=== PATIENT | male | born 1955 | race Caucasian/White ===

== ENCOUNTER 2020-09-19 22:41 | Inpatient (IN) | payer MEDICARE, SELFPAY ==
--- NOTE | ~2020-09-19 | CT_ITS ---
EXAMINATION: CT ABDOMEN AND PELVIS WITHOUT CONTRAST CLINICAL INFORMATION: Evaluate for cirrhosis and hydronephrosis COMPARISON: None TECHNIQUE: Multidetector volumetric imaging was performed from the superior aspect of the liver through the pubic symphysis. Sagittal and coronal reformatted images were obtained on the technologist's workstation. This CT examination was performed using dose optimization techniques as appropriate, variously including the following: *Automated exposure control *Adjustment of mA and/or kV according to patient size (this includes techniques or standardized protocols for targeted exams where dose is matched to indication/reason for exam; i.e. extremities or head) *Use of iterative reconstruction technique DLP: 520 mGy-cm FINDINGS: LUNG BASES: The visualized lung bases are unremarkable. LIVER, GALLBLADDER, AND BILIARY TREE: The liver is normal in size, shape, and attenuation. No focal hepatic lesion or biliary ductal dilatation is present. The gallbladder is contracted. PANCREAS: Unremarkable. SPLEEN: Unremarkable. ADRENAL GLANDS: Unremarkable. KIDNEYS AND URETERS: There are 2 adjacent small 1 to 2 mm stones in the upper pole of the left kidney. The kidneys are otherwise unremarkable. There is no hydronephrosis. BLADDER: Unremarkable. GASTROINTESTINAL TRACT: There is mild diverticulosis of the colon. Small and large bowel is otherwise unremarkable. The appendix is normal. The stomach is normal. ABDOMINAL WALL: No significant hernia is appreciated. There is skin thickening and calcification over the buttock. LYMPH NODES: There are prominent bilateral inguinal lymph nodes. There are small pelvic retroperitoneal lymph nodes. VASCULAR: Unremarkable. PELVIC VISCERA: Prostate gland is slightly enlarged and measures 4 x 5.3 cm in AP and transverse dimension. OSSEOUS STRUCTURES: There are degenerative changes of the spine. CT/CT abdomen pelvis wo con IMPRESSION: Normal-appearing liver. Small left renal stones. No hydronephrosis. Mild diverticulosis. Slightly enlarged prostate gland. Bilateral inguinal lymphadenopathy.
[2020-09-19 23:04] VITALS: BP 83/52; PULSE 77; RESP 16; TEMP 36.5; O2SAT 98; BMI 24.3
--- NOTE | 2020-09-19 23:04 | ECG_ITS ---
Test Reason : WEAKNESS Blood Pressure : / mmHG Vent. Rate : 075 BPM Atrial Rate : 075 BPM P-R Int : 182 ms QRS Dur : 126 ms QT Int : 402 ms P-R-T Axes : 060 040 047 degrees QTc Int : 448 ms Normal sinus rhythm Right bundle branch block Abnormal ECG When compared with ECG of 16-NOV-2003 03:10, Right bundle branch block is now Present Referred By: Rina Olvera Electronically Signed By:RASHEEDA TOMLINSON MD
[2020-09-19 23:28] LABS: MANUAL DIFF FLAG NO
[2020-09-19 23:29] LABS: Basophils Absolute Auto 0.1 X10*3/uL (0.0-0.2); Eosinophils Absolute Auto 0.3 X10*3/uL (0.0-0.4); Eosinophils Percent Auto 2.8 % (0-4); Hematocrit 24.8 % (42-52); Hemoglobin 7.9 g/dl (14.0-18.0); Imm Gran Abs Auto 0.04 X10*3/uL (0.00-0.03); Imm Gran Pct Auto 0.4 % (0.0-0.4); Lymphocytes Absolute Auto 1.6 X10*3/uL (1.2-4.9); Lymphocytes Percent Auto 15.4 % (20-40); Mean Corpuscular HGB Conc 31.9 g/dl (31.0-36.0); Mean Corpuscular Hemoglobin 31.1 pg (27.0-33.0); Mean Corpuscular Volume 97.6 fL (80-98); Mean Platelet Volume 8.6 fL (9.4-12.4); Monocytes Absolute Auto 0.9 X10*3/uL (0.1-1.2); Monocytes Percent Auto 8.9 % (2-11); Neutrophils Absolute Auto 7.5 X10*3/uL (2.0-8.3); Neutrophils Percent Auto 71.5 % (45-73); Platelet Count 358 X10*3/uL (160-400); Red Blood Count 2.54 X10*6/uL (4.60-5.80); Red Cell Distribution Width 14.4 % (11.0-16.0); White Blood Count 10.5 X10*3/uL (4.8-10.8)
[2020-09-19 23:35] LABS: INTERNATIONAL NORM RATIO 1.1 (0.9-1.1); Prothrombin Time 13.5 SEC (10.8-13.0)
[2020-09-19 23:58] LABS: Troponin-I High Sensitivity 4.7 ng/L (<3.5-35.0)
[2020-09-20] VITALS (8 sets, daily range): BP systolic 110–153; BP diastolic 45–85; PULSE 72–89; RESP 15–20; TEMP 36.6–37.6; O2SAT 95–99
[2020-09-20 00:01] LABS: Ethanol 205 mg/dL
[2020-09-20 00:04] LABS: Alanine Aminotransferase 10 U/L (0-40); Albumin Level 2.7 g/dL (3.5-5.0); Alkaline Phosphatase 57 U/L (39-117); Anion Gap 13 (12-20); Aspartate Amino Transferase 10 U/L (5-37); Bilirubin Total 0.4 mg/dL (0.0-1.0); Blood Urea Nitrogen 34 mg/dL (9-16); Calcium 8.5 mg/dL (8.4-10.2); Carbon Dioxide 24 mmol/L (22-29); Chloride 101 mmol/L (96-108); Creatinine Clr Calc Pharmacy 32.8; Estimated Glomerular Filt Rate 24; Glucose Random 107 mg/dL (60-115); Potassium 4.2 mmol/L (3.3-5.1); Sodium 134 mmol/L (135-145); Total Protein 7.8 g/dL (6.5-8.0)
--- NOTE | 2020-09-20 00:04 | PC.NURSE ---
pt reports he drinks 1 pint of alcohol daily.
--- NOTE | 2020-09-20 00:06 | ED.WEAKNESS ---
HPI - Weakness General Chief complaint: Weakness Stated complaint: FALL,HYPOTENSION Time Seen by Provider: 09/19/20 23:04 Source: patient and family () Mode of arrival: EMS History of Present Illness HPI Narrative: 64-year-old male with history hidradenitis, hypertension, alcohol dependence (half to 1 L vodka/daily) who presents with 2 month history of fatigue, weakness that is currently being worked up by his primary care provider with possible referral to Neurology. Patient denies any recent changes in medications, but states that his falling episodes this evening was approximately 2 hours after he had consumed alcohol and he denies any associated visual, palpitations, shortness of breath, feelings of cold and clammy prior to his fall onto his knees. He denies any head strike or loss of consciousness but states that he took his blood pressure and noted that it was low. Related Data Allergies Allergy/AdvReac Type Severity Reaction Status Date / Time hydrochlorothiazide Allergy Unknown lip swells Verified 05/11/19 00:00 Review of Systems Review of Systems: Pertinent positives and negatives as stated in HPI 10 point review of systems is otherwise negative. PMFSH Past Medical History Source: nursing notes reviewed Medical History Hidradenitis Hidradenitis suppurativa Social History Social History Advance Directives: No Advance Directives Information Provided: No Physical Exam Vital Signs: Vital Signs: Last Vital Signs Temp 97.7 F 09/19/20 23:04 Pulse 89 09/20/20 02:48 Resp 16 09/20/20 02:48 BP 110/45 L 09/20/20 02:48 Pulse Ox 95 09/20/20 02:48 Body Mass Index 24.3 VITAL SIGNS: Reviewed. GENERAL: Well developed, well nourished, in no acute distress. HEAD: Normocephalic/atraumatic EYES: PERRLA, EOMI NOSE: Nares patent bilateral OROPHARYNX: no oral lesions noted, posterior pharynx clear, tacky mucosa NECK: Supple, no adenopathy LUNGS: Normal breath sounds. No adventitious sounds or accessory muscle use. SpO2<98> CARDIOVASCULAR: Regular rate and rhythm without noted murmurs ABDOMEN: Soft, non-tender, non-distended with bowel sounds. NEUROLOGIC: Alert and oriented x 4. Strength and sensation to light touch were grossly intact x 4, no facial asymmetry, no pronator drift, cranial nerves 2-12 are grossly intact. Course Course Course Narrative: 64-year-old male with history and clinical presentation consistent with likely vasovagal with near-syncope and thought to be multifactorial as a combination of alcohol, low volume as well as other factors not yet identified. Patient has no neurological deficits at this time leading to low clinical suspicion for intracranial pathologies. On review of all investigations there is a noted anemia/BREANA which on comparison to results from patient's portal provided by the from 08/20/2020 is new. Stool was guaiac negative, however this is not rule out a transient upper GI bleed. The anemia could be multifactorial in associated with vitamin, medication, renal function. All results were discussed with the patient and his at bedside as well as the inpatient hospitalist who is agreeable for admission. MDM - Weakness Lab Data Result diagrams: 09/19/20 23:23 09/19/20 23:23 Labs: Lab Results 09/19/20 09/19/20 09/19/20 Range/Units 23:23 23:23 23:23 WBC 10.5 (4.8-10.8) X10*3/uL RBC 2.54 L (4.60-5.80) X10*6/uL Hgb 7.9 L (14.0-18.0) g/dl Hct 24.8 L (42-52) % MCV 97.6 (80-98) fL MCH 31.1 (27.0-33.0) pg MCHC 31.9 (31.0-36.0) g/dl RDW 14.4 (11.0-16.0) % Plt Count 358 (160-400) X10*3/uL MPV 8.6 L (9.4-12.4) fL Immature Gran % (Auto) 0.4 (0.0-0.4) % Neut % (Auto) 71.5 (45-73) % Lymph % (Auto) 15.4 L (20-40) % [place] % (Auto) 8.9 (2-11) % Eos % (Auto) 2.8 (0-4) % Baso % (Auto) 1.0 (0-2) % Lymph # (Auto) 1.6 (1.2-4.9) X10*3/uL [place] # (Auto) 0.9 (0.1-1.2) X10*3/uL Eos # (Auto) 0.3 (0.0-0.4) X10*3/uL Baso # (Auto) 0.1 (0.0-0.2) X10*3/uL Abs Immat Gran (auto) 0.04 H (0.00-0.03) X10*3/uL Absolute Neuts (auto) 7.5 (2.0-8.3) X10*3/uL Absolute Nucleated RBC 0.000 (0.0-0.012) X10*3/uL Nucleated RBC % (auto) 0.0 (0.0-0.2) /100WBC PT 13.5 H (10.8-13.0) SEC INR 1.1 (0.9-1.1) Sodium 134 L (135-145) mmol/L Potassium 4.2 (3.3-5.1) mmol/L Chloride 101 (96-108) mmol/L Carbon Dioxide 24 (22-29) mmol/L Anion Gap 13 (12-20) BUN 34 H (9-16) mg/dL Creatinine 2.68 H (0.5-1.4) mg/dL Estim Creat Clear Calc 32.8 Estimated GFR 24 Random Glucose 107 (60-115) mg/dL Calcium 8.5 (8.4-10.2) mg/dL Total Bilirubin 0.4 (0.0-1.0) mg/dL AST 10 (5-37) U/L ALT 10 (0-40) U/L Alkaline Phosphatase 57 (39-117) U/L Troponin I High Sens (<3.5-35.0) ng/L Total Protein 7.8 (6.5-8.0) g/dL Albumin 2.7 L (3.5-5.0) g/dL Urine Color Urine Appearance Urine pH (5.0-8.0) Ur Specific [place] (1.005-1.025) Urine Protein (NEG-TRACE) MG/DL Urine Glucose (UA) (NEG) MG/DL Urine Ketones (NEG) MG/DL Urine Blood (NEG) Urine Nitrite (NEG) Ur Leukocyte Esterase (NEG) Stool Occult Blood (NEGATIVE) Ethyl Alcohol mg/dL 09/19/20 09/19/20 09/20/20 Range/Units 23:23 23:23 02:21 WBC (4.8-10.8) X10*3/uL RBC (4.60-5.80) X10*6/uL Hgb (14.0-18.0) g/dl Hct (42-52) % MCV (80-98) fL MCH (27.0-33.0) pg MCHC (31.0-36.0) g/dl RDW (11.0-16.0) % Plt Count (160-400) X10*3/uL MPV (9.4-12.4) fL Immature Gran % (Auto) (0.0-0.4) % Neut % (Auto) (45-73) % Lymph % (Auto) (20-40) % [place] % (Auto) (2-11) % Eos % (Auto) (0-4) % Baso % (Auto) (0-2) % Lymph # (Auto) (1.2-4.9) X10*3/uL [place] # (Auto) (0.1-1.2) X10*3/uL Eos # (Auto) (0.0-0.4) X10*3/uL Baso # (Auto) (0.0-0.2) X10*3/uL Abs Immat Gran (auto) (0.00-0.03) X10*3/uL Absolute Neuts (auto) (2.0-8.3) X10*3/uL Absolute Nucleated RBC (0.0-0.012) X10*3/uL Nucleated RBC % (auto) (0.0-0.2) /100WBC PT (10.8-13.0) SEC INR (0.9-1.1) Sodium (135-145) mmol/L Potassium (3.3-5.1) mmol/L Chloride (96-108) mmol/L Carbon Dioxide (22-29) mmol/L Anion Gap (12-20) BUN (9-16) mg/dL Creatinine (0.5-1.4) mg/dL Estim Creat Clear Calc Estimated GFR Random Glucose (60-115) mg/dL Calcium (8.4-10.2) mg/dL Total Bilirubin (0.0-1.0) mg/dL AST (5-37) U/L ALT (0-40) U/L Alkaline Phosphatase (39-117) U/L Troponin I High Sens 4.7 (<3.5-35.0) ng/L Total Protein (6.5-8.0) g/dL Albumin (3.5-5.0) g/dL Urine Color Urine Appearance Urine pH (5.0-8.0) Ur Specific [place] (1.005-1.025) Urine Protein (NEG-TRACE) MG/DL Urine Glucose (UA) (NEG) MG/DL Urine Ketones (NEG) MG/DL Urine Blood (NEG) Urine Nitrite (NEG) Ur Leukocyte Esterase (NEG) Stool Occult Blood NEGATIVE (NEGATIVE) Ethyl Alcohol 205 mg/dL 09/20/20 Range/Units 02:55 WBC (4.8-10.8) X10*3/uL RBC (4.60-5.80) X10*6/uL Hgb (14.0-18.0) g/dl Hct (42-52) % MCV (80-98) fL MCH (27.0-33.0) pg MCHC (31.0-36.0) g/dl RDW (11.0-16.0) % Plt Count (160-400) X10*3/uL MPV (9.4-12.4) fL Immature Gran % (Auto) (0.0-0.4) % Neut % (Auto) (45-73) % Lymph % (Auto) (20-40) % [place] % (Auto) (2-11) % Eos % (Auto) (0-4) % Baso % (Auto) (0-2) % Lymph # (Auto) (1.2-4.9) X10*3/uL [place] # (Auto) (0.1-1.2) X10*3/uL Eos # (Auto) (0.0-0.4) X10*3/uL Baso # (Auto) (0.0-0.2) X10*3/uL Abs Immat Gran (auto) (0.00-0.03) X10*3/uL Absolute Neuts (auto) (2.0-8.3) X10*3/uL Absolute Nucleated RBC (0.0-0.012) X10*3/uL Nucleated RBC % (auto) (0.0-0.2) /100WBC PT (10.8-13.0) SEC INR (0.9-1.1) Sodium (135-145) mmol/L Potassium (3.3-5.1) mmol/L Chloride (96-108) mmol/L Carbon Dioxide (22-29) mmol/L Anion Gap (12-20) BUN (9-16) mg/dL Creatinine (0.5-1.4) mg/dL Estim Creat Clear Calc Estimated GFR Random Glucose (60-115) mg/dL Calcium (8.4-10.2) mg/dL Total Bilirubin (0.0-1.0) mg/dL AST (5-37) U/L ALT (0-40) U/L Alkaline Phosphatase (39-117) U/L Troponin I High Sens (<3.5-35.0) ng/L Total Protein (6.5-8.0) g/dL Albumin (3.5-5.0) g/dL Urine Color YELLOW Urine Appearance CLEAR Urine pH 6.0 (5.0-8.0) Ur Specific [place] <= 1.005 (1.005-1.025) Urine Protein 1+ H (NEG-TRACE) MG/DL Urine Glucose (UA) NEG (NEG) MG/DL Urine Ketones NEG (NEG) MG/DL Urine Blood NEG (NEG) Urine Nitrite NEG (NEG) Ur Leukocyte Esterase NEG (NEG) Stool Occult Blood (NEGATIVE) Ethyl Alcohol mg/dL ECG Data Attestation: I personally reviewed and interpreted this ECG as follows: Prior ECG tracings: available for review (11/16/2003 there are noted changes however comparison ECG is from almost 20 years ago.) Interpretation: Normal sinus rhythm, heart rate-75, RBBB, no evidence of acute ischemia, MO/QTC are within normal limits. Discharge Plan Discharge Clinical Impression: Anemia, BREANA (acute kidney injury), Weakness, Alcohol dependence Patient Disposition: Admitted As Inpatient
[2020-09-20] MEDS: 0.9 % Sodium Chloride 2,000 ML 999 ML IV (00:49)
[2020-09-20] MEDS: Acetaminophen 325 MG TABLET 975 MG PO (00:49)
--- NOTE | 2020-09-20 01:43 | PC.NURSE ---
pt given urinal and urine collection kit. pt not able to void at this time.
[2020-09-20 02:27] LABS: OBS Int Ctl Valid YES; OBS1 NEGATIVE (NEGATIVE)
[2020-09-20 03:02] LABS: Glucose Urine UA NEG (NEG); Leukocyte Esterase Urine NEG (NEG); Nitrite Urine NEG (NEG); Specific Gravity - Urine <= 1.005 (1.005-1.025); Urine Blood NEG (NEG); Urine Ketones NEG (NEG); Urine Protein 1+ MG/DL (NEG-TRACE)
[2020-09-20 03:03] LABS: Appearance Urine CLEAR; Color Urine YELLOW
[2020-09-20 03:44] LABS: Amorphous Sediment Urine TRACE /LPF; Granular Casts Urine 0-2 /LPF; Hyaline Casts Urine 0-2 /LPF; Mucus Urine TRACE /LPF; RBC Urine 0 /HPF (0); Squamous Epithelial Cell Urine TRACE /LPF; WBC Urine 0-2 /HPF (0-4)
[2020-09-20 03:48] LABS: Amphetamine Screen Urine Not Detected (Not Detect); Barbiturates, Urine Not Detected (Not Detect); Benzodiazepines Screen Urine Not Detected (Not Detect); Cannabinoid Screen Urine Not Detected (Not Detect); Cocaine Screen Urine Not Detected (Not Detect); Opiate Screen Urine Not Detected (Not Detect); Phencyclidine Screen Urine Not Detected (Not Detect)
[2020-09-20 04:10] LABS: COVID-19 Test Negative (Negative); IDNOW Serial# 9DD0AD1C
[2020-09-20 04:19] LABS: Troponin-I High Sensitivity 4.5 ng/L (<3.5-35.0)
--- NOTE | 2020-09-20 05:25 | P.HPHOSP_ITS ---
History of Present Illness Date of Service: 09/20/20 Chief Complaint: Fatigue, frequent falls This is a 64-year-old male with past medical history of hypertension, hydradenitis who presents to the hospital with complaints of frequent falls, as well as fatigue and weakness for the past 1 month. Patient reports that he has been having frequent falls due to the weakness with sinus and losing consciousness, no dizziness, no headache or change in vision. Patient had a tumble today and decided to come to the hospital. He has been feeling tired and low energy. Low oral intake. No nausea or vomiting, no abdominal pain diarrhea constipation. No urinary symptoms and no lower extremity edema. He denies any melena, bright red blood per rectum, no hematemesis, or hemoptysis. Denies any numbness tingling or limb weakness On arrival to the ED patient had a temperature of 97.7?, heart rate of 77, respiratory rate of 16, blood pressure of 83/52 which improved to 100 10/45 after fluid resuscitation, satting 98% on room air Labs are significant for WBC count of 10.5, hemoglobin of 7.9, (most recent hemoglobin of 10.6 and hematocrit of 35 on August), sodium of 134, BUN of 34, creatinine of 2.6 with most recent numbers being 22 in 1.68 in August ( as seen on pt portal brought in by ) Albumin of 2.7. UA negative. UDS negative. COVID-19 negative. Past medical history as below and patient will be admitted for further evaluation Review of Systems Review of Systems: Yes all other systems are reviewed and are negative [facility] Medical History Hidradenitis Hidradenitis suppurativa Social History (Updated 09/20/20 @ 05:30 by Fei Cartagena MD) Alcohol intake: current Advance Directives: No Advance Directives Information Provided: No Meds Allergies Allergy/AdvReac Type Severity Reaction Status Date / Time hydrochlorothiazide Allergy Unknown lip swells Verified 09/20/20 03:40 Home Medications Medication Instructions Recorded Confirmed Last Taken Type atenolol 1 tab PO DAILY 09/20/20 09/20/20 Unknown History doxycycline hyclate 1 cap PO BID 09/20/20 09/20/20 Unknown History losartan 1 tab PO DAILY 09/20/20 09/20/20 Unknown History Physical Exam Vital Signs and Narrative: Vital Signs: Last Vital Signs Temp 97.7 F 09/19/20 23:04 Pulse 89 09/20/20 02:48 Resp 16 09/20/20 02:48 BP 110/45 L 09/20/20 02:48 Pulse Ox 95 09/20/20 02:48 Body Mass Index 24.3 Const: General: cooperative, no acute distress, poor hygiene and tired appearing Orientation/consciousness: patient oriented x3 Eyes: General: appearance normal, both eyes and all related structures Resp: Effort & Inspection: normal respiratory effort and able to speak in complete sentences Cardio: Rate: regular rate Rhythm: regular rhythm GI: Palpation (GI): Soft to palpation Auscultation: normal bowel sounds Skin: General skin exam: no rashes or lesions noted Neuro: General: patient oriented x3 Cognition (Neuro): normal cognition Extrem: General: Yes normal to inspection and Yes no pedal edema Results Labs CBC and Chem 7: 09/19/20 23:23 09/19/20 23:23 Labs: Laboratory Results - last 24 hr 09/19/20 09/19/20 09/19/20 23:23 23:23 23:23 MCV 97.6 MCH 31.1 MCHC 31.9 RDW 14.4 Plt Count 358 MPV 8.6 L Immature Gran % (Auto) 0.4 Neut % (Auto) 71.5 Lymph % (Auto) 15.[address] [place] % (Auto) 8.9 Eos % (Auto) 2.8 Baso % (Auto) 1.0 Lymph # (Auto) 1.6 [place] # (Auto) 0.9 Eos # (Auto) 0.3 Baso # (Auto) 0.1 Abs Immat Gran (auto) 0.04 H Absolute Neuts (auto) 7.5 Absolute Nucleated RBC 0.000 Nucleated RBC % (auto) 0.0 PT 13.5 H INR 1.1 Anion Gap 13 Estim Creat Clear Calc 32.8 Estimated GFR 24 Random Glucose 107 Calcium 8.5 Total Bilirubin 0.4 AST 10 ALT 10 Alkaline Phosphatase 57 Troponin I High Sens Total Protein 7.8 Albumin 2.7 L Urine Color Urine Appearance Urine pH Ur Specific [place] Urine Protein Urine Glucose (UA) Urine Ketones Urine Blood Urine Nitrite Ur Leukocyte Esterase Urine RBC Urine WBC Ur Squamous Epith Cells Amorphous Sediment Urine Bacteria Hyaline Casts Granular Casts Urine Mucus Stool Occult Blood Urine Opiates Screen Ur Barbiturates Screen Ur Phencyclidine Scrn Ur Amphetamines Screen U Benzodiazepines Scrn Urine Cocaine Screen U Marijuana (THC) Screen Ethyl Alcohol COVID-19 ([facility]) COVID-19 [facility] 09/19/20 09/19/20 09/20/20 23:23 23:23 02:21 MCV MCH MCHC RDW Plt Count MPV Immature Gran % (Auto) Neut % (Auto) Lymph % (Auto) [place] % (Auto) Eos % (Auto) Baso % (Auto) Lymph # (Auto) [place] # (Auto) Eos # (Auto) Baso # (Auto) Abs Immat Gran (auto) Absolute Neuts (auto) Absolute Nucleated RBC Nucleated RBC % (auto) PT INR Anion Gap Estim Creat Clear Calc Estimated GFR Random Glucose Calcium Total Bilirubin AST ALT Alkaline Phosphatase Troponin I High Sens 4.7 Total Protein Albumin Urine Color Urine Appearance Urine pH Ur Specific [place] Urine Protein Urine Glucose (UA) Urine Ketones Urine Blood Urine Nitrite Ur Leukocyte Esterase Urine RBC Urine WBC Ur Squamous Epith Cells Amorphous Sediment Urine Bacteria Hyaline Casts Granular Casts Urine Mucus Stool Occult Blood NEGATIVE Urine Opiates Screen Ur Barbiturates Screen Ur Phencyclidine Scrn Ur Amphetamines Screen U Benzodiazepines Scrn Urine Cocaine Screen U Marijuana (THC) Screen Ethyl Alcohol 205 COVID-19 ([facility]) COVID-19 [facility] 09/20/20 09/20/20 09/20/20 02:55 02:55 03:49 MCV MCH MCHC RDW Plt Count MPV Immature Gran % (Auto) Neut % (Auto) Lymph % (Auto) [place] % (Auto) Eos % (Auto) Baso % (Auto) Lymph # (Auto) [place] # (Auto) Eos # (Auto) Baso # (Auto) Abs Immat Gran (auto) Absolute Neuts (auto) Absolute Nucleated RBC Nucleated RBC % (auto) PT INR Anion Gap Estim Creat Clear Calc Estimated GFR Random Glucose Calcium Total Bilirubin AST ALT Alkaline Phosphatase Troponin I High Sens 4.5 Total Protein Albumin Urine Color YELLOW Urine Appearance CLEAR Urine pH 6.0 Ur Specific [place] <= 1.005 Urine Protein 1+ H Urine Glucose (UA) NEG Urine Ketones NEG Urine Blood NEG Urine Nitrite NEG Ur Leukocyte Esterase NEG Urine RBC 0 Urine WBC 0-2 Ur Squamous Epith Cells TRACE Amorphous Sediment TRACE Urine Bacteria NONE Hyaline Casts 0-2 Granular Casts 0-2 Urine Mucus TRACE Stool Occult Blood Urine Opiates Screen Not Detected Ur Barbiturates Screen Not Detected Ur Phencyclidine Scrn Not Detected Ur Amphetamines Screen Not Detected U Benzodiazepines Scrn Not Detected Urine Cocaine Screen Not Detected U Marijuana (THC) Screen Not Detected Ethyl Alcohol COVID-19 ([facility]) COVID-19 Clin Com 09/20/20 03:49 MCV MCH MCHC RDW Plt Count MPV Immature Gran % (Auto) Neut % (Auto) Lymph % (Auto) [place] % (Auto) Eos % (Auto) Baso % (Auto) Lymph # (Auto) [place] # (Auto) Eos # (Auto) Baso # (Auto) Abs Immat Gran (auto) Absolute Neuts (auto) Absolute Nucleated RBC Nucleated RBC % (auto) PT INR Anion Gap Estim Creat Clear Calc Estimated GFR Random Glucose Calcium Total Bilirubin AST ALT Alkaline Phosphatase Troponin I High Sens Total Protein Albumin Urine Color Urine Appearance Urine pH Ur Specific [place] Urine Protein Urine Glucose (UA) Urine Ketones Urine Blood Urine Nitrite Ur Leukocyte Esterase Urine RBC Urine WBC Ur Squamous Epith Cells Amorphous Sediment Urine Bacteria Hyaline Casts Granular Casts Urine Mucus Stool Occult Blood Urine Opiates Screen Ur Barbiturates Screen Ur Phencyclidine Scrn Ur Amphetamines Screen U Benzodiazepines Scrn Urine Cocaine Screen U Marijuana (THC) Screen Ethyl Alcohol COVID-19 ([facility]) Negative COVID-19 Clin Com See Note Assessment and Plan (1) Normocytic anemia: Status: Acute (2) BREANA (acute kidney injury): Status: Acute (3) Weakness: Status: Acute (4) Alcohol dependence: Status: Acute (5) Hypotensive episode: Status: Acute This is a 64-year-old male with past medical history of hypertension who presents to the hospital frequent falls found to have anemia and BREANA. # macrocytic anemia - possibly secondary to malnutrition versus liver disease in the setting of alcohol abuse versus GI bleed less likely - presents with a hemoglobin of 7.9 with a recent hemoglobin from August was 10.6 - stool occult blood negative - denies any melena, no hemoptysis or hematemesis Plan: - will obtain iron studies, folate and B12 levels - reticulocyte count - if all normal, consider GI evaluation with colonoscopy/endoscopy - will check TSH as well - transfusion threshold of hemoglobin less than 7 # BREANA on CKD - baseline creatinine around 1.68, presents with a creatinine of 2.68 - possibly secondary to low oral intake and dehydration - will start him on IV fluids - follow BMP # frequent falls and weakness - secondary to above - patient also alcoholic and drinks 1-2 pt of alcohol daily which is most likely contributing to his falls and weakness - PT OT # alcohol abuse - will start him on phenobarb protocol for potential withdrawal - folic acid and thiamine supplement # hypotensive - patient hypotensive on arrival - no evidence of acute infection, no leukocytosis, afebrile, UA negative therefore most likely secondary to dehydration and low oral intake - will hold antihypertensive DVT prophylaxis: SCDs
[2020-09-20 05:46] LABS: Immature Retic Fraction 10.1 % (2.3-13.4); Retic HGB Equivalent 30.5 pg (30.0-35.0); Reticulocyte Percent 2.3 % (0.5-1.8); Reticulocytes Absolute 0.058 X10*6/uL (0.026-0.095)
[2020-09-20] MEDS: PHENobarbitaL sodium 130 MG/ML VIAL 340 MG IM (06:44)
--- NOTE | 2020-09-20 07:45 | PC.NURSE ---
[place] [facility] [place] awaiting ahsan to call back
--- NOTE | 2020-09-20 08:35 | MHC.CM.PN ---
CM met with Patient at bedside and addressed IMM with him, providing him with the original and placing a copy on the chart. Patient lives in a house with his /HCP and he used no services nor DME [employer]. Patient's goal is to return home and CM has initiated and will follow for dc planning. Patient has ETOH and may benefit from a Care Team Consult. PCP is Dr. Todd Landin.
[2020-09-20] MEDS: 0.9 % Sodium Chloride 1,000 ML 100 ML IVCONT (08:44)
[2020-09-20] MEDS: Acetaminophen 325 MG TABLET 650 MG PO ×2 (08:45→16:02)
[2020-09-20] MEDS: Folic Acid 1 MG TABLET PO (08:45)
[2020-09-20] MEDS: 0.9 % Sodium Chloride Flush 3 ML SYRINGE IVFLUSH ×2 (08:45→16:07)
[2020-09-20] MEDS: Thiamine HCL 100 MG TABLET PO (08:45)
[2020-09-20 10:10] LABS: Ferritin 147 ng/mL (20-250); Thyroid Stimulating Hormone 1.08 uIU/mL (0.32-4.0)
[2020-09-20 10:20] LABS: Folate 6.7 ng/mL (> or = 4.0); Vitamin B12 368 pg/mL (200-900)
[2020-09-20] MEDS: PHENobarbitaL sodium 130 MG/ML VIAL 255 MG IM ×2 (12:51→16:22)
[2020-09-20] MEDS: atenoloL 100 MG TABLET PO (12:52)
[2020-09-20 13:05] LABS: Potassium Urine Random 22.6 mmol/L
[2020-09-20 13:10] LABS: Creatinine Urine 76.13 mg/dL
[2020-09-20] MEDS: PHENobarbitaL 30 MG TABLET 60 MG PO (20:25)
[2020-09-21] MEDS: Acetaminophen 325 MG TABLET 650 MG PO (00:47)
[2020-09-21 03:07] VITALS: BP 117/71; PULSE 78; RESP 16; TEMP 36.8; O2SAT 93
[2020-09-21] MEDS: 0.9 % Sodium Chloride 1,000 ML 100 ML IVCONT (04:59)
[2020-09-21 06:10] LABS: MANUAL DIFF FLAG NO
[2020-09-21 06:15] LABS: Basophils Absolute Auto 0.1 X10*3/uL (0.0-0.2); Basophils Percent Auto 0.8 % (0-2); Eosinophils Absolute Auto 0.5 X10*3/uL (0.0-0.4); Eosinophils Percent Auto 4.1 % (0-4); Hematocrit 24.7 % (42-52); Hemoglobin 7.9 g/dl (14.0-18.0); Imm Gran Abs Auto 0.05 X10*3/uL (0.00-0.03); Imm Gran Pct Auto 0.4 % (0.0-0.4); Lymphocytes Absolute Auto 1.1 X10*3/uL (1.2-4.9); Lymphocytes Percent Auto 9.4 % (20-40); Mean Corpuscular Hemoglobin 31.1 pg (27.0-33.0); Mean Corpuscular Volume 97.2 fL (80-98); Mean Platelet Volume 9.1 fL (9.4-12.4); Monocytes Absolute Auto 0.9 X10*3/uL (0.1-1.2); Monocytes Percent Auto 7.8 % (2-11); Neutrophils Absolute Auto 9.2 X10*3/uL (2.0-8.3); Neutrophils Percent Auto 77.5 % (45-73); Platelet Count 350 X10*3/uL (160-400); Red Blood Count 2.54 X10*6/uL (4.60-5.80); Red Cell Distribution Width 14.2 % (11.0-16.0); White Blood Count 11.9 X10*3/uL (4.8-10.8)
[2020-09-21 06:51] LABS: Anion Gap 11 (12-20); Blood Urea Nitrogen 27 mg/dL (9-16); Calcium 8.4 mg/dL (8.4-10.2); Carbon Dioxide 22 mmol/L (22-29); Chloride 110 mmol/L (96-108); Creatinine Clr Calc Pharmacy 48.9; Estimated Glomerular Filt Rate 38; Glucose Random 91 mg/dL (60-115); Potassium 4.1 mmol/L (3.3-5.1); Sodium 139 mmol/L (135-145)
[2020-09-21 07:32] VITALS: BP 137/85; PULSE 82; RESP 18; TEMP 36.2; O2SAT 97
[2020-09-21 08:44] LABS: B Type Natriuretic Peptide 943 pg/mL (<100)
[2020-09-21] MEDS: PHENobarbitaL 30 MG TABLET 60 MG PO ×2 (09:05→21:55)
[2020-09-21 09:06] VITALS: BP 137/85; PULSE 82
[2020-09-21] MEDS: Thiamine HCL 100 MG TABLET PO (09:06)
[2020-09-21] MEDS: atenoloL 100 MG TABLET PO (09:06)
[2020-09-21] MEDS: Folic Acid 1 MG TABLET PO (09:07)
[2020-09-21 11:05] VITALS: BP 123/69; PULSE 80; RESP 18; TEMP 36.5; O2SAT 96
[2020-09-21 11:35] LABS: Leukocytes Stool Qualitative FEW: < 2/OIF (NEGATIVE)
[2020-09-21 11:57] LABS: CDIFF Ag Negative (Negative); CDIFF Internal ctrl Dots and bkg OK (V); CDiff Toxin Negative (Negative)
[2020-09-21] MEDS: Loperamide HCl 2 MG CAPSULE PO (12:26)
--- NOTE | 2020-09-21 12:31 | HO.PM.IMPN ---
Subjective Subjective Date of Service: 09/21/20 Interval History: the patient was seen and evaluated this morning Laying in bed, feels disturbed and anxious with reported diarrhea multiple occasions overnight but denies abdominal pain Kidney function improving Denies any fever, chills or shortness of breath No reported other overnight events. Systemic review: No fever, chills but reports generalized weakness and increased anxiety No chest pain, palpitation No shortness of breath or coughing No abdominal pain, nausea or vomiting and having multiple episodes of diarrhea No urinary symptoms No any rash or wounds Physical Exam Vital Signs: Vital Signs: Last Vital Signs Temp 97.7 F 09/21/20 11:05 Pulse 80 09/21/20 11:05 Resp 18 09/21/20 11:05 BP 123/69 09/21/20 11:05 Pulse Ox 96 09/21/20 11:05 Body Mass Index 24.3 Const: Other: Constitutional : Alert, oriented, stressed out and seems mildly anxious Neck : Normal inspection, Supple Cardiovascular : RRR, S1 S2, trace bilateral lower extremity edema Respiratory : Good bilateral air entry, no crackles, wheezes or rhonchi Gastrointestinal: soft, lax, Normal bowel sounds, Non tender Skin : Warm/Dry, hidradenitis rash and sinuses in the armpit area with no erythema but mild drainage and tenderness Neurological : Alert & oriented x3, No focal deficit Objective Data Current Medications Generic Name Dose Route Start Last Admin Trade Name Freq PRN Reason Stop Dose Admin Acetaminophen 650 mg 09/20/20 07:59 09/21/20 00:47 Acetaminophen 325 Mg Tablet PO 650 mg Q6H PRN Administration Pain, Mild (Pain Scale 1-3) Al Hydroxide/Mg Hydroxide 30 ml 09/20/20 07:59 Magnesium Hydrox/Alum Hydrox 30 Ml Oral.Susp PO Q4H PRN Heartburn/Nausea Atenolol 100 mg 09/20/20 09:00 09/21/20 09:06 Atenolol 100 Mg Tablet PO 100 mg DAILY [facility] Administration Protocol Docusate Sodium 100 mg 09/20/20 07:59 Docusate Sodium 100 Mg Capsule PO DAILY PRN Constipation Folic Acid 1 mg 09/20/20 09:00 09/21/20 09:07 Folic Acid 1 Mg Tablet PO 1 mg DAILY [facility] Administration Sodium Chloride 1,000 mls @ 100 mls/hr 09/20/20 07:59 09/21/20 04:59 Ns IVCONT 100 mls/hr .Q10H [facility] Administration Loperamide HCl 2 mg 09/21/20 12:18 09/21/20 12:26 Loperamide Hcl 2 Mg Capsule PO 2 mg Q4H PRN Administration Diarrhea Medication 1 each 09/20/20 09:00 No Benzodiazepines MISCELLANE DAILY [facility] Non-Formulary Medication 40 mg 09/20/20 16:15 Adalimumab [Humira] SUBCUT Q7D [facility] Phenobarbital 60 mg 09/20/20 21:00 09/21/20 09:05 Phenobarbital 30 Mg Tablet PO 09/22/20 09:01 60 mg BID [facility] Administration Protocol Phenobarbital 30 mg 09/22/20 21:00 Phenobarbital 30 Mg Tablet PO 09/24/20 09:01 BID [facility] Protocol Phenobarbital 30 mg 09/25/20 09:00 Phenobarbital 30 Mg Tablet PO 09/26/20 09:01 DAILY [facility] Protocol Sodium Chloride 3 ml 09/20/20 08:00 09/21/20 09:13 0.9 % Sodium Chloride Flush 3 Ml Syringe IVFLUSH Not Given QSHIFT [facility] Thiamine HCl 100 mg 09/20/20 09:00 09/21/20 09:06 Thiamine Hcl 100 Mg Tablet PO 100 mg DAILY [facility] Administration Labs CBC & Chem 7: 09/21/20 05:56 09/21/20 05:56 Assessment and Plan (1) Normocytic anemia: Status: Acute (2) BREANA (acute kidney injury): Status: Acute (3) Weakness: Status: Acute (4) Alcohol dependence: Status: Acute (5) Hypotensive episode: Status: Acute Assessment and Plan: This is a 64-year-old male with past medical history of hypertension who presents to the hospital frequent falls found to have anemia and BREANA. Acute on chronic anemia Multifactorial malnutrition\liver disease\GI bleed\bone Brownlee disorder presents with a hemoglobin of 7.9 with a recent hemoglobin from August was 10.6 stool occult blood negative denies any melena, no hemoptysis or hematemesis iron studies, folate and B12 levels within normal Pending electrophoresis, immunofixation, kappa and lambda To get GI evaluation for possible EGD transfusion threshold of hemoglobin less than 7 Diarrhea Reported 5 episode since last night C diff negative Repeat occult blood To give Imodium as needed BREANA on CKD Improving CT scan abdomen pelvis showing no cirrhosis or obstruction Discontinue IV fluid Monitor intake and output follow BMP Elevated BNP Seems in mild fluid overload Monitor diarrhea and decided using Lasix afterward frequent falls and weakness Multifactorial, alcoholism, physical deconditioning, anemia PT OT alcohol abuse Continue phenobarb protocol for potential withdrawal folic acid and thiamine supplement Hypotensive Secondary to home medications, on hold Blood pressure much better DVT prophylaxis SCDs
[2020-09-21 13:07] LABS: Iron 13 mcg/dL (45-160); Percent Iron Saturation 7 % (15-50); Total Iron Binding Capacity 184 mcg/dL (228-428); Unsaturated Iron Binding 171 ug/dL
[2020-09-21 13:28] LABS: OBS Int Ctl Valid YES; OBS1 POSITIVE (NEGATIVE)
--- NOTE | 2020-09-21 14:09 | PM.CNNEP ---
History of Present Illness Reason for Consult Consult date: 09/21/20 Reason for consult: BREANA on CKD Chief Complaint Chief complaint: acute normocytic anemia, breana History of Present Illness Narrative: Mr. Ryan Medina is a 64-year-old male with past medical history of hypertension, hydradenitis (on humira) and undiagnosed CKD (BL CR 1.6mg/dL) who presented with fall. He was found to be hypovolemic with BREANA now improving after IVF support. He tells me he has a significant history of BPH and retention. 7 bouts of nocturia each night. He also drink 1-1.5 pints of ETOH daily. Poor appetite maybe 1 meal per day. On arrival to the ED patient had a temperature of 97.7?, heart rate of 77, respiratory rate of 16, blood pressure of 83/52 which improved to 100 10/45 after fluid resuscitation, satting 98% on room air Labs are significant for WBC count of 10.5, hemoglobin of 7.9, (most recent hemoglobin of 10.6 and hematocrit of 35 on August), sodium of 134, BUN of 34, creatinine of 2.6 UA negative. Review of Systems Review of Systems Pertinent positives and negatives as stated in HPI 10 point review of systems is otherwise negative. Yes all other systems are reviewed and are negative PMFSH Past Medical History Medical History Hidradenitis Hidradenitis suppurativa Social History Social History (Updated 09/20/20 @ 05:30 by Fei Cartagena MD) Household Members: Spouse Housing: House Do you presently have visiting nurse or other home services: No Alcohol intake: current Smoking Status: Current every day smoker Cigarettes Per Day: 20 Years Smoked: 50 Smoked in Last 30 Days: Yes Patient Interested in Nicotine Replacement: No Patient Given Instructions on How to Stop Smoking: No Use of substances other than those prescribed or required for medical reasons: No Currently Displaying Signs/Symptoms of Drug Intoxication Withdrawal: No Have you been hit, kicked, punched, or otherwise hurt by someone within the past year? If so, by whom?: No Do you feel safe in your current relationship?: Yes Is there a partner from a previous relationship who is making you feel unsafe now?: No Are you made to feel afraid or neglected: No Advance Directives: No Advance Directives Information Provided: No Do you have thoughts of harming others: None Do you have a plan to hurt others: No Plan Recently lost weight without trying: No Nutrition Risks: No Nutritional Risk service: No Current occupational status: retired Meds Allergies Allergy/AdvReac Type Severity Reaction Status Date / Time hydrochlorothiazide Allergy Unknown lip swells Verified 09/20/20 03:40 Active Medications: Current Medications Generic Name Dose Route Start Last Admin Trade Name Freq PRN Reason Stop Dose Admin Acetaminophen 650 mg 09/20/20 07:59 09/21/20 00:47 Acetaminophen 325 Mg Tablet PO 650 mg Q6H PRN Administration Pain, Mild (Pain Scale 1-3) Al Hydroxide/Mg Hydroxide 30 ml 09/20/20 07:59 Magnesium Hydrox/Alum Hydrox 30 Ml Oral.Susp PO Q4H PRN Heartburn/Nausea Atenolol 100 mg 09/20/20 09:00 09/21/20 09:06 Atenolol 100 Mg Tablet PO 100 mg DAILY [facility] Administration Protocol Docusate Sodium 100 mg 09/20/20 07:59 Docusate Sodium 100 Mg Capsule PO DAILY PRN Constipation Folic Acid 1 mg 09/20/20 09:00 09/21/20 09:07 Folic Acid 1 Mg Tablet PO 1 mg DAILY [facility] Administration Loperamide HCl 2 mg 09/21/20 12:18 09/21/20 12:26 Loperamide Hcl 2 Mg Capsule PO 2 mg Q4H PRN Administration Diarrhea Medication 1 each 09/20/20 09:00 No Benzodiazepines MISCELLANE DAILY [facility] Non-Formulary 40 mg 09/21/20 14:00 Medication ( SUBCUT Adalimumab [Humira] Q7D [facility] 40 Mg/0.4 Ml Syringe Kit) Phenobarbital 60 mg 09/20/20 21:00 09/21/20 09:05 Phenobarbital 30 Mg Tablet PO 09/22/20 09:01 60 mg BID [facility] Administration Protocol Phenobarbital 30 mg 09/22/20 21:00 Phenobarbital 30 Mg Tablet PO 09/24/20 09:01 BID [facility] Protocol Phenobarbital 30 mg 09/25/20 09:00 Phenobarbital 30 Mg Tablet PO 09/26/20 09:01 DAILY [facility] Protocol Sodium Chloride 3 ml 09/20/20 08:00 09/21/20 09:13 0.9 % Sodium Chloride Flush 3 Ml Syringe IVFLUSH Not Given QSHIFT [facility] Thiamine HCl 100 mg 09/20/20 09:00 09/21/20 09:06 Thiamine Hcl 100 Mg Tablet PO 100 mg DAILY [facility] Administration Home Medications Medication Instructions Recorded Confirmed Last Taken Type adalimumab [Humira] 40 mg SUBCUT Q7D 09/20/20 09/20/20 09/13/20 15:22 History atenolol 1 tab PO DAILY 09/20/20 09/20/20 Unknown History doxycycline hyclate 1 cap PO BID 09/20/20 09/20/20 Unknown History losartan 1 tab PO DAILY 09/20/20 09/20/20 Unknown History Physical Exam Vital Signs: Last Vital Signs Temp 97.7 F 09/21/20 11:05 Pulse 80 09/21/20 11:05 Resp 18 09/21/20 11:05 BP 123/69 09/21/20 11:05 Pulse Ox 96 09/21/20 11:05 Body Mass Index 24.3 Const General: cooperative, no acute distress, poor hygiene and tired appearing Orientation/consciousness: patient oriented x3 Eyes General: appearance normal, both eyes and all related structures Resp Effort & Inspection: normal respiratory effort and able to speak in complete sentences Cardio Rate: regular rate Rhythm: regular rhythm GI Palpation (GI): Soft to palpation Auscultation: normal bowel sounds Skin General skin exam: no rashes or lesions noted Neuro General: patient oriented x3 Cognition (Neuro): normal cognition Extrem General: Yes normal to inspection and Yes no pedal edema Results Lab Results Result Diagrams: 09/21/20 05:56 09/21/20 05:56 Lab results: Chemistry 09/19/20 09/21/20 23:23 05:56 Sodium 134 L 139 Potassium 4.2 4.1 Carbon Dioxide 24 22 BUN 34 H 27 H Creatinine 2.68 H 1.80 H Calcium 8.5 8.4 Hematology 09/19/20 09/21/20 23:23 05:56 WBC 10.5 11.9 H Hgb 7.9 L 7.9 L Plt Count 358 350 Urinalysis 09/20/20 02:55 Urine Color YELLOW Urine Appearance CLEAR Urine pH 6.0 Ur Specific [place] <= 1.005 Urine Protein 1+ H Urine Glucose (UA) NEG Urine Ketones NEG Urine Blood NEG Urine Nitrite NEG Ur Leukocyte Esterase NEG Urine RBC 0 Urine WBC 0-2 Ur Squamous Epith Cells TRACE Hyaline Casts 0-2 Urine Studies 09/20/20 12:22 Urine Creatinine 76.13 Assessment and Plan (1) Normocytic anemia: Status: Acute (2) BREANA (acute kidney injury): Status: Acute (3) Weakness: Status: Acute (4) Alcohol dependence: Status: Acute (5) Hypotensive episode: Status: Acute Mr. Ryan Medina is a 64-year-old male with past medical history of hypertension, hydradenitis (on humira) and undiagnosed CKD (BL CR 1.6mg/dL) who presented with fall. He was found to be hypovolemic with BREANA now improving after IVF support. BREANA on CKD BL Cr 1.6mg/dL U/A bland no proteinuria ?CKD 2/[address] scan abdomen pelvis without obstruction Now with BREANA in the setting of hypovolemia exacerbated Cr rise with Losartan on board. Plan: - agree with DC of IVF - enourage Nutrition - replete Mag, Phos, Kcl if needed - bladder scans q shift - hold losartan for now Procedures Date of Service Date of Service: 09/21/20
--- NOTE | 2020-09-21 14:59 | PC.NURSE ---
pt home med, Humira, was verified by the pharmacy today, approved. Med had been out of the refrigerator for 24 hours; however the nurse and outpatient pharmacy manager saw that the packaging clearly stated that the med was usuable for up to 14 days after being out of the refrigerator. pt self-administered into left thigh, witnessed by the nurse.
[2020-09-21 15:03] VITALS: BP 130/80; PULSE 90; RESP 15; TEMP 37.3; O2SAT 100
--- NOTE | 2020-09-21 15:25 | PM.GICN ---
History of Present Illness Data of Consult Service Date: 09/22/20 Requesting physician: Reinier Mckeon Primary Care Provider: Todd Landin MD HPI Reason for consult: anemia 64-year-old male with past medical history of hypertension, alcohol absue and hidradenitis (on humira) who I am seeing for assessment for anemia. He was initially admitted with fatigue and weakness for the past 1 month as well as increased falls. denies dizziness, no headache or change in vision. No nausea or vomiting, no abdominal pain diarrhea constipation but does have loose stools--c diff neg. No urinary symptoms and no lower extremity edema. He denied any melena, bright red blood per rectum, no hematemesis, or hemoptysis, hematuria or nose bleeds. He does admit he drinks excessive alcohol and has a problem with alcohol intake. He takes aspirin but no other nsaids. He said he has had a colonoscopy many years ago but it was incomplete as he was not fully sedated, results not available. work up so far revealed: Labs: WBC count of 10.5, hemoglobin of 7.9, (prior hemoglobin of 10.6), sodium of 134, BUN of 34, creatinine of 2.6 with most recent numbers being 22 in 1.68 in August--came down with fluids. iron sat 7%, ferritin 150, B12 nml, c diff neg. ethyl alcohol pos. Albumin of 2.7. UA negative. COVID-19 negative. c diff negative Imaging: CT A/P; inguinal hernia noted, Small left renal stones. No hydronephrosis. Mild diverticulosis. Slightly enlarged prostate gland Review of Systems Review of Systems: Constitutional : No Weight loss, No Fever, No Chills ENT/Mouth : No sore throat, No Rhinorrhea Eyes: No Swelling, No Redness Cardiovascular : No Chest Pain, No SOB, No Edema Respiratory : No Cough, No Sputum, No Wheezing Gastrointestinal : see HPI Genitourinary : NO Dysuria, No Urinary Frequency, No Hematuria, No Urgency Musculoskeletal : No joint pain, No Myalgias, No Joint Swelling Skin : Hidratenitis Neuro : POS Weakness, No Numbness, No Headache Psych : No Anxiety/Panic, No Depression, alcohol abuse Heme/Lymph: No Bruising, No Lymphadenopathy Endocrine : No Polyuria, No Polydipsia All other systems reviewed and are negative. [facility] Past Medical History Medical History Hidradenitis Hidradenitis suppurativa Social History Social History (Updated 09/20/20 @ 05:30 by Fei Cartagena MD) Household Members: Spouse Housing: House Do you presently have visiting nurse or other home services: No Alcohol intake: current Smoking Status: Current every day smoker Cigarettes Per Day: 20 Years Smoked: 50 Smoked in Last 30 Days: Yes Patient Interested in Nicotine Replacement: No Patient Given Instructions on How to Stop Smoking: No Use of substances other than those prescribed or required for medical reasons: No Currently Displaying Signs/Symptoms of Drug Intoxication Withdrawal: No Have you been hit, kicked, punched, or otherwise hurt by someone within the past year? If so, by whom?: No Do you feel safe in your current relationship?: Yes Is there a partner from a previous relationship who is making you feel unsafe now?: No Are you made to feel afraid or neglected: No Advance Directives: No Advance Directives Information Provided: No Do you have thoughts of harming others: None Do you have a plan to hurt others: No Plan Recently lost weight without trying: No Nutrition Risks: No Nutritional Risk service: No Current occupational status: retired Meds Allergies Allergy/AdvReac Type Severity Reaction Status Date / Time hydrochlorothiazide Allergy Unknown lip tra Verified 09/20/20 03:40 Active Medications: Current Medications Generic Name Dose Route Start Last Admin Trade Name Freq PRN Reason Stop Dose Admin Acetaminophen 650 mg 09/20/20 07:59 09/21/20 00:47 Acetaminophen 325 Mg Tablet PO 650 mg Q6H PRN Administration Pain, Mild (Pain Scale 1-3) Al Hydroxide/Mg Hydroxide 30 ml 09/20/20 07:59 Magnesium Hydrox/Alum Hydrox 30 Ml Oral.Susp PO Q4H PRN Heartburn/Nausea Atenolol 100 mg 09/20/20 09:00 09/21/20 09:06 Atenolol 100 Mg Tablet PO 100 mg DAILY LOBO Administration Protocol Docusate Sodium 100 mg 09/20/20 07:59 Docusate Sodium 100 Mg Capsule PO DAILY PRN Constipation Folic Acid 1 mg 09/20/20 09:00 09/21/20 09:07 Folic Acid 1 Mg Tablet PO 1 mg DAILY [facility]OBO Administration Loperamide HCl 2 mg 09/21/20 12:18 09/21/20 12:26 Loperamide Hcl 2 Mg Capsule PO 2 mg Q4H PRN Administration Diarrhea Medication 1 each 09/20/20 09:00 No Benzodiazepines MISCELLANE DAILY [facility] Non-Formulary 40 mg 09/21/20 14:00 09/21/20 14:55 Medication ( SUBCUT 40 mg Adalimumab [Humira] Q7D [facility] Administration 40 Mg/0.4 Ml Syringe Kit) Phenobarbital 60 mg 09/20/20 21:00 09/21/20 09:05 Phenobarbital 30 Mg Tablet PO 09/22/20 09:01 60 mg BID [facility] Administration Protocol Phenobarbital 30 mg 09/22/20 21:00 Phenobarbital 30 Mg Tablet PO 09/24/20 09:01 BID [facility] Protocol Phenobarbital 30 mg 09/25/20 09:00 Phenobarbital 30 Mg Tablet PO 09/26/20 09:01 DAILY [facility] Protocol Sodium Chloride 3 ml 09/20/20 08:00 09/21/20 09:13 0.9 % Sodium Chloride Flush 3 Ml Syringe IVFLUSH Not Given QSHIFT [facility] Tamsulosin HCl 0.4 mg 09/21/20 17:30 Tamsulosin Hcl 0.4 Mg Capsule PO DAILY@1730 [facility] Thiamine HCl 100 mg 09/20/20 09:00 09/21/20 09:06 Thiamine Hcl 100 Mg Tablet PO 100 mg DAILY [facility] Administration Home Medications Medication Instructions Recorded Confirmed Last Taken Type adalimumab [Humira] 40 mg SUBCUT Q7D 09/20/20 09/20/20 09/13/20 15:22 History atenolol 1 tab PO DAILY 09/20/20 09/20/20 Unknown History doxycycline hyclate 1 cap PO BID 09/20/20 09/20/20 Unknown History losartan 1 tab PO DAILY 09/20/20 09/20/20 Unknown History Physical Exam Vital Signs: Vital Signs: Last Vital Signs Temp 99.1 F 09/21/20 15:03 Pulse 90 09/21/20 15:03 Resp 15 09/21/20 15:03 BP 130/80 09/21/20 15:03 Pulse Ox 100 09/21/20 15:03 Body Mass Index 24.3 Const: Other: Constitutional : Alert, oriented, stressed out and seems mildly anxious Neck : Normal inspection, Supple Cardiovascular : RRR, S1 S2, trace bilateral lower extremity edema Respiratory : Good bilateral air entry, no crackles, wheezes or rhonchi Gastrointestinal: soft, lax, Normal bowel sounds, Non tender Skin : Warm/Dry, hidradenitis rash and sinuses in the armpit area with no erythema but mild drainage and tenderness Neurological : Alert & oriented x3, No focal deficit General: cooperative, no acute distress, poor hygiene and tired appearing Orientation/consciousness: patient oriented x3 Eyes: General: appearance normal, both eyes and all related structures Resp: Effort & Inspection: normal respiratory effort and able to speak in complete sentences Cardio: Rate: regular rate Rhythm: regular rhythm GI: Palpation (GI): Soft to palpation Auscultation: normal bowel sounds Skin: Other: scarring and fibrotic patches on under arms and upper arms General skin exam: crusts Neuro: General: patient oriented x3 Cognition (Neuro): normal cognition Extrem: General: Yes normal to inspection and Yes no pedal edema Psych: Appearance: grossly normal Results Labs CBC & Chem 7: 09/22/20 06:04 09/22/20 06:04 Labs: Short CBC 09/21/20 Range/Units 05:56 WBC 11.9 H (4.8-10.8) X10*3/uL Hgb 7.9 L (14.0-18.0) g/dl Hct 24.7 L (42-52) % Plt Count 350 (160-400) X10*3/uL BMP 09/21/20 05:56 Sodium 139 Potassium 4.1 Chloride 110 H Carbon Dioxide 22 BUN 27 H Creatinine 1.80 H Calcium 8.4 Assessment and Plan (1) Normocytic anemia: Status: Acute (2) BREANA (acute kidney injury): Status: Acute (3) Weakness: Status: Acute (4) Alcohol dependence: Status: Acute (5) Hypotensive episode: Status: Acute 1/ Iron def anemia, on background of alcohol abuse and chronic inflammation from severe hidratentiis suppurativa--may be multifactorial from combination of anemia of chronic disease, CKD, malnutrition, alcoholism, alcoholic gastritis ddx: AVM, PUD< neoplasia PLAN: 1/ EGD today for further assessment , will need colonoscopy as well if EGD is unrevealing--either as o/p or inpatient 2/ PPI in the interim, pantoprazole 40 mg BID 3/ alcohol withdrawal protocol, vitamins 4/ check celiac serology Procedures Date of Service Date of Service: 09/22/20
[2020-09-21] MEDS: Tamsulosin HCL 0.4 MG CAPSULE PO (18:17)
[2020-09-21] MEDS: 0.9 % Sodium Chloride Flush 3 ML SYRINGE IVFLUSH ×2 (18:17→21:56)
[2020-09-21] MEDS: Omeprazole 40 MG CAPSULE.DR PO (18:40)
[2020-09-21 19:15] VITALS: BP 134/72; PULSE 81; RESP 18; TEMP 36.8; O2SAT 98
[2020-09-22] VITALS (10 sets, daily range): BP systolic 109–144; BP diastolic 72–91; PULSE 69–88; RESP 15–22; TEMP 36.6–37.7; O2SAT 97–100
[2020-09-22] MEDS: Omeprazole 40 MG CAPSULE.DR PO ×2 (05:41→17:59)
[2020-09-22 06:51] LABS: Hematocrit 25.5 % (42-52); Mean Corpuscular HGB Conc 31.4 g/dl (31.0-36.0); Mean Corpuscular Hemoglobin 30.9 pg (27.0-33.0); Mean Corpuscular Volume 98.5 fL (80-98); Mean Platelet Volume 9.5 fL (9.4-12.4); Platelet Count 333 X10*3/uL (160-400); Red Blood Count 2.59 X10*6/uL (4.60-5.80); Red Cell Distribution Width 14.4 % (11.0-16.0); White Blood Count 12.7 X10*3/uL (4.8-10.8)
[2020-09-22 07:13] LABS: Anion Gap 10 (12-20); Blood Urea Nitrogen 22 mg/dL (9-16); Calcium 8.5 mg/dL (8.4-10.2); Carbon Dioxide 25 mmol/L (22-29); Chloride 105 mmol/L (96-108); Creatinine Clr Calc Pharmacy 50.5; Estimated Glomerular Filt Rate 40; Glucose Random 97 mg/dL (60-115); Potassium 4.4 mmol/L (3.3-5.1); Sodium 136 mmol/L (135-145)
[2020-09-22] MEDS: Thiamine HCL 100 MG TABLET PO (08:23)
[2020-09-22] MEDS: PHENobarbitaL 30 MG TABLET 60 MG PO (08:23)
[2020-09-22] MEDS: Folic Acid 1 MG TABLET PO (08:24)
[2020-09-22] MEDS: atenoloL 100 MG TABLET PO (08:24)
[2020-09-22] MEDS: 0.9 % Sodium Chloride Flush 3 ML SYRINGE IVFLUSH ×2 (08:25→18:00)
--- NOTE | 2020-09-22 09:13 | MHC.SHP ---
Pre-Procedural Eval Section A The patient is an INPATIENT: Yes The History & Physical has been completed within 30 days and I have reviewed it.: Yes Section B Chief Complaint: acute normocytic anemia, beryl Allergies: Allergies Allergy/AdvReac Type Severity Reaction Status Date / Time hydrochlorothiazide Allergy Unknown lip swells Verified 09/20/20 03:40 Plan Diagnosis/Plan: Unchanged I have reviewed the history and physical and performed a pertinent physical examination on my patient. No changes have occurred unless specified.
--- NOTE | 2020-09-22 09:51 | P.BOP_ITS ---
Brief Operative Note Date of Service: 09/22/20 Pre-op diagnosis: anemia Post-op diagnosis: same Procedure: see op note Surgeon: Chema Marcelino MD Anesthesia: MAC Was an Specifications Checker used for this Procedure?: No Estimated blood loss (mL): 0 Condition: stable Disposition: PACU
--- NOTE | 2020-09-22 09:51 | W.PM.OPN ---
Operative Note Operative Note Date of Service: 09/22/20 Narrative: Procedure Description: EGD FLEXIBLE TRANSORAL UPPER GASTROINTESTINAL ENDOSCOPY UPPER ENDOSCOPY Consent: Indications for the procedure and potential complications of bleeding, perforation, reaction to medications and missed diagnosis were discussed with the patient and informed consent was obtained. Instrument: Olympus GIF H 190 J mid size upper endoscope Monitoring: Vital signs and clinical assessment, continuous EKG monitoring, Pulse oximetry, Carbon Dioxide monitoring and blood pressure monitoring were done throughout the procedure. Procedure: The patient was placed in the left lateral decubitis position and pre-procedure medications were administered and a bite block was placed. The endoscope was inserted into the mouth and advanced under direct vision to the third part of duodenum. A careful inspection was made as the upper endoscope was withdrawn including a retroflexed examination of the proximal stomach; Findings and interventions are described below. Findings: Larynx:normal Esophagus: GE junction at 45 cm, diaphragm hiatus at 45 cm, mild esophagitis with schatzki ring. Stomach: Patchy gastric erythema with erosions at antrum. Biopsies were obtained to r/o h pylori. Grade 2 flap valve on retroflexed examination of the cardia. Duodenum: Small duodenal ulcer in bulb with surrounding edema and inflammation, no active bleeding, also erosion noted. bx taken from second part to r/o celiac sprue Intervention: Biopsies as noted above Impression/Findings: duodenal ulcer dudoenal erosion erosive gastritis esophagitis PLAN: Pantoprazole 40 mg OD avoid alcohol and NSAIDS o/p colonoscopy to r/o any lower GI concomitant lesions, otherwise in patient colonoscopy if any overt bleeding or worsening anemia if h pylori pos then treat multivitamin and iron supplements
--- NOTE | 2020-09-22 10:35 | P.CONAN_ITS ---
[facility] Active Problems Active Problems: All Active Problems (Updated 09/20/20 @ 05:38 by Fei Cartagena MD) Hypotensive episode (Acute) Normocytic anemia (Acute) Anemia (Acute) BREANA (acute kidney injury) (Acute) Weakness (Acute) Alcohol dependence (Acute) Past Medical History Medical History Hidradenitis Hidradenitis suppurativa Social History Social History Household Members: Spouse Housing: House Do you presently have visiting nurse or other home services: No Alcohol intake: current Smoking Status: Current every day smoker Cigarettes Per Day: 20 Years Smoked: 50 Smoked in Last 30 Days: Yes Patient Interested in Nicotine Replacement: No Patient Given Instructions on How to Stop Smoking: No Use of substances other than those prescribed or required for medical reasons: No Currently Displaying Signs/Symptoms of Drug Intoxication Withdrawal: No Have you been hit, kicked, punched, or otherwise hurt by someone within the past year? If so, by whom?: No Do you feel safe in your current relationship?: Yes Is there a partner from a previous relationship who is making you feel unsafe now?: No Are you made to feel afraid or neglected: No Advance Directives: No Advance Directives Information Provided: No Do you have thoughts of harming others: None Do you have a plan to hurt others: No Plan Recently lost weight without trying: No Nutrition Risks: No Nutritional Risk service: No Current occupational status: retired Meds Allergies Allergy/AdvReac Type Severity Reaction Status Date / Time hydrochlorothiazide Allergy Unknown lip tra Verified 09/20/20 03:40 Active Medications: Current Medications Generic Name Dose Route Start Last Admin Trade Name Freq PRN Reason Stop Dose Admin Acetaminophen 650 mg 09/20/20 07:59 09/21/20 00:47 Acetaminophen 325 Mg Tablet PO 650 mg Q6H PRN Administration Pain, Mild (Pain Scale 1-3) Al Hydroxide/Mg Hydroxide 30 ml 09/20/20 07:59 Magnesium Hydrox/Alum Hydrox 30 Ml Oral.Susp PO Q4H PRN Heartburn/Nausea Atenolol 100 mg 09/20/20 09:00 09/22/20 08:24 Atenolol 100 Mg Tablet PO 100 mg DAILY LOBO Administration Protocol Docusate Sodium 100 mg 09/20/20 07:59 Docusate Sodium 100 Mg Capsule PO DAILY PRN Constipation Folic Acid 1 mg 09/20/20 09:00 09/22/20 08:24 Folic Acid 1 Mg Tablet PO 1 mg DAILY LOBO Administration Loperamide HCl 2 mg 09/21/20 12:18 09/21/20 12:26 Loperamide Hcl 2 Mg Capsule PO 2 mg Q4H PRN Administration Diarrhea Medication 1 each 09/20/20 09:00 No Benzodiazepines MISCELLANE DAILY LOBO Non-Formulary 40 mg 09/21/20 14:00 09/21/20 14:55 Medication ( SUBCUT 40 mg Adalimumab [Humira] Q7D LOBO Administration 40 Mg/0.4 Ml Syringe Kit) Omeprazole 40 mg 09/21/20 17:45 09/22/20 05:41 Omeprazole 40 Mg Capsule.Dr PO 40 mg BID@0630,1630 LOBO Administration Phenobarbital 30 mg 09/22/20 21:00 Phenobarbital 30 Mg Tablet PO 09/24/20 09:01 BID LOBO Protocol Phenobarbital 30 mg 09/25/20 09:00 Phenobarbital 30 Mg Tablet PO 09/26/20 09:01 DAILY [facility] Protocol Sodium Chloride 3 ml 09/20/20 08:00 09/22/20 08:25 0.9 % Sodium Chloride Flush 3 Ml Syringe IVFLUSH 3 ml QSHIFT LOBO Administration Tamsulosin HCl 0.4 mg 09/21/20 17:30 09/21/20 18:17 Tamsulosin Hcl 0.4 Mg Capsule PO 0.4 mg DAILY@1730 LOBO Administration Thiamine HCl 100 mg 09/20/20 09:00 09/22/20 08:23 Thiamine Hcl 100 Mg Tablet PO 100 mg DAILY LOBO Administration Home Medications Medication Instructions Recorded Confirmed Last Taken Type adalimumab [Humira] 40 mg SUBCUT Q7D 09/20/20 09/20/20 09/13/20 15:22 History atenolol 1 tab PO DAILY 09/20/20 09/20/20 Unknown History doxycycline hyclate 1 cap PO BID 09/20/20 09/20/20 Unknown History losartan 1 tab PO DAILY 09/20/20 09/20/20 Unknown History Exam Exam Date and Time: September 22, 2020 1035 Height,Weight and Vital Signs: Height 6 ft 3 in Weight 88.451 kg Last Vital Signs Temp 98.0 F 09/22/20 08:00 Pulse 79 09/22/20 08:24 Resp 20 09/22/20 08:00 BP 140/75 H 09/22/20 08:24 Pulse Ox 98 09/22/20 08:00 Pertinent Lab Results Pertinent Lab Results: Laboratory Tests 09/19/20 09/19/20 09/19/20 23:23 23:23 23:23 WBC 10.5 RBC 2.54 L Hgb 7.9 L Hct 24.8 L MCV 97.6 MCH 31.1 MCHC 31.9 RDW 14.4 Plt Count 358 MPV 8.6 L Immature Gran % (Auto) 0.4 Neut % (Auto) 71.5 Lymph % (Auto) 15.4 L [place] % (Auto) 8.9 Eos % (Auto) 2.8 Baso % (Auto) 1.0 Lymph # (Auto) 1.6 [place] # (Auto) 0.9 Eos # (Auto) 0.3 Baso # (Auto) 0.1 Abs Immat Gran (auto) 0.04 H Absolute Neuts (auto) 7.5 Absolute Nucleated RBC 0.000 Nucleated RBC % (auto) 0.0 Absolute Retic 0.058 Percent Retic 2.3 H Immature Retic Fraction 10.1 Retic Hgb Equivalent 30.5 PT 13.5 H INR 1.1 Sodium 134 L Potassium 4.2 Chloride 101 Carbon Dioxide 24 Anion Gap 13 BUN 34 H Creatinine 2.68 H Estim Creat Clear Calc 32.8 Estimated GFR 24 Random Glucose 107 Calcium 8.5 Iron TIBC % Saturation Unsat Iron Binding Ferritin Total Bilirubin 0.4 AST 10 ALT 10 Alkaline Phosphatase 57 Troponin I High Sens B-Natriuretic Peptide Total Protein 7.8 Albumin 2.7 L Vitamin B12 Folate TSH Urine Color Urine Appearance Urine pH Ur Specific [place] Urine Protein Urine Glucose (UA) Urine Ketones Urine Blood Urine Nitrite Ur Leukocyte Esterase Urine RBC Urine WBC Ur Squamous Epith Cells Amorphous Sediment Urine Bacteria Hyaline Casts Granular Casts Urine Mucus Ur Random Sodium Ur Random Potassium Ur Random Chloride Urine Creatinine Stool Occult Blood Stool Leukocytes, Qual Urine Opiates Screen Ur Barbiturates Screen Ur Phencyclidine Scrn Ur Amphetamines Screen U Benzodiazepines Scrn Urine Cocaine Screen U Marijuana (THC) Screen Ethyl Alcohol C. difficile Toxin A&B C. difficile Antigen C. difficile Interpret COVID-19 ([facility]) COVID-19 Clin Com 09/19/20 09/19/20 09/20/20 23:23 23:23 02:21 WBC RBC Hgb Hct MCV MCH MCHC RDW Plt Count MPV Immature Gran % (Auto) Neut % (Auto) Lymph % (Auto) [place] % (Auto) Eos % (Auto) Baso % (Auto) Lymph # (Auto) [place] # (Auto) Eos # (Auto) Baso # (Auto) Abs Immat Gran (auto) Absolute Neuts (auto) Absolute Nucleated RBC Nucleated RBC % (auto) Absolute Retic Percent Retic Immature Retic Fraction Retic Hgb Equivalent PT INR Sodium Potassium Chloride Carbon Dioxide Anion Gap BUN Creatinine Estim Creat Clear Calc Estimated GFR Random Glucose Calcium Iron TIBC % Saturation Unsat Iron Binding Ferritin Total Bilirubin AST ALT Alkaline Phosphatase Troponin I High Sens 4.7 B-Natriuretic Peptide Total Protein Albumin Vitamin B12 Folate TSH Urine Color Urine Appearance Urine pH Ur Specific [place] Urine Protein Urine Glucose (UA) Urine Ketones Urine Blood Urine Nitrite Ur Leukocyte Esterase Urine RBC Urine WBC Ur Squamous Epith Cells Amorphous Sediment Urine Bacteria Hyaline Casts Granular Casts Urine Mucus Ur Random Sodium Ur Random Potassium Ur Random Chloride Urine Creatinine Stool Occult Blood NEGATIVE Stool Leukocytes, Qual Urine Opiates Screen Ur Barbiturates Screen Ur Phencyclidine Scrn Ur Amphetamines Screen U Benzodiazepines Scrn Urine Cocaine Screen U Marijuana (THC) Screen Ethyl Alcohol 205 C. difficile Toxin A&B C. difficile Antigen C. difficile Interpret COVID-19 ([facility]) COVID-19 Clin Com 09/20/20 09/20/20 09/20/20 02:55 02:55 03:49 WBC RBC Hgb Hct MCV MCH MCHC RDW Plt Count MPV Immature Gran % (Auto) Neut % (Auto) Lymph % (Auto) [place] % (Auto) Eos % (Auto) Baso % (Auto) Lymph # (Auto) [place] # (Auto) Eos # (Auto) Baso # (Auto) Abs Immat Gran (auto) Absolute Neuts (auto) Absolute Nucleated RBC Nucleated RBC % (auto) Absolute Retic Percent Retic Immature Retic Fraction Retic Hgb Equivalent PT INR Sodium Potassium Chloride Carbon Dioxide Anion Gap BUN Creatinine Estim Creat Clear Calc Estimated GFR Random Glucose Calcium Iron TIBC % Saturation Unsat Iron Binding Ferritin Total Bilirubin AST ALT Alkaline Phosphatase Troponin I High Sens 4.5 B-Natriuretic Peptide Total Protein Albumin Vitamin B12 Folate TSH Urine Color YELLOW Urine Appearance CLEAR Urine pH 6.0 Ur Specific [place] <= 1.005 Urine Protein 1+ H Urine Glucose (UA) NEG Urine Ketones NEG Urine Blood NEG Urine Nitrite NEG Ur Leukocyte Esterase NEG Urine RBC 0 Urine WBC 0-2 Ur Squamous Epith Cells TRACE Amorphous Sediment TRACE Urine Bacteria NONE Hyaline Casts 0-2 Granular Casts 0-2 Urine Mucus TRACE Ur Random Sodium Ur Random Potassium Ur Random Chloride Urine Creatinine Stool Occult Blood Stool Leukocytes, Qual Urine Opiates Screen Not Detected Ur Barbiturates Screen Not Detected Ur Phencyclidine Scrn Not Detected Ur Amphetamines Screen Not Detected U Benzodiazepines Scrn Not Detected Urine Cocaine Screen Not Detected U Marijuana (THC) Screen Not Detected Ethyl Alcohol C. difficile Toxin A&B C. difficile Antigen C. difficile Interpret COVID-19 ([facility]) COVID-19 [facility] 09/20/20 09/20/20 09/20/20 03:49 08:35 08:35 WBC RBC Hgb Hct MCV MCH MCHC RDW Plt Count MPV Immature Gran % (Auto) Neut % (Auto) Lymph % (Auto) [place] % (Auto) Eos % (Auto) Baso % (Auto) Lymph # (Auto) [place] # (Auto) Eos # (Auto) Baso # (Auto) Abs Immat Gran (auto) Absolute Neuts (auto) Absolute Nucleated RBC Nucleated RBC % (auto) Absolute Retic Percent Retic Immature Retic Fraction Retic Hgb Equivalent PT INR Sodium Potassium Chloride Carbon Dioxide Anion Gap BUN Creatinine Estim Creat Clear Calc Estimated GFR Random Glucose Calcium Iron TIBC % Saturation Unsat Iron Binding Ferritin 147 Total Bilirubin AST ALT Alkaline Phosphatase Troponin I High Sens B-Natriuretic Peptide Total Protein Albumin Vitamin B12 368 Folate 6.7 TSH 1.08 Urine Color Urine Appearance Urine pH Ur Specific [place] Urine Protein Urine Glucose (UA) Urine Ketones Urine Blood Urine Nitrite Ur Leukocyte Esterase Urine RBC Urine WBC Ur Squamous Epith Cells Amorphous Sediment Urine Bacteria Hyaline Casts Granular Casts Urine Mucus Ur Random Sodium Ur Random Potassium Ur Random Chloride Urine Creatinine Stool Occult Blood Stool Leukocytes, Qual Urine Opiates Screen Ur Barbiturates Screen Ur Phencyclidine Scrn Ur Amphetamines Screen U Benzodiazepines Scrn Urine Cocaine Screen U Marijuana (THC) Screen Ethyl Alcohol C. difficile Toxin A&B C. difficile Antigen C. difficile Interpret COVID-19 ([facility]) Negative COVID-19 [employer] Com See Note 09/20/20 09/20/20 09/21/20 12:22 12:22 05:56 WBC 11.9 H RBC 2.54 L Hgb 7.9 L Hct 24.7 L MCV 97.2 MCH 31.1 MCHC 32.0 RDW 14.2 Plt Count 350 MPV 9.1 L Immature Gran % (Auto) 0.4 Neut % (Auto) 77.5 H Lymph % (Auto) 9.4 L [place] % (Auto) 7.8 Eos % (Auto) 4.1 H Baso % (Auto) 0.8 Lymph # (Auto) 1.1 L [place] # (Auto) 0.9 Eos # (Auto) 0.5 H Baso # (Auto) 0.1 Abs Immat Gran (auto) 0.05 H Absolute Neuts (auto) 9.2 H Absolute Nucleated RBC 0.000 Nucleated RBC % (auto) 0.0 Absolute Retic Percent Retic Immature Retic Fraction Retic Hgb Equivalent PT INR Sodium Potassium Chloride Carbon Dioxide Anion Gap BUN Creatinine Estim Creat Clear Calc Estimated GFR Random Glucose Calcium Iron TIBC % Saturation Unsat Iron Binding Ferritin Total Bilirubin AST ALT Alkaline Phosphatase Troponin I High Sens B-Natriuretic Peptide Total Protein Albumin Vitamin B12 Folate TSH Urine Color Urine Appearance Urine pH Ur Specific [place] Urine Protein Urine Glucose (UA) Urine Ketones Urine Blood Urine Nitrite Ur Leukocyte Esterase Urine RBC Urine WBC Ur Squamous Epith Cells Amorphous Sediment Urine Bacteria Hyaline Casts Granular Casts Urine Mucus Ur Random Sodium 71.0 Ur Random Potassium 22.6 Ur Random Chloride 86.0 Urine Creatinine 76.13 Stool Occult Blood Stool Leukocytes, Qual Urine Opiates Screen Ur Barbiturates Screen Ur Phencyclidine Scrn Ur Amphetamines Screen U Benzodiazepines Scrn Urine Cocaine Screen U Marijuana (THC) Screen Ethyl Alcohol C. difficile Toxin A&B C. difficile Antigen C. difficile Interpret COVID-19 ([facility]) COVID-19 Clin Com 09/21/20 09/21/20 09/21/20 05:56 05:56 10:30 WBC RBC Hgb Hct MCV MCH MCHC RDW Plt Count MPV Immature Gran % (Auto) Neut % (Auto) Lymph % (Auto) [place] % (Auto) Eos % (Auto) Baso % (Auto) Lymph # (Auto) [place] # (Auto) Eos # (Auto) Baso # (Auto) Abs Immat Gran (auto) Absolute Neuts (auto) Absolute Nucleated RBC Nucleated RBC % (auto) Absolute Retic Percent Retic Immature Retic Fraction Retic Hgb Equivalent PT INR Sodium 139 Potassium 4.1 Chloride 110 H Carbon Dioxide 22 Anion Gap 11 L BUN 27 H Creatinine 1.80 H Estim Creat Clear Calc 48.9 Estimated GFR 38 Random Glucose 91 Calcium 8.4 Iron 13 L TIBC 184 L % Saturation 7 L Unsat Iron Binding 171 Ferritin Total Bilirubin AST ALT Alkaline Phosphatase Troponin I High Sens B-Natriuretic Peptide 943 H Total Protein Albumin Vitamin B12 Folate TSH Urine Color Urine Appearance Urine pH Ur Specific [place] Urine Protein Urine Glucose (UA) Urine Ketones Urine Blood Urine Nitrite Ur Leukocyte Esterase Urine RBC Urine WBC Ur Squamous Epith Cells Amorphous Sediment Urine Bacteria Hyaline Casts Granular Casts Urine Mucus Ur Random Sodium Ur Random Potassium Ur Random Chloride Urine Creatinine Stool Occult Blood Stool Leukocytes, Qual Urine Opiates Screen Ur Barbiturates Screen Ur Phencyclidine Scrn Ur Amphetamines Screen U Benzodiazepines Scrn Urine Cocaine Screen U Marijuana (THC) Screen Ethyl Alcohol C. difficile Toxin A&B Negative C. difficile Antigen Negative C. difficile Interpret SEE NOTE COVID-19 ([facility]) COVID-19 Clin [facility] 09/21/20 09/21/20 09/22/20 10:30 10:30 06:04 WBC 12.7 H RBC 2.59 L Hgb 8.0 L Hct 25.5 L MCV 98.5 H MCH 30.9 MCHC 31.4 RDW 14.4 Plt Count 333 MPV 9.5 Immature Gran % (Auto) Neut % (Auto) Lymph % (Auto) [place] % (Auto) Eos % (Auto) Baso % (Auto) Lymph # (Auto) [place] # (Auto) Eos # (Auto) Baso # (Auto) Abs Immat Gran (auto) Absolute Neuts (auto) Absolute Nucleated RBC 0.000 Nucleated RBC % (auto) 0.0 Absolute Retic Percent Retic Immature Retic Fraction Retic Hgb Equivalent PT INR Sodium Potassium Chloride Carbon Dioxide Anion Gap BUN Creatinine Estim Creat Clear Calc Estimated GFR Random Glucose Calcium Iron TIBC % Saturation Unsat Iron Binding Ferritin Total Bilirubin AST ALT Alkaline Phosphatase Troponin I High Sens B-Natriuretic Peptide Total Protein Albumin Vitamin B12 Folate TSH Urine Color Urine Appearance Urine pH Ur Specific [place] Urine Protein Urine Glucose (UA) Urine Ketones Urine Blood Urine Nitrite Ur Leukocyte Esterase Urine RBC Urine WBC Ur Squamous Epith Cells Amorphous Sediment Urine Bacteria Hyaline Casts Granular Casts Urine Mucus Ur Random Sodium Ur Random Potassium Ur Random Chloride Urine Creatinine Stool Occult Blood POSITIVE Stool Leukocytes, Qual FEW: < 2/OIF Urine Opiates Screen Ur Barbiturates Screen Ur Phencyclidine Scrn Ur Amphetamines Screen U Benzodiazepines Scrn Urine Cocaine Screen U Marijuana (THC) Screen Ethyl Alcohol C. difficile Toxin A&B C. difficile Antigen C. difficile Interpret COVID-19 ([facility]) COVID-19 Clin Com 09/22/20 06:04 WBC RBC Hgb Hct MCV MCH MCHC RDW Plt Count MPV Immature Gran % (Auto) Neut % (Auto) Lymph % (Auto) [place] % (Auto) Eos % (Auto) Baso % (Auto) Lymph # (Auto) [place] # (Auto) Eos # (Auto) Baso # (Auto) Abs Immat Gran (auto) Absolute Neuts (auto) Absolute Nucleated RBC Nucleated RBC % (auto) Absolute Retic Percent Retic Immature Retic Fraction Retic Hgb Equivalent PT INR Sodium 136 Potassium 4.4 Chloride 105 Carbon Dioxide 25 Anion Gap 10 L BUN 22 H Creatinine 1.74 H Estim Creat Clear Calc 50.5 Estimated GFR 40 Random Glucose 97 Calcium 8.5 Iron TIBC % Saturation Unsat Iron Binding Ferritin Total Bilirubin AST ALT Alkaline Phosphatase Troponin I High Sens B-Natriuretic Peptide Total Protein Albumin Vitamin B12 Folate TSH Urine Color Urine Appearance Urine pH Ur Specific [place] Urine Protein Urine Glucose (UA) Urine Ketones Urine Blood Urine Nitrite Ur Leukocyte Esterase Urine RBC Urine WBC Ur Squamous Epith Cells Amorphous Sediment Urine Bacteria Hyaline Casts Granular Casts Urine Mucus Ur Random Sodium Ur Random Potassium Ur Random Chloride Urine Creatinine Stool Occult Blood Stool Leukocytes, Qual Urine Opiates Screen Ur Barbiturates Screen Ur Phencyclidine Scrn Ur Amphetamines Screen U Benzodiazepines Scrn Urine Cocaine Screen U Marijuana (THC) Screen Ethyl Alcohol C. difficile Toxin A&B C. difficile Antigen C. difficile Interpret COVID-19 ([facility]) COVID-19 Clin Com Airway Mallampati Class: II TM Dist: >3cm Neck ROM: Full
[2020-09-22] MEDS: Lactated Ringers 1,000 ML 100 ML IVCONT (12:55)
--- NOTE | 2020-09-22 14:10 | P.PNNP_ITS ---
Subjective Subjective Date of Service: 09/22/20 Interval history: Cr better EGD planned tolerating IVF BPs better Physical Exam Vital Signs: Vital Signs: Last Vital Signs Temp 98.4 F 09/22/20 12:25 Pulse 69 09/22/20 12:25 Resp 18 09/22/20 12:25 BP 139/91 H 09/22/20 12:25 Pulse Ox 100 09/22/20 12:25 Body Mass Index 24.3 Const: General: cooperative, no acute distress, poor hygiene and tired appearing Orientation/consciousness: patient oriented x3 Eyes: General: appearance normal, both eyes and all related structures Resp: Effort & Inspection: normal respiratory effort and able to speak in complete sentences Cardio: Rate: regular rate Rhythm: regular rhythm GI: Palpation (GI): Soft to palpation Auscultation: normal bowel sounds Skin: General skin exam: no rashes or lesions noted Neuro: General: patient oriented x3 Cognition (Neuro): normal cognition Extrem: General: Yes normal to inspection and Yes no pedal edema Objective Data Labs CBC & Chem 7: 09/22/20 06:04 09/22/20 06:04 Labs: Laboratory Results - last 24 hr 09/22/20 09/22/20 06:04 06:04 WBC 12.7 H RBC 2.59 L Hgb 8.0 L Hct 25.5 L MCV 98.5 H MCH 30.9 MCHC 31.4 RDW 14.4 Plt Count 333 MPV 9.5 Absolute Nucleated RBC 0.000 Nucleated RBC % (auto) 0.0 Sodium 136 Potassium 4.4 Chloride 105 Carbon Dioxide 25 Anion Gap 10 L BUN 22 H Creatinine 1.74 H Estim Creat Clear Calc 50.5 Estimated GFR 40 Random Glucose 97 Calcium 8.5 Assessment & Plan Assessment and plan (1) Normocytic anemia: Status: Acute (2) BREANA (acute kidney injury): Status: Acute (3) Weakness: Status: Acute (4) Alcohol dependence: Status: Acute (5) Hypotensive episode: Status: Acute Assessment and Plan: Mr. Ryan Medina is a 64-year-old male with past medical history of hypertension, hydradenitis (on humira) and undiagnosed CKD (BL CR 1.6mg/dL) who presented with fall. He was found to be hypovolemic with BREANA now improving after IVF support. BREANA on CKD BL Cr 1.6mg/dL U/A bland no proteinuria ?CKD 2/[address] scan abdomen pelvis without obstruction Now with BREANA in the setting of hypovolemia exacerbated Cr rise with Losartan on board. Cr improving today to 1.7mg/dL near baseline. Plan: - encourage PO - monitor nutrition labs / divalents - bladder scans q shift - hold losartan for now - will need referral to a Fulfillment Specialist for CKD. We will set him up with [facility] Time Spent With Patient Time: Total time spent is greater than 50% in coordination of care (as documented) at patient's floor/unit and/or counseling patient: Procedures Date of Service Date of Service: 09/22/20
--- NOTE | 2020-09-22 14:32 | HO.PM.IMPN ---
Subjective Subjective Date of Service: 09/22/20 Interval History: the patient was seen and evaluated this morning Laying in bed, feels double today as diarrhea resolved Had endoscopy in the morning with results showing duodenal ulcer, gastritis, esophagitis Kidney function stable Denies any fever, chills or shortness of breath No reported other overnight events. Systemic review: No fever, chills but reports generalized weakness No chest pain, palpitation No shortness of breath or coughing No abdominal pain, nausea or vomiting and no more diarrhea No urinary symptoms No any rash or wounds Physical Exam Vital Signs: Vital Signs: Last Vital Signs Temp 98.4 F 09/22/20 12:25 Pulse 69 09/22/20 12:25 Resp 18 09/22/20 12:25 BP 139/91 H 09/22/20 12:25 Pulse Ox 100 09/22/20 12:25 Body Mass Index 24.3 Const: Other: Constitutional : Alert, oriented, more comfortable with less anxiety Neck : Normal inspection, Supple Cardiovascular : RRR, S1 S2, trace bilateral lower extremity edema Respiratory : Good bilateral air entry, no crackles, wheezes or rhonchi Gastrointestinal: soft, lax, Normal bowel sounds, Non tender Skin : Warm/Dry, hidradenitis rash and sinuses in the armpit area with no erythema but mild drainage and tenderness Neurological : Alert & oriented x3, No focal deficit Objective Data Current Medications Generic Name Dose Route Start Last Admin Trade Name Freq PRN Reason Stop Dose Admin Acetaminophen 650 mg 09/20/20 07:59 09/21/20 00:47 Acetaminophen 325 Mg Tablet PO 650 mg Q6H PRN Administration Pain, Mild (Pain Scale 1-3) Al Hydroxide/Mg Hydroxide 30 ml 09/20/20 07:59 Magnesium Hydrox/Alum Hydrox 30 Ml Oral.Susp PO Q4H PRN Heartburn/Nausea Atenolol 100 mg 09/20/20 09:00 09/22/20 08:24 Atenolol 100 Mg Tablet PO 100 mg DAILY LOBO Administration Protocol Docusate Sodium 100 mg 09/20/20 07:59 Docusate Sodium 100 Mg Capsule PO DAILY PRN Constipation Folic Acid 1 mg 09/20/20 09:00 09/22/20 08:24 Folic Acid 1 Mg Tablet PO 1 mg DAILY LOBO Administration Lactated Ringer's 1,000 mls @ 100 mls/hr 09/22/20 10:45 09/22/20 12:55 Lr IVCONT 100 mls/hr .Q10H LOBO Administration Loperamide HCl 2 mg 09/21/20 12:18 09/21/20 12:26 Loperamide Hcl 2 Mg Capsule PO 2 mg Q4H PRN Administration Diarrhea Medication 1 each 09/20/20 09:00 No Benzodiazepines MISCELLANE DAILY LOBO Non-Formulary 40 mg 09/21/20 14:00 09/21/20 14:55 Medication ( SUBCUT 40 mg Adalimumab [Humira] Q7D LOBO Administration 40 Mg/0.4 Ml Syringe Kit) Omeprazole 40 mg 09/21/20 17:45 09/22/20 05:41 Omeprazole 40 Mg Capsule. PO 40 mg BID@0630,1630 LOBO Administration Phenobarbital 30 mg 09/22/20 21:00 Phenobarbital 30 Mg Tablet PO 09/24/20 09:01 BID LOBO Protocol Phenobarbital 30 mg 09/25/20 09:00 Phenobarbital 30 Mg Tablet PO 09/26/20 09:01 DAILY LOBO Protocol Sodium Chloride 3 ml 09/20/20 08:00 09/22/20 08:25 0.9 % Sodium Chloride Flush 3 Ml Syringe IVFLUSH 3 ml QSHIFT LOBO Administration Tamsulosin HCl 0.4 mg 09/21/20 17:30 09/21/20 18:17 Tamsulosin Hcl 0.4 Mg Capsule PO 0.4 mg DAILY@1730 LOBO Administration Thiamine HCl 100 mg 09/20/20 09:00 09/22/20 08:23 Thiamine Hcl 100 Mg Tablet PO 100 mg DAILY LOBO Administration Labs CBC & Chem 7: 09/22/20 06:04 09/22/20 06:04 Assessment and Plan (1) Normocytic anemia: Status: Acute (2) BREANA (acute kidney injury): Status: Acute (3) Weakness: Status: Acute (4) Alcohol dependence: Status: Acute (5) Hypotensive episode: Status: Acute Assessment and Plan: This is a 64-year-old male with past medical history of hypertension who presents to the hospital frequent falls found to have anemia and BREANA. Acute on chronic anemia Multifactorial malnutrition\liver disease\GI bleed\bone Brownlee disorder presents with a hemoglobin of 8 with a recent hemoglobin from August was 10.6 stool occult blood negative iron studies, folate and B12 levels within normal Pending electrophoresis, immunofixation, kappa and lambda EGD showed esophagitis, gastritis and duodenitis with associated duodenal ulcer GI input appreciated, continue pantoprazole wait for H pylori result to treat transfusion threshold of hemoglobin less than 7 Diarrhea Resolved C diff negative Repeat occult blood To give Imodium as needed BREANA on CKD Improving CT scan abdomen pelvis showing no cirrhosis or obstruction Discontinue IV fluid Creatinine of 1.8, to follow up with Nephrology as outpatient Monitor intake and output follow BMP Elevated BNP Seems in mild fluid overload Monitor diarrhea and decided using Lasix afterward frequent falls and weakness Multifactorial, alcoholism, physical deconditioning, anemia PT OT alcohol abuse Alcohol withdrawal Continue phenobarb protocol for potential withdrawal folic acid and thiamine supplement Care team evaluation Hypotensive Secondary to home medications, on hold Blood pressure much better DVT prophylaxis SCDs
[2020-09-22] MEDS: Tamsulosin HCL 0.4 MG CAPSULE PO (17:59)
[2020-09-22] MEDS: Nicotine 14 MG PATCH.TD24 TRANSDERMA (18:29)
[2020-09-22] MEDS: PHENobarbitaL 30 MG TABLET PO (20:35)
[2020-09-23] VITALS: BP 132/84; PULSE 94; RESP 18; TEMP 37.4
[2020-09-23] MEDS: 0.9 % Sodium Chloride Flush 3 ML SYRINGE IVFLUSH ×2 (00:02→09:17)
[2020-09-23 04:00] VITALS: BP 140/92; PULSE 83; RESP 20; TEMP 37.4; O2SAT 97
[2020-09-23] MEDS: Omeprazole 40 MG CAPSULE.DR PO (06:19)
--- NOTE | 2020-09-23 07:02 | HO.POSTANES ---
Post Anesthesia Evaluation Post Anesthesia Evaluation Vital Signs: Vital Signs Temp Pulse Resp BP Pulse Ox 09/23/20 04:00 99.3 F 83 20 140/92 H 97 09/23/20 00:00 99.3 F 94 18 132/84 09/22/20 20:00 99.8 F 83 20 144/86 H 98 Anesthesia: Monitored Mental Status: Awake Pain Control: Satisfactory Nausea/Vomiting: None Hydration: Adequate Anesthesia-Related Issues: No Anes. Related Issues
[2020-09-23 07:33] LABS: Hematocrit 24.2 % (42-52); Hemoglobin 7.7 g/dl (14.0-18.0); Mean Corpuscular HGB Conc 31.8 g/dl (31.0-36.0); Mean Corpuscular Hemoglobin 30.9 pg (27.0-33.0); Mean Corpuscular Volume 97.2 fL (80-98); Mean Platelet Volume 9.8 fL (9.4-12.4); Platelet Count 334 X10*3/uL (160-400); Red Blood Count 2.49 X10*6/uL (4.60-5.80); Red Cell Distribution Width 13.9 % (11.0-16.0); White Blood Count 12.4 X10*3/uL (4.8-10.8)
[2020-09-23 07:58] VITALS: BP 132/83; PULSE 81; RESP 19; TEMP 36.4; O2SAT 98
[2020-09-23 08:15] LABS: Anion Gap 12 (12-20); Blood Urea Nitrogen 22 mg/dL (9-16); Carbon Dioxide 21 mmol/L (22-29); Chloride 103 mmol/L (96-108); Creatinine Clr Calc Pharmacy 52.3; Estimated Glomerular Filt Rate 41; Glucose Random 106 mg/dL (60-115); Potassium 3.9 mmol/L (3.3-5.1); Sodium 132 mmol/L (135-145)
--- NOTE | 2020-09-23 08:56 | P.CDIC_ITS ---
CDI Concurrent Query Service Date: 09/23/20 Documentation Clarification: Please clarify if you are treating a proba ble/suspected/likely or confirmed: Specifics: Malnutrition, mild, moderate or severe Please specify if known or other Provider Response: Mild Protein-Calorie Malnutrition PLEASE DO NOT DELETE/MODIFY EXISTING CONTENT Additional information is needed in order to code to the highest accuracy and appropriate Severity of Illness (SOI). Please clarify the information noted below in your progress notes and discharge summary. Risk Factors/Clinical Indicators/Treatments PN: Assessment/plan - Multifactorial malnutrition Albumin 2.7 L Physical deconditioning, weakness, falls, fatigue. CDS: Connie Donnelly CCS, CDIS Contact Number: [phone] Please Review the information above and exercise your independent professional judgment in responding to the query. If you concur, pleas document in the PROGRESS NOTES and DISCHARGE SUMMARY. If you do not agree with the query, please document in the query above. THIS QUERY IS PART OF THE PERMANENT MEDICAL RECORD
[2020-09-23 09:07] LABS: B Type Natriuretic Peptide 202 pg/mL (<100)
[2020-09-23 09:18] VITALS: BP 132/83; PULSE 81
[2020-09-23] MEDS: PHENobarbitaL 30 MG TABLET PO (09:18)
[2020-09-23] MEDS: Folic Acid 1 MG TABLET PO (09:18)
[2020-09-23] MEDS: Thiamine HCL 100 MG TABLET PO (09:18)
[2020-09-23] MEDS: atenoloL 100 MG TABLET PO (09:18)
[2020-09-23] MEDS: Nicotine 14 MG PATCH.TD24 TRANSDERMA (09:18)
[2020-09-23 10:37] VITALS: O2SAT 100
--- NOTE | 2020-09-23 10:37 | P.CDIC_ITS ---
CDI Concurrent Query Service Date: 09/23/20 Documentation Clarification: Please clarify if you are treating a proba ble/suspected/likely or confirmed: Specifics: BREANA on CKD Stage 1-5 Please specify if known or other Provider Response: CKD Stage 3 PLEASE DO NOT DELETE/MODIFY EXISTING CONTENT Additional information is needed in order to code to the highest accuracy and appropriate Severity of Illness (SOI). Please clarify the information noted below in your progress notes and discharge summary. Risk Factors/Clinical Indicators/Treatments BREANA on CKD baseline cr. around 1.68 now cr. 2.68 secondary to low oral intake and dehydration IV fluids CDS: Connie Donnelly CCS, CDIS Contact Number: [phone] Please Review the information above and exercise your independent professional judgment in responding to the query. If you concur, pleas document in the PROGRESS NOTES and DISCHARGE SUMMARY. If you do not agree with the query, please document in the query above. THIS QUERY IS PART OF THE PERMANENT MEDICAL RECORD
[2020-09-23 11:13] VITALS: BP 109/73; PULSE 74; RESP 20; TEMP 36.1; O2SAT 100
--- NOTE | 2020-09-23 11:23 | PM.PNNEP ---
Subjective Subjective Date of Service: 09/23/20 Interval history: Events noted. All recent data reviewed Physical Exam Vital Signs: Vital Signs: Last Vital Signs Temp 97.0 F 09/23/20 11:13 Pulse 74 09/23/20 11:13 Resp 20 09/23/20 11:13 BP 109/73 09/23/20 11:13 Pulse Ox 100 09/23/20 11:13 Body Mass Index 24.3 Const: General: no acute distress Orientation/consciousness: patient oriented x3 Eyes: EOM: EOMs intact bilaterally Neck: Neck: Yes supple Resp: Auscultation: diminished lung sounds Cardio: Jugular venous distension: no JVD GI: Palpation (GI): Soft to palpation Neuro: General: patient oriented x3 Objective Data Labs CBC & Chem 7: 09/23/20 05:51 09/23/20 05:51 Labs: Laboratory Results - last 24 hr 09/23/20 09/23/20 09/23/20 05:51 05:51 05:51 WBC 12.4 H RBC 2.49 L Hgb 7.7 L Hct 24.2 L MCV 97.2 MCH 30.9 MCHC 31.8 RDW 13.9 Plt Count 334 MPV 9.8 Absolute Nucleated RBC 0.000 Nucleated RBC % (auto) 0.0 Sodium 132 L Potassium 3.9 Chloride 103 Carbon Dioxide 21 L Anion Gap 12 BUN 22 H Creatinine 1.68 H Estim Creat Clear Calc 52.3 Estimated GFR 41 Random Glucose 106 Calcium 8.0 L B-Natriuretic Peptide 202 H Assessment & Plan Assessment and plan (1) Chronic kidney disease (CKD) stage G3a/A1, moderately decreased glomerular filtration rate (GFR) between 45-59 mL/min/1.73 square meter and albuminuria creatinine ratio less than 30 mg/g: Status: Acute Assessment and Plan: Mr. Ryan Medina is a 64-year-old male with past medical history of hypertension, hydradenitis (on humira) and undiagnosed CKD (BL CR 1.6mg/dL) who presented with fall. BREANA on CKD BL Cr 1.6mg/dL( close to baseline now) U/A bland no proteinuria ?CKD 2/[address] scan abdomen pelvis without obstruction Continue to hold losartan Concur with rest of current management Shall arrange office follow up when D/[facility] Time Spent With Patient Time: Total time spent is greater than 50% in coordination of care (as documented) at patient's floor/unit and/or counseling patient: Procedures Date of Service Date of Service: 09/23/20
--- NOTE | 2020-09-23 11:44 | MHC.CM.PN ---
Patient has been medically cleared for dc to home today, no services.Second IMM addressed with Patient and his , original given to them and a copy placed on the chart. Patient and are aware of and in agreement with the dc plan.
--- NOTE | 2020-09-23 14:33 | PM.DS ---
DS: Providers Provider Date of Service: 09/23/20 Date of admission: 09/20/20 06:23 Primary care physician: Todd Landin MD Consults: 09/20/20 10:45 Consult to Nephrology Routine Consulting Provider: Boni Chase Reason for consultation: BREANA on CKD for your kind eval; elevated P\A level. Anemia. 09/21/20 10:17 Consult to Gastroenterology Routine Consulting Provider: Chema Marcelino Reason for consultation: Acute on chronic anemia, Alcoholism DS: Diagnosis Discharge Diagnosis (1) Chronic kidney disease (CKD) stage G3a/A1, moderately decreased glomerular filtration rate (GFR) between 45-59 mL/min/1.73 square meter and albuminuria creatinine ratio less than 30 mg/g: Status: Acute (2) Hypotensive episode: Status: Acute (3) Normocytic anemia: Status: Acute (4) Anemia: Status: Acute (5) BREANA (acute kidney injury): Status: Acute (6) Duodenal ulcer: Status: Acute (7) Acute on chronic anemia: Status: Acute (8) Alcohol dependence: Status: Acute DS: Medications Discharge Medications Home Medications: Home Medications Medication Instructions Recorded Confirmed Humira 40 mg SUBCUT Q7D 09/20/20 09/20/20 atenolol 1 tab PO DAILY 09/20/20 09/20/20 Previous Rx's Medication Instructions Recorded ferrous sulfate 325 mg PO DAILY #30 tab 09/23/20 folic acid 1 mg PO DAILY #30 tab 09/23/20 nicotine 14 mg TRANSDERMAL DAILY #28 ea 09/23/20 omeprazole 40 mg PO BID@0630,1630 30 Days #60 09/23/20 cap tamsulosin 0.4 mg PO DAILY@1730 30 Days cap 09/23/20 thiamine mononitrate (vit B1) 100 mg PO DAILY #30 tab 09/23/20 DS: Summary Hospital Course Hospital Course: Admission note HPI This is a 64-year-old male with past medical history of hypertension, hydradenitis who presents to the hospital with complaints of frequent falls, as well as fatigue and weakness for the past 1 month. Patient reports that he has been having frequent falls due to the weakness with sinus and losing consciousness, no dizziness, no headache or change in vision. Patient had a tumble today and decided to come to the hospital. He has been feeling tired and low energy. Low oral intake. No nausea or vomiting, no abdominal pain diarrhea constipation. No urinary symptoms and no lower extremity edema. He denies any melena, bright red blood per rectum, no hematemesis, or hemoptysis. Denies any numbness tingling or limb weakness On arrival to the ED patient had a temperature of 97.7?, heart rate of 77, respiratory rate of 16, blood pressure of 83/52 which improved to 100 10/45 after fluid resuscitation, satting 98% on room air Labs are significant for WBC count of 10.5, hemoglobin of 7.9, (most recent hemoglobin of 10.6 and hematocrit of 35 on August), sodium of 134, BUN of 34, creatinine of 2.6 with most recent numbers being 22 in 1.68 in August ( as seen on pt portal brought in by ) Albumin of 2.7. UA negative. UDS negative. COVID-19 negative. Past medical history as below and patient will be admitted for further evaluation Hospital course Patient was admitted to the hospital for evaluation of increased lightheadedness and episodes of falling. Found to have anemia, hypotension and acute kidney injury. He was noted to have a drop in his hemoglobin of 8 at time of presentation from almost 10.5 on August. Occult blood was negative. He was evaluated by Gastroenterology who did an upper endoscopy with EGD showed esophagitis, gastritis and duodenitis with associated duodenal ulcer. Maintained hemoglobin level around 8 with no need for blood transfusion. Pending electrophoresis, immunofixation, kappa and lambda. Kidney function remains stable around 1.8. Evaluated by Nephrology team who recommended outpatient follow-up and evaluation. Evaluated by Physical therapy who recommended home therapy. Treated for alcohol abuse and withdrawal with phenobarbital protocol with addition of folic acid and thiamine. Care team evaluated the patient and he was strongly advised total abstinence from alcohol. His low blood pressure readings were likely result of medications. Losartan was discontinued and he was given atenolol during the hospital stay with blood pressure readings in acceptable range. To discontinue at time of discharge and keep the patient on atenolol with plan to monitor blood pressure and discuss results with primary care. Received a dose of Humira for history of hidradenitis. Time Spent with Patient Time attestation: Total time spent providing and/or coordinating discharge services: Discharge coordination time: Greater than 30 minutes Quality: Stroke Does the patient have a stroke diagnosis?: No Physical Exam Vital Signs: Vital Signs: Last Vital Signs Temp 97.0 F 09/23/20 11:13 Pulse 74 09/23/20 11:13 Resp 20 09/23/20 11:13 BP 109/73 09/23/20 11:13 Pulse Ox 100 09/23/20 11:13 Body Mass Index 24.3 Const: Other: Constitutional : Alert, oriented, more comfortable with less anxiety Neck : Normal inspection, Supple Cardiovascular : RRR, S1 S2, trace bilateral lower extremity edema Respiratory : Good bilateral air entry, no crackles, wheezes or rhonchi Gastrointestinal: soft, lax, Normal bowel sounds, Non tender Skin : Warm/Dry, hidradenitis rash and sinuses in the armpit area with no erythema but mild drainage and tenderness Neurological : Alert & oriented x3, No focal deficit DS: Data Data Completed and Pending Pending studies at discharge: Pending at discharge 09/22/20 10:30 Surgical [PTH] Routine Labs on day of discharge: Laboratory Results - last 24 hr 09/23/20 09/23/20 09/23/20 05:51 05:51 05:51 WBC 12.4 H RBC 2.49 L Hgb 7.7 L Hct 24.2 L MCV 97.2 MCH 30.9 MCHC 31.8 RDW 13.9 Plt Count 334 MPV 9.8 Absolute Nucleated RBC 0.000 Nucleated RBC % (auto) 0.0 Sodium 132 L Potassium 3.9 Chloride 103 Carbon Dioxide 21 L Anion Gap 12 BUN 22 H Creatinine 1.68 H Estim Creat Clear Calc 52.3 Estimated GFR 41 Random Glucose 106 Calcium 8.0 L B-Natriuretic Peptide 202 H Discharge Plan Discharge Patient Disposition: Home, Self-Care Discharge Diagnosis: Worsening anemia Acute kidney injury Gastrointestinal bleeding Referrals: Todd Landin MD [Primary Care Provider] - 1 Week Discharge Medications: New nicotine 14 mg/24 hr Patch 24 Hour 14 mg transdermal DAILY Qty: 28 RF: 2 omeprazole 40 mg Capsule,Delayed Release(Dr/Ec) 40 mg PO BID@0630,1630 30 Days Qty: 60 RF: 2 tamsulosin 0.4 mg Capsule 0.4 mg PO DAILY@1730 30 Days RF: 0 folic acid 1 mg Tablet 1 mg PO DAILY Qty: 30 RF: 2 thiamine mononitrate (vit B1) 100 mg Tablet 100 mg PO DAILY Qty: 30 RF: 2 ferrous sulfate 325 mg (65 mg iron) tablet 325 mg PO DAILY Qty: 30 RF: 0 Continued atenolol 100 mg tablet 1 tab PO DAILY RF: 0 Humira 40 mg/0.8 mL Syringe Kit 40 mg SUBCUT Q7D RF: 0 Discontinued doxycycline hyclate 100 mg capsule 1 cap PO BID RF: 0 losartan 25 mg tablet 1 tab PO DAILY RF: 0 Discharge Orders: Discharge Order (Routine); Ordered 09/23/20 Ordered By: Reinier Mckeon Diet: advance to usual diet and low salt diet Activity on Discharge: As tolerated Stand Alone Forms: Patient Portal Discharge page Other Ambulatory Orders: Basic Metabolic Panel (Routine) Timeframe: 1 Week Facility: [facility] - Location: Laboratory Ordered By: Reinier Mckeon Complete Blood Count no Diff (Routine) Timeframe: 1 Week Facility: [facility] - Location: Laboratory Ordered By: Reinier Mckeon Care Plan Goals: Read below Health Concerns: Read below Plan of Treatment: Admitted to the hospital for evaluation of frequent falls, increased anemia and worsening kidney function. Your blood level was noted to be lower than your previous baseline. Blood test were done and you were evaluated by florist supplies salesperson who did an upper endoscopy showing findings of inflammation of your esophagus, stomach and duodenum with associated duodenal ulcer. Your blood pressure was noted to be running low at time of admission. We believe it is secondary to chronic alcohol eat consumption and blood pressure medications. Will discontinue losartan and continue with atenolol only for now. Your kidney function improved back to baseline with IV fluids. You were evaluated by kidney doctor who will follow up with you as outpatient. You were treated with phenobarbital to prevent any alcohol withdrawal. We strongly advise you total abstinence from alcohol usage. Assessment: Start folic acid and thiamine as supplements Use nicotine patches with strongly advised to quit smoking Start omeprazole twice Daily to heal the duodenal ulcer Start iron pills for supplement Tamsulosin prescribed to help with urinary symptoms Monitor your blood pressure at home and report readings to PCP. Consider lowering atenolol if blood pressure continues to run low To repeat blood test next week Discharge Date/Time: 09/23/20 12:35
[2020-09-23 22:06] LABS: Kappa Light Chain, Free Serum 233.6 mg/L (3.3-19.4); Kappa/Lambda Lt Ch Free Ratio 0.71 (0.26-1.65); Lambda Light Chain, Free Serum 327.8 mg/L (5.7-26.3)
[2020-09-24 21:46] LABS: Prot Elec - Albumin 2.2 g/dL (3.8-4.8); Prot Elec - Alpha1 0.5 g/dL (0.2-0.3); Prot Elec - Beta 1 0.4 g/dL (0.4-0.6); Prot Elec - Beta 2 0.7 g/dL (0.2-0.5); Prot Elec - Gamma 2.5 g/dL (0.8-1.7); Prot Elec - Total Protein 7.3 g/dL (6.1-8.1)
== END 2020-09-23 12:35 | disposition home or self-care (01) | DRG 315 ==
LOC: HO.ED 09-20 06:23 → HO.EDOVER 09-20 06:31 → HO.IMC 09-20 07:22
PROVIDERS: Internal Medicine Gastroenterology; Admitting Provider Internal Medicine; Emergency Provider Student in an Organized Health Care Education/Training Program; PCP Family Medicine; Visit Provider Student in an Organized Health Care Education/Training Program
PROC: 0DJ08ZZ Inspection of Upper Intestinal Tract, Via Natural or Artificial Opening Endoscopic (ICD-10-PCS; CPT 43235; principal; 2020-09-22 10:00)
DX: I95.9 Hypotension, unspecified (principal); N17.9 Acute kidney failure, unspecified; E44.1 Mild protein-calorie malnutrition; F17.210 Nicotine dependence, cigarettes, uncomplicated; Z71.6 Tobacco abuse counseling; F10.20 Alcohol dependence, uncomplicated; L73.2 Hidradenitis suppurativa; E86.0 Dehydration; R29.6 Repeated falls; D63.1 Anemia in chronic kidney disease; Z91.81 History of falling; K44.9 Diaphragmatic hernia without obstruction or gangrene; K26.9 Duodenal ulcer, unspecified as acute or chronic, without hemorrhage or perforation; N18.31 Chronic kidney disease, stage 3a; Z68.24 Body mass index [BMI] 24.0-24.9, adult; K25.9 Gastric ulcer, unspecified as acute or chronic, without hemorrhage or perforation; K20.90 Esophagitis, unspecified without bleeding; K22.2 Esophageal obstruction; Z20.822 Contact with and (suspected) exposure to COVID-19; Z79.899 Other long term (current) drug therapy
CPT/HCPCS: 36415; 74176; 80048; 80053; 80307; 80320; 81001; 81003; 82272; 82436; 82607; 82728; 82746; 83520; 83540; 83880; 84133; 84155; 84165; 84300; 84443; 84484; 85025; 85027; 85045; 85610; 86335; 87324; 87449; 87635; 88305; 88342; 89055; 93005; 96372; 99285; J2560

== ENCOUNTER 2020-10-02 11:45 | Inpatient (IN) | payer MEDICARE, SELFPAY ==
[2020-10-02] VITALS (8 sets, daily range): BP systolic 77–148; BP diastolic 52–80; PULSE 70–88; RESP 16–20; TEMP 36.6–37.2; O2SAT 97–100; BMI 24.3
--- NOTE | ~2020-10-02 | XR_ITS ---
EXAMINATION: XR CHEST CLINICAL INFORMATION: Weakness COMPARISON: None TECHNIQUE: AP portable view of the chest was obtained. FINDINGS: There is some scarring at the left lung base. No acute parenchymal disease, pneumothorax, or pleural effusion identified. Heart normal size. No evidence of pulmonary edema. XR/XR chest 1V IMPRESSION: No acute parenchymal disease.
--- NOTE | 2020-10-02 12:09 | ECG_ITS ---
Test Reason : WEAKNESS Blood Pressure : / mmHG Vent. Rate : 075 BPM Atrial Rate : 075 BPM P-R Int : 178 ms QRS Dur : 140 ms QT Int : 406 ms P-R-T Axes : 072 048 023 degrees QTc Int : 453 ms Normal sinus rhythm Right bundle branch block Abnormal ECG When compared with ECG of 19-SEP-2020 23:48, No significant change was found Referred By: Deya Hardin Electronically Signed By:Feliz Cunha
--- NOTE | 2020-10-02 12:24 | ED_ITS ---
HPI - Recheck/Abnormal Lab/Rx General Chief Complaint: Recheck/Abnormal Lab/Rx Stated Complaint: abnormal lab, dizziness Time Seen by Provider: 10/02/20 12:09 Source: patient Mode of arrival: wheelchair Limitations: no limitations History of Present Illness HPI narrative: 64 y/o male with history of CKD III, anemia, HTN, hidrandenitis suppuritiva (dx age 12), active smoker, alcohol abuse (last drink 2 weeks ago), frequent falls who presents to the ED with generalized weakness, lightheadedness and worsening renal function on lab work. He was recently admitted here 09/20- 09/23 for BREANA on CKD, acute blood loss anemia 2/2 duodenal ulcer. Since discharge home he has felt very weak. He was due for routine lab work 1 week after discharge but he was too weak to go to the lab so they came to the house. His creatinine increased to 2.4 from 1.6 prior. He reports eating and drinking normally, normal UOP. No abdominal pain, N/V/D. No fevers at home. On arrival BP 77/52 with HR 71. AAO x3. complaint: abnormal lab Initial visit (ago): day(s) Initial visit for: other (weakness, falls ) Returns today for: called because of abnormal lab/test Context: called for abnormal lab result Associated symptoms: malaise Related Data Home Medications Medication Instructions Recorded Confirmed Humira 40 mg SUBCUT FR 09/20/20 10/02/20 atenolol 100 mg PO DAILY 09/20/20 10/02/20 Previous Rx's Medication Instructions Recorded ferrous sulfate 325 mg PO DAILY #30 tab 09/23/20 folic acid 1 mg PO DAILY #30 tab 09/23/20 omeprazole 40 mg PO BID@0630,1630 30 Days #60 09/23/20 cap tamsulosin 0.4 mg PO DAILY@1730 30 Days cap 09/23/20 thiamine mononitrate (vit B1) 100 mg PO DAILY #30 tab 09/23/20 Allergies Allergy/AdvReac Type Severity Reaction Status Date / Time hydrochlorothiazide Allergy Unknown lip swells Verified 10/02/20 11:59 Review of Systems Review of Systems: Constitutional: No Fever, No Chills ENT/Mouth: No sore throat, No Rhinorrhea, No Swallowing Difficulty Eyes: No Eye Pain, No Swelling, No Redness Cardiovascular: No Chest Pain, No SOB, No Orthopnea, No Edema Respiratory: No Cough, No Sputum, No Wheezing, No dyspnea Gastrointestinal: No Nausea, No Vomiting, No Diarrhea, No abdominal Pain, No Hematochezia, No Melena Genitourinary: No Dysuria, No Urinary Frequency, No Hematuria Musculoskeletal: No joint pain, No Myalgias Skin: + Skin Lesions, No rash Neuro: + Weakness, No Numbness, + Dizziness, No Headache Psych: No Anxiety/Panic, No Depression Heme/Lymph: No Bruising, No Lymphadenopathy Endocrine: No Polyuria, No Polydipsia [facility] Past Medical History Attestation statement: The following information was validated with the patient. Medical History Alcohol dependence Anemia Hidradenitis Hidradenitis suppurativa Normocytic anemia Social History Social History Household Members: Spouse Housing: House Do you presently have visiting nurse or other home services: No Alcohol intake: never Patient Tobacco Use Status: Never used Tobacco Cigarettes Per Day: 20 Years Smoked: 50 Use of substances other than those prescribed or required for medical reasons: No Advance Directives: No Advance Directives Information Provided: No service: No Current occupational status: retired Physical Exam Vital Signs: Vital Signs: Last Vital Signs Temp 97.8 F 10/02/20 11:50 Pulse 70 10/02/20 13:32 Resp 18 10/02/20 13:32 BP 114/69 10/02/20 13:32 Pulse Ox 100 10/02/20 13:32 Body Mass Index 24.3 Appearance: Alert. Oriented X3. No acute distress. Eyes: Pupils equal, round and reactive to light. ENT: Pharynx normal. Neck: Normal inspection. Neck supple. CVS: Normal heart rate and rhythm. Pulses normal. Respiratory: No respiratory distress. Breath sounds normal. Abdomen: Soft and nontender. +BS x4 Skin: Skin warm and dry. Normal skin color. Normal skin turgor. Right anterior chest wall with chronic skin changes consistent with known hidrandenitis, above areola tender area with crusted dry skin, mild surrounding erythema, gr een/yellow foul smelling pus was able to be expressed Extremities: No lower extremity edema. Neuro: Oriented X 3. No motor deficit. No sensory deficit. Unable to assess gait due to hypotension Course Course Course Narrative: 64 y/o male with history of alcohol abuse, CKD, chronic anemia, GI bleed 2/2 PUD on recent admission presenting with ongoing generalized weakness and worsening renal function on outpatient labs. Scr 2.4 from a baseline of 1.6. He is hypotensive on arrival, AAOx3 and afebrile. He is on atenolol which is renally cleared, could be active metabolites causing hypotension. Pus draining from right chest wall abscess with mild surrounding erythema, possible source of infection although it appears chronic. Will get cultures, labs, orthostatic VS and monitor closely. Repeat BP 85/54. 2 PIV placed and IV fluids are infusing. Reevaluation(s) Reevaluation #1: 12:53 - lab workup returning with WBC 16.9 and stable anemia, H/H 7.7/24.1. Platelets 714K. ?dehydration. Concern for possible sepsis at this time, will broadly cover with IV vanco and cefepime and 30cc/kg sepsis IVF bolus ordered. Source possible skin infection. Need UA but no urinary symptoms or abdominal pain, N/V. BP improved to 101 systolic. lactic acid 2.1. Reevaluation #2: 2:15 - CXR clear. COVID negative. UA still pending. BP significantly improved with IVF, stable 110/60's. Planning for admission. Reevaluation #3: 2:32 - TT Dr. Lua for admission. Will admit. Patient and updated on plan of care and all questions were answered. MDM - Recheck/Abnormal Lab/Rx Lab Data Result diagrams: 10/02/20 12:28 10/02/20 12:28 Labs: Lab Results 10/02/20 10/02/20 10/02/20 Range/Units 12:28 12:28 12:28 WBC 16.9 H (4.8-10.8) X10*3/uL RBC 2.55 L (4.60-5.80) X10*6/uL Hgb 7.7 L (14.0-18.0) g/dl Hct 24.1 L (42-52) % MCV 94.5 (80-98) fL MCH 30.2 (27.0-33.0) pg MCHC 32.0 (31.0-36.0) g/dl RDW 13.6 (11.0-16.0) % Plt Count 714 H D (160-400) X10*3/uL MPV 8.9 L (9.4-12.4) fL Immature Gran % (Auto) 0.5 H (0.0-0.4) % Neut % (Auto) 85.1 H (45-73) % Lymph % (Auto) 6.1 L (20-40) % [place] % (Auto) 7.2 (2-11) % Eos % (Auto) 0.3 (0-4) % Baso % (Auto) 0.8 (0-2) % Lymph # (Auto) 1.0 L (1.2-4.9) X10*3/uL [place] # (Auto) 1.2 (0.1-1.2) X10*3/uL Eos # (Auto) 0.1 (0.0-0.4) X10*3/uL Baso # (Auto) 0.1 (0.0-0.2) X10*3/uL Abs Immat Gran (auto) 0.09 H (0.00-0.03) X10*3/uL Absolute Neuts (auto) 14.4 H (2.0-8.3) X10*3/uL Absolute Nucleated RBC 0.000 (0.0-0.012) X10*3/uL Nucleated RBC % (auto) 0.0 (0.0-0.2) /100WBC Sodium 132 L (135-145) mmol/L Potassium 4.4 (3.3-5.1) mmol/L Chloride 98 (96-108) mmol/L Carbon Dioxide 23 (22-29) mmol/L Anion Gap 15 (12-20) BUN 29 H (9-16) mg/dL Creatinine 2.33 H (0.5-1.4) mg/dL Estim Creat Clear Calc 37.7 Estimated GFR 28 Random Glucose 114 (60-115) mg/dL Lactic Acid (0.5-2.0) mmol/L Calcium 9.0 D (8.4-10.2) mg/dL Magnesium 1.7 (1.6-2.6) mg/dL Total Bilirubin 0.3 (0.0-1.0) mg/dL Direct Bilirubin 0.2 (0.0-0.5) mg/dL AST 7 (5-37) U/L ALT 7 (0-40) U/L Alkaline Phosphatase 62 (39-117) U/L Troponin I High Sens 5.3 (<3.5-35.0) ng/L Total Protein 8.0 (6.5-8.0) g/dL Albumin 2.8 L (3.5-5.0) g/dL Lipase (8-78) U/L Stool Occult Blood (NEGATIVE) COVID-19 ([facility]UAN JOSE) (Negative) COVID-19 Clin Com 10/02/20 10/02/20 10/02/20 Range/Units 12:28 12:28 13:38 WBC (4.8-10.8) X10*3/uL RBC (4.60-5.80) X10*6/uL Hgb (14.0-18.0) g/dl Hct (42-52) % MCV (80-98) fL MCH (27.0-33.0) pg MCHC (31.0-36.0) g/dl RDW (11.0-16.0) % Plt Count (160-400) X10*3/uL MPV (9.4-12.4) fL Immature Gran % (Auto) (0.0-0.4) % Neut % (Auto) (45-73) % Lymph % (Auto) (20-40) % [place] % (Auto) (2-11) % Eos % (Auto) (0-4) % Baso % (Auto) (0-2) % Lymph # (Auto) (1.2-4.9) X10*3/uL [place] # (Auto) (0.1-1.2) X10*3/uL Eos # (Auto) (0.0-0.4) X10*3/uL Baso # (Auto) (0.0-0.2) X10*3/uL Abs Immat Gran (auto) (0.00-0.03) X10*3/uL Absolute Neuts (auto) (2.0-8.3) X10*3/uL Absolute Nucleated RBC (0.0-0.012) X10*3/uL Nucleated RBC % (auto) (0.0-0.2) /100WBC Sodium (135-145) mmol/L Potassium (3.3-5.1) mmol/L Chloride (96-108) mmol/L Carbon Dioxide (22-29) mmol/L Anion Gap (12-20) BUN (9-16) mg/dL Creatinine (0.5-1.4) mg/dL Estim Creat Clear Calc Estimated GFR Random Glucose (60-115) mg/dL Lactic Acid 2.1 H* (0.5-2.0) mmol/L Calcium (8.4-10.2) mg/dL Magnesium (1.6-2.6) mg/dL Total Bilirubin (0.0-1.0) mg/dL Direct Bilirubin (0.0-0.5) mg/dL AST (5-37) U/L ALT (0-40) U/L Alkaline Phosphatase (39-117) U/L Troponin I High Sens (<3.5-35.0) ng/L Total Protein (6.5-8.0) g/dL Albumin (3.5-5.0) g/dL Lipase 20 (8-78) U/L Stool Occult Blood (NEGATIVE) COVID-19 (JUAN JOSE) Negative (Negative) COVID-19 Clin Com See Note 10/02/20 Range/Units 13:58 WBC (4.8-10.8) X10*3/uL RBC (4.60-5.80) X10*6/uL Hgb (14.0-18.0) g/dl Hct (42-52) % MCV (80-98) fL MCH (27.0-33.0) pg MCHC (31.0-36.0) g/dl RDW (11.0-16.0) % Plt Count (160-400) X10*3/uL MPV (9.4-12.4) fL Immature Gran % (Auto) (0.0-0.4) % Neut % (Auto) (45-73) % Lymph % (Auto) (20-40) % [place] % (Auto) (2-11) % Eos % (Auto) (0-4) % Baso % (Auto) (0-2) % Lymph # (Auto) (1.2-4.9) X10*3/uL [place] # (Auto) (0.1-1.2) X10*3/uL Eos # (Auto) (0.0-0.4) X10*3/uL Baso # (Auto) (0.0-0.2) X10*3/uL Abs Immat Gran (auto) (0.00-0.03) X10*3/uL Absolute Neuts (auto) (2.0-8.3) X10*3/uL Absolute Nucleated RBC (0.0-0.012) X10*3/uL Nucleated RBC % (auto) (0.0-0.2) /100WBC Sodium (135-145) mmol/L Potassium (3.3-5.1) mmol/L Chloride (96-108) mmol/L Carbon Dioxide (22-29) mmol/L Anion Gap (12-20) BUN (9-16) mg/dL Creatinine (0.5-1.4) mg/dL Estim Creat Clear Calc Estimated GFR Random Glucose (60-115) mg/dL Lactic Acid (0.5-2.0) mmol/L Calcium (8.4-10.2) mg/dL Magnesium (1.6-2.6) mg/dL Total Bilirubin (0.0-1.0) mg/dL Direct Bilirubin (0.0-0.5) mg/dL AST (5-37) U/L ALT (0-40) U/L Alkaline Phosphatase (39-117) U/L Troponin I High Sens (<3.5-35.0) ng/L Total Protein (6.5-8.0) g/dL Albumin (3.5-5.0) g/dL Lipase (8-78) U/L Stool Occult Blood NEGATIVE (NEGATIVE) COVID-19 ([facility] JOSE) (Negative) COVID-19 Clin Com Critical Care Time Critical Care Time Critical Care Time: Yes Total Critical Care Time: 55 Attestation: I attest to critical care time spent caring for this critically ill patient with hypotension requiring aggressive resuscitation to prevent further decompensation. time spent at the bedside re-evaluation cardiopulmonary status, reviewing records, labs and imaging. Discharge Plan Discharge Clinical Impression: Acute hypotension, Acute kidney injury superimposed on chronic kidney disease, Weakness Patient Disposition: Admitted As Inpatient
[2020-10-02 12:35] LABS: MANUAL DIFF FLAG NO
[2020-10-02] MEDS: 0.9 % Sodium Chloride 1,000 ML 999 ML IVCONT (12:35)
[2020-10-02 12:39] LABS: Basophils Absolute Auto 0.1 X10*3/uL (0.0-0.2); Basophils Percent Auto 0.8 % (0-2); Eosinophils Absolute Auto 0.1 X10*3/uL (0.0-0.4); Eosinophils Percent Auto 0.3 % (0-4); Hematocrit 24.1 % (42-52); Hemoglobin 7.7 g/dl (14.0-18.0); Imm Gran Abs Auto 0.09 X10*3/uL (0.00-0.03); Imm Gran Pct Auto 0.5 % (0.0-0.4); Lymphocytes Percent Auto 6.1 % (20-40); Mean Corpuscular Hemoglobin 30.2 pg (27.0-33.0); Mean Corpuscular Volume 94.5 fL (80-98); Mean Platelet Volume 8.9 fL (9.4-12.4); Monocytes Absolute Auto 1.2 X10*3/uL (0.1-1.2); Monocytes Percent Auto 7.2 % (2-11); Neutrophils Absolute Auto 14.4 X10*3/uL (2.0-8.3); Neutrophils Percent Auto 85.1 % (45-73); Platelet Count 714 X10*3/uL (160-400); Red Blood Count 2.55 X10*6/uL (4.60-5.80); Red Cell Distribution Width 13.6 % (11.0-16.0); White Blood Count 16.9 X10*3/uL (4.8-10.8)
[2020-10-02 13:11] LABS: Alanine Aminotransferase 7 U/L (0-40); Albumin Level 2.8 g/dL (3.5-5.0); Alkaline Phosphatase 62 U/L (39-117); Anion Gap 15 (12-20); Aspartate Amino Transferase 7 U/L (5-37); Bilirubin Direct 0.2 mg/dL (0.0-0.5); Bilirubin Total 0.3 mg/dL (0.0-1.0); Blood Urea Nitrogen 29 mg/dL (9-16); Carbon Dioxide 23 mmol/L (22-29); Chloride 98 mmol/L (96-108); Creatinine Clr Calc Pharmacy 37.7; Estimated Glomerular Filt Rate 28; Glucose Random 114 mg/dL (60-115); Lipase 20 U/L (8-78); Magnesium 1.7 mg/dL (1.6-2.6); Potassium 4.4 mmol/L (3.3-5.1); Sodium 132 mmol/L (135-145)
[2020-10-02 13:15] LABS: Lactic Acid 2.1 mmol/L (0.5-2.0); Troponin-I High Sensitivity 5.3 ng/L (<3.5-35.0)
[2020-10-02] MEDS: 0.9 % Sodium Chloride 2,653.53 ML 2653.53 ML IV (13:29)
[2020-10-02] MEDS: cefEPime HCl 2 GM in 0.9 % Sodium Chloride 50 ML IV (13:32)
[2020-10-02 14:02] LABS: COVID-19 Test Negative (Negative)
[2020-10-02 14:08] LABS: OBS Int Ctl Valid YES; OBS1 NEGATIVE (NEGATIVE)
[2020-10-02] MEDS: vancomycin HCL 1,000 MG in 0.9 % Sodium Chloride 250 ML 270 MG IV (14:27)
--- NOTE | 2020-10-02 14:28 | HE.PHANOTE ---
Med rec completed.
[2020-10-02 14:33] LABS: Reflex Lactate? Lactic Acid Added
[2020-10-02 15:21] LABS: Glucose Urine UA NEG (NEG); Leukocyte Esterase Urine 2+ (NEG); Nitrite Urine NEG (NEG); PH 5.5 (5.0-8.0); UACC Culture Trigger YES; Urine Blood TRACE (NEG); Urine Ketones NEG (NEG); Urine Protein TRACE MG/DL (NEG-TRACE)
[2020-10-02 15:22] LABS: Appearance Urine CLEAR; Color Urine YELLOW
[2020-10-02 15:31] LABS: Bacteria Urine 1+ /LPF; RBC Urine 0-2 /HPF (0); Squamous Epithelial Cell Urine TRACE /LPF
[2020-10-02 15:31] LABS: ~Lactic Acid-LAB USE ONLY 1.2 mmol/L (0.5-2.0)
[2020-10-02 15:47] LABS: Creatinine Urine 47.39 mg/dL
[2020-10-02 15:49] LABS: Amphetamine Screen Urine Not Detected (Not Detect); Barbiturates, Urine POSITIVE (Not Detect); Benzodiazepines Screen Urine Not Detected (Not Detect); Cannabinoid Screen Urine Not Detected (Not Detect); Cocaine Screen Urine Not Detected (Not Detect); Opiate Screen Urine Not Detected (Not Detect); Phencyclidine Screen Urine Not Detected (Not Detect)
[2020-10-02 15:51] LABS: Osmolality Urine 158 mosm/kg (373-1093)
--- NOTE | 2020-10-02 17:09 | PC.NURSE ---
Velma, pt support person, would like to be contacted upon transfer- [phone]
--- NOTE | 2020-10-02 18:43 | PM.IMHP ---
History of Present Illness Date of Service: 10/02/20 Chief Complaint: Dizziness, weakness, increase drainage A 64 years old male with PMH of hypertension, hidradenitis, history of alcoholism, frequent old who presents to the hospital complaining of increased weakness and dizziness for the last few days. The patient was recently discharged from the hospital after an episode of peptic ulcer bleeding. He reports that since going back home he did not feel back to normal and has been feeling weaker. He has not been doing much of ambulation or workup. He reports that this morning he started feeling significantly weak and lightheadedness. He did blood work area hours this week and his nurse called him with worsening kidney function asking him to come to the hospital. He denies any bloody bowel motions or hematemesis. Denies any nausea, vomiting, fever or chills. On arrival his blood pressure was noted to be around 80/50 responded well to fluids. Admitted for further evaluation and treatment. Review of Systems Review of Systems: No fever, chills but complain generalized weakness and no energy No chest pain, palpitation No shortness of breath or coughing No abdominal pain, nausea or vomiting No urinary symptoms No any rash or wounds [facility] Medical History (Updated 10/02/20 @ 18:48 by Reinier Mckeon MD) Alcohol dependence Anemia Hidradenitis Hidradenitis suppurativa Normocytic anemia Social History Household Members: Spouse Housing: House Do you presently have visiting nurse or other home services: No Alcohol intake: never Patient Tobacco Use Status: Never used Tobacco Cigarettes Per Day: 20 Years Smoked: 50 Use of substances other than those prescribed or required for medical reasons: No Advance Directives: No Advance Directives Information Provided: No service: No Current occupational status: retired Meds Allergies Allergy/AdvReac Type Severity Reaction Status Date / Time hydrochlorothiazide Allergy Unknown brandt dutta Verified 10/02/20 11:59 Active Medications: Current Medications Generic Name Dose Route Start Last Admin Trade Name Freq PRN Reason Stop Dose Admin Pharmacy Consult 1 each 10/02/20 12:51 Consult Rx Perform Med Rec MISCELLANE ONCE PRN Consult order Home Medications Medication Instructions Recorded Confirmed Last Taken Type Humira 40 mg SUBCUT FR 09/20/20 10/02/20 09/27/20 History atenolol 100 mg PO DAILY 09/20/20 10/02/20 10/02/20 History Physical Exam Vital Signs and Narrative: Vital Signs: Last Vital Signs Temp 97.8 F 10/02/20 11:50 Pulse 88 10/02/20 16:48 Resp 18 10/02/20 16:48 BP 119/62 10/02/20 16:48 Pulse Ox 97 10/02/20 16:48 Body Mass Index 24.3 Const: Other: Constitutional : Alert, oriented, Neck : Normal inspection, Supple Cardiovascular : RRR, S1 S2, trace bilateral lower extremity edema Respiratory : Good bilateral air entry, no crackles, wheezes or rhonchi Gastrointestinal: soft, lax, Normal bowel sounds, Non tender Skin : Warm/Dry, hidradenitis rash and sinuses in the armpit area with mild tenderness and increased it drainage with bad odor. Buttock area has indurated skin with no significant drainage noted Neurological : Alert & oriented x3, No focal deficit Results Labs CBC and Chem 7: 10/02/20 12:28 10/02/20 12:28 Labs: Laboratory Results - last 24 hr 10/02/20 10/02/20 10/02/20 12:28 12:28 12:28 MCV 94.5 MCH 30.2 MCHC 32.0 RDW 13.6 Plt Count 714 H D MPV 8.9 L Immature Gran % (Auto) 0.5 H Neut % (Auto) 85.1 H Lymph % (Auto) 6.1 L [place] % (Auto) 7.2 Eos % (Auto) 0.3 Baso % (Auto) 0.8 Lymph # (Auto) 1.0 L [place] # (Auto) 1.2 Eos # (Auto) 0.1 Baso # (Auto) 0.1 Abs Immat Gran (auto) 0.09 H Absolute Neuts (auto) 14.4 H Absolute Nucleated RBC 0.000 Nucleated RBC % (auto) 0.0 Anion Gap 15 Estim Creat Clear Calc 37.7 Estimated GFR 28 Random Glucose 114 Lactic Acid Lactic Acid Fup @ 2Hr Calcium 9.0 D Magnesium 1.7 Total Bilirubin 0.3 Direct Bilirubin 0.2 AST 7 ALT 7 Alkaline Phosphatase 62 Troponin I High Sens 5.3 Total Protein 8.0 Albumin 2.8 L Lipase Urine Color Urine Appearance Urine pH Ur Specific [place] Urine Protein Urine Glucose (UA) Urine Ketones Urine Blood Urine Nitrite Ur Leukocyte Esterase Urine RBC Urine WBC Ur Squamous Epith Cells Urine Bacteria Urine Osmolality Ur Random Sodium Urine Creatinine Stool Occult Blood Urine Opiates Screen Ur Barbiturates Screen Ur Phencyclidine Scrn Ur Amphetamines Screen U Benzodiazepines Scrn Urine Cocaine Screen U Marijuana (THC) Screen COVID-19 ([facility]) COVID-19 Clin Com 10/02/20 10/02/20 10/02/20 12:28 12:28 13:38 MCV MCH MCHC RDW Plt Count MPV Immature Gran % (Auto) Neut % (Auto) Lymph % (Auto) [place] % (Auto) Eos % (Auto) Baso % (Auto) Lymph # (Auto) [place] # (Auto) Eos # (Auto) Baso # (Auto) Abs Immat Gran (auto) Absolute Neuts (auto) Absolute Nucleated RBC Nucleated RBC % (auto) Anion Gap Estim Creat Clear Calc Estimated GFR Random Glucose Lactic Acid 2.1 H* Lactic Acid Fup @ 2Hr Calcium Magnesium Total Bilirubin Direct Bilirubin AST ALT Alkaline Phosphatase Troponin I High Sens Total Protein Albumin Lipase 20 Urine Color Urine Appearance Urine pH Ur Specific [place] Urine Protein Urine Glucose (UA) Urine Ketones Urine Blood Urine Nitrite Ur Leukocyte Esterase Urine RBC Urine WBC Ur Squamous Epith Cells Urine Bacteria Urine Osmolality Ur Random Sodium Urine Creatinine Stool Occult Blood Urine Opiates Screen Ur Barbiturates Screen Ur Phencyclidine Scrn Ur Amphetamines Screen U Benzodiazepines Scrn Urine Cocaine Screen U Marijuana (THC) Screen COVID-19 ([facility]UAN JOSE) Negative COVID-19 Clin Com See Note 10/02/20 10/02/20 10/02/20 13:58 15:00 15:11 MCV MCH MCHC RDW Plt Count MPV Immature Gran % (Auto) Neut % (Auto) Lymph % (Auto) [place] % (Auto) Eos % (Auto) Baso % (Auto) Lymph # (Auto) [place] # (Auto) Eos # (Auto) Baso # (Auto) Abs Immat Gran (auto) Absolute Neuts (auto) Absolute Nucleated RBC Nucleated RBC % (auto) Anion Gap Estim Creat Clear Calc Estimated GFR Random Glucose Lactic Acid Lactic Acid Fup @ 2Hr 1.2 Calcium Magnesium Total Bilirubin Direct Bilirubin AST ALT Alkaline Phosphatase Troponin I High Sens Total Protein Albumin Lipase Urine Color Urine Appearance Urine pH Ur Specific [place] Urine Protein Urine Glucose (UA) Urine Ketones Urine Blood Urine Nitrite Ur Leukocyte Esterase Urine RBC Urine WBC Ur Squamous Epith Cells Urine Bacteria Urine Osmolality Ur Random Sodium Urine Creatinine Stool Occult Blood NEGATIVE Urine Opiates Screen Not Detected Ur Barbiturates Screen POSITIVE H Ur Phencyclidine Scrn Not Detected Ur Amphetamines Screen Not Detected U Benzodiazepines Scrn Not Detected Urine Cocaine Screen Not Detected U Marijuana (THC) Screen Not Detected COVID-19 ([facility] JOSE) COVID-19 Clin Com 10/02/20 10/02/20 10/02/20 15:12 15:12 15:12 MCV MCH MCHC RDW Plt Count MPV Immature Gran % (Auto) Neut % (Auto) Lymph % (Auto) [place] % (Auto) Eos % (Auto) Baso % (Auto) Lymph # (Auto) [place] # (Auto) Eos # (Auto) Baso # (Auto) Abs Immat Gran (auto) Absolute Neuts (auto) Absolute Nucleated RBC Nucleated RBC % (auto) Anion Gap Estim Creat Clear Calc Estimated GFR Random Glucose Lactic Acid Lactic Acid Fup @ 2Hr Calcium Magnesium Total Bilirubin Direct Bilirubin AST ALT Alkaline Phosphatase Troponin I High Sens Total Protein Albumin Lipase Urine Color YELLOW Urine Appearance CLEAR Urine pH 5.5 Ur Specific [place] 1.010 Urine Protein TRACE Urine Glucose (UA) NEG Urine Ketones NEG Urine Blood TRACE Urine Nitrite NEG Ur Leukocyte Esterase 2+ H Urine RBC 0-2 Urine WBC 1-4 Ur Squamous Epith Cells TRACE Urine Bacteria 1+ Urine Osmolality 158 L Ur Random Sodium 32.0 Urine Creatinine 47.39 Stool Occult Blood Urine Opiates Screen Ur Barbiturates Screen Ur Phencyclidine Scrn Ur Amphetamines Screen U Benzodiazepines Scrn Urine Cocaine Screen U Marijuana (THC) Screen COVID-19 ([facility]SE) COVID-19 Clin Com Imaging Radiologist's Impressions: Impressions Chest X-Ray 10/02/20 12:18 IMPRESSION: No acute parenchymal disease. Assessment and Plan (1) Acute hypotension: Status: Acute (2) Acute kidney injury superimposed on chronic kidney disease: Status: Acute (3) Lactic acidosis: Status: Acute (4) Hidradenitis suppurativa: Status: Acute A 64 years old male with PMH of hypertension, hidradenitis, history of alcoholism, frequent old who presents to the hospital complaining of increased weakness and dizziness for the last few days. Hidradenitis suppurativa Suspected secondary infection Start doxycycline and ceftriaxone Pending cultures To get wound care evaluation Hypotension Not due to sepsis Likely from home blood pressure medications and decreased oral intake Responded well to hydration Lactic acidosis Secondary to hypoperfusion from hypotension not due to sepsis Resolved with IV fluid BREANA on CKD Creatinine worsened from 1.7-2.3 Hold nephrotoxic medications Gentle hydration in ED Monitor intake and output follow BMP Consider nephrology evaluation Hyponatremia Sodium of 132 Stable frequent falls and weakness Multifactorial, alcoholism, physical deconditioning, anemia PT OT DVT prophylaxis SCDs
--- NOTE | 2020-10-02 20:42 | PC.NURSE ---
Patient difficult stick, labs attempted to be drawn by multiple staff members and only was able to obtain blood cultures. Delay in labs due to phlebotomy having to come to the bedside to obtain them.
--- NOTE | 2020-10-02 21:30 | PC.NURSE ---
Nurse to nurse report called. Tech at bedside doing belongings list and patient transported via stretcher to the floor.
--- NOTE | 2020-10-02 22:06 | MHC.CM.PN ---
CM met with patient. Pt being admitted. IMM reviewed and signed per protocol 10/02/20@6. HCP reviewed, completed and signed per protocol. HCP/ Anum Reddy ([phone]). Pt lives with , is independent, has no DME and has no services at home. D/C plan is home without services. Family to provide transportation home. CM to follow for d/c needs.
[2020-10-02] MEDS: Doxycycline Hyclate 100 MG in 0.9 % Sodium Chloride 250 ML 166.67 MG IV (22:18)
[2020-10-02] MEDS: Omeprazole 40 MG CAPSULE.DR PO (22:18)
[2020-10-02] MEDS: Tamsulosin HCL 0.4 MG CAPSULE PO (22:18)
[2020-10-03] VITALS (16 sets, daily range): BP systolic 80–133; BP diastolic 50–74; PULSE 69–90; RESP 16–20; TEMP 37–37.3; O2SAT 94–99
[2020-10-03] MEDS: Omeprazole 40 MG CAPSULE.DR PO ×2 (06:09→17:03)
[2020-10-03] MEDS: Thiamine HCL 100 MG TABLET PO (08:02)
[2020-10-03] MEDS: atenoloL 50 MG TABLET PO (08:02)
[2020-10-03] MEDS: Folic Acid 1 MG TABLET PO (08:02)
[2020-10-03 08:17] LABS: MRSA Nasal PCR NEGATIVE (Negative); SA Nasal PCR POSITIVE (Negative)
[2020-10-03 08:37] LABS: MANUAL DIFF FLAG NO
[2020-10-03 08:41] LABS: Basophils Absolute Auto 0.1 X10*3/uL (0.0-0.2); Basophils Percent Auto 0.9 % (0-2); Eosinophils Absolute Auto 0.2 X10*3/uL (0.0-0.4); Eosinophils Percent Auto 1.6 % (0-4); Hematocrit 24.3 % (42-52); Hemoglobin 7.6 g/dl (14.0-18.0); Imm Gran Abs Auto 0.07 X10*3/uL (0.00-0.03); Imm Gran Pct Auto 0.5 % (0.0-0.4); Lymphocytes Absolute Auto 1.1 X10*3/uL (1.2-4.9); Lymphocytes Percent Auto 8.3 % (20-40); Mean Corpuscular HGB Conc 31.3 g/dl (31.0-36.0); Mean Corpuscular Hemoglobin 29.9 pg (27.0-33.0); Mean Corpuscular Volume 95.7 fL (80-98); Mean Platelet Volume 8.9 fL (9.4-12.4); Monocytes Absolute Auto 1.3 X10*3/uL (0.1-1.2); Monocytes Percent Auto 9.3 % (2-11); Neutrophils Absolute Auto 10.6 X10*3/uL (2.0-8.3); Neutrophils Percent Auto 79.4 % (45-73); Platelet Count 678 X10*3/uL (160-400); Red Blood Count 2.54 X10*6/uL (4.60-5.80); Red Cell Distribution Width 13.8 % (11.0-16.0); White Blood Count 13.4 X10*3/uL (4.8-10.8)
[2020-10-03 09:01] LABS: Anion Gap 11 (12-20); Blood Urea Nitrogen 22 mg/dL (9-16); Calcium 8.6 mg/dL (8.4-10.2); Carbon Dioxide 21 mmol/L (22-29); Chloride 107 mmol/L (96-108); Creatinine Clr Calc Pharmacy 41.7; Estimated Glomerular Filt Rate 32; Glucose Random 143 mg/dL (60-115); Potassium 3.9 mmol/L (3.3-5.1); Sodium 135 mmol/L (135-145)
[2020-10-03] MEDS: Doxycycline Hyclate 100 MG in 0.9 % Sodium Chloride 250 ML 166.67 MG IV ×2 (09:57→21:06)
[2020-10-03] MEDS: cefTRIAXone sodium 1 GM in 0.9 % Sodium Chloride 50 ML IV (11:44)
--- NOTE | 2020-10-03 13:28 | HO.PM.IMPN ---
Subjective Subjective Date of Service: 10/03/20 Interval History: the patient was seen and evaluated this morning Laying in bed, feels tired overall with aching from multiple areas of inflamed hydradenitis Reports feeling out of energy with hemoglobin level of 7.6 this morning Denies any fever, chills or shortness of breath No reported other overnight events. Review of Systems No fever, chills but complain generalized weakness and no energy No chest pain, palpitation No shortness of breath or coughing No abdominal pain, nausea or vomiting No urinary symptoms No any rash or wounds Physical Exam Vital Signs: Vital Signs: Last Vital Signs Temp 99.0 F 10/03/20 11:54 Pulse 77 10/03/20 11:54 Resp 18 10/03/20 11:54 BP 125/61 10/03/20 11:54 Pulse Ox 97 10/03/20 11:54 Body Mass Index 24.3 Const: Other: Constitutional : Alert, oriented, Neck : Normal inspection, Supple Cardiovascular : RRR, S1 S2, trace bilateral lower extremity edema Respiratory : Good bilateral air entry, no crackles, wheezes or rhonchi Gastrointestinal: soft, lax, Normal bowel sounds, Non tender Skin : Warm/Dry, hidradenitis rash and sinuses in the armpit area with mild tenderness and increased it drainage with bad odor. Buttock area has indurated skin with no significant drainage noted Neurological : Alert & oriented x3, No focal deficit Objective Data Current Medications Generic Name Dose Route Start Last Admin Trade Name Freq PRN Reason Stop Dose Admin Atenolol 50 mg 10/03/20 09:00 10/03/20 08:02 Atenolol 50 Mg Tablet PO 50 mg DAILY LOBO Administration Protocol Folic Acid 1 mg 10/03/20 09:00 10/03/20 08:02 Folic Acid 1 Mg Tablet PO 1 mg DAILY LOBO Administration Doxycycline Hyclate 100 mg/ 250 mls @ 166.67 mls/hr 10/02/20 22:00 10/03/20 11:43 Sodium Chloride IV Infused Q12H LOBO Infusion Ceftriaxone Sodium 1 gm/ 50 mls @ 100 mls/hr 10/03/20 13:00 10/03/20 12:15 Sodium Chloride IV Infused Q24H LOBO Infusion Omeprazole 40 mg 10/03/20 06:30 10/03/20 06:09 Omeprazole 40 Mg Capsule. PO 40 mg BID@4302,2140 [facility] Administration Pharmacy Consult 1 each 10/02/20 12:51 Consult Rx Perform Med Rec MISCELLANE ONCE PRN Consult order Tamsulosin HCl 0.4 mg 10/03/20 17:30 10/02/20 22:18 Tamsulosin Hcl 0.4 Mg Capsule PO 0.4 mg DAILY@1730 [facility] Administration Thiamine HCl 100 mg 10/03/20 09:00 10/03/20 08:02 Thiamine Hcl 100 Mg Tablet PO 100 mg DAILY [facility] Administration Labs CBC & Chem 7: 10/03/20 08:30 10/03/20 08:30 Microbiology Microbiology Results: Microbiology 10/02/20 15:24 Urine clean catch - Clean Catch Midstream Urine Culture - Final Assessment and Plan (1) Acute hypotension: Status: Acute (2) Acute kidney injury superimposed on chronic kidney disease: Status: Acute (3) Lactic acidosis: Status: Acute (4) Hidradenitis suppurativa: Status: Acute Assessment and Plan: A 64 years old male with PMH of hypertension, hidradenitis, history of alcoholism, frequent old who presents to the hospital complaining of increased weakness and dizziness for the last few days. Symptomatic anemia Hemoglobin of 7.6 with reported lethargy and weakness Known history of peptic ulcer disease on active treatment To transfuse a unit of blood Monitor H&H Hidradenitis suppurativa Suspected secondary infection Continue doxycycline and ceftriaxone Pending cultures To get wound care evaluation Hypotension Not due to sepsis Likely from home blood pressure medications and decreased oral intake Improved significantly Continue atenolol 50 mg only for now Lactic acidosis Secondary to hypoperfusion from hypotension not due to sepsis Resolved with IV fluid BREANA on CKD Creatinine improved to 2.1 this morning Hold nephrotoxic medications Discontinue IVF Monitor intake and output follow BMP Consider nephrology evaluation Hyponatremia Sodium of 132 Stable frequent falls and weakness Multifactorial, alcoholism, physical deconditioning, anemia PT evaluation DVT prophylaxis SCDs
[2020-10-03] MEDS: metroNIDAZOLE/NS 500 MG/100 ML PIGGYBACK 100 MG IV ×2 (15:43→22:41)
[2020-10-03] MEDS: Lidocaine HCl 1% PF/Epi 1:200,000 30 ML VIAL INFILTRATI (16:19)
--- NOTE | 2020-10-03 16:37 | P.CONGS_ITS ---
History of Present Illness Consult details Consult date: 10/03/20 Reason for consult: wound care Requesting physician: Reinier Mckeon Narrative: This is a 64-year-old gentleman who was admitted yesterday for treatment of weakness , dizziness and anemia. He was discharged recently after admission for similar complaints. At that time, he was diagnosed with a bleeding peptic ulcer. 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 He reports that the hidradenitis has been less active since starting the Humira but it has not been quiescent. Recently, he has experienced increased drainage and discomfort, particularly involving the right axilla, but also the buttocks and left axilla. He has been experiencing chills but no fevers. Treatment for the hidradenitis in the past has included occasional incision and drainage and also excision and skin grafti ng. Review of Systems Constitutional: Constitutional: Reports chills, Denies fever(s), Reports lethargy and Reports weakness ENT: Reports dizziness Musculoskeletal: Comments: Bilateral foot pain worse with walking Neurologic: Reports dizziness and Reports weakness PMFSH Past Medical History Medical History Alcohol dependence Anemia Hidradenitis Hidradenitis suppurativa Normocytic anemia Social History Social History Household Members: Spouse Housing: House Do you presently have visiting nurse or other home services: No Alcohol intake: never Patient Tobacco Use Status: Current everyday Tobacco user Tobacco use type: Cigarette Cigarette Packs Per Day: 0.5 Cigarettes Per Day: 10.0 Years Smoked: 50 Smoked in Last 30 Days: Yes Patient Interested in Nicotine Replacement: No Patient Given Instructions on How to Stop Smoking: No Second Hand Smoke Exposure: Yes Use of substances other than those prescribed or required for medical reasons: No Currently Displaying Signs/Symptoms of Drug Intoxication Withdrawal: No Have you been hit, kicked, punched, or otherwise hurt by someone within the past year? If so, by whom?: No Do you feel safe in your current relationship?: Yes Is there a partner from a previous relationship who is making you feel unsafe now?: No Are you made to feel afraid or neglected: No Advance Directives: Yes Advance Directives Information Provided: No Advance Directives on File: Yes Advance Directives Date on File: 10/03/20 Do you have thoughts of harming others: None Do you have a plan to hurt others: No Plan Recently lost weight without trying: No Nutrition Risks: No Nutritional Risk Poor oral hygiene: No service: No Current occupational status: retired Meds Allergies Allergy/AdvReac Type Severity Reaction Status Date / Time hydrochlorothiazide Allergy Unknown lip swells Verified 10/02/20 11:59 Active Medications: Current Medications Generic Name Dose Route Start Last Admin Trade Name Freq PRN Reason Stop Dose Admin Atenolol 50 mg 10/03/20 09:00 10/03/20 08:02 Atenolol 50 Mg Tablet PO 50 mg DAILY LOBO Administration Protocol Folic Acid 1 mg 10/03/20 09:00 10/03/20 08:02 Folic Acid 1 Mg Tablet PO 1 mg DAILY [facility] Administration Doxycycline Hyclate 100 mg/ 250 mls @ 166.67 mls/hr 10/02/20 22:00 10/03/20 11:43 Sodium Chloride IV Infused Q12H LOBO Infusion Metronidazole 500 mg in 100 mls @ 100 mls/hr 10/03/20 14:00 10/03/20 15:43 Flagyl IV 100 mls/hr Q8H [facility] Administration Omeprazole 40 mg 10/03/20 06:30 10/03/20 06:09 Omeprazole 40 Mg Capsule. PO 40 mg BID@0630,1630 [facility] Administration Oxycodone HCl 5 mg 10/03/20 16:35 Oxycodone Hcl Immed Release 5 Mg Tablet PO Q4H PRN Pain, Moderate (Pain Scale 4-6 Pharmacy Consult 1 each 10/02/20 12:51 Consult Rx Perform Med Rec MISCELLANE ONCE PRN Consult order Tamsulosin HCl 0.4 mg 10/03/20 17:30 10/02/20 22:18 Tamsulosin Hcl 0.4 Mg Capsule PO 0.4 mg DAILY@1730 [facility] Administration Thiamine HCl 100 mg 10/03/20 09:00 10/03/20 08:02 Thiamine Hcl 100 Mg Tablet PO 100 mg DAILY LOBO Administration Home Medications Medication Instructions Recorded Confirmed Last Taken Type Humira 40 mg SUBCUT FR 05/21/21 06/02/21 05/28/21 History atenolol 100 mg PO DAILY 09/20/20 10/02/20 10/02/20 History Physical Exam Vital Signs: Vital Signs: Last Vital Signs Temp 98.7 F 10/03/20 15:45 Pulse 80 10/03/20 15:53 Resp 18 10/03/20 15:45 BP 110/61 10/03/20 15:53 Pulse Ox 99 10/03/20 15:42 Body Mass Index 24.3 Const: General: cooperative, no acute distress and alert HENMT: Head: Yes normocephalic and Yes atraumatic Neck: Neck: Yes trachea midline and Yes supple Resp: Effort & Inspection: normal respiratory effort Auscultation: clear to auscultation bilaterally Cardio: Rate: regular rate Rhythm: regular rhythm Skin: Other: extensive scarring involving both axillary areas and the buttocks. There is a draining sinus along the inferior posterior aspect of the right axilla. The process extends across the lateral aspect of the right pectoral area to the periareolar area with scarring, contracture, and multiple puncta present. There is an area of erythema present at about 7-9 o'clock just beyond the areolar border on the right there is a similar appearance in the left axilla but the process is less extensive in does not extend across the pectoral area. There is 1 small draining sinus with moderate surrounding tenderness. Skin involvement in the bilateral buttocks appears less extensive with multiple puncta present and 2 raised erythematous areas in the upper outer aspect of the right buttock consistent with inflammatory collections/abscesses Results Labs Result diagrams: 10/03/20 08:30 10/03/20 08:30 Labs: Abnormal lab results 10/02/20 10/03/20 10/03/20 Range/Units 22:45 06:05 08:30 WBC 13.4 H (4.8-10.8) X10*3/uL RBC 2.54 L (4.60-5.80) X10*6/uL Hgb 7.6 L (14.0-18.0) g/dl Hct 24.3 L (42-52) % Plt Count 678 H (160-400) X10*3/uL MPV 8.9 L (9.4-12.4) fL Immature Gran % (Auto) 0.5 H (0.0-0.4) % Neut % (Auto) 79.4 H (45-73) % Lymph % (Auto) 8.3 L (20-40) % Lymph # (Auto) 1.1 L (1.2-4.9) X10*3/uL [place] # (Auto) 1.3 H (0.1-1.2) X10*3/uL Abs Immat Gran (auto) 0.07 H (0.00-0.03) X10*3/uL Absolute Neuts (auto) 10.6 H (2.0-8.3) X10*3/uL Carbon Dioxide (22-29) mmol/L Anion Gap (12-20) BUN (9-16) mg/dL Creatinine (0.5-1.4) mg/dL Random Glucose (60-115) mg/dL Nasal S. aureus Screen POSITIVE A (Negative) Crossmatch See Detail 10/03/20 Range/Units 08:30 WBC (4.8-10.8) X10*3/uL RBC (4.60-5.80) X10*6/uL Hgb (14.0-18.0) g/dl Hct (42-52) % Plt Count (160-400) X10*3/uL MPV (9.4-12.4) fL Immature Gran % (Auto) (0.0-0.4) % Neut % (Auto) (45-73) % Lymph % (Auto) (20-40) % Lymph # (Auto) (1.2-4.9) X10*3/uL [place] # (Auto) (0.1-1.2) X10*3/uL Abs Immat Gran (auto) (0.00-0.03) X10*3/uL Absolute Neuts (auto) (2.0-8.3) X10*3/uL Carbon Dioxide 21 L (22-29) mmol/L Anion Gap 11 L (12-20) BUN 22 H (9-16) mg/dL Creatinine 2.11 H (0.5-1.4) mg/dL Random Glucose 143 H (60-115) mg/dL Nasal S. aureus Screen (Negative) Crossmatch Short CBC 10/03/20 Range/Units 08:30 WBC 13.4 H (4.8-10.8) X10*3/uL Hgb 7.6 L (14.0-18.0) g/dl Hct 24.3 L (42-52) % Plt Count 678 H (160-400) X10*3/uL BMP 10/03/20 08:30 Sodium 135 Potassium 3.9 Chloride 107 Carbon Dioxide 21 L BUN 22 H Creatinine 2.11 H Calcium 8.6 Urine 10/02/20 Range/Units 15:12 Urine Color YELLOW Urine Appearance CLEAR Urine pH 5.5 (5.0-8.0) Ur Specific [place] 1.010 (1.005-1.025) Urine Protein TRACE (NEG-TRACE) MG/DL Urine Glucose (UA) NEG (NEG) MG/DL All other labs normal. Assessment and Plan (1) Hidradenitis suppurativa: Status: Acute severe fistulizing hidradenitis involving the right axillary and pectoral areas most extensively, but also involving the left axilla and both buttocks. We discussed options for care which include draining 1 or more of the areas with obvious collections and more extensive exploration in the operating room. Excision and grafting of the areas would be an option though grafting of the axillary areas is difficult and prone to failure. At this time, he does not wish to undertake any aggressive care. After discussion, he elected to proceed with incision and drainage of the right axillary collection only. This was done at the bedside under local anesthesia. He tolerated the procedure well. He is on antibiotics, doxycycline and cefepime. Cultures were taken. Procedures Date of Service Date of Service: 10/03/20 Abscess I/D Consent for Procedure: Elective - informed consent obtained ( Risks discussed: ongoing Infection, bleeding, nonhealing, scarring. He agreed to proceed.) Site: other ( Right axilla) Anesthetic used: lidocaine 1% ( with epinephrine 1 to [id number], 3 cc) Technique: incised with #11 blade Packing used?: plain Additional comments: he tolerated the procedure well
[2020-10-03] MEDS: Tamsulosin HCL 0.4 MG CAPSULE PO (17:03)
[2020-10-03] MEDS: oxyCODONE HCl Immed Release 5 MG TABLET PO ×2 (18:18→23:47)
--- NOTE | 2020-10-03 18:34 | P.CONWO_ITS ---
History of Present Illness Data of Consult Service Date: 10/03/20 Requesting physician: Reinier Mckeon Primary Care Provider: Todd Landin MD [facility] Reason for consult: hidradenitis wounds the patient is a 64-year-old man with chronic history of significant hidradenitis involving bilateral axillary areas groin areas buttock areas. He has been through multiple treatments involving surgery and being placed on immune of suppression medication followed by Dermatology. He has had some of the areas drained in the past but generally he just lives with chronically losing and draining wounds. He occasionally takes doxycycline for this as well. He comes in now because he was not doing well and recently been discharged after GI bleed. He is currently getting blood transfusion for low hemoglobin. His white count was elevated in these wounds are weeping purulent material. Review of Systems Review of Systems: No fever, chills but complain generalized weakness and no energy No chest pain, palpitation No shortness of breath or coughing No abdominal pain, nausea or vomiting No urinary symptoms No any rash or wounds Constitutional: Constitutional: Reports chills, Denies fever(s), Reports lethargy and Reports weakness ENT: Reports dizziness Neurologic: Reports dizziness and Reports weakness PMFSH Medical History Alcohol dependence Anemia Hidradenitis Hidradenitis suppurativa Normocytic anemia Social History Household Members: Spouse Housing: House Do you presently have visiting nurse or other home services: No Alcohol intake: never Patient Tobacco Use Status: Current everyday Tobacco user Tobacco use type: Cigarette Cigarette Packs Per Day: 0.5 Cigarettes Per Day: 10.0 Years Smoked: 50 Smoked in Last 30 Days: Yes Patient Interested in Nicotine Replacement: No Patient Given Instructions on How to Stop Smoking: No Second Hand Smoke Exposure: Yes Use of substances other than those prescribed or required for medical reasons: No Currently Displaying Signs/Symptoms of Drug Intoxication Withdrawal: No Have you been hit, kicked, punched, or otherwise hurt by someone within the past year? If so, by whom?: No Do you feel safe in your current relationship?: Yes Is there a partner from a previous relationship who is making you feel unsafe now?: No Are you made to feel afraid or neglected: No Advance Directives: Yes Advance Directives Information Provided: No Advance Directives on File: Yes Advance Directives Date on File: 10/03/20 Do you have thoughts of harming others: None Do you have a plan to hurt others: No Plan Recently lost weight without trying: No Nutrition Risks: No Nutritional Risk Poor oral hygiene: No service: No Current occupational status: retired Meds Allergies Allergy/AdvReac Type Severity Reaction Status Date / Time hydrochlorothiazide Allergy Unknown lip swells Verified 10/02/20 11:59 Active Medications: Current Medications Generic Name Dose Route Start Last Admin Trade Name Freq PRN Reason Stop Dose Admin Atenolol 50 mg 10/03/20 09:00 10/03/20 08:02 Atenolol 50 Mg Tablet PO 50 mg DAILY LOBO Administration Protocol Folic Acid 1 mg 10/03/20 09:00 10/03/20 08:02 Folic Acid 1 Mg Tablet PO 1 mg DAILY LOBO Administration Doxycycline Hyclate 100 mg/ 250 mls @ 166.67 mls/hr 10/02/20 22:00 10/03/20 1 1:43 Sodium Chloride IV Infused Q12H LOBO Infusion Metronidazole 500 mg in 100 mls @ 100 mls/hr 10/03/20 14:00 10/03/20 17:06 Flagyl IV Infused Q8H LOBO Infusion Omeprazole 40 mg 10/03/20 06:30 10/03/20 17:03 Omeprazole 40 Mg Capsule. PO 40 mg BID@0630,1630 [facility] Administration Oxycodone HCl 5 mg 10/03/20 16:35 10/03/20 18:18 Oxycodone Hcl Immed Release 5 Mg Tablet PO 5 mg Q4H PRN Administration Pain, Moderate (Pain Scale 4-6 Pharmacy Consult 1 each 10/02/20 12:51 Consult Rx Perform Med Rec MISCELLANE ONCE PRN Consult order Tamsulosin HCl 0.4 mg 10/03/20 17:30 10/03/20 17:03 Tamsulosin Hcl 0.4 Mg Capsule PO 0.4 mg DAILY@1730 [facility] Administration Thiamine HCl 100 mg 10/03/20 09:00 10/03/20 08:02 Thiamine Hcl 100 Mg Tablet PO 100 mg DAILY [facility] Administration Home Medications Medication Instructions Recorded Confirmed Last Taken Type Humira 40 mg SUBCUT FR 09/20/20 10/02/20 09/27/20 History atenolol 100 mg PO DAILY 09/20/20 10/02/20 10/02/20 History Physical Exam Vital Signs and Narrative: Vital Signs: Last Vital Signs Temp 98.7 F 10/03/20 15:45 Pulse 80 10/03/20 15:53 Resp 18 10/03/20 15:45 BP 110/61 10/03/20 15:53 Pulse Ox 99 10/03/20 15:42 Body Mass Index 24.3 Const: Other: Constitutional : Alert, oriented, Neck : Normal inspection, Supple Cardiovascular : RRR, S1 S2, trace bilateral lower extremity edema Respiratory : Good bilateral air entry, no crackles, wheezes or rhonchi Gastrointestinal: soft, lax, Normal bowel sounds, Non tender Skin : Warm/Dry, hidradenitis rash and sinuses in the armpit area With draining purulent material from the right side and draining sinus is in the timothy ateral groin so an on the right buttock area. Extensive hidradenitis lesion areas are also very tender and having strong odor General: cooperative, no acute distress and alert HENMT: Head: Yes normocephalic and Yes atraumatic Neck: Yes trachea midline and Yes supple Resp: Effort & Inspection: normal respiratory effort Auscultation: clear to auscultation bilaterally Cardio: Rate: regular rate Rhythm: regular rhythm Skin: Other: extensive scarring involving both axillary areas and the buttocks. There is a draining sinus along the inferior posterior aspect of the right axilla. The process extends across the lateral aspect of the right pectoral area to the periareolar area with scarring, contracture, and multiple puncta present. There is an area of erythema present at about 7-9 o'clock just beyond the areolar border on the right there is a similar appearance in the left axilla but the process is less extensive in does not extend across the pectoral area. There is 1 small draining sinus with moderate surrounding tenderness. Skin involvement in the bilateral buttocks appears less extensive with multiple puncta present and 2 raised erythematous areas in the upper outer aspect of the right buttock consistent with inflammatory collections/abscesses Results Labs CBC and Chem 7: 10/03/20 08:30 10/03/20 08:30 Labs: Laboratory Results - last 24 hr 10/02/20 10/03/20 10/03/20 22:45 06:05 08:30 MCV 95.7 MCH 29.9 MCHC 31.3 RDW 13.8 Plt Count 678 H MPV 8.9 L Immature Gran % (Auto) 0.5 H Neut % (Auto) 79.4 H Lymph % (Auto) 8.3 L [place] % (Auto) 9.3 Eos % (Auto) 1.6 Baso % (Auto) 0.9 Lymph # (Auto) 1.1 L [place] # (Auto) 1.3 H Eos # (Auto) 0.2 Baso # (Auto) 0.1 Abs Immat Gran (auto) 0.07 H Absolute Neuts (auto) 10.6 H Absolute Nucleated RBC 0.000 Nucleated RBC % (auto) 0.0 Anion Gap Estim Creat Clear Calc Estimated GFR Random Glucose Calcium Nasal Screen MRSA (PCR) NEGATIVE Nasal S. aureus Screen POSITIVE A Nasal MRSA/S.aureus Interp SEE NOTE Blood Type A Positive Antibody Screen NEGATIVE Crossmatch See Detail 10/03/20 08:30 MCV MCH MCHC RDW Plt Count MPV Immature Gran % (Auto) Neut % (Auto) Lymph % (Auto) [place] % (Auto) Eos % (Auto) Baso % (Auto) Lymph # (Auto) [place] # (Auto) Eos # (Auto) Baso # (Auto) Abs Immat Gran (auto) Absolute Neuts (auto) Absolute Nucleated RBC Nucleated RBC % (auto) Anion Gap 11 L Estim Creat Clear Calc 41.7 Estimated GFR 32 Random Glucose 143 H Calcium 8.6 Nasal Screen MRSA (PCR) Nasal S. aureus Screen Nasal MRSA/S.aureus Interp Blood Type Antibody Screen Crossmatch Assessment and Plan (1) Hidradenitis suppurativa: Status: Acute this unfortunately 64-year-old male has chronic tear oval hidradenitis treated by his urologic surgeon but not ever really getting a good handle on it. At this point I think cleansing with Hibiclens and surgical consult for some of the draining areas to be opened up is important. These may be contributing to his mild septic picture and elevated white blood count. He already is on an tibiotics and plan to followup with culture results. In addition treat underlying conditions. General surgery consult for possible I and D of some of these draining areas. ID consult to determine acute and chronic management and benefit or risk of using Humira. I would hold for now.
[2020-10-04 03:41] VITALS: BP 132/70; PULSE 82; RESP 16; TEMP 36.9; O2SAT 95
[2020-10-04] MEDS: Omeprazole 40 MG CAPSULE.DR PO (05:41)
[2020-10-04] MEDS: metroNIDAZOLE/NS 500 MG/100 ML PIGGYBACK 100 MG IV (05:41)
[2020-10-04 06:52] LABS: Basophils Absolute Auto 0.1 X10*3/uL (0.0-0.2); Basophils Percent Auto 0.9 % (0-2); Eosinophils Absolute Auto 0.4 X10*3/uL (0.0-0.4); Hematocrit 24.2 % (42-52); Hemoglobin 7.7 g/dl (14.0-18.0); Imm Gran Abs Auto 0.08 X10*3/uL (0.00-0.03); Imm Gran Pct Auto 0.6 % (0.0-0.4); Lymphocytes Absolute Auto 1.4 X10*3/uL (1.2-4.9); MANUAL DIFF FLAG SCAN; Mean Corpuscular HGB Conc 31.8 g/dl (31.0-36.0); Mean Corpuscular Hemoglobin 30.4 pg (27.0-33.0); Mean Corpuscular Volume 95.7 fL (80-98); Mean Platelet Volume 9.2 fL (9.4-12.4); Monocytes Absolute Auto 1.6 X10*3/uL (0.1-1.2); Monocytes Percent Auto 12.1 % (2-11); Neutrophils Absolute Auto 9.9 X10*3/uL (2.0-8.3); Neutrophils Percent Auto 73.4 % (45-73); Platelet Count 611 X10*3/uL (160-400); Red Blood Count 2.53 X10*6/uL (4.60-5.80); Red Cell Distribution Width 13.7 % (11.0-16.0); SCAN SMEAR FLAG 1; White Blood Count 13.5 X10*3/uL (4.8-10.8)
[2020-10-04 07:26] LABS: Anion Gap 11 (12-20); Blood Urea Nitrogen 21 mg/dL (9-16); Calcium 8.3 mg/dL (8.4-10.2); Carbon Dioxide 21 mmol/L (22-29); Chloride 107 mmol/L (96-108); Creatinine Clr Calc Pharmacy 46.5; Estimated Glomerular Filt Rate 36; Glucose Random 92 mg/dL (60-115); Potassium 4.1 mmol/L (3.3-5.1); Sodium 135 mmol/L (135-145)
[2020-10-04 07:49] LABS: SLIDE REVIEW VERIFIED
[2020-10-04 08:00] VITALS: BP 124/78; PULSE 76; RESP 16; TEMP 36.6; O2SAT 95
[2020-10-04 08:40] VITALS: BP 124/78; PULSE 76
[2020-10-04] MEDS: Thiamine HCL 100 MG TABLET PO (08:40)
[2020-10-04] MEDS: atenoloL 50 MG TABLET PO (08:40)
[2020-10-04] MEDS: Folic Acid 1 MG TABLET PO (08:41)
[2020-10-04] MEDS: Doxycycline Hyclate 100 MG in 0.9 % Sodium Chloride 250 ML 166.7 MG IV (08:41)
[2020-10-04 12:00] VITALS: BP 118/58; PULSE 70; RESP 19; TEMP 36.9; O2SAT 100
--- NOTE | 2020-10-04 13:51 | PC.NURSE ---
1200 dsg changed to right axilla. warm compress applied. area repacked with 1/4 packing, covered with DSD. Shannan well.
--- NOTE | 2020-10-04 14:25 | W.MHC.F2F ---
Service Date Service Date: 10/04/20 Encounter Date of encounter: 10/04/20 Reasons for Services Reason for physical therapy: home safety and mobility and therapeutic exercises Homebound: Leaving the home is medically contraindicated at this time without the asist of a device and/or another person due th the listed conditions above and below. Certification: Based on the above findings, I certify that this patient is confined to the home and needs intermittent senior care care, physical therapy and/or speech therapy, or continues to need occupational therapy. The patient is under my care, and I have initiated the establishment of the plan of care. The patient will be followed by a physician who will periodically review the plan of care.
--- NOTE | 2020-10-04 14:25 | PM.DS ---
DS: Providers Provider Date of Service: 10/04/20 Date of admission: 10/02/20 18:42 Primary care physician: Todd Landin MD Consults: 10/02/20 20:31 Consult to Wound Care Routine Consulting Provider: Sheyla Peña Reason for consultation: Hydradenitis flare up w possible cellulitis for local care and your advice 10/03/20 13:57 Consult to General Surgery Routine Consulting Provider: Anum Fitzpatrick Reason for consultation: Hidradenitis suppurativa with possible abscesses for your evaluation Consult to Infectious Diseases Routine Consulting Provider: Criss Canales Reason for consultation: Hidradenitis suppurativa with possible abscesses for your evaluation DS: Diagnosis Discharge Diagnosis (1) Hidradenitis suppurativa: Status: Acute (2) Lactic acidosis: Status: Acute (3) Acute hypotension: Status: Acute (4) Acute kidney injury superimposed on chronic kidney disease: Status: Acute (5) Weakness: Status: Acute (6) Symptomatic anemia: Status: Acute DS: Medications Discharge Medications Home Medications: Home Medications Medication Instructions Recorded Confirmed Humira 40 mg SUBCUT FR 09/20/20 10/02/20 Previous Rx's Medication Instructions Recorded ferrous sulfate 325 mg PO DAILY #30 tab 09/23/20 folic acid 1 mg PO DAILY #30 tab 09/23/20 omeprazole 40 mg PO BID@0630,1630 30 Days #60 09/23/20 cap tamsulosin 0.4 mg PO DAILY@1730 30 Days cap 09/23/20 thiamine mononitrate (vit B1) 100 mg PO DAILY #30 tab 09/23/20 atenolol 50 mg PO DAILY #0 tab 10/04/20 clindamycin HCl 300 mg PO Q8H 7 Days #21 cap 10/04/20 DS: Summary Hospital Course Hospital Course: admission note HPI A 64 years old male with PMH of hypertension, hidradenitis, history of alcoholism, frequent old who presents to the hospital complaining of increased weakness and dizziness for the last few days. The patient was recently discharged from the hospital after an episode of peptic ulcer bleeding. He reports that since going back home he did not feel back to normal and has been feeling weaker. He has not been doing much of ambulation or workup. He reports that this morning he started feeling significantly weak and lightheadedness. He did blood work area hours this week and his nurse called him with worsening kidney function asking him to come to the hospital. He denies any bloody bowel motions or hematemesis. Denies any nausea, vomiting, fever or chills. On arrival his blood pressure was noted to be around 80/50 responded well to fluids. Admitted for further evaluation and treatment. Hospital course Symptomatic anemia Hemoglobin of 7.6 with reported lethargy and weakness. His baseline is around 8. He was transfused 1 unit of blood with hemoglobin remain on 7.7. He felt much better with resolution of the weakness and he was able to ambulate freely with no reported dizziness. Hidradenitis suppurativa with secondary soft tissue infection. Treated with IV doxycycline and ceftriaxone. Blood Blood and wound culture remain negative until the time of discharge. Evaluated by the wound team, surgery who did bedside I and D as the patient refused to do under anesthesia drainage for multiple areas with suspected abscesses in his axilla and buttocks. Infectious Disease evaluated the patient and recommended to hold Humira for now as it seems it is not helping. I got in touch with his electrical and instrumentation manager who would see him as outpatient for further evaluation. To be discharged on clindamycin for 1 week duration. Presented with Hypotension which was believed not to be secondary to sepsis but to his home medications. His atenolol dose was decreased from 100 to 50 mg daily with fair response. Asked to monitor his blood pressure at home and report readings to his PCP. Mainly presented to the hospital for BREANA on CKD of 2.3 at time of admission from baseline of around 1.7. He was started on IV fluid with good response as his creatinine level improved to 1.9 at the day of discharge close to his baseline. Time Spent with Patient Time attestation: Total time spent providing and/or coordinating discharge services: Discharge coordination time: Greater than 30 minutes Quality: Stroke Does the patient have a stroke diagnosis?: No Physical Exam Vital Signs: Vital Signs: Last Vital Signs Temp 98.5 F 10/04/20 12:00 Pulse 70 10/04/20 12:00 Resp 19 10/04/20 12:00 BP 118/58 L 10/04/20 12:00 Pulse Ox 100 10/04/20 12:00 Body Mass Index 24.3 Const: Other: Constitutional : Alert, oriented, Neck : Normal inspection, Supple Cardiovascular : RRR, S1 S2, trace bilateral lower extremity edema Respiratory : Good bilateral air entry, no crackles, wheezes or rhonchi Gastrointestinal: soft, lax, Normal bowel sounds, Non tender Skin : Warm/Dry, hidradenitis rash and sinuses in the armpit area with mild tenderness and increased it drainage with bad odor. Buttock area has indurated skin with no significant drainage noted Neurological : Alert & oriented x3, No focal deficit DS: Data Data Completed and Pending Completed studies during hospitalization [Text1]: Procedures Detoxification Services for Substance Abuse Treatment (09/20/20) Excision of Duodenum, Via Natural or Artificial Opening Endoscopic, Diagnostic (09/20/20) Excision of Stomach, Pylorus, Via Natural or Artificial Opening Endoscopic, Diagnostic (09/20/20) Labs on day of discharge: Laboratory Results - last 24 hr 10/03/20 10/04/20 10/04/20 06:05 06:07 06:07 WBC 13.5 H RBC 2.53 L Hgb 7.7 L Hct 24.2 L MCV 95.7 MCH 30.4 MCHC 31.8 RDW 13.7 Plt Count 611 H MPV 9.2 L Immature Gran % (Auto) 0.6 H Neut % (Auto) 73.4 H Lymph % (Auto) 10.0 L Woodruff % (Auto) 12.1 H Eos % (Auto) 3.0 Baso % (Auto) 0.9 Lymph # (Auto) 1.4 Woodruff # (Auto) 1.6 H Eos # (Auto) 0.4 Baso # (Auto) 0.1 Abs Immat Gran (auto) 0.08 H Absolute Neuts (auto) 9.9 H Absolute Nucleated RBC 0.000 Nucleated RBC % (auto) 0.0 Smear Tech's Comments VERIFIED Sodium 135 Potassium 4.1 Chloride 107 Carbon Dioxide 21 L Anion Gap 11 L BUN 21 H Creatinine 1.89 H Estim Creat Clear Calc 46.5 Estimated GFR 36 Random Glucose 92 D Calcium 8.3 L Crossmatch See Detail Preliminary micro results at discharge 10/03/20 16:35 Routine Culture - Preliminary Axilla Right No growth to date. 10/02/20 12:28 Blood Culture - Preliminary Blood - Venous No growth after 24 hours. 10/02/20 12:28 Blood Culture - Preliminary Blood - Venous No growth after 24 hours. Discharge Plan Discharge Patient Disposition: Home, Self-Care Discharge Diagnosis: Soft tissue infection; Hydradenitis Supporativa Acute kidney injury Referrals: Todd Landin MD [Primary Care Provider] - 1 Week Discharge Medications: New clindamycin HCl 300 mg capsule 300 mg PO Q8H 7 Days Qty: 21 RF: 0 Continued Humira 40 mg/0.8 mL Syringe Kit 40 mg SUBCUT FR RF: 0 omeprazole 40 mg Capsule,Delayed Release(Dr/Ec) 40 mg PO BID@0630,1630 30 Days Qty: 60 RF: 2 tamsulosin 0.4 mg Capsule 0.4 mg PO DAILY@1730 30 Days RF: 0 folic acid 1 mg Tablet 1 mg PO DAILY Qty: 30 RF: 2 thiamine mononitrate (vit B1) 100 mg Tablet 100 mg PO DAILY Qty: 30 RF: 2 ferrous sulfate 325 mg (65 mg iron) tablet 325 mg PO DAILY Qty: 30 RF: 0 Changed atenolol 100 mg tablet 50 mg PO DAILY Qty: 0 RF: 0 Discharge Orders: Discharge Order (Routine); Ordered 10/04/20 Ordered By: Reinier Mckeon Diet: advance to usual diet and low salt diet Activity on Discharge: As tolerated Stand Alone Forms: Patient Portal Discharge page Care Plan Goals: Read below Health Concerns: Read below Plan of Treatment: You were admitted to the hospital for evaluation of worsening kidney function and generalized weakness. Your kidney function improved with IV and treatment of low blood pressure by decreasing your medication dose. You were noted to low hemoglobin level. Transfused a unit of blood with fair response. You were evaluated by surgery and infection Disease for soft tissue infection involving the hidradenitis affected areas. Treated with local drainage for the axillary sinuses and IV antibiotics. Assessment: Decrease atenolol to 50 mg daily Start clindamycin for 7 days Monitor your blood pressure at home and report 1 week readings to PCP To follow-up with your electrical and instrumentation manager as outpatient
--- NOTE | 2020-10-04 14:53 | MHC.CM.PN ---
NURSE ARTILLERY OFFICER NOTE ELECTRONIC MEDICAL RECORD REVIEWED ALONGH WITH CASE DISCUSSED WITH HOSPITLIST HOSPITALIST WROTE FACE TO FACE FOR VNA , BUT DID NOT WRITE DISPOSITION HOME WITH VNA , MET WITH PATIENT AND REPORTED THAT THE DOCTOR HAD CHANGED HIS MIND AND WAS NO LONGER GOING TO ORDER IT , PATIENT ALSO REPORTED THAT HE DID NOT FEEL HE NEEDED OIT NOR WANTED VNA . DHISCHARGE HOME NO SERVICES LIVES WITH HIS TRANSPORTATION FAMILY
--- NOTE | 2020-10-04 16:01 | P.CNID_ITS ---
History of Present Illness Data of Consult Service Date: 10/04/20 Requesting physician: Reinier Mckeon Primary Care Provider: Todd Landin MD [facility] Reason for consult: hidradenitis suppurativa with infection He presents with dizziness for last few days He also has skin lesions groin and axilla. The skin lesions are more red and swollen and emit sweat-like odor He says that skin lesions alone would not have brought him to hospital Review of Systems Review of Systems: Yes all other systems are reviewed and are negative [facility] Past Medical History Medical History Alcohol dependence Anemia Hidradenitis Hidradenitis suppurativa Normocytic anemia Family History Family history: reviewed and not pertinent Social History Social History Household Members: Spouse Housing: House Do you presently have visiting nurse or other home services: No Alcohol intake: never Patient Tobacco Use Status: Current everyday Tobacco user Tobacco use type: Cigarette Cigarette Packs Per Day: 0.5 Cigarettes Per Day: 10.0 Years Smoked: 50 Second Hand Smoke Exposure: Yes Advance Directives Date on File: 10/03/20 service: No Current occupational status: retired Meds Allergies Allergy/AdvReac Type Severity Reaction Status Date / Time hydrochlorothiazide Allergy Unknown lip swells Verified 10/02/20 11:59 Home Medications Medication Instructions Recorded Confirmed Last Taken Type Humira 40 mg SUBCUT FR 09/20/20 10/02/20 09/27/20 History Physical Exam Vital Signs: Vital Signs: Last Vital Signs Temp 98.5 F 10/04/20 12:00 Pulse 70 10/04/20 12:00 Resp 19 10/04/20 12:00 BP 118/58 L 10/04/20 12:00 Pulse Ox 100 10/04/20 12:00 Body Mass Index 24.3 Const: General: cooperative HENMT: Head: Yes normal to inspection Mouth: Normal oral and palatal mucosa present Resp: Effort & Inspection: normal respiratory effort Cardio: Rate: regular rate Rhythm: regular rhythm GI: Palpation (GI): Soft to palpation and nontender : General: Yes no CVA tenderness Back/Spine/Pelvis: Back: no CVA tenderness Skin: Full body images: 1. chen den skin lesions hidradenitis 2. chen den skin lesions hidradenitis 3. chen den skin lesions hidradenitis 4. chen den skin lesions hidradenitis Results Labs CBC & Chem 7: 10/04/20 06:07 10/04/20 06:07 Labs: Short CBC 10/04/20 Range/Units 06:07 WBC 13.5 H (4.8-10.8) X10*3/uL Hgb 7.7 L (14.0-18.0) g/dl Hct 24.2 L (42-52) % Plt Count 611 H (160-400) X10*3/uL BMP 10/04/20 06:07 Sodium 135 Potassium 4.1 Chloride 107 Carbon Dioxide 21 L BUN 21 H Creatinine 1.89 H Calcium 8.3 L Microbiology Microbiology Results: Microbiology 10/02/20 12:28 Blood - Venous Blood Culture - Preliminary No growth after 48 hours. 10/02/20 12:28 Blood - Venous Blood Culture - Preliminary No growth after 48 hours. 10/03/20 16:35 Axilla Right Gram Stain - Final 10/03/20 16:35 Axilla Right Routine Culture - Preliminary No growth to date. 10/02/20 15:24 Urine clean catch - Clean Catch Midstream Urine Culture - Final Assessment and Plan (1) Hidradenitis suppurativa: Status: Acute There are areas of infection which produce purulence and was drained right axilla He sees [facility] Dr Betancourt and has been on Humira for two years and reports about 20%improvement on it He has been on Doxycycline extensively as well I dont believe hypotension due to sepsis,not febrile or bacteremic Would hold Humira since patient over 65 ,has immunosuppression likely due to a lcohol use as well He also has infected areas especially right axilla and shouldnt take Humira with active infection Humira has had mild benefit here Humira is TNF skylar risk factor for hepatosplenic T cell lymphoma as well and shouldnt be used during active infection so would send patient on Clindamycin 300 mg tid po since possible resistance to Doxycycline and has been on it extensively See [facility] outpatient ?when and if to restart Humira. (2) Acute hypotension: Status: Acute
== END 2020-10-04 14:47 | disposition home or self-care (01) | DRG 607 ==
LOC: HO.ED 13:40 → HO.EDOVER 18:48 → HO.S3 21:18
PROVIDERS: Physician Assistant; Admitting Provider Student in an Organized Health Care Education/Training Program; Emergency Provider Emergency Medicine; PCP Family Medicine; Visit Provider Student in an Organized Health Care Education/Training Program
DX: L73.2 Hidradenitis suppurativa (principal); N17.9 Acute kidney failure, unspecified; E87.2 Acidosis; E87.1 Hypo-osmolality and hyponatremia; D63.1 Anemia in chronic kidney disease; I12.9 Hypertensive chronic kidney disease with stage 1 through stage 4 chronic kidney disease, or unspecified chronic kidney disease; I95.9 Hypotension, unspecified; F17.210 Nicotine dependence, cigarettes, uncomplicated; Z71.6 Tobacco abuse counseling; N18.30 Chronic kidney disease, stage 3 unspecified; Z20.822 Contact with and (suspected) exposure to COVID-19; Z79.899 Other long term (current) drug therapy
CPT/HCPCS: 36415; 71045; 80048; 80076; 80307; 81001; 81003; 82272; 83605; 83690; 83735; 83935; 84300; 84484; 85025; 86850; 86900; 86901; 86923; 87040; 87071; 87086; 87205; 87635; 87640; 87641; 93005; 96365; 96368; 97162; 99285; 99291; J0692; J0696; J3370; P9016

== ENCOUNTER 2023-07-20 13:46 | Inpatient (IN) | payer MEDICARE, SELFPAY ==
[2023-07-20] VITALS (7 sets, daily range): BP systolic 87–112; BP diastolic 56–72; PULSE 98–120; RESP 16–20; TEMP 36.5–37.1; O2SAT 93–98; BMI 20.7
--- NOTE | ~2023-07-20 | CT_ITS ---
EXAMINATION: CT ABDOMEN AND PELVIS WITHOUT CONTRAST CLINICAL INFORMATION: hydradenitis COMPARISON: CT abdomen pelvis 09/20/2020 TECHNIQUE: Multidetector volumetric imaging was performed from the superior aspect of the liver through the pubic symphysis. Sagittal and coronal reformatted images were obtained on the technologist's workstation. This CT examination was performed using dose optimization techniques as appropriate, variously including the following: *Automated exposure control *Adjustment of mA and/or kV according to patient size (this includes techniques or standardized protocols for targeted exams where dose is matched to indication/reason for exam; i.e. extremities or head) *Use of iterative reconstruction technique DLP: 465 mGy-cm FINDINGS: LUNG BASES: Bibasilar atelectasis and traction bronchiectasis is present, increased when compared to prior. A trace right pleural effusion is present. Visible bilateral old healed rib fractures are seen. LIVER, GALLBLADDER, AND BILIARY TREE: The liver is normal in size, shape, and attenuation. No focal hepatic lesion or biliary ductal dilatation is present. The gallbladder is unremarkable with no evidence of radiopaque gallstones, gallbladder wall thickening, or obvious pericholecystic inflammatory changes. PANCREAS: Unremarkable. SPLEEN: Unremarkable. ADRENAL GLANDS: Unremarkable. KIDNEYS AND URETERS: The kidneys are normal in size, shape, and attenuation. There is a nonobstructing 2 mm left upper pole renal calculus. No hydronephrosis, hydroureter, or additional calculi seen. A benign subcentimeter Bosniak class II cyst is noted at the upper pole the left kidney (3:23) which requires no additional imaging or follow up. No solid renal masses are seen. There is bilateral nonspecific perinephric stranding. BLADDER: Unremarkable. GASTROINTESTINAL TRACT: The small and large bowel are unremarkable. The appendix is unremarkable. ABDOMINAL WALL: There is worsening of skin thickening over the buttock with development of a significant amount of air seen predominantly in the left gluteal muscle is consistent with an abscess. A well-defined fluid collection is not seen. Air is also present in the perineum extending into the perirectal fascia. Behind the distal sacrum and coccyx, there is thickening with a fluid/air collection measuring about 4.2 x 3.7 x 9.6 cm. Marked soft tissue calcifications are present in the skin of both buttocks. No free air is seen within the peritoneal cavity. LYMPH NODES: Prominent inguinal lymph nodes are seen but there is no retroperitoneal lymphadenopathy. VASCULAR: Mild calcific atherosclerotic changes are present in the aorta and iliac vessels. There is no evidence of an abdominal aortic aneurysm. PELVIC VISCERA: There is mild BPH. Seminal vesicles appear normal. OSSEOUS STRUCTURES: Degenerative changes are present in the spine. No bony destructive lesions are seen to suggest osteomyelitis. CT/CT abdomen pelvis wo IV con IMPRESSION: 1. Worsening of skin thickening over the buttocks with development of a significant amount of air in the left gluteal muscle consistent with an ill-defined abscess. Air is also present in the perineum extending into the perirectal fascia. 2. There is a fluid/air/soft tissue collection behind the distal sacrum and coccyx consistent with an abscess or phlegmon. 3. Other incidental findings as described above. Fleischner guidelines were followed.
--- NOTE | ~2023-07-20 | XR_ITS ---
EXAMINATION: XR CHEST CLINICAL INFORMATION: Elevated white count COMPARISON: None available. TECHNIQUE: Frontal view of the chest was obtained. FINDINGS: The lungs are well-expanded without consolidation or pleural effusion. There are prominent interstitial markings throughout both lungs. The heart size and pulmonary vascularity is normal. No gross bony abnormality seen XR/XR chest 1V IMPRESSION: Prominent bilateral interstitial markings likely scarring or pneumonitis but no focal consolidation or pleural effusion.
--- NOTE | 2023-07-20 14:11 | ED_ITS ---
HPI - General Adult General Chief complaint: General Medical Stated complaint: SENT IN BY [facility] NURSE HIGH HR Time Seen by Provider: 07/20/23 14:02 Source: patient and EMS Mode of arrival: EMS Limitations: no limitations History of Present Illness HPI narrative: Patient has a history of alcoholism, renal disease chronic anemia who presents with a low blood pressure sent in by his visiting nurse. Patient also has a history of hydradenitis to buttocks and rectum. Patient had one episode of diarrhea last night states that he does not eat or drink well. He denies fever or vomiting Onset (ago): hour(s) Related Data Home Medications Medication Instructions Recorded Confirmed Probiotic 1 cap PO DAILY 07/20/23 07/20/23 fluticasone fur. 200 mcg-umeclid 1 ea inhalation DAILY 07/20/23 07/20/23 62.5 mcg-vilant 25 mcg inhalat.powder (Trelegy Ellipta) folic acid 1 mg tablet 1 mg PO BEDTIME 07/20/23 07/20/23 gabapentin 300 mg capsule 300 mg PO TID 07/20/23 07/20/23 melatonin 3 mg tablet 3 mg PO BEDTIME 07/20/23 07/20/23 omeprazole 40 mg capsule,delayed 40 mg PO DAILY@0630 07/20/23 07/20/23 release oxycodone 10 mg tablet 10 mg PO Q8H PRN moderate pain 07/20/23 07/20/23 sertraline 100 mg tablet 100 mg PO DAILY 07/20/23 07/20/23 tamsulosin 0.4 mg capsule 0.4 mg PO DAILY 07/20/23 07/20/23 tramadol 50 mg tablet 50 mg PO Q4H PRN pain 07/20/23 07/20/23 trazodone 50 mg tablet 50 mg PO BEDTIME 07/20/23 07/20/23 vitamin B complex 1 tab PO DAILY 07/20/23 07/20/23 zinc sulfate 220 mg capsule 220 mg PO BEDTIME 07/20/23 07/20/23 Previous Rx's Medication Instructions Recorded amoxicillin 500 mg-potassium 1 tab PO Q12H 14 days #28 tabs 07/24/23 clavulanate 125 mg tablet (Augmentin) doxycycline hyclate 100 mg capsule 100 mg PO BID 14 days #28 caps 07/24/23 magnesium oxide 400 mg (241.3 mg 400 mg PO TID 15 days #45 tabs 07/24/23 magnesium) tablet prednisone 5 mg tablet 5 mg PO DAILY 5 days #40 tabs 07/24/23 Allergies Allergy/AdvReac Type Severity Reaction Status Date / Time hydrochlorothiazide Allergy Unknown lip swells Verified 10/02/20 11:59 Review of Systems 2 Review of Systems: Yes all other systems are reviewed and are negative Neurologic: Denies Sensory deficit (Neuro) [facility] Past Medical History Medical History Normocytic anemia Alcohol dependence Anemia Hidradenitis suppurativa Hidradenitis Social History Social History Household Members: Spouse Housing: House Do you presently have visiting nurse or other home services: Yes ([facility]) Alcohol intake: former Comment: pt refuses alarm Patient Tobacco Use Status: Current everyday Tobacco user Tobacco use type: Cigarette Cigarette Packs Per Day: 0.5 Years Smoked: 50 Second Hand Smoke Exposure: Yes Advance Directives Date on File: 10/03/20 service: No Current occupational status: retired Physical Exam ED Vital Signs: Vital Signs - 24 hr 07/20/23 14:03 07/20/23 14:30 Temperature 97.7 F 97.9 F Pulse Rate 116 H 105 H Respiratory Rate 18 16 Blood Pressure 87/63 L 95/59 L Pulse Oximetry 98 97 Oxygen Delivery Method Room Air Room Air BMI result Body Mass Index 20.7 Const Other: chronically ill appearing, looking older than stated age, kyphotic Orientation/consciousness: oriented to person and patient oriented x3 Limitations: no limitations HENMT Head: Yes normal to inspection Ears: external ears normal General nose exam: Normal external nose present Mouth: Normal oral and palatal mucosa present and oropharynx normal Throat: Yes posterior oropharynx normal Eyes General: appearance normal, both eyes and all related structures Neck Neck: Yes normal visual inspection Chest Chest palpation & inspection: normal inspection of the chest Resp Auscultation: clear to auscultation bilaterally Cardio Jugular venous distension: no JVD Rate: regular rate Rhythm: regular rhythm Heart sounds: S1 normal heart sound present and S2 normal heart sound present GI Inspection: Yes normal to inspection Palpation (GI): Soft to palpation, nontender and No hepatosplenomegaly present Auscultation: normal bowel sounds Other: rectum with skin tags and hemorrhoids, brown stool heme negative on card Skin Other: hydraadenitis to buttocks Neuro General: oriented to person and patient oriented x3 Cranial nerves: Yes CN's II-XII intact bilaterally Motor exam (neuro): 5/5 motor strength present throughout Sensory Exam: No Sensory deficit (Neuro) Extrem Other: 3+ edema bilaterally Psych Appearance: grossly normal Course Reevaluation(s) Reevaluation #1: Patient with elevated WBC but no obvious infection. Discussed with Dr. Serra who feels that this is likely leukemia and will admit. Time: 16:19 Reevaluation #2: I spent 40 minutes of critical care, with interventions, assessments, speaking to patient, consultants, and family. Time: 16:19 Medications Administered Discontinued Medications Generic Name Dose Route Start Last Admin Trade Name Freq PRN Reason Stop Dose Admin Acetaminophen 650 mg 07/23/23 12:31 07/23/23 13:05 Acetaminophen 325 Mg Tablet PO 650 mg Q4H PRN Administration Pain, Mild (Pain Scale 1-3) Enoxaparin Sodium 30 mg 07/21/23 09:00 07/24/23 09:04 Enoxaparin Sodium 30 Mg/0.3 Ml Syringe SUBCUT Not Given Q24H LOBO Fluticasone/Umeclidinium/Vilanterol 1 puff 07/21/23 09:00 07/24/23 08:17 Fluticasone/Umeclidinium/Vilanterol 200/62.5/25 Blst.W.Dev INHALE 1 puff DAILY LOBO Administration Folic Acid 1 mg 07/20/23 21:00 07/23/23 19:34 Folic Acid 1 Mg Tablet PO 1 mg BEDTIME LOBO Administration Gabapentin 300 mg 07/20/23 21:00 07/24/23 08:55 Gabapentin 300 Mg Capsule PO 300 mg TID LOBO Administration Sodium Chloride 1,000 mls @ 500 mls/hr 07/20/23 14:15 07/20/23 19:30 Ns IVCONT 07/20/23 16:14 Infused .Q2H LOBO Infusion Albumin Human 100 mls @ 100 mls/hr 07/20/23 17:00 07/21/23 15:34 Kedbumin 25 % IV 07/20/23 18:59 Infused Q1H LOBO Infusion Sodium Chloride 100 mls @ 100 mls/hr 07/20/23 19:43 07/21/23 15:34 Ns IV 07/20/23 20:42 Infused ONCE ONE Infusion Magnesium Sulfate 2 gm in 50 mls @ 25 mls/hr 07/21/23 08:00 07/21/23 18:53 Magnesium Sulfate/H2o IV 07/21/23 17:59 Infused Q8H LOBO Infusion Sodium Chloride 100 mls @ 100 mls/hr 07/21/23 07:46 07/21/23 12:30 Ns IV 07/21/23 08:45 Infused ONCE ONE Infusion Piperacillin Sod/Tazobactam 50 mls @ 100 mls/hr 07/21/23 08:00 07/24/23 09:03 Sod 3.375 gm/ Sodium Chloride IV Not Given Q6H LOBO Albumin Human 100 mls @ 100 mls/hr 07/21/23 10:00 07/21/23 16:50 Kedbumin 25 % IV 07/21/23 11:59 Infused Q1H LOBO Infusion Vancomycin HCl 1,500 mg/ 500 mls @ 333.333 mls/hr 07/21/23 11:00 07/21/23 12:15 Sodium Chloride IV 07/21/23 12:29 Infused ONCE ONE Infusion Vancomycin HCl 1,000 mg/ 270 mls @ 270 mls/hr 07/22/23 11:00 07/22/23 12:55 Sodium Chloride IV Infused Q24H LOBO Infusion Magnesium Sulfate 2 gm in 50 mls @ 25 mls/hr 07/23/23 08:54 07/23/23 11:49 Magnesium Sulfate/H2o IV 07/23/23 10:53 Infused ONCE ONE Infusion Vancomycin HCl 750 mg/ Sodium 265 mls @ 265 mls/hr 07/23/23 11:00 07/23/23 11:58 Chloride IV Not Given Q24H LOBO Lidocaine HCl 20 ml 07/21/23 08:30 07/21/23 08:58 Lidocaine Hcl 1 % Mpf 30 Ml Vial SUBCUT 07/21/23 08:31 20 ml ONCE ONE Administration Magnesium Oxide 400 mg 07/21/23 09:00 07/24/23 08:55 Magnesium Oxide 400 Mg Tablet PO 400 mg TID LOBO Administration Melatonin 3 mg 07/20/23 21:00 07/23/23 19:33 Melatonin 3 Mg Tablet PO 3 mg BEDTIME LOBO Administration Multivitamins/Vitamin C 1 tab 07/21/23 09:00 07/24/23 08:55 Multivitamin Tablet PO 1 tab DAILY LOBO Administration Nicotine 14 mg 07/23/23 12:05 07/24/23 08:55 Nicotine 14 Mg Patch.Td24 TRANSDERMA 14 mg DAILY LOBO Administration Pt Own (Probiotic) 1 each 07/24/23 09:00 07/24/23 08:57 PO 1 each DAILY LOBO Administration Omeprazole 40 mg 07/21/23 06:30 07/24/23 05:43 Omeprazole 40 Mg Capsule. PO Not Given DAILY@0630 [facility] Oxycodone HCl 10 mg 07/20/23 17:56 07/24/23 09:32 Oxycodone Hcl Immed Release 5 Mg Tablet PO 10 mg Q8H PRN Administration moderate pain Potassium Chloride 40 meq 07/21/23 10:11 07/21/23 10:57 Potassium Chloride Er 20 Meq Tab.Er.Prt PO 07/21/23 10:12 40 meq ONCE ONE Administration Prednisone 5 mg 07/21/23 09:00 07/21/23 08:11 Prednisone 5 Mg Tablet PO 5 mg DAILY LOBO Administration Prednisone 40 mg 07/21/23 10:00 07/24/23 08:55 Prednisone 20 Mg Tablet PO 40 mg DAILY LOBO Administration Sertraline HCl 100 mg 07/21/23 09:00 07/24/23 08:55 Sertraline Hcl 100 Mg Tablet PO 100 mg DAILY LOBO Administration Sodium Chloride 3 ml 07/21/23 00:00 07/24/23 08:54 0.9 % Sodium Chloride Flush 3 Ml Syringe IVFLUSH 3 ml QSHIFT [facility] Administration Tamsulosin HCl 0.4 mg 07/21/23 09:00 07/24/23 08:55 Tamsulosin Hcl 0.4 Mg Capsule PO 0.4 mg DAILY LOBO Administration Tramadol HCl 50 mg 07/20/23 17:56 07/23/23 13:05 Tramadol Hcl 50 Mg Tablet PO 50 mg Q4H PRN Administration moderate pain Trazodone HCl 50 mg 07/20/23 21:00 07/23/23 19:33 Trazodone Hcl 50 Mg Tablet PO 50 mg BEDTIME LOBO Administration Zinc Sulfate 220 mg 07/20/23 21:00 03/22/24 19:34 Zinc Sulfate 220 Mg Capsule PO 220 mg BEDTIME LOBO Administration Medical Decision Making Differential Diagnosis Differential Diagnoses: The differential diagnosis associated with the presentation includes (infection, cdiff, dehydration, anemia, leukemia) Admission/Observation Consideration of admission/observation: Escalation of care including admission/observation considered (upon arrival patient was considered for admission) Consult Healthcare Provider Management of the patient was discussed with: Hospitalist and Forex Trader (Dr. Serra, hematology oncology) Lab Data MDM Lab Attestation statement: I reviewed the patient's lab results. 07/24/23 05:15 07/24/23 05:15 Labs: Lab Results 07/20/23 07/20/23 Range/Units 14:44 15:12 WBC 30.8 H* (4.8-10.8) X10*3/uL RBC 2.19 L (4.60-5.80) X10*6/uL Hgb 6.1 L* (14.0-18.0) g/dl Hct 19.2 L* (42.0-52.0) % MCV 87.7 (80.0-98.0) fL MCH 27.9 (27.0-33.0) pg MCHC 31.8 (31.0-36.0) g/dl RDW 15.5 (11.0-16.0) % Plt Count 559 H (160-400) X10*3/uL MPV 8.4 L (9.4-12.4) fL Immature Gran % (Auto) 1.2 H (0.0-0.4) % Neut % (Auto) 94.0 H (45-73) % Lymph % (Auto) 1.8 L (20-40) % [place] % (Auto) 2.8 (2-11) % Eos % (Auto) 0.0 (0-4) % Baso % (Auto) 0.2 (0-2) % Lymph # (Auto) 0.5 L (1.2-4.9) X10*3/uL [place] # (Auto) 0.9 (0.1-1.2) X10*3/uL Eos # (Auto) 0.0 (0.0-0.4) X10*3/uL Baso # (Auto) 0.1 (0.0-0.2) X10*3/uL Abs Immat Gran (auto) 0.37 H (0.00-0.03) X10*3/uL Absolute Neuts (auto) 29.0 H (2.0-8.3) x10*3/uL Absolute Nucleated RBC 0.000 (0.0-0.012) X10*3/uL Nucleated RBC % (auto) 0.0 (0.0-0.2) /100WBC Smear Tech's Comments VERIFIED Smear Path Review SEE NOTE Sodium 136 (135-145) mmol/L Potassium 3.8 (3.3-5.1) mmol/L Chloride 102 (96-108) mmol/L Carbon Dioxide 24 (22-29) mmol/L Anion Gap 14 (12-20) BUN 24 H (9-16) mg/dL Creatinine 1.78 H (0.5-1.4) mg/dL Estim Creat Clear Calc 41.0 Estimated GFR 38 Random Glucose 105 (60-115) mg/dL Lactic Acid 1.4 (0.5-2.0) mmol/L Calcium 8.1 L (8.4-10.2) mg/dL Total Bilirubin 0.4 (0.0-1.0) mg/dL AST 21 (5-37) U/L ALT 10 (0-40) U/L Alkaline Phosphatase 85 (39-117) U/L Total Protein 5.8 L (6.5-8.0) g/dL Albumin 2.1 L (3.5-5.0) g/dL Ethyl Alcohol < 10 mg/dL Independent Interpretation I performed an independent interpretation of an: Plain X-Ray (cxr: chronic lung changes) Independent Historian Clinical information obtained from an independent historian. History obtained from or confirmed by: Spouse External Record Review External record reviewed: Outpatient record Prescription Management I considered prescription management with: Antibiotic (no obvious source of infection so antibiotics were not given) Chronic Conditions Patient?s care impacted by: Other (alcoholism) Social Determinants Patient?s care significantly limited by Social Determinants of Health including: Alcoholism and drug addiction in family Discharge Plan Discharge Clinical Impression: Severe anemia, Leukocytosis Patient Disposition: Admitted As Inpatient Interventions: Admission Worksheet (ED) Last Done: 07/21/23 15:18 Discharge Date/Time: 07/21/23 15:00
[2023-07-20 14:54] LABS: Basophils Absolute Auto 0.1 X10*3/uL (0.0-0.2); Basophils Percent Auto 0.2 % (0-2); Imm Gran Abs Auto 0.37 X10*3/uL (0.00-0.03); Imm Gran Pct Auto 1.2 % (0.0-0.4); Lymphocytes Absolute Auto 0.5 X10*3/uL (1.2-4.9); Lymphocytes Percent Auto 1.8 % (20-40); MANUAL DIFF FLAG SCAN; Mean Corpuscular HGB Conc 31.8 g/dl (31.0-36.0); Mean Corpuscular Hemoglobin 27.9 pg (27.0-33.0); Mean Corpuscular Volume 87.7 fL (80.0-98.0); Mean Platelet Volume 8.4 fL (9.4-12.4); Monocytes Absolute Auto 0.9 X10*3/uL (0.1-1.2); Monocytes Percent Auto 2.8 % (2-11); Platelet Count 559 X10*3/uL (160-400); Red Blood Count 2.19 X10*6/uL (4.60-5.80); Red Cell Distribution Width 15.5 % (11.0-16.0); SCAN SMEAR FLAG 1
[2023-07-20 14:58] LABS: Hemoglobin 6.1 g/dl (14.0-18.0); White Blood Count 30.8 X10*3/uL (4.8-10.8)
[2023-07-20 14:59] LABS: Hematocrit 19.2 % (42.0-52.0)
[2023-07-20 15:08] LABS: Alanine Aminotransferase 10 U/L (0-40); Albumin Level 2.1 g/dL (3.5-5.0); Alkaline Phosphatase 85 U/L (39-117); Anion Gap 14 (12-20); Aspartate Amino Transferase 21 U/L (5-37); Bilirubin Total 0.4 mg/dL (0.0-1.0); Blood Urea Nitrogen 24 mg/dL (9-16); Calcium 8.1 mg/dL (8.4-10.2); Carbon Dioxide 24 mmol/L (22-29); Chloride 102 mmol/L (96-108); Estimated Glomerular Filt Rate 38; Glucose Random 105 mg/dL (60-115); Potassium 3.8 mmol/L (3.3-5.1); Sodium 136 mmol/L (135-145); Total Protein 5.8 g/dL (6.5-8.0)
[2023-07-20 15:09] LABS: Ethanol < 10 mg/dL
[2023-07-20 15:16] LABS: SLIDE REVIEW VERIFIED
[2023-07-20] MEDS: 0.9 % Sodium Chloride 1,000 ML 500 ML IVCONT (15:18)
[2023-07-20 15:28] LABS: Lactic Acid 1.4 mmol/L (0.5-2.0)
--- NOTE | 2023-07-20 16:15 | P.CNHO_ITS ---
Subjective - Subjective Chief complaint: Consult for: 1. Severe anemia. 2. Leukocytosis. Patient: new to practice Consult date: 07/20/23 Requesting Physician: Bharat Jacques. Primary Care Provider: Todd Landin MD Family Provider: Urvashi. Medical Summary: DIAGNOSIS: 1. SEVERE ANEMIA. 2. LEUKOCYTOSIS. 3. THROMBOCYTOSIS. HPI - Consult Narrative Reason for consult: Consult for: 1. Anemia. 2. Thrombocytosis. 3. Leukocytosis. Narrative: Ryan Medina is a 67 year old gentleman, referred by Dr. Jacques, on account of severe anemia. History is obtained from patient and at bedside. Apparently patient was admitted to [facility] a month and a half ago. He had initially gone to [facility] after a fall. Was noted to have some broken ribs so they transferred him to [facility] trauma center. He had a protracted hospital course of 5 weeks there. He went into DTs. Subsequently he aspirated and had to be intubated. He was then kept in ICU on IV antibiotics. He developed protracted diarrhea, most likely C diff. He was then transferred to [facility] in [place]. He returned home couple weeks ago. He feels his legs are weak. He usually walks with the help of a walker. His noted that he has been really fatigued. He slept for 12 hours all day yesterday. He had a fever of 100.6 degrees. He denies headache but has had dizziness. He has had a bit of a cough with clear sputum. Denied abdominal pain, nausea but no vomiting. He had a bout with diarrhea, with some incontinence. Denies gross blood in the stools. He has not been eating well. He lost 30 lb after he quit drinking. He has urinary frequency related to enlarged prostate. He is on tamsulosin. Here his labs revealed: CBC: WBC 70757, HGB 6.1, HCT 19.2, PLT 559. PAST MEDICAL HISTORY: 1. HIDRADENITIS SUPPURATIVA. He had surgery with skin grafting. FAMILY HISTORY: Noncontributory. 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 He is . Has 1 daughter. He still smokes a pack a day. He used to drink heavily but quit 3 months ago. Review of Systems - Constitutional Reports system reviewed and no additional complaints, except as documented, Reports fatigue, Reports lack of energy, Reports malaise, Reports poor appetite, Reports weight loss, Denies fever(s) - Eyes Reports system reviewed and no additional complaints, except as documented - ENT Reports system reviewed and no additional complaints, except as documented - Cardiovascular Reports system reviewed and no additional complaints, except as documented - Respiratory Reports no additional respiratory complaints - Gastrointestinal Reports system reviewed and no additional complaints, except as documented - Genitourinary Genitourinary: Reports no additional male genitourinary complaints - Musculoskeletal Reports system reviewed and no additional complaints, except as documented - Integumentary/Breasts Skin/Breast: Reports no additional skin complaints - Neurologic Reports system reviewed and no additional complaints, except as documented - Psychiatric Reports system reviewed and no additional complaints, except as documented - Endocrine Reports no additional endocrine complaints - Hematologic/Lymphatic Reports system reviewed and no additional complaints, except as documented - Allergic/Immunologic Reports system reviewed and no additional complaints, except as documented Oncology Screenings - ECOG Performance Status ECOG Performance Status: 1 [facility] Medical History: Medical History (Last Updated 07/21/23 @ 09:12 by Bishop Holland MD) Alcohol dependence Anemia Hidradenitis Hidradenitis suppurativa Normocytic anemia Functional capacity: uses cane/walker Patient : No Social History: Social History (Last Reviewed 07/21/23 @ 09:09 by Bishop Holland MD) Living Situation History: Household Members: Spouse Housing: House Do you presently have visiting nurse or other home services: Yes Do you presently have visiting nurse or other home services comment: [facility] Tobacco History: Patient Tobacco Use Status: Current everyday Tobacco Tobacco use type: Cigarette Cigarette Packs Per Day: 0.5 Years Smoked: 50 Second Hand Smoke Exposure: Yes Advance Directives: Advance Directives Date on File: 10/03/20 Occupation Assessmet: service: No Current occupational status: retired Home Medications and Allergies Home Medications Medication Instructions Recorded Confirmed Type Probiotic 1 cap PO DAILY 07/20/23 07/20/23 History amlodipine 5 mg tablet 5 mg PO DAILY 07/20/23 07/20/23 History fluticasone fur. 200 mcg-umeclid 1 ea inhalation DAILY 07/20/23 07/20/23 History 62.5 mcg-vilant 25 mcg inhalat.powder (Trelegy Ellipta) folic acid 1 mg tablet 1 mg PO BEDTIME 07/20/23 07/20/23 History gabapentin 300 mg capsule 300 mg PO TID 07/20/23 07/20/23 History losartan 100 mg tablet 100 mg PO DAILY 07/20/23 07/20/23 History melatonin 3 mg tablet 3 mg PO BEDTIME 07/20/23 07/20/23 History omeprazole 40 mg capsule,delayed 40 mg PO DAILY@0630 07/20/23 07/20/23 History release oxycodone 10 mg tablet 10 mg PO Q8H PRN moderate pain 07/20/23 07/20/23 History prednisone 5 mg tablet 5 mg PO DAILY 07/20/23 07/20/23 History sertraline 100 mg tablet 100 mg PO DAILY 07/20/23 07/20/23 History tamsulosin 0.4 mg capsule 0.4 mg PO DAILY 07/20/23 07/20/23 History tramadol 50 mg tablet 50 mg PO Q4H PRN pain 07/20/23 07/20/23 History trazodone 50 mg tablet 50 mg PO BEDTIME 07/20/23 07/20/23 History vitamin B complex 1 tab PO DAILY 07/20/23 07/20/23 History zinc sulfate 220 mg capsule 220 mg PO BEDTIME 07/20/23 07/20/23 History Allergies Allergy/AdvReac Type Severity Reaction Status Date / Time hydrochlorothiazide Allergy Unknown lip swells Verified 10/02/20 11:59 Physical Exam Vital signs: Vital Signs Temp 97.9 F 07/20/23 14:30 Pulse 105 H 07/20/23 14:30 Resp 16 07/20/23 14:30 BP 95/59 L 07/20/23 14:30 Pulse Ox 97 07/20/23 14:30 O2 Del Method Room Air 07/20/23 14:30 Intake & Output 07/19/23 07/20/23 07/20/23 18:59 06:59 18:59 Other: Weight 73.028 kg Weight 73.028 kg - Constitutional Present: moderate distress - Routine HEENT Exam Head: Present: normal inspection, normocephalic Eye: Present: normal appearance ENT: Present: mucous membranes moist - Routine Neck Exam Present: supple - Routine Respiratory Exam Present: CTAB - Routine Cardiovascular Exam Cardiovascular: Present: RRR, S1, S2 - Routine Extremities Exam Present: nontender - Routine Neurological Exam Present: alert, oriented X3 - Detailed Neurological Exam: Coma Scale Eye Opening: Spontaneous (4) Verbal Response: Oriented (5) Motor Response: Obeys commands (6) Alfreda Coma Scale Total: 15 Hem/Onc Consult Result - Labs CBC & Chem 7: 07/23/23 05:39 07/23/23 05:39 Labs: Short CBC 07/20/23 Range/Units 14:44 WBC 30.8 H* (4.8-10.8) X10*3/uL Hgb 6.1 L* (14.0-18.0) g/dl Hct 19.2 L* (42.0-52.0) % Plt Count 559 H (160-400) X10*3/uL BMP 07/20/23 14:44 Sodium 136 Potassium 3.8 Chloride 102 Carbon Dioxide 24 BUN 24 H Creatinine 1.78 H Calcium 8.1 L Liver Function 07/20/23 Range/Units 14:44 Total Bilirubin 0.4 (0.0-1.0) mg/dL AST 21 (5-37) U/L ALT 10 (0-40) U/L Alkaline Phosphatase 85 (39-117) U/L Albumin 2.1 L (3.5-5.0) g/dL Assessment and Plan Patient Active problem list reviewed?: Yes (1) Severe anemia Status: Acute Assessment and plan: 67-year-old gentleman presented with severe anemia, leukocytosis and thrombocytosis. Review of his previous labs from [facility]: WBC HGB HCT PLT 06/28/23: 25.1 8.5 26.6 678 01/18/23. 17.3 7.8 24 543. DIFFERENTIAL DIAGNOSIS: 1. REACTIVE/LEUKEMOID REACTION: He has had history of hidradenitis. There is concern about a pelvic abscess. 2. MYELO INFILTRATIVE DISORDER: He could have an MPN, i.e. CML would be most likely. Other possibilities include MDS versus multiple myeloma versus a peripheralizing lymphoma. 3. CHRONIC ANEMIA; that appears multifactorial. He has history of CKD. PLAN: Will initiate a workup. Check flow cytometry on peripheral blood. Check bcr/ABL gene transcript to look for CML. Proceed with anemia workup: Iron studies, ferritin, B12, folate levels, hemolytic screen. Would proceed with blood transfusion, to help improve his oxygen carrying capacity. Will proceed with a CT scan of the pelvis, for further evaluation. Request consult by Dr. Holland. Thank you for this consult I will follow along with you, CC: Urvashi. Addendum: Cat scan revealed: Worsening of skin thickening over buttocks. Abcsesses in the left gluteal muscle, perineum, and distal sacrum and coccyx. 07/22: Dr. Holland was able to drain two of the abcsesses. To continue on Iv antibiotics: Zosyn. - Time Spent With Patient Time Spent with Patient (in minutes): 30
--- NOTE | 2023-07-20 17:01 | PM.IMHP ---
History of Present Illness Date of Service: 07/20/23 Chief Complaint: hypotension 67M PMH etoh dependence - in remission 3 months, hydradenitis supperavita, CKD III, bph, copd, presented with hypotension. patient has had several episodes of low volume diarrhea over past couple days, feeling weak, low grade fever, vna found bp to be 90/40, hr 130. patient has had significant decline over past several months after prolonged hospitalization for fall, aspiration, etoh withdrawal. discharged from rehab about 2 weeks ptp, now at home, using walker to ambulate, fairly frail at new baseline. in ED found to have leukocystotis 30K mostly neutrophils, thrombocytosis, anemia. Review of Systems Review of Systems: Yes all other systems are reviewed and are negative [facility] Medical History Normocytic anemia Alcohol dependence Anemia Hidradenitis suppurativa Hidradenitis Functional capacity: uses cane/walker Social History Household Members: Spouse Housing: House Do you presently have visiting nurse or other home services: No Alcohol intake: former Comment: pt refuses alarm Patient Tobacco Use Status: Current everyday Tobacco user Tobacco use type: Cigarette Cigarette Packs Per Day: 0.5 Years Smoked: 50 Second Hand Smoke Exposure: Yes Advance Directives Date on File: 10/03/20 service: No Current occupational status: retired Meds Allergies Allergy/AdvReac Type Severity Reaction Status Date / Time hydrochlorothiazide Allergy Unknown lip swells Verified 10/02/20 11:59 Active Medications: Current Medications Enoxaparin Sodium (Enoxaparin Sodium 30 Mg/0.3 Ml Syringe) 30 mg SUBCUT Q24H [facility] Albumin Human (Kedbumin 25 %) 100 mls @ 100 mls/hr IV Q1H LOBO Stop: 07/20/23 18:59 Sodium Chloride (0.9 % Sodium Chloride Flush 3 Ml Syringe) 3 ml IVFLUSH QSHIFT [facility] Home Medications Medication Instructions Recorded Confirmed Last Taken Type adalimumab 40 mg/0.8 mL 40 mg subcut FR 09/20/20 10/02/20 09/27/20 History subcutaneous syringe kit (Humira) amlodipine 5 mg tablet 5 mg PO DAILY 07/20/23 07/20/23 Unknown History fluticasone fur. 200 mcg-umeclid 1 ea inhalation DAILY 07/20/23 07/20/23 Unknown History 62.5 mcg-vilant 25 mcg inhalat.powder (Trelegy Ellipta) gabapentin 100 mg capsule 100 mg PO TID 07/20/23 07/20/23 Unknown History gabapentin 300 mg capsule 300 mg PO TID 07/20/23 07/20/23 Unknown History losartan 100 mg tablet 100 mg PO DAILY 07/20/23 07/20/23 Unknown History oxycodone 10 mg tablet 10 mg PO Q8H PRN moderate pain 07/20/23 07/20/23 Unknown History prednisone 5 mg tablet 5 mg PO DAILY 07/20/23 07/20/23 Unknown History sertraline 100 mg tablet 100 mg PO DAILY 07/20/23 07/20/23 Unknown History tramadol 50 mg tablet 50 mg PO Q4H PRN pain 07/20/23 07/20/23 Unknown History trazodone 50 mg tablet 50 mg PO BEDTIME 07/20/23 07/20/23 Unknown History Physical Exam Vital Signs and Narrative: Vital Signs: Last Vital Signs Temp 97.9 F 07/20/23 14:30 Pulse 105 H 07/20/23 14:30 Resp 16 07/20/23 14:30 BP 95/59 L 07/20/23 14:30 Pulse Ox 97 07/20/23 14:30 O2 Del Method Room Air 07/20/23 14:30 BMI result Body Mass Index 20.7 General: AO X 3, no acute distress, frail Resp: CTA bilateral, no accessory muscles used CVS: S1,S2,RRR, 2+ bilateral lower extremity edema GI: soft, non tender, non distended Neuro: motor grossly intact, alert Psych: appropriate affect, appropriate insight finger tips cyanotic appearing chronic skin changes in sacrum with old scarring, some signs of light purulence on pad Results Labs 07/20/23 14:44 07/20/23 14:44 Labs: Laboratory Results - last 24 hr 07/20/23 07/20/23 14:44 15:12 MCV 87.7 MCH 27.9 MCHC 31.8 RDW 15.5 Plt Count 559 H MPV 8.4 L Immature Gran % (Auto) 1.2 H Neut % (Auto) 94.0 H Lymph % (Auto) 1.8 L Long % (Auto) 2.8 Eos % (Auto) 0.0 Baso % (Auto) 0.2 Lymph # (Auto) 0.5 L Long # (Auto) 0.9 Eos # (Auto) 0.0 Baso # (Auto) 0.1 Abs Immat Gran (auto) 0.37 H Absolute Neuts (auto) 29.0 H Absolute Nucleated RBC 0.000 Nucleated RBC % (auto) 0.0 Smear Tech's Comments VERIFIED Anion Gap 14 Estim Creat Clear Calc 41.0 Estimated GFR 38 Random Glucose 105 Lactic Acid 1.4 Calcium 8.1 L Total Bilirubin 0.4 AST 21 ALT 10 Alkaline Phosphatase 85 Total Protein 5.8 L Albumin 2.1 L Ethyl Alcohol < 10 Imaging Radiologist's Impressions: Impressions Chest X-Ray 07/20/23 15:36 IMPRESSION: Prominent bilateral interstitial markings likely scarring or pneumonitis but no focal consolidation or pleural effusion. Assessment and Plan (1) Severe anemia: Status: Acute Plan 67M PMH etoh dependence - in remission 3 months, hydradenitis supperavita, CKD III, bph, copd, presented with hypotension, found to have leukocytosis, anemia, thrombocytosis hypotension not due to sepsis due to hypovolemia from diarrhea, 3rd spacing, meds will give albumin leukocytosis, anemia, thrombocytosis started around jan 2023 differential includes hematological malignancy, vs chronic inflammatory state transfusing prbc, monitor hematology eval hydradenitis supperavita ct abd pelvis ckd 3 stable, monitor etoh dependence in remission copd trelegy htn now hypoetensive, hold amlodipine, losartan bph flomax dvt prophylaxis - lovenox full code patient with severe anemia, hypotension, leukocytosis, at risk for sepsis, decompensation, therefore, expected to require atleast 2 midnights inpatient Quality Stroke Does the patient have a stroke diagnosis?: No VTE Prior VTE?: No VTE Risk Level:: Medical - moderate - high VTE Device Contraindication: Treatment Not Indicated VTE Drug Contraindication: N/A - Med Ordered
--- NOTE | 2023-07-20 17:35 | PHA.MEDREC ---
Pharmacy Consult ? Medication Reconciliation Pharmacy has completed the medication reconciliation. Patient's had lsit of medications that matched claim history. Suad Shannon, DeandreD
[2023-07-20] MEDS: Albumin Human 25 % 100 ML IV ×2 (18:02→19:09)
[2023-07-20] MEDS: oxyCODONE HCl Immed Release 5 MG TABLET 10 MG PO (18:23)
[2023-07-20 18:59] LABS: Influenza A PCR NEGATIVE (Negative); Influenza B PCR NEGATIVE (Negative); Resp Syncy Virus RNA Qual PCR NEGATIVE (Negative); SARS COV2 PCR INHOUSE NEGATIVE (Negative)
[2023-07-20 19:31] LABS: Appearance Urine Cloudy; Color Urine Yellow; Glucose Urine UA Negative (Negative); Leukocyte Esterase Urine Large (3+) (Negative); Nitrite Urine Negative (Negative); PH 5.5 (5.0-9.0); Specific Gravity - Urine 1.015 (1.005-1.025); UMIC TRIGGER UA YES; Urine Blood Negative (Negative); Urine Ketones Negative (Negative); Urine Protein 30 (1+) mg/dL (Neg-Trace)
[2023-07-20 19:50] LABS: Bacteria Urine 2+ (None Seen); RBC Urine 0-2 /HPF (0-2); WBC Urine >50 /HPF (0-5)
[2023-07-20] MEDS: Folic Acid 1 MG TABLET PO (22:57)
[2023-07-20] MEDS: Gabapentin 300 MG CAPSULE PO (22:57)
[2023-07-20] MEDS: Melatonin 3 MG TABLET PO (22:57)
[2023-07-20] MEDS: traZODone HCL 50 MG TABLET PO (22:57)
[2023-07-21] VITALS (14 sets, daily range): BP systolic 87–117; BP diastolic 43–74; PULSE 85–130; RESP 13–22; TEMP 36.2–37.4; O2SAT 90–97
[2023-07-21] MEDS: 0.9 % Sodium Chloride Flush 3 ML SYRINGE IVFLUSH ×4 (00:01→20:55)
--- NOTE | 2023-07-21 02:52 | PC.NURSE ---
assumed care of pt at 2355. 2100 zinc med not administered by previous RN. t/w documented not given.
--- NOTE | 2023-07-21 06:57 | PC.NURSE ---
previous nurse did not doc vitals. this rn documented what was listed on monitor trends.
[2023-07-21 07:08] LABS: Mean Corpuscular HGB Conc 32.8 g/dl (31.0-36.0); Mean Corpuscular Hemoglobin 29.1 pg (27.0-33.0); Mean Corpuscular Volume 88.7 fL (80.0-98.0); Mean Platelet Volume 8.9 fL (9.4-12.4); Platelet Count 539 X10*3/uL (160-400); Red Cell Distribution Width 15.5 % (11.0-16.0)
[2023-07-21 07:16] LABS: INTERNATIONAL NORM RATIO 1.4 (0.9-1.1)
[2023-07-21 07:33] LABS: Alanine Aminotransferase 8 U/L (0-40); Albumin Level 2.4 g/dL (3.5-5.0); Alkaline Phosphatase 83 U/L (39-117); Anion Gap 13 (12-20); Aspartate Amino Transferase 12 U/L (5-37); Bilirubin Direct 0.3 mg/dL (0.0-0.5); Bilirubin Total 0.5 mg/dL (0.0-1.0); Blood Urea Nitrogen 20 mg/dL (9-16); C Reactive Protein 26.69 mg/dL (< or = 0.50); Calcium 7.7 mg/dL (8.4-10.2); Carbon Dioxide 23 mmol/L (22-29); Chloride 104 mmol/L (96-108); Estimated Glomerular Filt Rate 43; Glucose Fasting 93 mg/dL (60-99); Magnesium 0.8 mg/dL (1.6-2.6); Potassium 3.4 mmol/L (3.3-5.1); Sodium 137 mmol/L (135-145); Total Protein 5.5 g/dL (6.5-8.0)
[2023-07-21 07:36] LABS: White Blood Count 35.4 X10*3/uL (4.8-10.8)
[2023-07-21 07:37] LABS: Hemoglobin 6.7 g/dl (14.0-18.0)
[2023-07-21] MEDS: Magnesium Oxide 400 MG TABLET PO ×3 (08:10→20:53)
[2023-07-21] MEDS: Tamsulosin HCL 0.4 MG CAPSULE PO (08:10)
[2023-07-21] MEDS: Multivitamin TABLET 1 TAB PO (08:10)
[2023-07-21] MEDS: predniSONE 5 MG TABLET PO (08:11)
[2023-07-21] MEDS: Gabapentin 300 MG CAPSULE PO ×3 (08:11→20:52)
[2023-07-21] MEDS: Omeprazole 40 MG CAPSULE.DR PO (08:11)
[2023-07-21] MEDS: Magnesium Sulfate/H2O 2 GM/50 ML PIGGYBACK IV ×2 (08:13→16:50)
[2023-07-21] MEDS: Fluticasone/Umeclidinium/Vilanterol 200/62.5/25 BLST.W.DEV 1 PUFF INHALE (08:19)
[2023-07-21] MEDS: traMADoL HCL 50 MG TABLET PO ×2 (08:22→19:43)
[2023-07-21 08:54] LABS: Hematocrit 20.4 % (42.0-52.0)
[2023-07-21] MEDS: Enoxaparin Sodium 30 MG/0.3 ML SYRINGE SUBCUT (08:57)
[2023-07-21] MEDS: Piperacillin Sodium/Tazobactam 3.375 GM in 0.9 % Sodium Chloride 50 ML IV ×2 (08:58→14:14)
[2023-07-21] MEDS: Lidocaine HCl 1 % MPF 30 ML VIAL 20 ML SUBCUT (08:58)
--- NOTE | 2023-07-21 09:06 | P.CONGS_ITS ---
History of Present Illness Consult details Consult date: 07/21/23 Narrative: 67 year-old male with a long history of hidradenitis suppurativa, brought to the ER last night because of hypotension. 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 He also had been feeling weak the past few days. He was noted to have leukocytosis in the ER. He had active hidradenitis on the back and his CAT scan showed air in the gluteal muscle, consistent with an abscess, in the perineum in the distal sacrum and coccyx as well with the collection about 4.2 x 3.7 x 9.6 cm He does state that he has had this hidradenitis including the buttock area for many years. He has had multiple I and D's in the past he states. He says that he is being seen by a home energy consultant and gets injections because of his severe hidradenitis over the years. He otherwise looks well and is nontoxic appearing. He is alert. He says that this he does not get out of bed much although is able to ambulate with assistance or with a walker. He said he had fallen in the past and had been limited with mobility because of that. Review of Systems 2 Constitutional: Constitutional: Denies chills, Denies fever(s) and Reports weakness Cardiovascular: Cardiovascular: Denies chest pain, Denies dyspnea and Denies dyspnea on exertion Respiratory: Respiratory: Denies cough, Denies dyspnea and Denies dyspnea on exertion Gastrointestinal: Gastrointestinal: Denies hematochezia and Denies change in bowel habits Genitourinary: Genitourinary: Denies hematuria and Denies difficulty urinating Musculoskeletal: Musculoskeletal: Reports back pain, Reports myalgias and Reports limited range of motion Neurologic: Denies focal weakness, Denies convulsions and Reports weakness Psychiatric: Psychiatric: Denies depression and Denies mood swings PMFSH Past Medical History Medical History (Updated 07/21/23 @ 09:12 by Bishop Holland MD) Normocytic anemia Alcohol dependence Anemia Hidradenitis suppurativa Hidradenitis Social History Social History Household Members: Spouse Housing: House Do you presently have visiting nurse or other home services: Yes ([facility]) Alcohol intake: former Comment: pt refuses alarm Patient Tobacco Use Status: Current everyday Tobacco user Tobacco use type: Cigarette Cigarette Packs Per Day: 0.5 Years Smoked: 50 Second Hand Smoke Exposure: Yes Advance Directives Date on File: 10/03/20 service: No Current occupational status: retired Meds Allergies Allergy/AdvReac Type Severity Reaction Status Date / Time hydrochlorothiazide Allergy Unknown lip swells Verified 10/02/20 11:59 Active Medications: Current Medications Enoxaparin Sodium (Enoxaparin Sodium 30 Mg/0.3 Ml Syringe) 30 mg SUBCUT Q24H [facility] Last Admin: 07/21/23 08:57 Dose: 30 mg Fluticasone/Umeclidinium/Vilanterol (Fluticasone/Umeclidinium/Vilanterol 200/62.5/25 Blst.W.Dev) 1 puff INHALE DAILY [facility] Last Admin: 07/21/23 08:19 Dose: 1 puff Folic Acid (Folic Acid 1 Mg Tablet) 1 mg PO BEDTIME [facility] Last Admin: 07/20/23 22:57 Dose: 1 mg Gabapentin (Gabapentin 300 Mg Capsule) 300 mg PO TID [facility] Last Admin: 07/21/23 08:11 Dose: 300 mg Magnesium Sulfate (Magnesium Sulfate/H2o) 2 gm in 50 mls @ 25 mls/hr IV Q8H [facility] Stop: 07/21/23 17:59 Last Admin: 07/21/23 08:13 Dose: 25 mls/hr Vancomycin HCl 1,500 mg/ (Sodium Chloride) 500 mls @ 333.333 mls/hr IV ONCE ONE Stop: 07/21/23 10:29 Piperacillin Sod/Tazobactam (Sod 3.375 gm/ Sodium Chloride) 50 mls @ 100 mls/hr IV Q6H [facility] Last Admin: 07/21/23 08:58 Dose: 100 mls/hr Magnesium Oxide (Magnesium Oxide 400 Mg Tablet) 400 mg PO TID [facility] Last Admin: 07/21/23 08:10 Dose: 400 mg Melatonin (Melatonin 3 Mg Tablet) 3 mg PO BEDTIME [facility] Last Admin: 07/20/23 22:57 Dose: 3 mg Multivitamins/Vitamin C (Multivitamin Tablet) 1 tab PO DAILY [facility] Last Admin: 07/21/23 08:10 Dose: 1 tab Omeprazole (Omeprazole 40 Mg Capsule.Dr) 40 mg PO DAILY@0630 [facility] Last Admin: 07/21/23 08:11 Dose: 40 mg Oxycodone HCl (Oxycodone Hcl Immed Release 5 Mg Tablet) 10 mg PO Q8H PRN PRN Reason: moderate pain Last Admin: 07/20/23 18:23 Dose: 10 mg Pharmacy Consult (Consult Rx Vancomycin Dosing) 1 each MISCELLANE DAILY PRN PRN Reason: Consult order Prednisone (Prednisone 5 Mg Tablet) 5 mg PO DAILY [facility] Last Admin: 07/21/23 08:11 Dose: 5 mg Sertraline HCl (Sertraline Hcl 100 Mg Tablet) 100 mg PO DAILY [facility] Sodium Chloride (0.9 % Sodium Chloride Flush 3 Ml Syringe) 3 ml IVFLUSH QSHIFT [facility] Last Admin: 07/21/23 09:00 Dose: 3 ml Tamsulosin HCl (Tamsulosin Hcl 0.4 Mg Capsule) 0.4 mg PO DAILY [facility] Last Admin: 07/21/23 08:10 Dose: 0.4 mg Tramadol HCl (Tramadol Hcl 50 Mg Tablet) 50 mg PO Q4H PRN PRN Reason: moderate pain Last Admin: 07/21/23 08:22 Dose: 50 mg Trazodone HCl (Trazodone Hcl 50 Mg Tablet) 50 mg PO BEDTIME [facility] Last Admin: 07/20/23 22:57 Dose: 50 mg Zinc Sulfate (Zinc Sulfate 220 Mg Capsule) 220 mg PO BEDTIME [facility] Last Admin: 07/21/23 02:51 Dose: Not Given Home Medications Medication Instructions Recorded Confirmed Last Taken Type Probiotic 1 cap PO DAILY 07/20/23 07/20/23 Unknown History amlodipine 5 mg tablet 5 mg PO DAILY 07/20/23 07/20/23 Unknown History fluticasone fur. 200 mcg-umeclid 1 ea inhalation DAILY 07/20/23 07/20/23 Unknown History 62.5 mcg-vilant 25 mcg inhalat.powder (Trelegy Ellipta) folic acid 1 mg tablet 1 mg PO BEDTIME 07/20/23 07/20/23 Unknown History gabapentin 300 mg capsule 300 mg PO TID 07/20/23 07/20/23 Unknown History losartan 100 mg tablet 100 mg PO DAILY 07/20/23 07/20/23 Unknown History melatonin 3 mg tablet 3 mg PO BEDTIME 07/20/23 07/20/23 Unknown History omeprazole 40 mg capsule,delayed 40 mg PO DAILY@0630 07/20/23 07/20/23 Unknown History release oxycodone 10 mg tablet 10 mg PO Q8H PRN moderate pain 07/20/23 07/20/23 Unknown History prednisone 5 mg tablet 5 mg PO DAILY 07/20/23 07/20/23 Unknown History sertraline 100 mg tablet 100 mg PO DAILY 07/20/23 07/20/23 Unknown History tamsulosin 0.4 mg capsule 0.4 mg PO DAILY 07/20/23 07/20/23 Unknown History tramadol 50 mg tablet 50 mg PO Q4H PRN pain 07/20/23 07/20/23 Unknown History trazodone 50 mg tablet 50 mg PO BEDTIME 07/20/23 07/20/23 Unknown History vitamin B complex 1 tab PO DAILY 07/20/23 07/20/23 Unknown History zinc sulfate 220 mg capsule 220 mg PO BEDTIME 07/20/23 07/20/23 Unknown History Physical Exam 2 Vital Signs: Vital Signs: Last Vital Signs Temp 98.4 F 07/21/23 07:23 Pulse 130 H 07/21/23 08:21 Resp 16 07/21/23 08:21 BP 103/64 07/21/23 07:23 Pulse Ox 94 07/21/23 07:23 O2 Del Method Room Air 07/21/23 07:23 BMI result Body Mass Index 20.7 Const: Other: Appears comfortable General: comfortable and no acute distress Orientation/consciousness: p atient oriented x3 Back/Spine/Pelvis: Other: Wide area of thickening of the skin, with multiple sinuses, involving the lower back towards the sacrococcygeal area and both left and right buttocks all the way to perineum; there has also an area of thickening hickening, and sinuses on the right thigh towards the back; the sinuses appear to interconnect and tunnel in multiple areas; some pus is noted on some of the sinuses to the right of the perineum and on the right the buttock area Neuro: General: patient oriented x3 Results Labs 07/22/23 05:49 07/22/23 05:49 Labs: Abnormal lab results 07/20/23 07/20/23 07/20/23 Range/Units 14:44 16:53 18:15 WBC 30.8 H* (4.8-10.8) X10*3/uL RBC 2.19 L (4.60-5.80) X10*6/uL Hgb 6.1 L* (14.0-18.0) g/dl Hct 19.2 L* (42.0-52.0) % Plt Count 559 H (160-400) X10*3/uL MPV 8.4 L (9.4-12.4) fL Immature Gran % (Auto) 1.2 H (0.0-0.4) % Neut % (Auto) 94.0 H (45-73) % Lymph % (Auto) 1.8 L (20-40) % Lymph # (Auto) 0.5 L (1.2-4.9) X10*3/uL Abs Immat Gran (auto) 0.37 H (0.00-0.03) X10*3/uL Absolute Neuts (auto) 29.0 H (2.0-8.3) x10*3/uL PT (11.1-13.3) SEC INR (0.9-1.1) BUN 24 H (9-16) mg/dL Creatinine 1.78 H (0.5-1.4) mg/dL Calcium 8.1 L (8.4-10.2) mg/dL Magnesium (1.6-2.6) mg/dL C-Reactive Protein (< or = 0.50) mg/dL Total Protein 5.8 L (6.5-8.0) g/dL Albumin 2.1 L (3.5-5.0) g/dL Urine Protein 30 (1+) H (Neg-Trace) mg/dL Ur Leukocyte Esterase Large (3+) H (Negative) Urine WBC >50 H (0-5) /HPF Crossmatch See Detail 07/21/23 Range/Units 04:12 WBC 35.4 H* (4.8-10.8) X10*3/uL RBC 2.30 L (4.60-5.80) X10*6/uL Hgb 6.7 L* (14.0-18.0) g/dl Hct 20.4 L* (42.0-52.0) % Plt Count 539 H (160-400) X10*3/uL MPV 8.9 L (9.4-12.4) fL Immature Gran % (Auto) (0.0-0.4) % Neut % (Auto) (45-73) % Lymph % (Auto) (20-40) % Lymph # (Auto) (1.2-4.9) X10*3/uL Abs Immat Gran (auto) (0.00-0.03) X10*3/uL Absolute Neuts (auto) (2.0-8.3) x10*3/uL PT 17.0 H (11.1-13.3) SEC INR 1.4 H (0.9-1.1) BUN 20 H (9-16) mg/dL Creatinine 1.62 H (0.5-1.4) mg/dL Calcium 7.7 L (8.4-10.2) mg/dL Magnesium 0.8 L* (1.6-2.6) mg/dL C-Reactive Protein 26.69 H (< or = 0.50) mg/dL Total Protein 5.5 L (6.5-8.0) g/dL Albumin 2.4 L (3.5-5.0) g/dL Urine Protein (Neg-Trace) mg/dL Ur Leukocyte Esterase (Negative) Urine WBC (0-5) /HPF Crossmatch Short CBC 07/20/23 07/21/23 Range/Units 14:44 04:12 WBC 30.8 H* 35.4 H* (4.8-10.8) X10*3/uL Hgb 6.1 L* 6.7 L* (14.0-18.0) g/dl Hct 19.2 L* 20.4 L* (42.0-52.0) % Plt Count 559 H 539 H (160-400) X10*3/uL BMP 07/20/23 07/21/23 14:44 04:12 Sodium 136 137 Potassium 3.8 3.4 Chloride 102 104 Carbon Dioxide 24 23 BUN 24 H 20 H Creatinine 1.78 H 1.62 H Calcium 8.1 L 7.7 L Liver Function 07/20/23 07/21/23 Range/Units 14:44 04:12 Total Bilirubin 0.4 0.5 (0.0-1.0) mg/dL Direct Bilirubin 0.3 (0.0-0.5) mg/dL AST 21 12 (5-37) U/L ALT 10 8 (0-40) U/L Alkaline Phosphatase 85 83 (39-117) U/L Albumin 2.1 L 2.4 L (3.5-5.0) g/dL Urine 07/20/23 Range/Units 18:15 Urine Color Yellow Urine Appearance Cloudy Urine pH 5.5 (5.0-9.0) Ur Specific [place] 1.015 (1.005-1.025) Urine Protein 30 (1+) H (Neg-Trace) mg/dL Urine Glucose (UA) Negative (Negative) mg/dL All other labs normal. Assessment and Plan (1) Hidradenitis suppurativa: Status: Acute He has severe active hidradenitis there is note of air tracking in the subcutaneous area and towards the muscles seen on CT scan. This is likely because of wide open sinuses with tunneling due to his hidradenitis. I proceeded to however do an I and D on 2 areas where there is a lot of air seen on the CT scan. I prepped and draped the area in the distal her coccygeal region to the right of the midline. I made a generous cruciate incision with blade 11 after infiltration with lidocaine 1%. Pus was seen. Cultures were taken. I was able to probe this area with my finger and this seemed to track distally including the perineum. There is a lot of undermining of this skin. I also opened up the preop to the right of the gluteal region near the thigh. Again lidocaine 1% was used for local anesthesia. A blade 11 was used for generous cruciate incision. Some pus was noted and I probed the area with my fingers to make sure that there was no other undrained collection. I applied light packing to both I&D sites. However, we will follow closely. He is on IV antibiotics. He will need good wound care and hygiene. Examination of the abscess sites do not seem to suggest necrotizing process. Procedures Date of Service Date of Service: 07/22/23
--- NOTE | 2023-07-21 09:56 | HO.PM.IMPN ---
Subjective Subjective Date of Service: 07/21/23 Interval History: increased drainage from sacrum Physical Exam Vital Signs: Vital Signs: Last Vital Signs Temp 98.1 F 07/21/23 09:43 Pulse 100 07/21/23 09:43 Resp 15 07/21/23 09:43 BP 98/52 L 07/21/23 09:43 Pulse Ox 93 07/21/23 09:17 O2 Del Method Room Air 07/21/23 09:17 BMI result Body Mass Index 20.7 Const: Other: Appears comfortable General: comfortable and no acute distress Orientation/consciousness: patient oriented x3 Back/Spine/Pelvis: Other: Wide area of thickening of the skin, with multiple sinuses, involving the lower back towards the sacrococcygeal area and both left and right buttocks all the way to perineum; there has also an area of thickening hickening, and sinuses on the right thigh towards the back; the sinuses appear to interconnect and tunnel in multiple areas; some pus is noted on some of the sinuses to the right of the perineum and on the right the buttock area Neuro: General: patient oriented x3 Objective Data Active Medications Enoxaparin Sodium (Enoxaparin Sodium 30 Mg/0.3 Ml Syringe) 30 mg SUBCUT Q24H [facility] Last Admin: 07/21/23 08:57 Dose: 30 mg Documented By: LAURA Fluticasone/Umeclidinium/Vilanterol (Fluticasone/Umeclidinium/Vilanterol 200/62.5/25 Blst.W.Dev) 1 puff INHALE DAILY [facility] Last Admin: 07/21/23 08:19 Dose: 1 puff Documented By: YAEL Folic Acid (Folic Acid 1 Mg Tablet) 1 mg PO BEDTIME [facility] Last Admin: 07/20/23 22:57 Dose: 1 mg Documented By: ANTONINO Gabapentin (Gabapentin 300 Mg Capsule) 300 mg PO TID [facility] Last Admin: 07/21/23 08:11 Dose: 300 mg Documented By: LAURA Magnesium Sulfate (Magnesium Sulfate/H2o) 2 gm in 50 mls @ 25 mls/hr IV Q8H [facility] Stop: 07/21/23 17:59 Last Admin: 07/21/23 08:13 Dose: 25 mls/hr Documented By: LAURA Vancomycin HCl 1,500 mg/ (Sodium Chloride) 500 mls @ 333.333 mls/hr IV ONCE ONE Stop: 07/21/23 10:29 Piperacillin Sod/Tazobactam (Sod 3.375 gm/ Sodium Chloride) 50 mls @ 100 mls/hr IV Q6H [facility] Last Admin: 07/21/23 08:58 Dose: 100 mls/hr Documented By: LAURA Magnesium Oxide (Magnesium Oxide 400 Mg Tablet) 400 mg PO TID [facility] Last Admin: 07/21/23 08:10 Dose: 400 mg Documented By: LAURA Melatonin (Melatonin 3 Mg Tablet) 3 mg PO BEDTIME [facility] Last Admin: 07/20/23 22:57 Dose: 3 mg Documented By: ANTONINO Multivitamins/Vitamin C (Multivitamin Tablet) 1 tab PO DAILY [facility] Last Admin: 07/21/23 08:10 Dose: 1 tab Documented By: LAURA Omeprazole (Omeprazole 40 Mg Capsule.Dr) 40 mg PO DAILY@0630 [facility] Last Admin: 07/21/23 08:11 Dose: 40 mg Documented By: LAURA Oxycodone HCl (Oxycodone Hcl Immed Release 5 Mg Tablet) 10 mg PO Q8H PRN PRN Reason: moderate pain Last Admin: 07/20/23 18:23 Dose: 10 mg Documented By: ANTONINO Pharmacy Consult (Consult Rx Vancomycin Dosing) 1 each MISCELLANE DAILY PRN PRN Reason: Consult order Prednisone (Prednisone 5 Mg Tablet) 5 mg PO DAILY [facility] Last Admin: 07/21/23 08:11 Dose: 5 mg Documented By: LAURA Sertraline HCl (Sertraline Hcl 100 Mg Tablet) 100 mg PO DAILY [facility] Sodium Chloride (0.9 % Sodium Chloride Flush 3 Ml Syringe) 3 ml IVFLUSH QSHIFT [facility] Last Admin: 07/21/23 09:00 Dose: 3 ml Documented By: LAURA Tamsulosin HCl (Tamsulosin Hcl 0.4 Mg Capsule) 0.4 mg PO DAILY [facility] Last Admin: 07/21/23 08:10 Dose: 0.4 mg Documented By: LAURA Tramadol HCl (Tramadol Hcl 50 Mg Tablet) 50 mg PO Q4H PRN PRN Reason: moderate pain Last Admin: 07/21/23 08:22 Dose: 50 mg Documented By: LAURA Trazodone HCl (Trazodone Hcl 50 Mg Tablet) 50 mg PO BEDTIME [facility] Last Admin: 07/20/23 22:57 Dose: 50 mg Documented By: ANTONINO Zinc Sulfate (Zinc Sulfate 220 Mg Capsule) 220 mg PO BEDTIME [facility] Last Admin: 07/21/23 02:51 Dose: Not Given Documented By: TOM Non-Admin Reason: See Note Labs 07/21/23 04:12 07/21/23 04:12 Labs: Laboratory Results - last 24 hr 07/20/23 07/20/23 07/20/23 14:44 15:12 16:53 MCV 87.7 MCH 27.9 MCHC 31.8 RDW 15.5 Plt Count 559 H MPV 8.4 L Immature Gran % (Auto) 1.2 H Neut % (Auto) 94.0 H Lymph % (Auto) 1.8 L [place] % (Auto) 2.8 Eos % (Auto) 0.0 Baso % (Auto) 0.2 Lymph # (Auto) 0.5 L [place] # (Auto) 0.9 Eos # (Auto) 0.0 Baso # (Auto) 0.1 Abs Immat Gran (auto) 0.37 H Absolute Neuts (auto) 29.0 H Absolute Nucleated RBC 0.000 Nucleated RBC % (auto) 0.0 Smear Tech's Comments VERIFIED Smear Path Review SEE NOTE PT INR Anion Gap 14 Estim Creat Clear Calc 41.0 Estimated GFR 38 Random Glucose 105 Fasting Glucose Lactic Acid 1.4 Calcium 8.1 L Magnesium Total Bilirubin 0.4 Direct Bilirubin AST 21 ALT 10 Alkaline Phosphatase 85 C-Reactive Protein Total Protein 5.8 L Albumin 2.1 L Urine Color Urine Appearance Urine pH Ur Specific [place] Urine Protein Urine Glucose (UA) Urine Ketones Urine Blood Urine Nitrite Ur Leukocyte Esterase Urine RBC Urine WBC Ur Squamous Epith Cells Urine Bacteria Hyaline Casts Ethyl Alcohol < 10 Influenza Type A (PCR) Influenza Type B (PCR) RSV RNA Qual (PCR) SARS-CoV-2 RNA (RT-PCR) Blood Type A Positive Antibody Screen NEGATIVE Crossmatch See Detail 07/20/23 07/21/23 18:15 04:12 MCV 88.7 MCH 29.1 MCHC 32.8 RDW 15.5 Plt Count 539 H MPV 8.9 L Immature Gran % (Auto) Neut % (Auto) Lymph % (Auto) [place] % (Auto) Eos % (Auto) Baso % (Auto) Lymph # (Auto) [place] # (Auto) Eos # (Auto) Baso # (Auto) Abs Immat Gran (auto) Absolute Neuts (auto) Absolute Nucleated RBC 0.000 Nucleated RBC % (auto) 0.0 Smear Tech's Comments Smear Path Review PT 17.0 H INR 1.4 H Anion Gap 13 Estim Creat Clear Calc 45.0 Estimated GFR 43 Random Glucose Fasting Glucose 93 Lactic Acid Calcium 7.7 L Magnesium 0.8 L* Total Bilirubin 0.5 Direct Bilirubin 0.3 AST 12 ALT 8 Alkaline Phosphatase 83 C-Reactive Protein 26.69 H Total Protein 5.5 L Albumin 2.4 L Urine Color Yellow Urine Appearance Cloudy Urine pH 5.5 Ur Specific [place]une 1.015 Urine Protein 30 (1+) H Urine Glucose (UA) Negative Urine Ketones Negative Urine Blood Negative Urine Nitrite Negative Ur Leukocyte Esterase Large (3+) H Urine RBC 0-2 Urine WBC >50 H Ur Squamous Epith Cells 11-20 Urine Bacteria 2+ Hyaline Casts 3-5 Ethyl Alcohol Influenza Type A (PCR) NEGATIVE Influenza Type B (PCR) NEGATIVE RSV RNA Qual (PCR) NEGATIVE SARS-CoV-2 RNA (RT-PCR) NEGATIVE Blood Type Antibody Screen Crossmatch Assessment and Plan (1) Hidradenitis suppurativa: Status: Acute Plan 67M PMH etoh dependence - in remission 3 months, hydradenitis supperavita, CKD III, bph, copd, presented with hypotension, found to have leukocytosis, anemia, thrombocytosis hypotension not due to sepsis due to hypovolemia from diarrhea, 3rd spacing, meds continue albumin leukocytosis, anemia, thrombocytosis started around jan 2023 differential includes hematological malignancy, vs chronic inflammatory state from sacral abscess in hydradenitis supperavita transfused 1 unit prbc, will give one more unit today hematology following hydradenitis supperavita with sacral abscesses gen surgery appreviated - I and D at bedside, follow up cultures will start vanc, zosyn, ID eval wound care normally on prednisone 5mg chronically, will increase to 40mg daily for stress dosing ckd 3 stable, monitor hypokalemia replace, monitor severe hypomagnesemia replace and monitor etoh dependence in remission copd trelegy htn now hypoetensive, holding amlodipine, losartan bph flomax dvt prophylaxis - lovenox full code reason for continued hospitalization:still hypotensive, anemia needing transfusion, severe hyopmag Quality Stroke Does the patient have a stroke diagnosis?: No VTE Prior VTE?: No VTE Risk Level:: Medical - moderate - high VTE Device Contraindication: Treatment Not Indicated VTE Drug Contraindication: N/A - Med Ordered
--- NOTE | 2023-07-21 10:15 | MHC.CM.PN ---
IMM 07/21/23 signed by pt.'s , pt. was asleep. he lives with , has home care services from [facility]: nursing, PT, OT and looking into ST. He uses a walker at home, HCP confirmed: Anum Reddy, PCP confirmed: Todd Landin. CM to follow and assist with DC plan.
[2023-07-21] MEDS: vancomycin HCL 1,500 MG in 0.9 % Sodium Chloride 500 ML 333.33 MG IV (10:44)
[2023-07-21] MEDS: Potassium Chloride ER 20 MEQ TAB.ER.PRT 40 MEQ PO (10:57)
[2023-07-21] MEDS: predniSONE 20 MG TABLET 40 MG PO (10:57)
[2023-07-21] MEDS: Albumin Human 25 % 100 ML IV ×2 (10:58→14:22)
--- NOTE | 2023-07-21 11:34 | PHA.PROG ---
Admission Date/Time: July 20, 2023 16:50 Indication: skin Weight in k.028 kg Adjusted body weight in Kg: [place] body weight in Kg: Obesity Dosing Indication % IBW: Serum Creatinine - Last 168 Hours 07/20/23 07/21/23 14:44 04:12 Creatinine 1.78 H 1.62 H Estimated CrCl and GFR - Last 168 Hours 07/20/23 07/21/23 14:44 04:12 Estim Creat Clear Calc 41.0 45.0 Estimated GFR 38 43 Vancomycin Loading Dose: 1500mg x 1 Current Vancomycin Dosing Regimen: 1000mg Q24H Vancomycin Monitoring using AUC goal of 400 - 600 range with trough as surrogate marker: 477 mg/L Date and Time for next Vancomycin Level to be drawn: 07/22 @0900 Pharmacist Comments on Vancomycin Plan: Predicted trough of 14.9 mg/L; will continue to monitor renal and adjust accordingly Vancomycin dosing will take advantage of [employer] as a clinical decision support tool that uses Bayesian modeling to calculate individual patient's pharmacokinetic parameters and forecast the patient's drug concentration time course with the target goal AUC 24 range of 400 - 600 mg/L/hr.
--- NOTE | 2023-07-21 14:00 | PC.NURSE ---
PT IS A/O X 4. 02 SAT ON R/A WAS 87% PT PLACED ON 3L/M VIA N/C AT 90%. PT 02 IMPROVE WITH 02 AND TAKING BIG DEEP BREATHS. NO EDEMA NOTED. PT BUTTOCKS IS SWOLLEN. DESTINY GROIN IS RED/RAW. DR. CARMEN I/D PT BUTTOCK WHICH DRAINED MODERATE AMT SANGUINEOUS DRAINAGE. PT LAILA PROCEDURE WELL. PT C/D/D TO PT'S BUTTOCKS. BARRIER CREAM TO PT'S GROIN. PT RECEIVED 1RBC AND 2 PLASMA IV. PT HAS A TOTAL OF 3 IV'S. A #20 TO R WRIST, #22 TO R HAND AND # 20 TO L FOREARM. PT AWARE OF PLAN OF CARE. WILL CONTINUE TO MONITOR.
[2023-07-21] MEDS: oxyCODONE HCl Immed Release 5 MG TABLET 10 MG PO (14:54)
[2023-07-21] MEDS: Zinc Sulfate 220 MG CAPSULE PO (20:53)
[2023-07-21] MEDS: Melatonin 3 MG TABLET PO (20:53)
[2023-07-21] MEDS: traZODone HCL 50 MG TABLET PO (20:53)
[2023-07-21] MEDS: Folic Acid 1 MG TABLET PO (20:53)
[2023-07-22] MEDS: Piperacillin Sodium/Tazobactam 3.375 GM in 0.9 % Sodium Chloride 50 ML IV ×2 (02:59→08:57)
[2023-07-22 03:08] VITALS: BP 130/73; PULSE 75; RESP 16; TEMP 36.4; O2SAT 94
[2023-07-22 06:39] LABS: Hemoglobin 7.8 g/dl (14.0-18.0); Mean Corpuscular HGB Conc 33.9 g/dl (31.0-36.0); Mean Corpuscular Hemoglobin 29.4 pg (27.0-33.0); Mean Corpuscular Volume 86.8 fL (80.0-98.0); Mean Platelet Volume 8.7 fL (9.4-12.4); Platelet Count 525 X10*3/uL (160-400); Red Blood Count 2.65 X10*6/uL (4.60-5.80); Red Cell Distribution Width 15.4 % (11.0-16.0); White Blood Count 28.2 X10*3/uL (4.8-10.8)
[2023-07-22 06:57] LABS: Alanine Aminotransferase 7 U/L (0-40); Albumin Level 2.6 g/dL (3.5-5.0); Alkaline Phosphatase 75 U/L (39-117); Anion Gap 14 (12-20); Aspartate Amino Transferase 10 U/L (5-37); Bilirubin Direct 0.3 mg/dL (0.0-0.5); Bilirubin Total 0.4 mg/dL (0.0-1.0); Blood Urea Nitrogen 21 mg/dL (9-16); Calcium 8.3 mg/dL (8.4-10.2); Carbon Dioxide 22 mmol/L (22-29); Chloride 106 mmol/L (96-108); Creatinine Clr Calc Pharmacy 51.7; Estimated Glomerular Filt Rate 50; Glucose Fasting 129 mg/dL (60-99); Magnesium 1.5 mg/dL (1.6-2.6); Potassium 3.8 mmol/L (3.3-5.1); Sodium 138 mmol/L (135-145); Total Protein 5.6 g/dL (6.5-8.0)
[2023-07-22 07:35] VITALS: BP 121/74; PULSE 76; RESP 14; TEMP 36; O2SAT 95
--- NOTE | 2023-07-22 07:50 | HO.PM.IMPN ---
Subjective Subjective Date of Service: 07/22/23 Interval History: feeling stronger today Physical Exam Vital Signs: Vital Signs: Last Vital Signs Temp 96.8 F 07/22/23 07:35 Pulse 76 07/22/23 07:35 Resp 14 07/22/23 07:35 BP 121/74 07/22/23 07:35 Pulse Ox 95 07/22/23 07:35 O2 Del Method Room Air 07/22/23 07:35 O2 Flow Rate 2 07/21/23 15:23 BMI result Body Mass Index 20.7 Const: Other: Appears comfortable General: comfortable and no acute distress Orientation/consciousness: patient oriented x3 Back/Spine/Pelvis: Other: Wide area of thickening of the skin, with multiple sinuses, involving the lower back towards the sacrococcygeal area and both left and right buttocks all the way to perineum; there has also an area of thickening hickening, and sinuses on the right thigh towards the back; the sinuses appear to interconnect and tunnel in multiple areas; some pus is noted on some of the sinuses to the right of the perineum and on the right the buttock area Neuro: General: patient oriented x3 Objective Data Active Medications Enoxaparin Sodium (Enoxaparin Sodium 30 Mg/0.3 Ml Syringe) 30 mg SUBCUT Q24H [facility] Last Admin: 07/21/23 08:57 Dose: 30 mg Documented By: LAURA Fluticasone/Umeclidinium/Vilanterol (Fluticasone/Umeclidinium/Vilanterol 200/62.5/25 Blst.W.Dev) 1 puff INHALE DAILY [facility] Last Admin: 07/21/23 08:19 Dose: 1 puff Documented By: YAEL Folic Acid (Folic Acid 1 Mg Tablet) 1 mg PO BEDTIME [facility] Last Admin: 07/21/23 20:53 Dose: 1 mg Documented By: CURTIS Gabapentin (Gabapentin 300 Mg Capsule) 300 mg PO TID [facility] Last Admin: 07/21/23 20:52 Dose: 300 mg Documented By: CURTIS Piperacillin Sod/Tazobactam (Sod 3.375 gm/ Sodium Chloride) 50 mls @ 100 mls/hr IV Q6H [facility] Last Infusion: 07/22/23 03:38 Dose: Infused Documented By: CURTIS Vancomycin HCl 1,000 mg/ (Sodium Chloride) 270 mls @ 270 mls/hr IV Q24H [facility] Magnesium Oxide (Magnesium Oxide 400 Mg Tablet) 400 mg PO TID [facility] Last Admin: 07/21/23 20:53 Dose: 400 mg Documented By: CURTIS Melatonin (Melatonin 3 Mg Tablet) 3 mg PO BEDTIME [facility] Last Admin: 07/21/23 20:53 Dose: 3 mg Documented By: CURTIS Multivitamins/Vitamin C (Multivitamin Tablet) 1 tab PO DAILY [facility] Last Admin: 07/21/23 08:10 Dose: 1 tab Documented By: LAURA Omeprazole (Omeprazole 40 Mg Capsule.) 40 mg PO DAILY@0630 [facility] Last Admin: 07/22/23 06:01 Dose: Not Given Documented By: CURTIS Non-Admin Reason: Patient Refused Oxycodone HCl (Oxycodone Hcl Immed Release 5 Mg Tablet) 10 mg PO Q8H PRN PRN Reason: moderate pain Last Admin: 07/21/23 14:54 Dose: 10 mg Documented By: LAURA Pharmacy Consult (Consult Rx Vancomycin Dosing) 1 each MISCELLANE DAILY PRN PRN Reason: Consult order Prednisone (Prednisone 20 Mg Tablet) 40 mg PO DAILY [facility] Last Admin: 07/21/23 10:57 Dose: 40 mg Documented By: LAURA Sertraline HCl (Sertraline Hcl 100 Mg Tablet) 100 mg PO DAILY [facility] Last Admin: 07/21/23 10:58 Dose: Not Given Documented By: LAURA Non-Admin Reason: med unavailable Sodium Chloride (0.9 % Sodium Chloride Flush 3 Ml Syringe) 3 ml IVFLUSH QSHIFT [facility] Last Admin: 07/21/23 20:55 Dose: 3 ml Documented By: CURTIS Tamsulosin HCl (Tamsulosin Hcl 0.4 Mg Capsule) 0.4 mg PO DAILY [facility] Last Admin: 07/21/23 08:10 Dose: 0.4 mg Documented By: LAURA Tramadol HCl (Tramadol Hcl 50 Mg Tablet) 50 mg PO Q4H PRN PRN Reason: moderate pain Last Admin: 07/21/23 19:43 Dose: 50 mg Documented By: CURTIS Trazodone HCl (Trazodone Hcl 50 Mg Tablet) 50 mg PO BEDTIME [facility] Last Admin: 07/21/23 20:53 Dose: 50 mg Documented By: CURTIS Zinc Sulfate (Zinc Sulfate 220 Mg Capsule) 220 mg PO BEDTIME [facility] Last Admin: 07/21/23 20:53 Dose: 220 mg Documented By: CURTIS Labs 07/22/23 05:49 07/22/23 05:49 Labs: Laboratory Results - last 24 hr 07/20/23 07/22/23 16:53 05:49 MCV 86.8 MCH 29.4 MCHC 33.9 RDW 15.4 Plt Count 525 H MPV 8.7 L Absolute Nucleated RBC 0.000 Nucleated RBC % (auto) 0.0 Anion Gap 14 Estim Creat Clear Calc 51.7 Estimated GFR 50 Fasting Glucose 129 H Calcium 8.3 L D Magnesium 1.5 L Total Bilirubin 0.4 Direct Bilirubin 0.3 AST 10 ALT 7 Alkaline Phosphatase 75 Total Protein 5.6 L Albumin 2.6 L Blood Type A Positive Antibody Screen NEGATIVE Crossmatch See Detail Microbiology Microbiology Results: Microbiology 07/20/23 15:26 Blood Culture - Preliminary Blood - Venous No growth after 24 hours. 07/20/23 15:12 Blood Culture - Preliminary Blood - Venous No growth after 24 hours. Assessment and Plan (1) Hidradenitis suppurativa: Status: Acute Plan 67M PMH etoh dependence - in remission 3 months, hydradenitis supperavita, CKD III, bph, copd, presented with hypotension, found to have leukocytosis, anemia, thrombocytosis hypotension not due to sepsis due to hypovolemia from diarrhea, 3rd spacing, meds given albumin, now appears resolved leukocytosis, anemia, thrombocytosis started around jan 2023 differential includes hematological malignancy, vs chronic inflammatory state from sacral abscess in hydradenitis supperavita transfused 2 unit prbc total, hgb better today 7.8 hematology following hydradenitis supperavita with sacral abscesses gen surgery appreciated - I and D at bedside, follow up cultures started vanc, zosyn, ID eval wound care normally on prednisone 5mg chronically, increased to 40mg daily for stress dosing ckd 3 stable (better than baseline), monitor hypokalemia replaced, monitor severe hypomagnesemia replacing and monitor etoh dependence in remission copd trelegy htn was hypotensive, holding amlodipine, losartan bph flomax dvt prophylaxis - lovenox full code reason for continued hospitalization: iv abx for sacral abscess, ongoing wound care Quality Stroke Does the patient have a stroke diagnosis?: No VTE Prior VTE?: No VTE Risk Level:: Medical - moderate - high VTE Device Contraindication: Treatment Not Indicated VTE Drug Contraindication: N/A - Med Ordered
--- NOTE | 2023-07-22 08:32 | P.PNGS_ITS ---
Subjective Subjective Date of Service: 07/22/23 Interval history: Denies new complaints denies significant pain Physical Exam 2 Vital Signs: Vital Signs: Last Vital Signs Temp 96.8 F 07/22/23 07:35 Pulse 76 07/22/23 07:35 Resp 14 07/22/23 07:35 BP 121/74 07/22/23 07:35 Pulse Ox 95 07/22/23 07:35 O2 Del Method Room Air 07/22/23 07:35 O2 Flow Rate 2 07/21/23 15:23 BMI result Body Mass Index 20.7 Const: General: comfortable and no acute distress Resp: Effort & Inspection: normal respiratory effort Cardio: Rate: regular rate Back/Spine/Pelvis: Other: Dressings removed I&D sites clean No new induration No significant discharge No significant discoloration of the skin Objective Data Active Medications Enoxaparin Sodium (Enoxaparin Sodium 30 Mg/0.3 Ml Syringe) 30 mg SUBCUT Q24H [facility] Last Admin: 07/21/23 08:57 Dose: 30 mg Documented By: LAURA Fluticasone/Umeclidinium/Vilanterol (Fluticasone/Umeclidinium/Vilanterol 200/62.5/25 Blst.W.Dev) 1 puff INHALE DAILY [facility] Last Admin: 07/21/23 08:19 Dose: 1 puff Documented By: YAEL Folic Acid (Folic Acid 1 Mg Tablet) 1 mg PO BEDTIME [facility] Last Admin: 07/21/23 20:53 Dose: 1 mg Documented By: CURTIS Gabapentin (Gabapentin 300 Mg Capsule) 300 mg PO TID [facility] Last Admin: 07/21/23 20:52 Dose: 300 mg Documented By: CURTIS Piperacillin Sod/Tazobactam (Sod 3.375 gm/ Sodium Chloride) 50 mls @ 100 mls/hr IV Q6H [facility] Last Infusion: 07/22/23 03:38 Dose: Infused Documented By: CURTIS Vancomycin HCl 1,000 mg/ (Sodium Chloride) 270 mls @ 270 mls/hr IV Q24H [facility] Magnesium Oxide (Magnesium Oxide 400 Mg Tablet) 400 mg PO TID [facility] Last Admin: 07/21/23 20:53 Dose: 400 mg Documented By: CURTIS Melatonin (Melatonin 3 Mg Tablet) 3 mg PO BEDTIME [facility] Last Admin: 07/21/23 20:53 Dose: 3 mg Documented By: CURTIS Multivitamins/Vitamin C (Multivitamin Tablet) 1 tab PO DAILY [facility] Last Admin: 07/21/23 08:10 Dose: 1 tab Documented By: LAURA Omeprazole (Omeprazole 40 Mg Capsule.Dr) 40 mg PO DAILY@0630 [facility] Last Admin: 07/22/23 06:01 Dose: Not Given Documented By: CURTIS Non-Admin Reason: Patient Refused Oxycodone HCl (Oxycodone Hcl Immed Release 5 Mg Tablet) 10 mg PO Q8H PRN PRN Reason: moderate pain Last Admin: 07/21/23 14:54 Dose: 10 mg Documented By: LAURA Pharmacy Consult (Consult Rx Vancomycin Dosing) 1 each MISCELLANE DAILY PRN PRN Reason: Consult order Prednisone (Prednisone 20 Mg Tablet) 40 mg PO DAILY [facility] Last Admin: 07/21/23 10:57 Dose: 40 mg Documented By: LAURA Sertraline HCl (Sertraline Hcl 100 Mg Tablet) 100 mg PO DAILY [facility] Last Admin: 07/21/23 10:58 Dose: Not Given Documented By: LAURA Non-Admin Reason: med unavailable Sodium Chloride (0.9 % Sodium Chloride Flush 3 Ml Syringe) 3 ml IVFLUSH [facility] Last Admin: 07/21/23 20:55 Dose: 3 ml Documented By: CURTIS Tamsulosin HCl (Tamsulosin Hcl 0.4 Mg Capsule) 0.4 mg PO DAILY [facility] Last Admin: 07/21/23 08:10 Dose: 0.4 mg Documented By: LAURA Tramadol HCl (Tramadol Hcl 50 Mg Tablet) 50 mg PO Q4H PRN PRN Reason: moderate pain Last Admin: 07/21/23 19:43 Dose: 50 mg Documented By: CURTIS Trazodone HCl (Trazodone Hcl 50 Mg Tablet) 50 mg PO BEDTIME [facility] Last Admin: 07/21/23 20:53 Dose: 50 mg Documented By: CURTIS Zinc Sulfate (Zinc Sulfate 220 Mg Capsule) 220 mg PO BEDTIME [facility] Last Admin: 07/21/23 20:53 Dose: 220 mg Documented By: CURTIS Labs 07/22/23 05:49 07/22/23 05:49 Labs: Laboratory Results - last 24 hr 07/20/23 07/22/23 16:53 05:49 MCV 86.8 MCH 29.4 MCHC 33.9 RDW 15.4 Plt Count 525 H MPV 8.7 L Absolute Nucleated RBC 0.000 Nucleated RBC % (auto) 0.0 Anion Gap 14 Estim Creat Clear Calc 51.7 Estimated GFR 50 Fasting Glucose 129 H Calcium 8.3 L D Magnesium 1.5 L Total Bilirubin 0.4 Direct Bilirubin 0.3 AST 10 ALT 7 Alkaline Phosphatase 75 Total Protein 5.6 L Albumin 2.6 L Blood Type A Positive Antibody Screen NEGATIVE Crossmatch See Detail Microbiology Microbiology Results: Microbiology 07/20/23 15:26 Blood Culture - Preliminary Blood - Venous No growth after 24 hours. 07/20/23 15:12 Blood Culture - Preliminary Blood - Venous No growth after 24 hours. Procedures Date of Service Date of Service: 07/22/23 Progress Note: A&P Assessment and plan (1) Hidradenitis suppurativa: Status: Acute Assessment and Plan: Status post I&D I have changed his dressings No new induration or developing cellulitis WBC down Follow-up cultures Needs good wound care Will follow Time Spent With Patient Time: Total time managing care of this patient today ____ minutes. Quality Stroke Does the patient have a stroke diagnosis?: No VTE Prior VTE?: No VTE Risk Level:: Medical - moderate - high VTE Device Contraindication: Treatment Not Indicated VTE Drug Contraindication: N/A - Med Ordered
--- NOTE | 2023-07-22 08:33 | P.CDIM_ITS ---
PROVIDER RESPONSE TEXT: To clarify, the appropriate diagnosis supported by the clinical indicators: subcutaneous tissue and fat QUERY TEXT: PHYSICIAN'S DOCUMENTATION REQUEST Date of Query: 07/22/2023 07:44 AM EDT Patient Name: JCARLOS PA Admit Date: 07/20/2023 Dear Bishop Holland, A review of the medical record indicates additional documentation may be needed. Please review below and update the documentation accordingly. Clinical Indicators: Per General Surgery Consultation 07/21/23: I&D procedure to distal coccygeal region to the right of the midline. I made a generous cruciate inci clem with blade 11 after infiltration with lidocaine 1%. Pus was seen. Cultures were taken. I was able to this area with my fi nger and this seemed to track distally including the perineum. Based on the above, could you clarify the depth of the I&D skin subcutaneous tissue and fat muscle bone Other (explain) Clinically unable to determine (explain) Thank you, Wendy Medrano RN Use of terms such as suspected, likely, concern for, or probable (associated with a specific diagnosi s that is being evaluated, monitored, or treated as if it exists) are acceptable and can be coded in the inpatient se tting, when documented at the time of discharge. Please use your independent medical judgment in providing your response. THIS QUERY IS PART OF THE PERMANENT MEDICAL RECORD
--- NOTE | 2023-07-22 08:33 | P.CDIM_ITS ---
PROVIDER RESPONSE TEXT: To clarify, the appropriate diagnosis supported by the clinical indicators: subcutaneous tissue and fat QUERY TEXT: PHYSICIAN'S DOCUMENTATION REQUEST Date of Query: 07/22/2023 07:49 AM EDT Patient Name: JCARLOS PA Admit Date: 07/20/2023 Dear Bishop Holland, A review of the medical record indicates additional documentation may be needed. Please review below and update the documentation accordingly. Clinical Indicators: Per General Surgery Consultation 07/21/23: opened up the preop to the right of the gluteal region near the thigh. Again lidocaine 1% was used fo r local anesthesia. A blade 11 was used for generous cruciate incision. Some pus was noted and I probed the area with my fi ngers to make sure that there was no other undrained collection : Based on the above, could you clarify the depth of the I&D skin subcutaneous tissue and fat muscle bone Other (explain) Clinically unable to determine (explain) Thank you, Wendy Medrano RN Use of terms such as suspected, likely, concern for, or probable (associated with a specific diagnosi s that is being evaluated, monitored, or treated as if it exists) are acceptable and can be coded in the inpatient se tting, when documented at the time of discharge. Please use your independent medical judgment in providing your response. THIS QUERY IS PART OF THE PERMANENT MEDICAL RECORD
[2023-07-22] MEDS: Fluticasone/Umeclidinium/Vilanterol 200/62.5/25 BLST.W.DEV 1 PUFF INHALE (08:53)
[2023-07-22 08:55] VITALS: PULSE 85; RESP 18; O2SAT 95
[2023-07-22] MEDS: Sertraline HCL 100 MG TABLET PO (08:57)
[2023-07-22] MEDS: Tamsulosin HCL 0.4 MG CAPSULE PO (08:57)
[2023-07-22] MEDS: predniSONE 20 MG TABLET 40 MG PO (08:57)
[2023-07-22] MEDS: Gabapentin 300 MG CAPSULE PO ×3 (08:57→20:49)
[2023-07-22] MEDS: Magnesium Oxide 400 MG TABLET PO ×3 (08:57→20:49)
[2023-07-22] MEDS: Multivitamin TABLET 1 TAB PO (08:57)
[2023-07-22] MEDS: Enoxaparin Sodium 30 MG/0.3 ML SYRINGE SUBCUT (08:58)
[2023-07-22] MEDS: 0.9 % Sodium Chloride Flush 3 ML SYRINGE IVFLUSH ×3 (09:23→23:59)
--- NOTE | 2023-07-22 09:23 | HE.PHANOTE ---
Re: Vanco Based on current renal function, continue scheduled dose at 1000 mg q24h. Next trough 07/22 at 0900.
[2023-07-22] MEDS: vancomycin HCL 1,000 MG in 0.9 % Sodium Chloride 250 ML 270 MG IV (11:46)
[2023-07-22 15:19] VITALS: BP 124/74; PULSE 81; RESP 20; TEMP 36.6; O2SAT 96
[2023-07-22] MEDS: oxyCODONE HCl Immed Release 5 MG TABLET 10 MG PO (19:14)
[2023-07-22 19:16] VITALS: BP 129/78; PULSE 85; RESP 20; TEMP 36.6; O2SAT 94
--- NOTE | 2023-07-22 20:20 | PC.NURSE ---
pt is refusing his antibiotics saying that he knows his body and that the antibiotics give him diarrhea. was notified, Dr. Ribera stated that ID has been consulted and that they will deal with his antibiotics.
[2023-07-22] MEDS: Folic Acid 1 MG TABLET PO (20:49)
[2023-07-22] MEDS: Melatonin 3 MG TABLET PO (20:49)
[2023-07-22] MEDS: traZODone HCL 50 MG TABLET PO (20:49)
[2023-07-22] MEDS: Zinc Sulfate 220 MG CAPSULE PO (20:49)
[2023-07-23 03:10] VITALS: BP 135/86; PULSE 79; RESP 16; TEMP 36.1; O2SAT 95
[2023-07-23 06:33] LABS: Hematocrit 24.7 % (42.0-52.0); Hemoglobin 8.1 g/dl (14.0-18.0); Mean Corpuscular HGB Conc 32.8 g/dl (31.0-36.0); Mean Corpuscular Hemoglobin 28.9 pg (27.0-33.0); Mean Corpuscular Volume 88.2 fL (80.0-98.0); Mean Platelet Volume 8.9 fL (9.4-12.4); Platelet Count 584 X10*3/uL (160-400); Red Cell Distribution Width 15.8 % (11.0-16.0); White Blood Count 26.4 X10*3/uL (4.8-10.8)
[2023-07-23 06:49] LABS: Alanine Aminotransferase 15 U/L (0-40); Albumin Level 2.5 g/dL (3.5-5.0); Alkaline Phosphatase 73 U/L (39-117); Anion Gap 14 (12-20); Aspartate Amino Transferase 30 U/L (5-37); Bilirubin Direct 0.1 mg/dL (0.0-0.5); Bilirubin Total 0.3 mg/dL (0.0-1.0); Blood Urea Nitrogen 25 mg/dL (9-16); C Reactive Protein 10.56 mg/dL (< or = 0.50); Calcium 8.7 mg/dL (8.4-10.2); Carbon Dioxide 24 mmol/L (22-29); Chloride 106 mmol/L (96-108); Creatinine Clr Calc Pharmacy 48.6; Estimated Glomerular Filt Rate 47; Glucose Fasting 112 mg/dL (60-99); Magnesium 1.5 mg/dL (1.6-2.6); Potassium 3.7 mmol/L (3.3-5.1); Sodium 140 mmol/L (135-145); Total Protein 5.9 g/dL (6.5-8.0)
[2023-07-23 08:00] VITALS: BP 148/83; PULSE 62; RESP 18; TEMP 36.2; O2SAT 97
[2023-07-23] MEDS: Fluticasone/Umeclidinium/Vilanterol 200/62.5/25 BLST.W.DEV 1 PUFF INHALE (08:21)
[2023-07-23 08:23] VITALS: PULSE 64; RESP 18; O2SAT 97
--- NOTE | 2023-07-23 08:49 | P.PNIM_ITS ---
Subjective Subjective Date of Service: 07/23/23 Interval History: No acute events overnight. States didn't sleep well overnight Physical Exam 2 Vital Signs: Vital Signs: Last Vital Signs Temp 97.2 F 07/23/23 08:00 Pulse 64 07/23/23 08:23 Resp 18 07/23/23 08:23 BP 148/83 H 07/23/23 08:00 Pulse Ox 97 07/23/23 08:00 O2 Del Method Room Air 07/23/23 08:00 O2 Flow Rate 2 07/21/23 15:23 BMI result Body Mass Index 20.7 Const: Other: Appears comfortable General: comfortable and no acute distress Orientation/consciousness: p atient oriented x3 Resp: Effort & Inspection: normal respiratory effort and able to speak in complete sentences Cardio: Jugular venous distension: no JVD Heart sounds: S1 normal heart sound present and S2 normal heart sound present Back/Spine/Pelvis: Other: Dressing in place, appears clean Neuro: General: patient oriented x3 Objective Data Active Medications Enoxaparin Sodium (Enoxaparin Sodium 30 Mg/0.3 Ml Syringe) 30 mg SUBCUT Q24H [facility] Last Admin: 07/22/23 08:58 Dose: 30 mg Documented By: FLORIDALMA Fluticasone/Umeclidinium/Vilanterol (Fluticasone/Umeclidinium/Vilanterol 200/62.5/25 Blst.W.Dev) 1 puff INHALE DAILY [facility] Last Admin: 07/23/23 08:21 Dose: 1 puff Documented By: JORDYN Folic Acid (Folic Acid 1 Mg Tablet) 1 mg PO BEDTIME [facility] Last Admin: 07/22/23 20:49 Dose: 1 mg Documented By: FELTON Gabapentin (Gabapentin 300 Mg Capsule) 300 mg PO TID [facility] Last Admin: 07/22/23 20:49 Dose: 300 mg Documented By: FELTON Piperacillin Sod/Tazobactam (Sod 3.375 gm/ Sodium Chloride) 50 mls @ 100 mls/hr IV Q6H [facility] Last Admin: 07/23/23 02:01 Dose: Not Given Documented By: ADEBAYO Non-Admin Reason: pt refusing, per report aware Vancomycin HCl 1,000 mg/ (Sodium Chloride) 270 mls @ 270 mls/hr IV Q24H [facility] Last Infusion: 07/22/23 12:55 Dose: Infused Documented By: FELTON Magnesium Oxide (Magnesium Oxide 400 Mg Tablet) 400 mg PO TID [facility] Last Admin: 07/22/23 20:49 Dose: 400 mg Documented By: FELTON Melatonin (Melatonin 3 Mg Tablet) 3 mg PO BEDTIME [facility] Last Admin: 07/22/23 20:49 Dose: 3 mg Documented By: FELTON Multivitamins/Vitamin C (Multivitamin Tablet) 1 tab PO DAILY [facility] Last Admin: 07/22/23 08:57 Dose: 1 tab Documented By: FLORIDALMA Omeprazole (Omeprazole 40 Mg Capsule.Dr) 40 mg PO DAILY@0630 [facility] Last Admin: 07/23/23 06:02 Dose: Not Given Documented By: ADEBAYO Non-Admin Reason: Patient Refused Oxycodone HCl (Oxycodone Hcl Immed Release 5 Mg Tablet) 10 mg PO Q8H PRN PRN Reason: moderate pain Last Admin: 07/22/23 19:14 Dose: 10 mg Documented By: KIMBERLEE Pharmacy Consult (Consult Rx Vancomycin Dosing) 1 each MISCELLANE DAILY PRN PRN Reason: Consult order Prednisone (Prednisone 20 Mg Tablet) 40 mg PO DAILY [facility] Last Admin: 07/22/23 08:57 Dose: 40 mg Documented By: FLORIDALMA Sertraline HCl (Sertraline Hcl 100 Mg Tablet) 100 mg PO DAILY [facility] Last Admin: 07/22/23 08:57 Dose: 100 mg Documented By: FLORIDALMA Sodium Chloride (0.9 % Sodium Chloride Flush 3 Ml Syringe) 3 ml IVFLUSH QSHIFT [facility] Last Admin: 07/22/23 23:59 Dose: 3 ml Documented By: ADEBAYO Tamsulosin HCl (Tamsulosin Hcl 0.4 Mg Capsule) 0.4 mg PO DAILY [facility] Last Admin: 07/22/23 08:57 Dose: 0.4 mg Documented By: FLORIDALMA Tramadol HCl (Tramadol Hcl 50 Mg Tablet) 50 mg PO Q4H PRN PRN Reason: moderate pain Last Admin: 07/21/23 19:43 Dose: 50 mg Documented By: CURTIS Trazodone HCl (Trazodone Hcl 50 Mg Tablet) 50 mg PO BEDTIME [facility] Last Admin: 07/22/23 20:49 Dose: 50 mg Documented By: FELTON Zinc Sulfate (Zinc Sulfate 220 Mg Capsule) 220 mg PO BEDTIME [facility] Last Admin: 07/22/23 20:49 Dose: 220 mg Documented By: FELTON Labs 07/23/23 05:39 07/23/23 05:39 Labs: Laboratory Results - last 24 hr 07/23/23 05:39 MCV 88.2 MCH 28.9 MCHC 32.8 RDW 15.8 Plt Count 584 H MPV 8.9 L Absolute Nucleated RBC 0.000 Nucleated RBC % (auto) 0.0 Anion Gap 14 Estim Creat Clear Calc 48.6 Estimated GFR 47 Fasting Glucose 112 H Calcium 8.7 Magnesium 1.5 L Total Bilirubin 0.3 Direct Bilirubin 0.1 AST 30 ALT 15 Alkaline Phosphatase 73 C-Reactive Protein 10.56 H Total Protein 5.9 L Albumin 2.5 L Microbiology Microbiology Results: Microbiology 07/20/23 15:26 Blood Culture - Preliminary Blood - Venous No growth after 48 hours. 07/20/23 15:12 Blood Culture - Preliminary Blood - Venous No growth after 48 hours. Assessment and Plan (1) Hidradenitis suppurativa: Status: Acute Plan 67M PMH etoh dependence - in remission 3 months, hydradenitis supperavita, CKD III, bph, copd, presented with hypotension, found to have leukocytosis, anemia, thrombocytosis hypotension not due to sepsis due to hypovolemia from diarrhea, 3rd spacing, meds given albumin, now appears resolved leukocytosis, anemia, thrombocytosis started around jan 2023 differential includes hematological malignancy, vs chronic inflammatory state from sacral abscess in hydradenitis supperavita transfused 2 unit prbc total, hgb better today 8.1 hematology following hydradenitis supperavita with sacral abscesses gen surgery appreciated - I and D at bedside, follow up cultures started vanc, zosyn, ID eval - pt hesistant to go home on po abx wound care normally on prednisone 5mg chronically, increased to 40mg daily for stress dosing ckd 3 stable (better than baseline), monitor hypokalemia replaced, monitor severe hypomagnesemia replacing and monitor etoh dependence in remission copd trelegy htn was hypotensive, holding amlodipine, losartan bph flomax dvt prophylaxis - lovenox full code reason for continued hospitalization: iv abx for sacral abscess, ongoing wound care, awaiting id eval Quality Stroke Does the patient have a stroke diagnosis?: No VTE Prior VTE?: No VTE Risk Level:: Medical - moderate - high VTE Device Contraindication: Treatment Not Indicated VTE Drug Contraindication: N/A - Med Ordered
[2023-07-23 09:23] LABS: Vancomycin Random 17.1 mcg/mL (15-20)
[2023-07-23] MEDS: Magnesium Sulfate/H2O 2 GM/50 ML PIGGYBACK IV (09:23)
[2023-07-23] MEDS: Multivitamin TABLET 1 TAB PO (09:23)
[2023-07-23] MEDS: Gabapentin 300 MG CAPSULE PO ×3 (09:24→19:34)
[2023-07-23] MEDS: Sertraline HCL 100 MG TABLET PO (09:24)
[2023-07-23] MEDS: predniSONE 20 MG TABLET 40 MG PO (09:24)
[2023-07-23] MEDS: Tamsulosin HCL 0.4 MG CAPSULE PO (09:24)
[2023-07-23] MEDS: Magnesium Oxide 400 MG TABLET PO ×3 (09:24→19:34)
[2023-07-23] MEDS: Enoxaparin Sodium 30 MG/0.3 ML SYRINGE SUBCUT (09:24)
[2023-07-23] MEDS: 0.9 % Sodium Chloride Flush 3 ML SYRINGE IVFLUSH ×2 (09:25→19:34)
[2023-07-23] MEDS: oxyCODONE HCl Immed Release 5 MG TABLET 10 MG PO ×2 (09:34→21:21)
--- NOTE | 2023-07-23 09:35 | HE.PHANOTE ---
VANCO DOSE ADJUSTMENT BASED ON SCR AND 17.1 TROUGH DOSE CHANGED TO 750 Q 24H. NEXT LEVEL 07/23 @ 1500
--- NOTE | 2023-07-23 10:31 | PM.PNGS ---
Subjective Subjective Date of Service: 07/23/23 Interval history: No new complaints No events reported Physical Exam Vital Signs: Vital Signs: Last Vital Signs Temp 97.2 F 07/23/23 08:00 Pulse 64 07/23/23 08:23 Resp 18 07/23/23 08:23 BP 148/83 H 07/23/23 08:00 Pulse Ox 97 07/23/23 08:00 O2 Del Method Room Air 07/23/23 08:00 O2 Flow Rate 2 07/21/23 15:23 BMI result Body Mass Index 20.7 Const: General: comfortable and no acute distress Resp: Effort & Inspection: normal respiratory effort Cardio: Rate: regular rate GI: Palpation (GI): Soft to palpation, not firm and nontender Back/Spine/Pelvis: Other: Multiple sinuses on the sacrococcygeal area in right buttock; currently dry; with chronic fibrotic changes consistent with hidradenitis Objective Data Active Medications Enoxaparin Sodium (Enoxaparin Sodium 30 Mg/0.3 Ml Syringe) 30 mg SUBCUT Q24H [facility] Last Admin: 07/23/23 09:24 Dose: 30 mg Documented By: SELENA Fluticasone/Umeclidinium/Vilanterol (Fluticasone/Umeclidinium/Vilanterol 200/62.5/25 Blst.W.Dev) 1 puff INHALE DAILY [facility] Last Admin: 07/23/23 08:21 Dose: 1 puff Documented By: JORDYN Folic Acid (Folic Acid 1 Mg Tablet) 1 mg PO BEDTIME [facility] Last Admin: 07/22/23 20:49 Dose: 1 mg Documented By: FELTON Gabapentin (Gabapentin 300 Mg Capsule) 300 mg PO TID [facility] Last Admin: 07/23/23 09:24 Dose: 300 mg Documented By: SELENA Piperacillin Sod/Tazobactam (Sod 3.375 gm/ Sodium Chloride) 50 mls @ 100 mls/hr IV Q6H [facility] Last Admin: 07/23/23 09:19 Dose: Not Given Documented By: SELENA Non-Admin Reason: Patient Refused Magnesium Sulfate (Magnesium Sulfate/H2o) 2 gm in 50 mls @ 25 mls/hr IV ONCE ONE Stop: 07/23/23 10:53 Last Admin: 07/23/23 09:23 Dose: 25 mls/hr Documented By: SELENA Vancomycin HCl 750 mg/ Sodium (Chloride) 265 mls @ 265 mls/hr IV Q24H [facility] Magnesium Oxide (Magnesium Oxide 400 Mg Tablet) 400 mg PO TID [facility] Last Admin: 07/23/23 09:24 Dose: 400 mg Documented By: SELENA Melatonin (Melatonin 3 Mg Tablet) 3 mg PO BEDTIME [facility] Last Admin: 07/22/23 20:49 Dose: 3 mg Documented By: FELTON Multivitamins/Vitamin C (Multivitamin Tablet) 1 tab PO DAILY [facility] Last Admin: 07/23/23 09:23 Dose: 1 tab Documented By: SELENA Omeprazole (Omeprazole 40 Mg Capsule.Dr) 40 mg PO DAILY@0630 [facility] Last Admin: 07/23/23 06:02 Dose: Not Given Documented By: ADEBAYO Non-Admin Reason: Patient Refused Oxycodone HCl (Oxycodone Hcl Immed Release 5 Mg Tablet) 10 mg PO Q8H PRN PRN Reason: moderate pain Last Admin: 07/23/23 09:34 Dose: 10 mg Documented By: SELENA Pharmacy Consult (Consult Rx Vancomycin Dosing) 1 each MISCELLANE DAILY PRN PRN Reason: Consult order Prednisone (Prednisone 20 Mg Tablet) 40 mg PO DAILY [facility] Last Admin: 07/23/23 09:24 Dose: 40 mg Documented By: SELENA Sertraline HCl (Sertraline Hcl 100 Mg Tablet) 100 mg PO DAILY [facility] Last Admin: 07/23/23 09:24 Dose: 100 mg Documented By: SELENA Sodium Chloride (0.9 % Sodium Chloride Flush 3 Ml Syringe) 3 ml IVFLUSH QSHIFT [facility] Last Admin: 07/23/23 09:25 Dose: 3 ml Documented By: SELENA Tamsulosin HCl (Tamsulosin Hcl 0.4 Mg Capsule) 0.4 mg PO DAILY [facility] Last Admin: 07/23/23 09:24 Dose: 0.4 mg Documented By: SELENA Tramadol HCl (Tramadol Hcl 50 Mg Tablet) 50 mg PO Q4H PRN PRN Reason: moderate pain Last Admin: 07/21/23 19:43 Dose: 50 mg Documented By: CURTIS Trazodone HCl (Trazodone Hcl 50 Mg Tablet) 50 mg PO BEDTIME [facility] Last Admin: 07/22/23 20:49 Dose: 50 mg Documented By: FELTON Zinc Sulfate (Zinc Sulfate 220 Mg Capsule) 220 mg PO BEDTIME [facility] Last Admin: 07/22/23 20:49 Dose: 220 mg Documented By: FELTON Labs 07/23/23 05:39 07/23/23 05:39 Labs: Laboratory Results - last 24 hr 07/23/23 07/23/23 05:39 09:02 MCV 88.2 MCH 28.9 MCHC 32.8 RDW 15.8 Plt Count 584 H MPV 8.9 L Absolute Nucleated RBC 0.000 Nucleated RBC % (auto) 0.0 Anion Gap 14 Estim Creat Clear Calc 48.6 Estimated GFR 47 Fasting Glucose 112 H Calcium 8.7 Magnesium 1.5 L Total Bilirubin 0.3 Direct Bilirubin 0.1 AST 30 ALT 15 Alkaline Phosphatase 73 C-Reactive Protein 10.56 H Total Protein 5.9 L Albumin 2.5 L Random Vancomycin 17.1 Microbiology Microbiology Results: Microbiology 07/20/23 15:26 Blood Culture - Preliminary Blood - Venous No growth after 48 hours. 07/20/23 15:12 Blood Culture - Preliminary Blood - Venous No growth after 48 hours. Procedures Date of Service Date of Service: 07/23/23 Progress Note: A&P Assessment and plan (1) Hidradenitis suppurativa: Status: Acute Assessment and Plan: I and D done on 2 areas Continue wound care Wound hygiene No additional I and D or debridement planned at this time Time Spent With Patient Time: Total time managing care of this patient today ____ minutes. Quality Stroke Does the patient have a stroke diagnosis?: No VTE Prior VTE?: No VTE Risk Level:: Medical - moderate - high VTE Device Contraindication: Treatment Not Indicated VTE Drug Contraindication: N/A - Med Ordered
--- NOTE | 2023-07-23 11:22 | MHC.CM.PN ---
EMR REVIEWED. PER MD ROUNDS PATIENT IS NOT MEDICALLY CLEARED FOR DC, AWAITING BLOOD CX. PER RN PATIENT REFUSING ABX AT THIS TIME. CM WILL CONTINUE TO FOLLOW FOR DC NEEDS.
--- NOTE | 2023-07-23 12:02 | PC.NURSE ---
Patient refused 0800 zosyn [address] Orosco aware. Patient adamant about not taking more antibiotics.
[2023-07-23] MEDS: Acetaminophen 325 MG TABLET 650 MG PO (13:05)
[2023-07-23] MEDS: Nicotine 14 MG PATCH.TD24 TRANSDERMA (13:05)
[2023-07-23] MEDS: traMADoL HCL 50 MG TABLET PO (13:05)
--- NOTE | 2023-07-23 14:36 | HO.WOUND ---
Wound Consult: Initial 67yr old?M admitted to [facility] on 07/20/23 16:50 - See progress notes and H&P for detailed history.? Wound consult placed for Sacral area wound. Chart review reveals wound is followed by Dr. Holland who performed debridement - will defer topical care to Dr. Holland at this time. Dr. Orosco aware and will reconsult if topical recommendations are needed from inpatient wound care nurse. Wound not assessed at this time - defer to Dr. Holland for topical care orders. ?
[2023-07-23 15:54] VITALS: BP 132/78; PULSE 77; RESP 20; TEMP 36.1; O2SAT 94
--- NOTE | 2023-07-23 16:29 | P.CNID_ITS ---
History of Present Illness Data of Consult Service Date: 07/22/23 Requesting physician: Russ Ribera Primary Care Provider: Todd Landin MD HPI Reason for consult: sent in by [facility] He presents after being sent in by [facility]. He has sacral area/buttock abscesses. He was seen by Dr Holland [facility]. He has no fever or chills and was told to come in because of hypotension by VNA. He has had chronic issues with hidradenitis. Review of Systems 2 Review of Systems: Yes all other systems are reviewed and are negative PMFSH Past Medical History Medical History Normocytic anemia Alcohol dependence Anemia Hidradenitis suppurativa Hidradenitis Family History Family history: reviewed and not pertinent Social History Social History Household Members: Spouse Housing: House Do you presently have visiting nurse or other home services: Yes ([facility]) Alcohol intake: former Comment: pt refuses alarm Patient Tobacco Use Status: Current everyday Tobacco user Tobacco use type: Cigarette Cigarette Packs Per Day: 0.5 Years Smoked: 50 Second Hand Smoke Exposure: Yes Advance Directives Date on File: 10/03/20 service: No Current occupational status: retired Meds Allergies Allergy/AdvReac Type Severity Reaction Status Date / Time hydrochlorothiazide Allergy Unknown lip swells Verified 10/02/20 11:59 Active Medications: Current Medications Acetaminophen (Acetaminophen 325 Mg Tablet) 650 mg PO Q4H PRN PRN Reason: Pain, Mild (Pain Scale 1-3) Last Admin: 07/23/23 13:05 Dose: 650 mg Enoxaparin Sodium (Enoxaparin Sodium 30 Mg/0.3 Ml Syringe) 30 mg SUBCUT Q24H [facility] Last Admin: 07/23/23 09:24 Dose: 30 mg Fluticasone/Umeclidinium/Vilanterol (Fluticasone/Umeclidinium/Vilanterol 200/62.5/25 Blst.W.Dev) 1 puff INHALE DAILY [facility] Last Admin: 07/23/23 08:21 Dose: 1 puff Folic Acid (Folic Acid 1 Mg Tablet) 1 mg PO BEDTIME [facility] Last Admin: 07/22/23 20:49 Dose: 1 mg Gabapentin (Gabapentin 300 Mg Capsule) 300 mg PO TID [facility] Last Admin: 07/23/23 14:41 Dose: 300 mg Piperacillin Sod/Tazobactam (Sod 3.375 gm/ Sodium Chloride) 50 mls @ 100 mls/hr IV Q6H [facility] Last Admin: 07/23/23 13:09 Dose: Not Given Vancomycin HCl 750 mg/ Sodium (Chloride) 265 mls @ 265 mls/hr IV Q24H [facility] Last Admin: 07/23/23 11:58 Dose: Not Given Magnesium Oxide (Magnesium Oxide 400 Mg Tablet) 400 mg PO TID [facility] Last Admin: 07/23/23 14:41 Dose: 400 mg Melatonin (Melatonin 3 Mg Tablet) 3 mg PO BEDTIME [facility] Last Admin: 07/22/23 20:49 Dose: 3 mg Multivitamins/Vitamin C (Multivitamin Tablet) 1 tab PO DAILY [facility] Last Admin: 07/23/23 09:23 Dose: 1 tab Nicotine (Nicotine 14 Mg Patch.Td24) 14 mg TRANSDERMA DAILY [facility] Last Admin: 07/23/23 13:05 Dose: 14 mg Pt Own (Probiotic) 1 each PO DAILY [facility] Omeprazole (Omeprazole 40 Mg Capsule.Dr) 40 mg PO DAILY@0630 [facility] Last Admin: 07/23/23 06:02 Dose: Not Given Oxycodone HCl (Oxycodone Hcl Immed Release 5 Mg Tablet) 10 mg PO Q8H PRN PRN Reason: moderate pain Last Admin: 07/23/23 09:34 Dose: 10 mg Pharmacy Consult (Consult Rx Vancomycin Dosing) 1 each MISCELLANE DAILY PRN PRN Reason: Consult order Prednisone (Prednisone 20 Mg Tablet) 40 mg PO DAILY [facility] Last Admin: 07/23/23 09:24 Dose: 40 mg Sertraline HCl (Sertraline Hcl 100 Mg Tablet) 100 mg PO DAILY [facility] Last Admin: 07/23/23 09:24 Dose: 100 mg Sodium Chloride (0.9 % Sodium Chloride Flush 3 Ml Syringe) 3 ml IVFLUSH QSHIFT [facility] Last Admin: 07/23/23 09:25 Dose: 3 ml Tamsulosin HCl (Tamsulosin Hcl 0.4 Mg Capsule) 0.4 mg PO DAILY [facility] Last Admin: 07/23/23 09:24 Dose: 0.4 mg Tramadol HCl (Tramadol Hcl 50 Mg Tablet) 50 mg PO Q4H PRN PRN Reason: moderate pain Last Admin: 07/23/23 13:05 Dose: 50 mg Trazodone HCl (Trazodone Hcl 50 Mg Tablet) 50 mg PO BEDTIME [facility] Last Admin: 07/22/23 20:49 Dose: 50 mg Zinc Sulfate (Zinc Sulfate 220 Mg Capsule) 220 mg PO BEDTIME [facility] Last Admin: 07/22/23 20:49 Dose: 220 mg Home Medications Medication Instructions Recorded Confirmed Last Taken Type Probiotic 1 cap PO DAILY 07/20/23 07/20/23 Unknown History amlodipine 5 mg tablet 5 mg PO DAILY 07/20/23 07/20/23 Unknown History fluticasone fur. 200 mcg-umeclid 1 ea inhalation DAILY 07/20/23 07/20/23 Unknown History 62.5 mcg-vilant 25 mcg inhalat.powder (Trelegy Ellipta) folic acid 1 mg tablet 1 mg PO BEDTIME 07/20/23 07/20/23 Unknown History gabapentin 300 mg capsule 300 mg PO TID 07/20/23 07/20/23 Unknown History losartan 100 mg tablet 100 mg PO DAILY 07/20/23 07/20/23 Unknown History melatonin 3 mg tablet 3 mg PO BEDTIME 07/20/23 07/20/23 Unknown History omeprazole 40 mg capsule,delayed 40 mg PO DAILY@0630 07/20/23 07/20/23 Unknown History release oxycodone 10 mg tablet 10 mg PO Q8H PRN moderate pain 07/20/23 07/20/23 Unknown History prednisone 5 mg tablet 5 mg PO DAILY 07/20/23 07/20/23 Unknown History sertraline 100 mg tablet 100 mg PO DAILY 07/20/23 07/20/23 Unknown History tamsulosin 0.4 mg capsule 0.4 mg PO DAILY 07/20/23 07/20/23 Unknown History tramadol 50 mg tablet 50 mg PO Q4H PRN pain 07/20/23 07/20/23 Unknown History trazodone 50 mg tablet 50 mg PO BEDTIME 07/20/23 07/20/23 Unknown History vitamin B complex 1 tab PO DAILY 07/20/23 07/20/23 Unknown History zinc sulfate 220 mg capsule 220 mg PO BEDTIME 07/20/23 07/20/23 Unknown History Physical Exam 2 Vital Signs: Vital Signs: Last Vital Signs Temp 96.9 F 07/23/23 15:54 Pulse 77 07/23/23 15:54 Resp 20 07/23/23 15:54 BP 132/78 07/23/23 15:54 Pulse Ox 94 07/23/23 15:54 O2 Del Method Room Air 07/23/23 15:54 O2 Flow Rate 2 07/21/23 15:23 BMI result Body Mass Index 20.7 Const: General: cooperative HEENT: Head: Yes normal to inspection Face and sinus: Yes normal facial exam Mouth: Normal oral and palatal mucosa present Teeth and gingiva: d entition normal Eyes: General: appearance normal, both eyes and all related structures P upils: Equal, round and reactive pupils present Resp: Effort & Inspection: normal respiratory effort Cardio: Rate: regular rate Rhythm: regular rhythm GI: Palpation (GI): Soft to palpation and nontender Back/Spine/Pelvis: Other: buttock inflammation,irritation,some old healed hidradenitis Skin: General skin exam: no rashes or lesions noted Neuro: General: moves all extremities Cranial nerves: Yes Equal, round and reactive pupils present Extrem: General: Yes normal to inspection Psych: Appearance: grossly normal Results Labs 07/23/23 05:39 07/23/23 05:39 Labs: Short CBC 07/23/23 Range/Units 05:39 WBC 26.4 H (4.8-10.8) X10*3/uL Hgb 8.1 L (14.0-18.0) g/dl Hct 24.7 L (42.0-52.0) % Plt Count 584 H (160-400) X10*3/uL BMP 07/23/23 05:39 Sodium 140 Potassium 3.7 Chloride 106 Carbon Dioxide 24 BUN 25 H Creatinine 1.50 H Calcium 8.7 Liver Function 07/23/23 Range/Units 05:39 Total Bilirubin 0.3 (0.0-1.0) mg/dL Direct Bilirubin 0.1 (0.0-0.5) mg/dL AST 30 (5-37) U/L ALT 15 (0-40) U/L Alkaline Phosphatase 73 (39-117) U/L Albumin 2.5 L (3.5-5.0) g/dL Microbiology Microbiology Results: Microbiology 07/20/23 15:26 Blood - Venous Blood Culture - Preliminary No growth after 48 hours. 07/20/23 15:12 Blood - Venous Blood Culture - Preliminary No growth after 48 hours. Assessment and Plan (1) Hidradenitis suppurativa: Status: Acute (2) Leukocytosis: Status: Acute Plan He has some flare of hidradenitis. I am not sure his hypotension is related as I saw him in past when disease was relatively inactive and it had appeared. He has not had good success with Humira in past (see my note) but would defer to Dermatology. Would give 14 d po Augmentin and Doxycycline on discharge.
[2023-07-23 19:17] VITALS: BP 123/72; PULSE 63; RESP 20; TEMP 36.6; O2SAT 94
[2023-07-23] MEDS: Melatonin 3 MG TABLET PO (19:33)
[2023-07-23] MEDS: traZODone HCL 50 MG TABLET PO (19:33)
[2023-07-23] MEDS: Folic Acid 1 MG TABLET PO (19:34)
[2023-07-23] MEDS: Zinc Sulfate 220 MG CAPSULE PO (19:34)
[2023-07-24 03:29] VITALS: BP 159/80; PULSE 58; RESP 18; TEMP 36.4; O2SAT 95
[2023-07-24 06:01] LABS: Basophils Percent Auto 0.2 % (0-2); Hematocrit 25.6 % (42.0-52.0); Hemoglobin 8.3 g/dl (14.0-18.0); Imm Gran Pct Auto 0.6 % (0.0-0.4); Lymphocytes Absolute Auto 0.8 X10*3/uL (1.2-4.9); Lymphocytes Percent Auto 4.3 % (20-40); MANUAL DIFF FLAG SCAN; Mean Corpuscular HGB Conc 32.4 g/dl (31.0-36.0); Mean Corpuscular Hemoglobin 28.9 pg (27.0-33.0); Mean Corpuscular Volume 89.2 fL (80.0-98.0); Mean Platelet Volume 8.8 fL (9.4-12.4); Monocytes Absolute Auto 0.8 X10*3/uL (0.1-1.2); Monocytes Percent Auto 4.5 % (2-11); Neutrophils Percent Auto 90.4 % (45-73); Platelet Count 607 X10*3/uL (160-400); Red Blood Count 2.87 X10*6/uL (4.60-5.80); Red Cell Distribution Width 15.7 % (11.0-16.0); SCAN SMEAR FLAG 1; White Blood Count 17.7 X10*3/uL (4.8-10.8)
[2023-07-24 06:30] LABS: Anion Gap 13 (12-20); Blood Urea Nitrogen 28 mg/dL (9-16); Calcium 8.9 mg/dL (8.4-10.2); Carbon Dioxide 28 mmol/L (22-29); Chloride 103 mmol/L (96-108); Creatinine Clr Calc Pharmacy 58.8; Estimated Glomerular Filt Rate 58; Glucose Random 110 mg/dL (60-115); Magnesium 1.7 mg/dL (1.6-2.6); Potassium 3.7 mmol/L (3.3-5.1); Sodium 140 mmol/L (135-145)
[2023-07-24 06:39] LABS: SLIDE REVIEW VERIFIED
[2023-07-24 07:11] VITALS: BP 164/86; PULSE 52; RESP 16; TEMP 36.1; O2SAT 95
[2023-07-24] MEDS: Fluticasone/Umeclidinium/Vilanterol 200/62.5/25 BLST.W.DEV 1 PUFF INHALE (08:17)
[2023-07-24 08:19] VITALS: PULSE 58; RESP 16; O2SAT 95
--- NOTE | 2023-07-24 08:36 | P.DS_ITS ---
DS: Providers Provider Date of Service: 07/24/23 Date of admission: 07/20/23 16:50 Primary care physician: Todd Landin MD Consults: 07/21/23 07:25 Consult to General Surgery Routine Consulting Provider: [facility] [place] [facility]geons Reason for consultation: fluid/air/collection sacrum 07/21/23 07:27 Consult to Infectious Diseases Routine Consulting Provider: [facility] [place] Infectious Disease Reason for consultation: sacral ulcer/abscess 07/21/23 09:58 Consult to Wound Care Routine Reason for consultation: sacral abscess/wounds with hydradenitis DS: Diagnosis Discharge Diagnosis (1) Hidradenitis suppurativa: Status: Acute (2) Leukocytosis: Status: Acute DS: Summary Hospital Course Hospital Course: HPI : 67M PMH etoh dependence - in remission 3 months, hydradenitis supperavita, CKD III, bph, copd, presented with hypotension. patient has had several episodes of low volume diarrhea over past couple days, feeling weak, low grade fever, vna found bp to be 90/40, hr 130. patient has had significant decline over past several months after prolonged hospitalization for fall, aspiration, etoh withdrawal. discharged from rehab about 2 weeks ptp, now at home, using walker to ambulate, fairly frail at new baseline. in ED found to have leukocystotis 30K mostly neutrophils, thrombocytosis, anemia. Hospital course: Patient was admitted for hidradenitis suppurativa with sacral abscesses and initiated on empiric IV antibiotics. General surgery was consulted, I and D done at bedside. Patient not very compliant with IV antibiotics during hospital course and refused doses 1 day prior to discharge. He was hesitant to take p.o. antibiotics but upon extensive counseling, patient states he will try. Infectious Disease was consulted and patient will be di scharged on p.o. doxycycline and Augmentin x 14 days. He was found to have leukocytosis which improved with IV antibiotics. Also found to have anemia and thrombocytosis. Was given 2 unit PRBC throughout hospitalization and hemoglobin was stable prior to discharge. Hematology was consulted, differential includes hematologic malignancy versus chronic inflammatory state. Blood work obtained, patient to follow up with Heme-Onc as an outpatient. Also noted to have low blood pressure during hospital course which resolved with IV albumin. Magnesium was replaced for hypomagnesemia. Status at Discharge Functional status at discharge: independent ambulation Overall status at discharge: patient is back to baseline Time Attestation Total time managing care of this patient today: 35 mintues. Discharge Coordination Time (in mins): Thirty-five Quality: Safe Use of Opioids Does Pt have an Active Cancer Diagnosis on the Problem List?: No Quality: Stroke Does the patient have a stroke diagnosis?: No Physical Exam Vital Signs: Vital Signs: Last Vital Signs Temp 96.9 F 07/24/23 07:11 Pulse 58 07/24/23 08:19 Resp 16 07/24/23 08:19 BP 164/86 H 07/24/23 07:11 Pulse Ox 95 07/24/23 07:11 O2 Del Method Room Air 07/24/23 07:11 O2 Flow Rate 2 07/21/23 15:23 BMI result Body Mass Index 20.7 Middle-aged male lying in bed in no distress Neck supple, no JVD Regular rate and rhythm, S1-S2 heard Regular breath sounds bilaterally, no wheezing or crackles appreciated Abdomen soft nontender, no guarding, no rigidity Patient is awake, alert and oriented to self, place, time and person ; no focal motor deficit Psych: Normal mood Sacral dressing in place, appears clean DS: Data Data Completed and Pending Completed studies during hospitalization [Text1]: Procedures Detoxification Services for Substance Abuse Treatment (09/20/20) Drainage of Right Axilla, Open Approach (10/02/20) Excision of Duodenum, Via Natural or Artificial Opening Endoscopic, Diagnostic (09/20/20) Excision of Stomach, Pylorus, Via Natural or Artificial Opening Endoscopic, Diagnostic (09/20/20) Transfusion of Nonautologous Red Blood Cells into Peripheral Vein, Percutaneous Approach (10/02/20) Labs on day of discharge: Laboratory Results - last 24 hr 07/23/23 07/24/23 09:02 05:15 WBC 17.7 H RBC 2.87 L Hgb 8.3 L Hct 25.6 L MCV 89.2 MCH 28.9 MCHC 32.4 RDW 15.7 Plt Count 607 H MPV 8.8 L Immature Gran % (Auto) 0.6 H Neut % (Auto) 90.4 H Lymph % (Auto) 4.3 L Mcpherson % (Auto) 4.5 Eos % (Auto) 0.0 Baso % (Auto) 0.2 Lymph # (Auto) 0.8 L Mcpherson # (Auto) 0.8 Eos # (Auto) 0.0 Baso # (Auto) 0.0 Abs Immat Gran (auto) 0.10 H Absolute Neuts (auto) 16.0 H Absolute Nucleated RBC 0.000 Nucleated RBC % (auto) 0.0 Smear Tech's Comments VERIFIED Sodium 140 Potassium 3.7 Chloride 103 Carbon Dioxide 28 Anion Gap 13 BUN 28 H Creatinine 1.24 Estim Creat Clear Calc 58.8 Estimated GFR 58 Random Glucose 110 Calcium 8.9 Magnesium 1.7 Random Vancomycin 17.1 Preliminary micro results at discharge 07/20/23 15:26 Blood Culture - Preliminary Blood - Venous No growth after 48 hours. 07/20/23 15:12 Blood Culture - Preliminary Blood - Venous No growth after 48 hours. Imaging Chest x-ray: Radiologist's impression: ITS Impressions Chest X-Ray 07/20/23 15:36 IMPRESSION: Prominent bilateral interstitial markings likely scarring or pneumonitis but no focal consolidation or pleural effusion. Abdomen/Pelvis CT 07/20/23 17:18 IMPRESSION: 1. Worsening of skin thickening over the buttocks with development of a significant amount of air in the left gluteal muscle consistent with an ill-defined abscess. Air is also present in the perineum extending into the perirectal fascia. 2. There is a fluid/air/soft tissue collection behind the distal sacrum and coccyx consistent with an abscess or phlegmon. 3. Other incidental findings as described above. Fleischner guidelines were followed. Discharge Plan Discharge Anticipated Discharge Date/Time: 07/24/23 08:41 Patient Disposition: Home, Self-Care Discharge Diagnosis: Hidradenitis suppurativa with sacral abscesses Referrals: Todd Landin MD [Primary Care Provider] - 1 Week Everette Serra MD [Physician] - 2 Weeks Discharge Medications: New magnesium oxide 400 mg (241.3 mg magnesium) Tablet 400 mg PO TID 15 Days Qty: 45 0RF doxycycline hyclate 100 mg capsule 100 mg PO BID 14 Days Qty: 28 0RF amoxicillin-pot clavulanate [Augmentin] 500-125 mg tablet 1 tab PO Q12H 14 Days Qty: 28 0RF Continued trazodone 50 mg tablet 50 mg PO BEDTIME sertraline 100 mg tablet 100 mg PO DAILY tramadol 50 mg tablet 50 mg PO Q4H PRN (Reason: pain) gabapentin 300 mg capsule 300 mg PO TID oxycodone 10 mg tablet 10 mg PO Q8H PRN (Reason: moderate pain) Trelegy Ellipta 200-62.5-25 mcg blister with device 1 ea inhalation DAILY melatonin 3 mg Tablet 3 mg PO BEDTIME vitamin B complex Tablet 1 tab PO DAILY zinc sulfate 220 mg Capsule 220 mg PO BEDTIME Probiotic 1 cap PO DAILY omeprazole 40 mg capsule,delayed release(DR/EC) 40 mg PO DAILY@0630 tamsulosin 0.4 mg capsule 0.4 mg PO DAILY folic acid 1 mg tablet 1 mg PO BEDTIME prednisone 5 mg tablet 5 mg PO DAILY 5 Days Qty: 40 0RF Discontinued amlodipine 5 mg tablet 5 mg PO DAILY losartan 100 mg tablet 100 mg PO DAILY Discharge Orders: Discharge Order (Routine); Ordered 07/24/23 Ordered By: Pura Orosco Diet: Low salt diet Activity on Discharge: As tolerated Stand Alone Forms: Patient Portal Discharge page Other Ambulatory Orders: Vitamin B12 and Folate (Routine) Timeframe: 20230720 Facility: [facility] - Location: Laboratory Ordered By: Everette Serra BCR/ABL Trans Philadel,Bl (Routine) Timeframe: 20230720 Facility: [facility] - Location: Laboratory Ordered By: Everette Serra Direct Elisabeth (TANNA) (Routine) Timeframe: 20230720 Facility: [facility] - Location: Laboratory Ordered By: Everette Serra Haptoglobin (Routine) Timeframe: 20230720 Facility: [facility] - Location: Laboratory Ordered By: Everette Serra Immunofixation Pnl, Serum (Routine) Timeframe: 20230720 Facility: [facility] - Location: Laboratory Ordered By: Everette Serra IRON PROFILE (Routine) Timeframe: 20230720 Facility: [facility] - Location: Laboratory Ordered By: Everette Serra De Beque/Lambda Lt Ch,Free w rat (Routine) Timeframe: 20230720 Facility: [facility] - Location: Laboratory Ordered By: Everette Serra Lactate Dehydrogenase (Routine) Timeframe: 20230720 Facility: [facility] - Location: Laboratory Ordered By: Everette Serra Leukemia/Lymphoma Eval. Blood (Routine) Timeframe: 20230720 Facility: [facility] - Location: Laboratory Ordered By: Everette Serra Type and Screen (Routine) Timeframe: 20230720 Facility: [facility] - Location: Laboratory Ordered By: Everette Serra Care Plan Goals: Follow-up with PCP within 1 week Follow-up with Hematology/Oncology within 2 weeks Follow-up with Dermatology within 2 weeks Wound hygiene Health Concerns: Hidradenitis suppurativa Leukocytosis, anemia, thrombocytosis CKD stage 3 Tobacco use disorder Plan of Treatment: P.o. doxycycline twice daily x 14 days P.o. Augmentin twice daily x 14 days Hold antihypertensives until PCP follow-up Prednisone 20 mg daily x5 days, 10 mg daily x5 days followed by 5 mg daily Assessment: As above
[2023-07-24] MEDS: 0.9 % Sodium Chloride Flush 3 ML SYRINGE IVFLUSH (08:54)
[2023-07-24] MEDS: Nicotine 14 MG PATCH.TD24 TRANSDERMA (08:55)
[2023-07-24] MEDS: Multivitamin TABLET 1 TAB PO (08:55)
[2023-07-24] MEDS: predniSONE 20 MG TABLET 40 MG PO (08:55)
[2023-07-24] MEDS: Gabapentin 300 MG CAPSULE PO (08:55)
[2023-07-24] MEDS: Tamsulosin HCL 0.4 MG CAPSULE PO (08:55)
[2023-07-24] MEDS: Sertraline HCL 100 MG TABLET PO (08:55)
[2023-07-24] MEDS: Magnesium Oxide 400 MG TABLET PO (08:55)
[2023-07-24] MEDS: oxyCODONE HCl Immed Release 5 MG TABLET 10 MG PO (09:32)
[2023-07-24 09:38] LABS: Vancomycin Random 12.5 mcg/mL (15-20)
--- NOTE | 2023-07-24 10:26 | MHC.CM.PN ---
IMM 07/24/23 Patient is discharged to home today with resumption of [facility]. DC info has been sent to the agency. Patient has arranged for transport home from his .
== END 2023-07-24 11:08 | disposition home health service (06) | DRG 607 ==
LOC: HO.ED 16:24 → HO.EDOVER 17:10 → HO.S3 07-21 13:49
PROVIDERS: Admitting Provider Internal Medicine; Emergency Provider Emergency Medicine; PCP Family Medicine; Visit Provider Student in an Organized Health Care Education/Training Program
DX: L73.2 Hidradenitis suppurativa (principal); L02.212 Cutaneous abscess of back [any part, except buttock and flank]; I12.9 Hypertensive chronic kidney disease with stage 1 through stage 4 chronic kidney disease, or unspecified chronic kidney disease; F17.210 Nicotine dependence, cigarettes, uncomplicated; E86.1 Hypovolemia; Z71.6 Tobacco abuse counseling; E87.6 Hypokalemia; N40.0 Benign prostatic hyperplasia without lower urinary tract symptoms; F10.21 Alcohol dependence, in remission; E83.42 Hypomagnesemia; D75.839 Thrombocytosis, unspecified; I95.9 Hypotension, unspecified; D63.1 Anemia in chronic kidney disease; N18.30 Chronic kidney disease, stage 3 unspecified; Z20.822 Contact with and (suspected) exposure to COVID-19; Z79.52 Long term (current) use of systemic steroids; Z79.899 Other long term (current) drug therapy
CPT/HCPCS: 0241U; 36415; 71045; 74176; 80048; 80053; 80076; 80202; 80307; 81001; 83605; 83735; 85025; 85027; 85610; 86140; 86850; 86900; 86901; 86923; 87040; 94640; 99285; J1650; J2543; J3370; J3371; J3475; P9016; P9047

== ENCOUNTER → 2023-07-20 16:50 | Outpatient (BNV) | payer MEDICARE, SELFPAY | PROVIDERS: Admitting Provider Internal Medicine; Emergency Provider Emergency Medicine; PCP Family Medicine; Visit Provider Internal Medicine | DX: L73.2 Hidradenitis suppurativa (principal); D72.829 Elevated white blood cell count, unspecified | CPT/HCPCS: 99222 ==

== ENCOUNTER → 2023-07-20 16:50 | Outpatient (BNV) | payer MEDICARE, SELFPAY | PROVIDERS: Admitting Provider Internal Medicine; Emergency Provider Emergency Medicine; PCP Family Medicine; Visit Provider Surgery | DX: L73.2 Hidradenitis suppurativa (principal) | CPT/HCPCS: 10061; 99024; 99222 ==

== ENCOUNTER → 2023-07-20 16:50 | Outpatient (BNV) | payer MEDICARE, SELFPAY | PROVIDERS: Admitting Provider Internal Medicine; Emergency Provider Emergency Medicine; PCP Family Medicine; Visit Provider Internal Medicine Medical Oncology | DX: D64.9 Anemia, unspecified (principal); D72.829 Elevated white blood cell count, unspecified; L73.2 Hidradenitis suppurativa | CPT/HCPCS: 99222 ==

== ENCOUNTER → 2023-07-20 16:50 | Outpatient (BNV) | payer MEDICARE, SELFPAY | PROVIDERS: Admitting Provider Internal Medicine; Emergency Provider Emergency Medicine; PCP Family Medicine; Visit Provider Internal Medicine | DX: L73.2 Hidradenitis suppurativa (principal); D72.829 Elevated white blood cell count, unspecified | CPT/HCPCS: 99223; 99232; 99239 ==

== ENCOUNTER 2023-08-31 20:06 | Inpatient (IN) | payer MEDICARE, SELFPAY ==
--- NOTE | 2023-08-31 | ECG_ITS ---
Test Reason : SEPSIS Blood Pressure : / mmHG Vent. Rate : 123 BPM Atrial Rate : 123 BPM P-R Int : 142 ms QRS Dur : 128 ms QT Int : 322 ms P-R-T Axes : 042 033 007 degrees QTc Int : 460 ms Sinus tachycardia with Premature atrial complexes Right bundle branch block Abnormal ECG When compared with ECG of 02-OCT-2020 12:22, Premature atrial complexes are now Present Vent. rate has increased BY 48 BPM Referred By: Yamilet Phan Electronically Signed By:SETH YANEZ
--- NOTE | ~2023-08-31 | CT_ITS ---
EXAMINATION: CT ABDOMEN AND PELVIS WITHOUT CONTRAST CLINICAL INFORMATION: Sacral abscess follow-up. COMPARISON: CT abdomen/pelvis 07/20/2023. TECHNIQUE: Multidetector volumetric imaging was performed from the superior aspect of the liver through the pubic symphysis. Sagittal and coronal reformatted images were obtained on the technologist's workstation. This CT examination was performed using dose optimization techniques as appropriate, variously including the following: *Automated exposure control *Adjustment of mA and/or kV according to patient size (this includes techniques or standardized protocols for targeted exams where dose is matched to indication/reason for exam; i.e. extremities or head) *Use of iterative reconstruction technique DLP: 482 mGy-cm FINDINGS: The lack of intravenous contrast limits evaluation of the solid visceral organs including the liver, spleen, pancreas, and kidneys. LUNG BASES: New trace bilateral pleural effusions with mild compressive atelectasis. Partially seen mildly increased small pericardial effusion. LIVER, GALLBLADDER, AND BILIARY TREE: The liver is normal in size, shape, and attenuation. No focal hepatic lesion or biliary ductal dilatation is present. Trace layering slightly hyperdense sludge in the gallbladder. No significant pericholecystic inflammatory changes. PANCREAS: Atrophic. No significant peripancreatic inflammatory changes. SPLEEN: Unremarkable. ADRENAL GLANDS: Unremarkable. KIDNEYS AND URETERS: Redemonstration of nonobstructive renal calculus in the upper left kidney measuring 3 mm and a homogeneously hyperdense proteinaceous/hemorrhagic Bosniak 2 cyst in the medial cortex of the upper left kidney measuring 1 cm, for which no imaging follow-up is recommended. Stable symmetric moderate perinephric fat stranding. BLADDER: Unremarkable. GASTROINTESTINAL TRACT: The stomach and the small bowel are nondilated. Normal appendix. Colonic diverticulosis without significant pericolonic inflammatory changes. No evidence of bowel obstruction. ABDOMINAL WALL: Again noted quite extensive skin thickening, fat stranding and free fluid in the soft tissues of the gluteal region with increased size of several pockets of air. There is increased extension of these findings into adjacent structures including new abnormal thickening of the presacral space with irregular sclerosis of the underlying sacrum at the level of S3-S4, increased extension into the perineum, bilateral inner thighs and scrotal regions, as well as increased extension into the right levator ani which is asymmetrically thickened with a few adjacent pockets of air (3:83). There is increased perirectal stranding and free fluid Findings are highly worrisome for worsening infection with multifocal abscesses and possible sacral osteomyelitis. LYMPH NODES: No lymphadenopathy. VASCULAR: Moderate atherosclerotic disease. Normal caliber abdominal aorta. PELVIC VISCERA: As above, worsening inflammatory changes in the gluteal regions, pre-sacrum and mesorectal space. OSSEOUS STRUCTURES: As above, findings worrisome for sacral osteomyelitis. Degenerative changes of the spine. Stable multilevel compression deformities at L2, L3, L4 and L5. Chronic left-sided greater than right rib deformities. CT/CT abdomen pelvis wo IV con IMPRESSION: 1. Findings are worrisome for worsening infectious/inflammatory processes in the bilateral gluteal regions extending into the perineum, inner thighs, scrotal regions, presacral space, right levator ani and mesorectal fat with increased multifocal pockets of air suspicious for developing abscesses. There is new irregularity of the sacrum suspicious for osteomyelitis. 2. New trace bilateral pleural effusions and increased small pericardial effusion. 3. Other incidental findings as described above.
--- NOTE | ~2023-08-31 | XR_ITS ---
EXAMINATION: XR CHEST CLINICAL INFORMATION: Fever. COMPARISON: Chest radiograph dated 07/20/2023. TECHNIQUE: Frontal view of the chest was obtained. FINDINGS: The lung apices are obscured by the patient's chin. There are multifocal airspace opacities within the right middle and lower lungs as well as the left lower lung. Multifocal pneumonia is suspected. Heart size is normal. There is no large pleural effusion. No definite pneumothorax. No acute osseous abnormality. XR/XR chest 1V IMPRESSION: Multifocal airspace opacities for which multifocal pneumonia is suspected.
--- NOTE | ~2023-08-31 | XR_ITS ---
EXAMINATION: XR CHEST CLINICAL INFORMATION: Tachycardia COMPARISON: Chest x-ray August 31, 2023 TECHNIQUE: Frontal view of the chest was obtained. FINDINGS: Stable cardiac silhouette. The lungs are adequately aerated. Interval worsening in patchy bilateral airspace opacities. No gross lobar consolidation is identified. Tiny right-sided pleural effusion suspected. No pneumothorax. Old healed rib fractures. XR/XR chest 1V IMPRESSION: Interval worsening in patchy bilateral airspace disease.
[2023-08-31 20:19] VITALS: BP 89/50; BP 91/54; PULSE 125; RESP 18; TEMP 39; O2SAT 92; O2SAT 93; BMI 18.9
[2023-08-31 20:35] LABS: MANUAL DIFF FLAG NO
--- NOTE | 2023-08-31 20:37 | ED.GENADULT ---
HPI - General Adult General Chief complaint: General Medical Stated complaint: ?sepsis alert, lethargic, sores on back and butt Time Seen by Provider: 08/31/23 20:15 Source: patient and EMS Mode of arrival: EMS Limitations: no limitations History of Present Illness HPI narrative: Patient comes to the emergency room complaining fever, chills, feeling lethargic. Patient states that he has significant discharge from his buttocks area. Patient has known hidradenitis suppurativa. Patient was discharged approximately a month ago for hidradenitis suppurativa. According to EMS, the patient had a fever of 102 F. Patient was given acetaminophen by his . By time of arrival, patient had an oral temperature of 99 degrees . Related Data Home Medications ?Medication ?Instructions ?Recorded ?Confirmed Probiotic 1 cap PO DAILY 07/20/23 08/31/23 fluticasone fur. 200 mcg-umeclid 1 ea inhalation DAILY 07/20/23 08/31/23 62.5 mcg-vilant 25 mcg inhalat.powder (Trelegy Ellipta) folic acid 1 mg tablet 1 mg PO BEDTIME 07/20/23 08/31/23 gabapentin 300 mg capsule 300 mg PO TID 07/20/23 08/31/23 melatonin 3 mg tablet 3 mg PO BEDTIME 07/20/23 08/31/23 omeprazole 40 mg capsule,delayed 40 mg PO DAILY@0630 07/20/23 08/31/23 release oxycodone 10 mg tablet 10 mg PO Q8H PRN moderate pain 07/20/23 08/31/23 sertraline 100 mg tablet 100 mg PO DAILY 07/20/23 08/31/23 tamsulosin 0.4 mg capsule 0.4 mg PO DAILY 07/20/23 08/31/23 tramadol 50 mg tablet 50 mg PO Q4H PRN pain 07/20/23 08/31/23 trazodone 50 mg tablet 50 mg PO BEDTIME 07/20/23 08/31/23 vitamin B complex 1 tab PO DAILY 07/20/23 08/31/23 zinc sulfate 220 mg capsule 220 mg PO BEDTIME 07/20/23 08/31/23 anakinra 100 mg/0.67 mL 100 mg subcut DAILY 08/31/23 08/31/23 subcutaneous syringe (Kineret) prednisone 5 mg tablet 10 mg PO DAILY 08/31/23 08/31/23 secukinumab 150 mg/mL subcutaneous 300 mg subcut Q2W 08/31/23 08/31/23 syringe (Cosentyx 300 mg/2 Syringes () Allergies Allergy/AdvReac Type Severity Reaction Status Date / Time hydrochlorothiazide Allergy Unknown lip swells Verified 08/31/23 20:24 Review of Systems Review of Systems: Constitutional : No Weight loss, No Fever, No Chills, No Night Sweats, No Fatigue, No Malaise ENT/Mouth : No Hearing loss, No Ear Pain, No Nasal Congestion, No Sinus Pain, No Hoarseness, No sore throat, No Rhinorrhea, No Swallowing Difficulty Eyes: No Eye Pain, No Swelling, No Redness, No Foreign Body, No Discharge, No Vision Changes Cardiovascular : No Chest Pain, No SOB, No Dyspnea on Exertion, No Orthopnea, No Edema, No Palpitations Respiratory : No Cough, No Sputum, No Wheezing, No Smoke Exposure, No Dyspnea Gastrointestinal : No Nausea, No Vomiting, No Diarrhea, No Constipation, No abdominal Pain, No Hematochezia, No Melena Genitourinary : no irregular bleeding, No Dysuria, No Urinary Frequency, No Hematuria, No Urinary Incontinence, No Urgency, No Flank Pain, No Urinary Flow Changes, No Hesitancy Musculoskeletal : No joint pain, No Myalgias, No Joint Swelling Skin : Complaining of acute on chronic oozing of pus, this time from the lower extremities posteriorly. Neuro : No Weakness, No Numbness, No Paresthesias, No Loss of Consciousness, No Dizziness, No Headache Psych : No Anxiety/Panic, No Depression, No SI/HI/AH/VH, No Social Issues, Heme/Lymph: No Bruising, No Bleeding,No Lymphadenopathy Endocrine : No Polyuria, No Polydipsia, No Temperature Intolerance [facility] Past Medical History Medical History Normocytic anemia Alcohol dependence Anemia Hidradenitis suppurativa Hidradenitis Social History Social History Household Members: Spouse Housing: House Do you presently have visiting nurse or other home services: Yes ([facility]) Alcohol intake: former Comment: pt refuses alarm Patient Tobacco Use Status: Current everyday Tobacco user Tobacco use type: Cigarette Cigarette Packs Per Day: 0.5 Years Smoked: 50 Second Hand Smoke Exposure: Yes Advance Directives: Yes Advance Directives on File: Yes Advance Directives Date on File: 10/03/20 service: No Current occupational status: retired Physical Exam ED Vital Signs: Vital Signs - 24 hr 08/31/23 20:19 Temperature 102.2 F H Pulse Rate 125 H Respiratory Rate 18 Blood Pressure 91/54 L Pulse Oximetry 93 Oxygen Delivery Method Room Air BMI result Body Mass Index 18.9 Const Other: Appearance: Alert. Oriented X3. No acute distress. Eyes: Pupils equal, round and reactive to light. ENT: Pharynx normal. Neck: Normal inspection. Neck supple. No lymph nodes noted. No crepitus CVS: Normal heart rate and rhythm. Pulses normal. Normal S1 and S2 Respiratory: No respiratory distress. Breath sounds normal. No Wheezing. No rales Abdomen: Soft and nontender. No rigidity. No distention. Patient continent of stool Skin: Skin warm. Patient has extensive scarring from previous hidradenitis suppurativa throughout the body. However, patient is actively draining pus from the buttocks and upper legs posteriorly. Extremities: No lower extremity edema. No Lacerations. No Rash Neuro: Oriented X 3. No motor deficit. No sensory deficit. Moving all extremities. No slurred speech. CN 2 through 12 grossly intact Psych: calm, cooperative, normal affect Course Course Course Narrative: -of patient's labs and imaging pending. Medications Administered Generic Name Dose Route Start Last Admin Trade Name Freq PRN Reason Stop Dose Admin Acetaminophen 650 mg 08/31/23 22:14 09/01/23 01:46 Acetaminophen 325 Mg Tablet PO 650 mg Q6H PRN Administration Pain, Mild (Pain Scale 1-3) Enoxaparin Sodium 40 mg 08/31/23 23:00 08/31/23 23:14 Enoxaparin Sodium 40 Mg/0.4 Ml Syringe SUBCUT 40 mg Q24H LOBO Administration Sodium Chloride 3 ml 09/01/23 00:00 09/01/23 00:00 0.9 % Sodium Chloride Flush 3 Ml Syringe IVFLUSH Not Given QSHIFT LOBO Discontinued Medications Generic Name Dose Route Start Last Admin Trade Name Freq PRN Reason Stop Dose Admin Sodium Chloride 2,000 mls @ 999 mls/hr 08/31/23 20:26 09/01/23 01:47 Ns IVCONT 08/31/23 22:26 Infused .Q2H1M ONE Infusion Sodium Chloride 2,000.34 mls @ 2,000.34 mls/hr 08/31/23 20:31 09/01/23 01:47 Ns 30 ml/kg infuse over 1 hr (2000.34 ml) 08/31/23 21:30 Infused IV Infusion .Q1H STA Piperacillin Sod/Tazobactam 50 mls @ 100 mls/hr 08/31/23 20:32 08/31/23 21:20 Sod 3.375 gm/ Sodium Chloride IV 08/31/23 21:01 Infused ONCE ONE Infusion Vancomycin HCl 1,000 mg/ 535 mls @ 267.5 mls/hr 08/31/23 20:32 09/01/23 00:00 Vancomycin HCl 750 mg/ Sodium IV 08/31/23 22:31 Infused Chloride ONCE ONE Infusion Acetaminophen 1,000 mg in 100 mls @ 400 mls/hr 09/01/23 01:13 09/01/23 01:47 Ofirmev IV 09/01/23 01:27 Infused ONCE ONE Infusion Oxycodone HCl 10 mg 08/31/23 20:56 08/31/23 21:36 Oxycodone Hcl Immed Release 5 Mg Tablet PO 08/31/23 20:57 10 mg ONCE ONE Administration Medical Decision Making Medical Decision Making [facility] Narrative: -on arrival, patient's blood pressure on the soft side, 91/4, tachycardic 125 temperature 102.2 degrees. -the patient's labs pending. Patient empirically being treated with IV fluids and IV antibiotics, vancomycin and Zosyn -my interpretation of labs, white blood cell count 8.3. Chemistry within normal limits, sodium slightly low 132, no need for treatment. Lactic acid 1.1 My interpretation of chest x-ray: Right lower lobe pneumonia, per Radiology: Bilateral pneumonia -urine is still pending -patient has already been covered with antibiotics and fluids -I discussed the patient with Dr. Orosco, patient being admitted Differential Diagnosis Differential Diagnoses: The differential diagnosis associated with the presentation includes (Abscess, cellulitis, hidradenitis suppurativa, pneumonia, UTI) Admission/Observation Consideration of admission/observation: Escalation of care including admission/observation considered Consult Healthcare Provider Management of the patient was discussed with: Hospitalist Lab Data MDM Lab Attestation statement: I reviewed the patient's lab results. 08/31/23 20:29 08/31/23 20:29 Labs: Lab Results 08/31/23 08/31/23 Range/Units 20:29 21:32 WBC 8.3 (4.8-10.8) X10*3/uL RBC 2.93 L (4.60-5.80) X10*6/uL Hgb 8.0 L (14.0-18.0) g/dl Hct 25.0 L (42.0-52.0) % MCV 85.3 (80.0-98.0) fL MCH 27.3 (27.0-33.0) pg MCHC 32.0 (31.0-36.0) g/dl RDW 16.2 H (11.0-16.0) % Plt Count 418 H D (160-400) X10*3/uL MPV 8.2 L (9.4-12.4) fL Immature Gran % (Auto) 0.7 H (0.0-0.4) % Neut % (Auto) 86.5 H (45-73) % Lymph % (Auto) 7.6 L (20-40) % Rawlins % (Auto) 4.8 (2-11) % Eos % (Auto) 0.0 (0-4) % Baso % (Auto) 0.4 (0-2) % Lymph # (Auto) 0.6 L (1.2-4.9) X10*3/uL Rawlins # (Auto) 0.4 (0.1-1.2) X10*3/uL Eos # (Auto) 0.0 (0.0-0.4) X10*3/uL Baso # (Auto) 0.0 (0.0-0.2) X10*3/uL Abs Immat Gran (auto) 0.06 H (0.00-0.03) X10*3/uL Absolute Neuts (auto) 7.2 (2.0-8.3) x10*3/uL Absolute Nucleated RBC 0.000 (0.0-0.012) X10*3/uL Nucleated RBC % (auto) 0.0 (0.0-0.2) /100WBC Sodium 132 L (135-145) mmol/L Potassium 3.8 (3.3-5.1) mmol/L Chloride 95 L (96-108) mmol/L Carbon Dioxide 26 (22-29) mmol/L Anion Gap 15 (12-20) BUN 23 H (9-16) mg/dL Creatinine 1.38 (0.5-1.4) mg/dL Estim Creat Clear Calc 48.3 Estimated GFR 51 Random Glucose 109 (60-115) mg/dL Lactic Acid 1.1 (0.5-2.0) mmol/L Calcium 8.7 (8.4-10.2) mg/dL Total Bilirubin 0.4 (0.0-1.0) mg/dL AST 13 (5-37) U/L ALT 11 (0-40) U/L Alkaline Phosphatase 65 (39-117) U/L Troponin I High Sens 13.1 (<3.5-35.0) ng/L Total Protein 6.1 L (6.5-8.0) g/dL Albumin 2.4 L (3.5-5.0) g/dL Lipase 8 (8-78) U/L Influenza Type A (PCR) NEGATIVE (Negative) Influenza Type B (PCR) NEGATIVE (Negative) RSV RNA Qual (PCR) NEGATIVE (Negative) SARS-CoV-2 RNA (RT-PCR) NEGATIVE (Negative) Independent Interpretation I performed an independent interpretation of an: Plain X-Ray Radiology Impression Discussion of test interpretation with radiology: I have reviewed the radiologist's reading. Radiologist Impression: The lung apices are obscured by the patient's chin. There are multifocal airspace opacities within the right middle and lower lungs as well as the left lower lung. Multifocal pneumonia is suspected. Heart size is normal. There is no large pleural effusion. No definite pneumothorax. No acute osseous abnormality. XR/XR chest 1V IMPRESSION: Multifocal airspace opacities for which multifocal pneumonia is suspected. Critical Care Time Critical Care Time Critical Care Time: Yes Total Critical Care Time: 120 Attestation: I have personally provided critical care time. Time includes review of lab data, radiology results, discussion with consultants, and monitoring for potential decompensation. Intervention performed as documented. Discharge Plan Discharge Clinical Impression: Hidradenitis suppurativa, Pneumonia, Weakness Patient Disposition: Admitted As Inpatient
[2023-08-31 20:39] LABS: Basophils Percent Auto 0.4 % (0-2); Imm Gran Abs Auto 0.06 X10*3/uL (0.00-0.03); Imm Gran Pct Auto 0.7 % (0.0-0.4); Lymphocytes Absolute Auto 0.6 X10*3/uL (1.2-4.9); Lymphocytes Percent Auto 7.6 % (20-40); Mean Corpuscular Hemoglobin 27.3 pg (27.0-33.0); Mean Corpuscular Volume 85.3 fL (80.0-98.0); Mean Platelet Volume 8.2 fL (9.4-12.4); Monocytes Absolute Auto 0.4 X10*3/uL (0.1-1.2); Monocytes Percent Auto 4.8 % (2-11); Neutrophils Absolute Auto 7.2 x10*3/uL (2.0-8.3); Neutrophils Percent Auto 86.5 % (45-73); Platelet Count 418 X10*3/uL (160-400); Red Blood Count 2.93 X10*6/uL (4.60-5.80); Red Cell Distribution Width 16.2 % (11.0-16.0); White Blood Count 8.3 X10*3/uL (4.8-10.8)
[2023-08-31] MEDS: Piperacillin Sodium/Tazobactam 3.375 GM in 0.9 % Sodium Chloride 50 ML IV (20:46)
[2023-08-31 20:49] LABS: Lactic Acid 1.1 mmol/L (0.5-2.0)
[2023-08-31] MEDS: 0.9 % Sodium Chloride 2,000 ML 999 ML IVCONT (20:49)
[2023-08-31 20:52] LABS: Alanine Aminotransferase 11 U/L (0-40); Albumin Level 2.4 g/dL (3.5-5.0); Alkaline Phosphatase 65 U/L (39-117); Anion Gap 15 (12-20); Aspartate Amino Transferase 13 U/L (5-37); Bilirubin Total 0.4 mg/dL (0.0-1.0); Blood Urea Nitrogen 23 mg/dL (9-16); Calcium 8.7 mg/dL (8.4-10.2); Carbon Dioxide 26 mmol/L (22-29); Chloride 95 mmol/L (96-108); Creatinine Clr Calc Pharmacy 48.3; Estimated Glomerular Filt Rate 51; Glucose Random 109 mg/dL (60-115); Lipase 8 U/L (8-78); Potassium 3.8 mmol/L (3.3-5.1); Sodium 132 mmol/L (135-145); Total Protein 6.1 g/dL (6.5-8.0)
--- NOTE | 2023-08-31 20:55 | PC.NURSE ---
Pt ca&ox4, no signs of distress. Pt medicated per mar. Pts family at bedside. Pt requested and given warm blankets x2. Plan of care ongoing.
--- NOTE | 2023-08-31 20:57 | PC.NURSE ---
Dr garcia notified that pt is requesting pain meds. Plan of care ongoing.
[2023-08-31 20:59] LABS: Troponin-I High Sensitivity 13.1 ng/L (<3.5-35.0)
--- NOTE | 2023-08-31 21:27 | PC.NURSE ---
Spoke with Dustin at Pharmacy will bring this RN hussein. Plan of care ongoing.
[2023-08-31] MEDS: vancomycin HCL 1,000 MG, vancomycin HCL 750 MG in 0.9 % Sodium Chloride 500 ML 267.5 MG IV (21:30)
[2023-08-31] MEDS: oxyCODONE HCl Immed Release 5 MG TABLET 10 MG PO (21:36)
--- NOTE | 2023-08-31 22:17 | P.HPHOSP_ITS ---
History of Present Illness Date of Service: 08/31/23 Chief Complaint: Fever This is a 67-year-old male with pertinent history of hidradenitis suppurativa, CKD stage 3, BPH, COPD not on home oxygen, alcohol use disorder in remission, mood disorder, BPH, gastroesophageal reflux disease who presents to the emergency department for evaluation of fevers and chills. The stated that the patient has been drowsy all day. When she took his temperature it was 102 and she administered Tylenol. Patient has been complaining of productive cough that has been ongoing for a while. Also has significant draining from his buttock area. He was recently admitted and discharged on 07/24/23 for hidradenitis suppurativa with sacral abscesses. Patient was not compliant with IV antibiotics during hospital course. The stated that the patient did not complete his p.o. antibiotic course after discharge. Unable to obtain review of systems. In the emergency department, patient was found to be septic and initiated on empiric IV antibiotics. Imaging concerning for multifocal pneumonia Review of Systems 2 Review of Systems: Yes Unobtainable due to mental status PMFSH Medical History Normocytic anemia Alcohol dependence Anemia Hidradenitis suppurativa Hidradenitis Pertinent family history: Unable to obtain Social History Household Members: Spouse Housing: House Do you presently have visiting nurse or other home services: Yes ([facility]) Alcohol intake: former Comment: pt refuses alarm Patient Tobacco Use Status: Current everyday Tobacco user Tobacco use type: Cigarette Cigarette Packs Per Day: 0.5 Years Smoked: 50 Second Hand Smoke Exposure: Yes Advance Directives: Yes Advance Directives on File: Yes Advance Directives Date on File: 10/03/20 service: No Current occupational status: retired Meds Allergies Allergy/AdvReac Type Severity Reaction Status Date / Time hydrochlorothiazide Allergy Unknown lip swells Verified 08/31/23 20:24 Active Medications: Current Medications Acetaminophen (Acetaminophen 325 Mg Tablet) 650 mg PO Q6H PRN PRN Reason: Pain, Mild (Pain Scale 1-3) Sodium Chloride (Ns) 2,000 mls @ 999 mls/hr IVCONT .Q2H1M ONE Stop: 08/31/23 22:26 Last Admin: 08/31/23 20:49 Dose: 999 mls/hr Vancomycin HCl 1,000 mg/Vancomycin HCl 750 mg/ Sodium Chloride 535 mls @ 267.5 mls/hr IV ONCE ONE Stop: 08/31/23 22:31 Last Admin: 08/31/23 21:30 Dose: 267.5 mls/hr Melatonin (Melatonin 3 Mg Tablet) 6 mg PO BEDTIME PRN PRN Reason: Insomnia Ondansetron HCl (Ondansetron Hcl 4 Mg/2 Ml Vial) 4 mg IVPUSH Q8H PRN PRN Reason: Nausea and Vomiting Sodium Chloride (0.9 % Sodium Chloride Flush 3 Ml Syringe) 3 ml IVFLUSH [facility] Medications ?Medication ?Instructions ?Recorded ?Confirmed ?Last Taken ?Type Probiotic 1 cap PO DAILY 07/20/23 08/31/23 Unknown History fluticasone fur. 200 mcg-umeclid 1 ea inhalation DAILY 07/20/23 08/31/23 Unknown History 62.5 mcg-vilant 25 mcg inhalat.powder (Trelegy Ellipta) folic acid 1 mg tablet 1 mg PO BEDTIME 07/20/23 08/31/23 Unknown History gabapentin 300 mg capsule 300 mg PO TID 07/20/23 08/31/23 Unknown History melatonin 3 mg tablet 3 mg PO BEDTIME 07/20/23 08/31/23 Unknown History omeprazole 40 mg capsule,delayed 40 mg PO DAILY@0630 07/20/23 08/31/23 Unknown History release oxycodone 10 mg tablet 10 mg PO Q8H PRN moderate pain 07/20/23 08/31/23 Unknown History sertraline 100 mg tablet 100 mg PO DAILY 07/20/23 08/31/23 Unknown History tamsulosin 0.4 mg capsule 0.4 mg PO DAILY 07/20/23 08/31/23 Unknown History tramadol 50 mg tablet 50 mg PO Q4H PRN pain 07/20/23 08/31/23 Unknown History trazodone 50 mg tablet 50 mg PO BEDTIME 07/20/23 08/31/23 Unknown History vitamin B complex 1 tab PO DAILY 07/20/23 08/31/23 Unknown History zinc sulfate 220 mg capsule 220 mg PO BEDTIME 07/20/23 08/31/23 Unknown History anakinra 100 mg/0.67 mL 100 mg subcut DAILY 08/31/23 08/31/23 Unknown History subcutaneous syringe (Kineret) prednisone 5 mg tablet 10 mg PO DAILY 08/31/23 08/31/23 Unknown History secukinumab 150 mg/mL subcutaneous 300 mg subcut Q2W 08/31/23 08/31/23 Unknown History syringe (Cosentyx 300 mg/2 Syringes () Physical Exam 2 Vital Signs and Narrative: Vital Signs: Last Vital Signs Temp 102.2 F H 08/31/23 20:19 Pulse 125 H 08/31/23 20:19 Resp 18 08/31/23 20:19 BP 91/54 L 08/31/23 20:19 Pulse Ox 93 08/31/23 20:19 O2 Del Method Room Air 08/31/23 20:19 BMI result Body Mass Index 18.9 Middle-aged male lying in bed in no distress Neck supple, no JVD Regular rate and rhythm, S1-S2 heard Bilateral crackles present Abdomen soft nontender, no guarding, no rigidity Patient is lethargic and awakens to verbal stimulus, falls back asleep mid conversation, unable to assess orientation Skin: Buttocks with foul-smelling purulent drainage as pictured below Psych: Drowsy No pedal edema Skin: Other: Results Labs 08/31/23 20:29 08/31/23 20:29 Labs: Laboratory Results - last 24 hr 08/31/23 20:29 MCV 85.3 MCH 27.3 MCHC 32.0 RDW 16.2 H Plt Count 418 H D MPV 8.2 L Immature Gran % (Auto) 0.7 H Neut % (Auto) 86.5 H Lymph % (Auto) 7.6 L Stanton % (Auto) 4.8 Eos % (Auto) 0.0 Baso % (Auto) 0.4 Lymph # (Auto) 0.6 L Stanton # (Auto) 0.4 Eos # (Auto) 0.0 Baso # (Auto) 0.0 Abs Immat Gran (auto) 0.06 H Absolute Neuts (auto) 7.2 Absolute Nucleated RBC 0.000 Nucleated RBC % (auto) 0.0 Anion Gap 15 Estim Creat Clear Calc 48.3 Estimated GFR 51 Random Glucose 109 Lactic Acid 1.1 Calcium 8.7 Total Bilirubin 0.4 AST 13 ALT 11 Alkaline Phosphatase 65 Troponin I High Sens 13.1 Total Protein 6.1 L Albumin 2.4 L Lipase 8 Imaging Radiologist's Impressions: Impressions Chest X-Ray 08/31/23 21:10 IMPRESSION: Multifocal airspace opacities for which multifocal pneumonia is suspected. Assessment and Plan (1) Pneumonia: Status: Acute (2) Hidradenitis suppurativa: Status: Acute (3) Sepsis: Status: Acute Plan This is a 67-year-old male with pertinent history of hidradenitis suppurativa, CKD stage 3, BPH, COPD not on home oxygen, alcohol use disorder in remission, mood disorder, BPH, gastroesophageal reflux disease who presents to the emergency department for evaluation of fevers and chills. #. Sepsis due to purulent cellulitis of buttocks in a patient with hidradenitis suppurativa + multifocal pneumonia: Has a history of noncompliance with antibiotics. Resuscitated with IV crystalloids. Initiating empiric IV antibiotics. Lactic acid and blood culture obtained. Previous history of sacral abscesses. Will obtain CT scan to further delineate anatomy, may need General surgery pending CT scan results. Wound care #. Acute metabolic encephalopathy in the setting of above. NPO until mentation improves #. Chronic kidney disease stage 3: Creatinine stable #. Alcohol use disorder: In remission #. COPD: No exacerbation during admission. Continue trilogy #. BPH: On Flomax #. Gastroesophageal reflux disease: On PPI #. Chronic normocytic anemia, thrombocytosis: Outpatient follow-up and evaluation Med rec pending DVT prophylaxis: Lovenox Full code Admit as inpatient and will require two night minimum hospital stay for IV antibiotics (as above), which is not possible in a lesser acute setting. Quality Stroke Does the patient have a stroke diagnosis?: No VTE Prior VTE?: No VTE Risk Level:: Medical - moderate - high VTE Device Contraindication: Treatment Not Indicated VTE Drug Contraindication: N/A - Med Ordered
[2023-08-31 22:18] VITALS: BP 106/53; PULSE 117; RESP 18; TEMP 36.9; O2SAT 93
[2023-08-31 22:18] LABS: Influenza A PCR NEGATIVE (Negative); Influenza B PCR NEGATIVE (Negative); Resp Syncy Virus RNA Qual PCR NEGATIVE (Negative); SARS COV2 PCR INHOUSE NEGATIVE (Negative)
--- NOTE | 2023-08-31 22:28 | PHA.MEDREC ---
Pharmacy Consult ? Medication Reconciliation Pharmacy has completed the medication reconciliation. Patient's confirmed medicaitons. Suad Shannon, DeandreD
--- NOTE | 2023-08-31 22:31 | PHA.PROG ---
Admission Date/Time: August 31, 2023 22:14 Indication: Sepsis Weight in k.678 kg Adjusted body weight in K kg Caldwell body weight in K.2 kg Obesity Dosing Indication % IBW:N/A Serum Creatinine - Last 168 Hours 08/31/23 20:29 Creatinine 1.38 Estimated CrCl and GFR - Last 168 Hours 08/31/23 20:29 Estim Creat Clear Calc 48.3 Estimated GFR 51 Vancomycin Loading Dose: 1750 mg Current Vancomycin Dosing Regimen: 1250 mg Q24H Date and Time for next Vancomycin Level to be drawn: 09/01 @ 1999 Pharmacist Comments on Vancomycin Plan: patient is receiving an adequate load dose in the ER 07/30 @ 2130 maintenance dose vanocmyinc 1250 mg Q24H is scheduled to start 08/31 @ 2200. predicted AUC 562 with a trough of 17 Due to patient having sepsis, will be more aggressive. However due to patient being underweight, will get a random level prior to 3rd dose to access for safety Pharmacy will monitor renal function daily. Suad Shannon, yvonneD Vancomycin dosing will take advantage of [employer] as a clinical decision support tool that uses Bayesian modeling to calculate individual patient's pharmacokinetic parameters and forecast the patient's drug concentration time course with the target goal AUC 24 range of 400 - 600 mg/L/hr.
--- NOTE | 2023-08-31 22:35 | PC.NURSE ---
Pt 02 dropping to 86-87% on room air. Pt placed on 2L of 02 nc. Plan of care ongoing.
[2023-08-31] MEDS: Enoxaparin Sodium 40 MG/0.4 ML SYRINGE SUBCUT (23:14)
--- NOTE | 2023-08-31 23:16 | PC.NURSE ---
Pt medicated per mar. head of bed elevated, pt 02 sat dropping to 78% Pt 02 raised to 3L, 02 sat now 97%. Plan of care ongoing.
--- NOTE | 2023-08-31 23:28 | PC.NURSE ---
Pt with CT. Plan of care ongoing.
[2023-09-01] VITALS (15 sets, daily range): BP systolic 90–111; BP diastolic 55–66; PULSE 93–139; RESP 16–23; TEMP 35.8–39.6; O2SAT 87–100; BMI 18.8
--- NOTE | 2023-09-01 | ECG_ITS ---
Test Reason : SEPSIS Blood Pressure : / mmHG Vent. Rate : 144 BPM Atrial Rate : 000 BPM P-R Int : 000 ms QRS Dur : 120 ms QT Int : 298 ms P-R-T Axes : 000 -08 032 degrees QTc Int : 461 ms Artifact in tracing Sinus tachycardia Low voltage QRS Right bundle branch block Abnormal ECG When compared to the previous EKG of 01 sep 2023, No significant changes seen Referred By: Adolfo Deleon Electronically Signed By:SETH YANEZ
--- NOTE | 2023-09-01 | ECG_ITS ---
Test Reason : SEPSIS Blood Pressure : / mmHG Vent. Rate : 139 BPM Atrial Rate : 139 BPM P-R Int : 138 ms QRS Dur : 114 ms QT Int : 284 ms P-R-T Axes : 040 -13 027 degrees QTc Int : 432 ms Sinus tachycardia with Premature supraventricular complexes and with occasional Premature ventricular complexes Low voltage QRS Right bundle branch block Abnormal ECG When compared with ECG of 01-SEP-2023 00:35, No significant changes seen Referred By: Adolfo Deleon Electronically Signed By:SETH YANEZ
--- NOTE | 2023-09-01 | ECG_ITS ---
Test Reason : SEPSIS Blood Pressure : / mmHG Vent. Rate : 177 BPM Atrial Rate : 000 BPM P-R Int : 000 ms QRS Dur : 110 ms QT Int : 302 ms P-R-T Axes : 000 092 057 degrees QTc Int : 518 ms Artifact in tracing Sinus tachycardia Low voltage QRS Right bundle branch block Abnormal ECG When compared with ECG of 31-AUG-2023 20:41, increase in rate Referred By: Adolfo Deleon Electronically Signed By:SETH YANEZ
[2023-09-01] MEDS: Adenosine 6 MG/2 ML VIAL IVPUSH (00:30)
[2023-09-01] MEDS: Adenosine 6 MG/2 ML VIAL 12 MG IVPUSH (00:37)
[2023-09-01] MEDS: Metoprolol Tartrate 5 MG/5 ML VIAL IVPUSH (00:43)
[2023-09-01] MEDS: 0.9 % Sodium Chloride 1,000 ML 999 ML IV (00:50)
[2023-09-01] MEDS: LORazepam 2 MG/ML VIAL IVPUSH (00:58)
--- NOTE | 2023-09-01 01:11 | PM.EVENT ---
Event Note Date of Service: 09/01/23 Event Note: Nurse informed that patient was in tachycardia with heart rate in the 180s. Noted to be in SVT. Patient was given 6 mg adenosine followed by 12 mg adenosine without any response. Subsequently given 5 mg IV metoprolol with improvement in heart rate>>sinus tach in the 140s. Initially automated blood pressure could not be recorded. Manual blood pressure with 90/50. Resuscitated with IV crystalloids with pressure bag >>Improvement in blood pressure to 140/70. Guarded prognosis. Time Spent With Patient Time: Total time managing care of this patient today ____ minutes.
[2023-09-01] MEDS: Acetaminophen 1,000 MG/100 ML PIGGYBACK 400 MG IV (01:30)
[2023-09-01] MEDS: Acetaminophen 325 MG TABLET 650 MG PO (01:46)
--- NOTE | 2023-09-01 02:07 | PC.NURSE ---
late entry @ 1220 assistant corporate secretary notified this RN regarding pts HR of [address] at the [address] time Dr Garcia called this RN and help into pts room. This RN notified Dr. Orosco via tiger tx of pts HR. Difficult IV access, as previous line had been accidentally pulled out at some point after CT and HR of 177. Ist EKG WAS @ 0026. IV line access obtained with an 18g and per dr. garcia verbal order 6mg of adenosine given @ 0030 12mg of adenosine given @ 0037. 5mg of metoprolol gven @ 0043. Multiple attempts to obtain a manual and an auto b/p but pt shaking too much. Manual B/P checked @0054 was 90/50. 2nd IV line 20g placed @ 0050. 2nd 1L NS bolus started @ 0050 Ativan 2mg given @ 0058. PO tylenol given to pt. 0102 B/p of 145/78 @ 0106. Rectal temp of 102.5 @ 0109. A completed bed changed and veronika care done pt covered in feces. Pt changed from rm 2 to 4. Cooling blanket placed on pt and IV acetaminophen given @ 0130. Pt temp now 102.9 @0155. Ice packs placed on pt. Dr garcia and pacheco aware of pts b/p and temp Phlebotomy wth pt. Pt HR @ 0218 in the 130's, b/p @ 107/67. Plan of care ongoing.
[2023-09-01 02:43] LABS: Lactic Acid 3.2 mmol/L (0.5-2.0)
[2023-09-01] MEDS: Piperacillin Sodium/Tazobactam 4.5 GM in 0.9 % Sodium Chloride 100 ML IV ×4 (03:37→20:00)
[2023-09-01 04:26] LABS: Reflex Lactate? Lactic Acid Added
[2023-09-01] MEDS: Lactated Ringers 1,000 ML 999 ML IV (04:30)
--- NOTE | 2023-09-01 04:32 | PC.NURSE ---
Pt medicated per jul. Dr. Orosco advised of pts temp 101.1 Plan of care ongoing.
[2023-09-01 05:25] LABS: Basophils Absolute Auto 0.1 X10*3/uL (0.0-0.2); Basophils Percent Auto 0.3 % (0-2); Eosinophils Percent Auto 0.1 % (0-4); Hematocrit 26.2 % (42.0-52.0); Hemoglobin 8.2 g/dl (14.0-18.0); Imm Gran Abs Auto 0.38 X10*3/uL (0.00-0.03); Lymphocytes Absolute Auto 0.3 X10*3/uL (1.2-4.9); Lymphocytes Percent Auto 0.8 % (20-40); MANUAL DIFF FLAG SCAN; Mean Corpuscular HGB Conc 31.3 g/dl (31.0-36.0); Mean Corpuscular Hemoglobin 27.6 pg (27.0-33.0); Mean Corpuscular Volume 88.2 fL (80.0-98.0); Mean Platelet Volume 8.1 fL (9.4-12.4); Monocytes Absolute Auto 0.2 X10*3/uL (0.1-1.2); Monocytes Percent Auto 0.6 % (2-11); Neutrophils Absolute Auto 36.3 x10*3/uL (2.0-8.3); Neutrophils Percent Auto 97.2 % (45-73); Platelet Count 363 X10*3/uL (160-400); Red Blood Count 2.97 X10*6/uL (4.60-5.80); Red Cell Distribution Width 16.6 % (11.0-16.0); SCAN SMEAR FLAG 1
[2023-09-01 05:31] LABS: White Blood Count 37.4 X10*3/uL (4.8-10.8)
--- NOTE | 2023-09-01 05:32 | PC.NURSE ---
Critical rec'd from the lab WBC - 37.4 Dr. Orosco notified. Plan of care ongoing.
[2023-09-01 05:40] LABS: Anion Gap 14 (12-20); Blood Urea Nitrogen 20 mg/dL (9-16); Calcium 7.8 mg/dL (8.4-10.2); Carbon Dioxide 19 mmol/L (22-29); Chloride 105 mmol/L (96-108); Estimated Glomerular Filt Rate 56; Glucose Random 77 mg/dL (60-115); Potassium 3.3 mmol/L (3.3-5.1); Sodium 135 mmol/L (135-145)
[2023-09-01 05:46] LABS: SLIDE REVIEW VERIFIED
--- NOTE | 2023-09-01 06:01 | PC.NURSE ---
Dr. Orosco notified regarding pts HR of 131 and temp of 99.5. Per Dr. Orosco HR < 140 is ok for pt d/t sinus tach. Plan of care ongoing.
--- NOTE | 2023-09-01 06:27 | PC.NURSE ---
Pts called and spoke with this RN, update given. Plan of care ongoing.
[2023-09-01 08:47] LABS: C Reactive Protein 15.12 mg/dL (< or = 0.50)
[2023-09-01 08:50] LABS: Magnesium 0.8 mg/dL (1.6-2.6)
[2023-09-01 09:03] LABS: Procalcitonin 12.31 ng/mL
[2023-09-01] MEDS: 0.9 % Sodium Chloride 1,000 ML 500 ML IVCONT (09:19)
[2023-09-01] MEDS: Magnesium Sulfate/H2O 2 GM/50 ML PIGGYBACK IV ×2 (09:33→11:37)
--- NOTE | 2023-09-01 10:06 | P.CONGS_ITS ---
History of Present Illness Consult details Consult date: 09/01/23 <Lindsay Juan PA-C - Last Filed: 09/01/23 10:25> Narrative: 67-year-old male with pertinent history of hidradenitis suppurativa, CKD stage 3, BPH, COPD, BPH, gastroesophageal reflux disease who presented to the ED for evaluation of fevers and chills. History was obtained from the EMR and as the patient is somnolent. The stated that the patient was drowsy all day and took his temperature which was 102 and gave him Tylenol. He has a significant history of hidradenitis suppurative with recent [place] [facility] [place] for sepsis, sacral abscesses which required bedside I&D. The stated that the patient did not complete his PO antibiotic course after discharge. He has had persistent drainage of wounds since. In the ED, the patient was found to be septic and was admitted to the medical service for further treatment of multifocal pneumonia and hidradenitis suppurative with abscesses. He was started on empiric IV antibiotics. Due to his history of sacral abscess secondary to hidradenitis suppurative, CT scan abd/pelvis was obtained which showed extensive skin thickening, fat stranding and free fluid in the soft tissues of the gluteal region with increased size of several pockets of air, increased extension into the perineum, bilateral inner thighs and scrotal regions. New finding of abnormal thickening of the presacral space with irregular sclerosis of the underlying sacrum at the level of S3-S4, concerning for osteomyelitis. < INDIRA Clifton Last Filed: 09/01/23 10:25> Review of Systems 2 Review of Systems: Yes Unobtainable due to mental status <Lindsay Juan PA-C - Last Filed: 09/01/23 10:25> [facility] Past Medical History Medical History: Medical History Normocytic anemia Alcohol dependence Anemia Hidradenitis suppurativa Hidradenitis <INDIRA Clifotn Last Filed: 09/01/23 10:25> Social History Social History: Social History Household Members: Spouse Housing: House Do you presently have visiting nurse or other home services: Yes ([facility]) Alcohol intake: former Comment: pt refuses alarm Patient Tobacco Use Status: Tobacco use Unknown Tobacco use type: Cigarette Cigarette Packs Per Day: 0.5 Years Smoked: 50 Second Hand Smoke Exposure: Yes Advance Directives: Yes Advance Directives on File: Yes Advance Directives Date on File: 10/03/20 service: No Current occupational status: retired <Lindsay Juan PA-C - Last Filed: 09/01/23 10:25> Meds Allergies/Adverse reactions: Allergies Allergy/AdvReac Type Severity Reaction Status Date / Time hydrochlorothiazide Allergy Unknown lip swells Verified 08/31/23 20:24 <Lnidsay Juan PA-C - Last Filed: 09/01/23 10:25> Active Medications: Current Medications Acetaminophen (Acetaminophen 325 Mg Tablet) 650 mg PO Q6H PRN PRN Reason: Pain, Mild (Pain Scale 1-3) Last Admin: 09/01/23 01:46 Dose: 650 mg Enoxaparin Sodium (Enoxaparin Sodium 40 Mg/0.4 Ml Syringe) 40 mg SUBCUT Q24H [facility] Last Admin: 08/31/23 23:14 Dose: 40 mg Fluticasone/Umeclidinium/Vilanterol (Fluticasone/Umeclidinium/Vilanterol 200/62.5/25 Blst.W.Dev) 1 puff INHALE RDAILY [facility] Folic Acid (Folic Acid 1 Mg Tablet) 1 mg PO BEDTIME [facility] Hydrocortisone Sodium Succinate (Hydrocortisone Sod Succ/Pf 100 Mg Vial) 100 mg IVPUSH Q8H [facility] Piperacillin Sod/Tazobactam (Sod 4.5 gm/ Sodium Chloride) 100 mls @ 200 mls/hr IV Q6H [facility] Last Admin: 09/01/23 09:22 Dose: 200 mls/hr Vancomycin HCl 1,250 mg/ (Sodium Chloride) 250 mls @ 166.667 mls/hr IV Q24H [facility] Sodium Chloride (Ns) 1,000 mls @ 500 mls/hr IVCONT .Q2H [facility] Stop: 09/01/23 11:14 Last Admin: 09/01/23 09:19 Dose: 500 mls/hr Magnesium Sulfate (Magnesium Sulfate/H2o) 2 gm in 50 mls @ 25 mls/hr IV Q2H [facility] Stop: 09/01/23 13:29 Last Admin: 09/01/23 09:33 Dose: 25 mls/hr Melatonin (Melatonin 3 Mg Tablet) 6 mg PO BEDTIME PRN PRN Reason: Insomnia Multivitamins/Vitamin C (Multivitamin Tablet) 1 tab PO DAILY [facility] Omeprazole (Omeprazole 40 Mg Capsule.Dr) 40 mg PO DAILY@0630 [facility] Ondansetron HCl (Ondansetron Hcl 4 Mg/2 Ml Vial) 4 mg IVPUSH Q8H PRN PRN Reason: Nausea and Vomiting Pharmacy Consult (Consult Rx Vancomycin Dosing) 1 each MISCELLANE DAILY PRN PRN Reason: Consult order Sertraline HCl (Sertraline Hcl 100 Mg Tablet) 100 mg PO DAILY [facility] Sodium Chloride (0.9 % Sodium Chloride Flush 3 Ml Syringe) 3 ml IVFLUSH QSHIFT [facility] Last Admin: 09/01/23 09:22 Dose: Not Given Tamsulosin HCl (Tamsulosin Hcl 0.4 Mg Capsule) 0.4 mg PO DAILY [facility] <Lindsay Juan PA-C - Last Filed: 09/01/23 10:25> Home medications: Home Medications ?Medication ?Instructions ?Recorded ?Confirmed ?Last Taken ?Type Probiotic 1 cap PO DAILY 07/20/23 08/31/23 Unknown History fluticasone fur. 200 mcg-umeclid 1 ea inhalation DAILY 07/20/23 08/31/23 Unknown History 62.5 mcg-vilant 25 mcg inhalat.powder (Trelegy Ellipta) folic acid 1 mg tablet 1 mg PO BEDTIME 07/20/23 08/31/23 Unknown History gabapentin 300 mg capsule 300 mg PO TID 07/20/23 08/31/23 Unknown History melatonin 3 mg tablet 3 mg PO BEDTIME 07/20/23 08/31/23 Unknown History omeprazole 40 mg capsule,delayed 40 mg PO DAILY@0630 07/20/23 08/31/23 Unknown History release oxycodone 10 mg tablet 10 mg PO Q8H PRN moderate pain 07/20/23 08/31/23 Unknown History sertraline 100 mg tablet 100 mg PO DAILY 07/20/23 08/31/23 Unknown History tamsulosin 0.4 mg capsule 0.4 mg PO DAILY 07/20/23 08/31/23 Unknown History tramadol 50 mg tablet 50 mg PO Q4H PRN pain 07/20/23 08/31/23 Unknown History trazodone 50 mg tablet 50 mg PO BEDTIME 07/20/23 08/31/23 Unknown History vitamin B complex 1 tab PO DAILY 07/20/23 08/31/23 Unknown History zinc sulfate 220 mg capsule 220 mg PO BEDTIME 07/20/23 08/31/23 Unknown History anakinra 100 mg/0.67 mL 100 mg subcut DAILY 08/31/23 08/31/23 Unknown History subcutaneous syringe (Kineret) prednisone 5 mg tablet 10 mg PO DAILY 08/31/23 08/31/23 Unknown History secukinumab 150 mg/mL subcutaneous 300 mg subcut Q2W 08/31/23 08/31/23 Unknown History syringe (Cosentyx 300 mg/2 Syringes () <INDIRA Clifton Last Filed: 09/01/23 10:25> Physical Exam 2 Vital Signs: Vital Signs: Last Vital Signs Temp 98.1 F 09/01/23 08:34 Pulse 122 H 09/01/23 08:34 Resp 19 09/01/23 08:34 BP 94/55 L 09/01/23 08:34 Pulse Ox 95 09/01/23 08:34 O2 Del Method Nasal Cannula 09/01/23 08:34 O2 Flow Rate 2 09/01/23 08:34 BMI result Body Mass Index 18.9 <INDIRA Clifton Last Filed: 09/01/23 10:25> Const: Other: somnolent <INDIRA Clifton Last Filed: 09/01/23 10:25> Nutritional Appearance: thin <INDIRA Clifton Last Filed: 09/01/23 10:25> Resp: Effort & Inspection: normal respiratory effort and no respiratory distress <INDIRA Clifton Last Filed: 09/01/23 10:25> Skin: Other: wide, extensive region of erythema and skin thickening involving the lower back towards the sacrococcygeal area, bilateral buttocks into the perineum and scrotum; entire involved area has multiple sinuses and open areas with purulent drainage, no necrosis noted, no crepitus <Lindsay Juan PA-C - Last Filed: 09/01/23 10:25> Results Labs Result diagrams: 09/01/23 05:13 09/01/23 05:13 <Lindsay Juan PA-C - Last Filed: 09/01/23 10:25> Labs: Abnormal lab results 08/31/23 09/01/23 09/01/23 Range/Units 20:29 02:13 05:13 WBC 37.4 H* (4.8-10.8) X10*3/uL RBC 2.93 L 2.97 L (4.60-5.80) X10*6/uL Hgb 8.0 L 8.2 L (14.0-18.0) g/dl Hct 25.0 L 26.2 L (42.0-52.0) % RDW 16.2 H 16.6 H (11.0-16.0) % Plt Count 418 H D (160-400) X10*3/uL MPV 8.2 L 8.1 L (9.4-12.4) fL Immature Gran % (Auto) 0.7 H 1.0 H (0.0-0.4) % Neut % (Auto) 86.5 H 97.2 H (45-73) % Lymph % (Auto) 7.6 L 0.8 L (20-40) % [place] % (Auto) 0.6 L (2-11) % Lymph # (Auto) 0.6 L 0.3 L (1.2-4.9) X10*3/uL Abs Immat Gran (auto) 0.06 H 0.38 H (0.00-0.03) X10*3/uL Absolute Neuts (auto) 36.3 H (2.0-8.3) x10*3/uL Sodium 132 L (135-145) mmol/L Chloride 95 L (96-108) mmol/L Carbon Dioxide 19 L (22-29) mmol/L BUN 23 H 20 H (9-16) mg/dL Lactic Acid 3.2 H* (0.5-2.0) mmol/L Calcium 7.8 L D (8.4-10.2) mg/dL Magnesium 0.8 L* (1.6-2.6) mg/dL C-Reactive Protein 15.12 H (< or = 0.50) mg/dL Total Protein 6.1 L (6.5-8.0) g/dL Albumin 2.4 L (3.5-5.0) g/dL Short CBC 08/31/23 09/01/23 Range/Units 20:29 05:13 WBC 8.3 37.4 H* (4.8-10.8) X10*3/uL Hgb 8.0 L 8.2 L (14.0-18.0) g/dl Hct 25.0 L 26.2 L (42.0-52.0) % Plt Count 418 H D 363 (160-400) X10*3/uL BMP 08/31/23 09/01/23 20:29 05:13 Sodium 132 L 135 Potassium 3.8 3.3 Chloride 95 L 105 Carbon Dioxide 26 19 L BUN 23 H 20 H Creatinine 1.38 1.28 Calcium 8.7 7.8 L D Liver Function 08/31/23 Range/Units 20:29 Total Bilirubin 0.4 (0.0-1.0) mg/dL AST 13 (5-37) U/L ALT 11 (0-40) U/L Alkaline Phosphatase 65 (39-117) U/L Albumin 2.4 L (3.5-5.0) g/dL All other labs normal. <INDIRA Clifton Last Filed: 09/01/23 10:25> Imaging Abdomen CT scan report/results: report reviewed and image reviewed <INDIRA Clifton Last Filed: 09/01/23 10:25> Assessment and Plan (1) Hidradenitis suppurativa: Status: Acute <INDIRA Clifton Last Filed: 09/01/23 10:25> (2) Sepsis: Status: Acute <INDIRA Clifton Last Filed: 09/01/23 10:25> 67 year old male with multiple medical comorbidities including extensive hidradenitis suppurative brought to the ED for fever, AMS found to be septic with multifocal pneumonia and hidradenitis suppurative. 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 No current surgical intervention warranted. Recommend continuing IV abx, wound care consult and ID consult for new possible sacral osteomyelitis. <Lindsay Juan PA-C - Last Filed: 09/01/23 10:25> 67 year old male with multiple medical comorbidities including extensive hidradenitis suppurative brought to the ED for fever, AMS found to be septic with multifocal pneumonia and hidradenitis suppurative. 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 No current surgical intervention warranted. Recommend continuing IV abx, wound care consult and ID consult for new possible sacral osteomyelitis. Agree with the above assessment and plan. Patient with a long history of hidradenitis found to have extensive disease involving the entire pelvis. No skin necrosis is identified. Agree with continuing IV antibiotics and local wound care. <Jonathan Woodruff MD - Last Filed: 09/01/23 11:29> Procedures Date of Service Date of Service: 09/01/23 <Lindsay Juan PA-C - Last Filed: 09/01/23 10:25> 09/01/23 <Jonathan Woodruff MD - Last Filed: 09/01/23 11:29>
[2023-09-01] MEDS: Hydrocortisone Sod Succ/PF 100 MG VIAL IVPUSH ×2 (10:08→17:33)
--- NOTE | 2023-09-01 10:40 | PM.CNCAR ---
History of Present Illness History of Present Illness Date of Service: 09/01/23 Chief complaint: fever Narrative: This is a cardiology consultation regarding question of supraventricular tachycardia. Patient with many comorbidities and not able to give any information. Discussed with at the bedside. Patient has been brought to the ER for evaluation of fever/chills. He has also been drowsy. Temperature was about 102 degrees F. complaining of cough. Some drainage from the buttock area. He has been treated for pneumonia/sepsis. According to , heart rates have been running in the 120s even at home. When he came here, again found to be tachycardic. There are some occasions where it was much higher and there was a question of he had SVT or not. Currently, he seems to be just having sinus tachycardia and essentially nonverbal. Review of Systems Review of Systems: Unable to obtain any history because of mental status. [facility] Past Medical History Medical History Normocytic anemia Alcohol dependence Anemia Hidradenitis suppurativa Hidradenitis Family History Pertinent family history: Unable to obtain Social History Social History Household Members: Spouse Housing: House Do you presently have visiting nurse or other home services: Yes ([facility]NA) Alcohol intake: former Comment: pt refuses alarm Patient Tobacco Use Status: Tobacco use Unknown Tobacco use type: Cigarette Cigarette Packs Per Day: 0.5 Years Smoked: 50 Second Hand Smoke Exposure: Yes Advance Directives: Yes Advance Directives on File: Yes Advance Directives Date on File: 10/03/20 service: No Current occupational status: retired Meds Allergies Allergy/AdvReac Type Severity Reaction Status Date / Time hydrochlorothiazide Allergy Unknown lip swells Verified 08/31/23 20:24 Active Medications: Current Medications Acetaminophen (Acetaminophen 325 Mg Tablet) 650 mg PO Q6H PRN PRN Reason: Pain, Mild (Pain Scale 1-3) Last Admin: 09/01/23 01:46 Dose: 650 mg Enoxaparin Sodium (Enoxaparin Sodium 40 Mg/0.4 Ml Syringe) 40 mg SUBCUT Q24H [facility] Last Admin: 08/31/23 23:14 Dose: 40 mg Fluticasone/Umeclidinium/Vilanterol (Fluticasone/Umeclidinium/Vilanterol 200/62.5/25 Blst.W.Dev) 1 puff INHALE RDAILY [facility] Folic Acid (Folic Acid 1 Mg Tablet) 1 mg PO BEDTIME [facility] Hydrocortisone Sodium Succinate (Hydrocortisone Sod Succ/Pf 100 Mg Vial) 100 mg IVPUSH Q8H [facility] Last Admin: 09/01/23 10:08 Dose: 100 mg Piperacillin Sod/Tazobactam (Sod 4.5 gm/ Sodium Chloride) 100 mls @ 200 mls/hr IV Q6H [facility] Last Infusion: 09/01/23 10:08 Dose: Infused Vancomycin HCl 1,250 mg/ (Sodium Chloride) 250 mls @ 166.667 mls/hr IV Q24H [facility] Sodium Chloride (Ns) 1,000 mls @ 500 mls/hr IVCONT .Q2H [facility] Stop: 09/01/23 11:14 Last Admin: 09/01/23 09:19 Dose: 500 mls/hr Magnesium Sulfate (Magnesium Sulfate/H2o) 2 gm in 50 mls @ 25 mls/hr IV Q2H [facility] Stop: 09/01/23 13:29 Last Admin: 09/01/23 09:33 Dose: 25 mls/hr Melatonin (Melatonin 3 Mg Tablet) 6 mg PO BEDTIME PRN PRN Reason: Insomnia Multivitamins/Vitamin C (Multivitamin Tablet) 1 tab PO DAILY [facility] Omeprazole (Omeprazole 40 Mg Capsule.Dr) 40 mg PO DAILY@0630 [facility] Ondansetron HCl (Ondansetron Hcl 4 Mg/2 Ml Vial) 4 mg IVPUSH Q8H PRN PRN Reason: Nausea and Vomiting Pharmacy Consult (Consult Rx Vancomycin Dosing) 1 each MISCELLANE DAILY PRN PRN Reason: Consult order Sertraline HCl (Sertraline Hcl 100 Mg Tablet) 100 mg PO DAILY [facility] Sodium Chloride (0.9 % Sodium Chloride Flush 3 Ml Syringe) 3 ml IVFLUSH QSHIFT [facility] Last Admin: 09/01/23 09:22 Dose: Not Given Tamsulosin HCl (Tamsulosin Hcl 0.4 Mg Capsule) 0.4 mg PO DAILY [facility] Home Medications ?Medication ?Instructions ?Recorded ?Confirmed ?Last Taken ?Type Probiotic 1 cap PO DAILY 07/20/23 08/31/23 Unknown History fluticasone fur. 200 mcg-umeclid 1 ea inhalation DAILY 07/20/23 08/31/23 Unknown History 62.5 mcg-vilant 25 mcg inhalat.powder (Trelegy Ellipta) folic acid 1 mg tablet 1 mg PO BEDTIME 07/20/23 08/31/23 Unknown History gabapentin 300 mg capsule 300 mg PO TID 07/20/23 08/31/23 Unknown History melatonin 3 mg tablet 3 mg PO BEDTIME 07/20/23 08/31/23 Unknown History omeprazole 40 mg capsule,delayed 40 mg PO DAILY@0630 07/20/23 08/31/23 Unknown History release oxycodone 10 mg tablet 10 mg PO Q8H PRN moderate pain 07/20/23 08/31/23 Unknown History sertraline 100 mg tablet 100 mg PO DAILY 07/20/23 08/31/23 Unknown History tamsulosin 0.4 mg capsule 0.4 mg PO DAILY 07/20/23 08/31/23 Unknown History tramadol 50 mg tablet 50 mg PO Q4H PRN pain 07/20/23 08/31/23 Unknown History trazodone 50 mg tablet 50 mg PO BEDTIME 07/20/23 08/31/23 Unknown History vitamin B complex 1 tab PO DAILY 07/20/23 08/31/23 Unknown History zinc sulfate 220 mg capsule 220 mg PO BEDTIME 07/20/23 08/31/23 Unknown History anakinra 100 mg/0.67 mL 100 mg subcut DAILY 08/31/23 08/31/23 Unknown History subcutaneous syringe (Kineret) prednisone 5 mg tablet 10 mg PO DAILY 08/31/23 08/31/23 Unknown History secukinumab 150 mg/mL subcutaneous 300 mg subcut Q2W 08/31/23 08/31/23 Unknown History syringe (Cosentyx 300 mg/2 Syringes () Physical Exam Vital Signs: Vital Signs: Last Vital Signs Temp 98.1 F 09/01/23 08:34 Pulse 122 H 09/01/23 08:34 Resp 19 09/01/23 08:34 BP 94/55 L 09/01/23 08:34 Pulse Ox 95 09/01/23 08:34 O2 Del Method Nasal Cannula 09/01/23 08:34 O2 Flow Rate 2 09/01/23 08:34 BMI result Body Mass Index 18.9 Const: General: ill appearing, lethargic and patient obtunded Orientation/consciousness: No patient oriented x3, patient obtunded and lethargic HEENT: Other: Unremarkable Head: Yes normal to inspection Neck: Neck: Yes normal visual inspection Chest: Chest palpation & inspection: normal inspection of the chest Resp: Auscultation: rhonchi Cardio: Palpation: normal PMI Heart sounds: S1 normal heart sound present, S2 normal heart sound present, no gallops, no murmurs and no rubs GI: Palpation (GI): Soft to palpation Back/Spine/Pelvis: Other: unremarkable Skin: General skin exam: no rashes or lesions noted Neuro: General: No patient oriented x3 and patient obtunded Extrem: General: Yes normal to inspection Psych: Mental Status: mental status grossly abnormal Objective Labs and Meds 09/01/23 05:13 09/01/23 05:13 Lab results: Laboratory Results - last 24 hr 08/31/23 08/31/23 09/01/23 20:29 21:32 02:13 WBC 8.3 RBC 2.93 L Hgb 8.0 L Hct 25.0 L MCV 85.3 MCH 27.3 MCHC 32.0 RDW 16.2 H Plt Count 418 H D MPV 8.2 L Immature Gran % (Auto) 0.7 H Neut % (Auto) 86.5 H Lymph % (Auto) 7.6 L Humphre[place] % (Auto) 4.8 Eos % (Auto) 0.0 Baso % (Auto) 0.4 Lymph # (Auto) 0.6 L [place] # (Auto) 0.4 Eos # (Auto) 0.0 Baso # (Auto) 0.0 Abs Immat Gran (auto) 0.06 H Absolute Neuts (auto) 7.2 Absolute Nucleated RBC 0.000 Nucleated RBC % (auto) 0.0 Smear Tech's Comments Sodium 132 L Potassium 3.8 Chloride 95 L Carbon Dioxide 26 Anion Gap 15 BUN 23 H Creatinine 1.38 Estim Creat Clear Calc 48.3 Estimated GFR 51 Random Glucose 109 Lactic Acid 1.1 3.2 H* Lactic Acid F/U @ 2Hr Calcium 8.7 Magnesium Total Bilirubin 0.4 AST 13 ALT 11 Alkaline Phosphatase 65 Troponin I High Sens 13.1 C-Reactive Protein Total Protein 6.1 L Albumin 2.4 L Lipase 8 Procalcitonin Influenza Type A (PCR) NEGATIVE Influenza Type B (PCR) NEGATIVE RSV RNA Qual (PCR) NEGATIVE SARS-CoV-2 RNA (RT-PCR) NEGATIVE 09/01/23 05:13 WBC 37.4 H* RBC 2.97 L Hgb 8.2 L Hct 26.2 L MCV 88.2 MCH 27.6 MCHC 31.3 RDW 16.6 H Plt Count 363 MPV 8.1 L Immature Gran % (Auto) 1.0 H Neut % (Auto) 97.2 H Lymph % (Auto) 0.8 L Humphre[place] % (Auto) 0.6 L Eos % (Auto) 0.1 Baso % (Auto) 0.3 Lymph # (Auto) 0.3 L [place] # (Auto) 0.2 Eos # (Auto) 0.0 Baso # (Auto) 0.1 Abs Immat Gran (auto) 0.38 H Absolute Neuts (auto) 36.3 H Absolute Nucleated RBC 0.000 Nucleated RBC % (auto) 0.0 Smear Tech's Comments VERIFIED Sodium 135 Potassium 3.3 Chloride 105 Carbon Dioxide 19 L Anion Gap 14 BUN 20 H Creatinine 1.28 Estim Creat Clear Calc 52.0 Estimated GFR 56 Random Glucose 77 Lactic Acid Lactic Acid F/U @ 2Hr 2.0 Calcium 7.8 L D Magnesium 0.8 L* Total Bilirubin AST ALT Alkaline Phosphatase Troponin I High Sens C-Reactive Protein 15.12 H Total Protein Albumin Lipase Procalcitonin 12.31 Influenza Type A (PCR) Influenza Type B (PCR) RSV RNA Qual (PCR) SARS-CoV-2 RNA (RT-PCR) ECG Interpretation: Serial EKGs reviewed. In the initial EKG, sinus tachycardia with right bundle-branch block pattern. Some premature atrial complexes. Rate of 133/Min. Follow-up EKGs also similar. In 1 of the EKGs, rate is in the 170s and difficult to see the underlying rhythm but my suspicion is it is still underlying sinus tachycardia. There is also some artifact which makes it difficult to see the true rhythm but high likelihood this is just sinus tachycardia. Imaging Radiologist's impression: Impressions Chest X-Ray 08/31/23 21:10 IMPRESSION: Multifocal airspace opacities for which multifocal pneumonia is suspected. Abdomen/Pelvis CT 08/31/23 23:35 IMPRESSION: 1. Findings are worrisome for worsening infectious/inflammatory processes in the bilateral gluteal regions extending into the perineum, inner thighs, scrotal regions, presacral space, right levator ani and mesorectal fat with increased multifocal pockets of air suspicious for developing abscesses. There is new irregularity of the sacrum suspicious for osteomyelitis. 2. New trace bilateral pleural effusions and increased small pericardial effusion. 3. Other incidental findings as described above. Assessment and Plan (1) Sinus tachycardia: Status: Acute (2) Right bundle branch block: Status: Acute (3) Sepsis: Status: Acute Plan High sensitivity troponin within normal range. As described above, EKG/telemetry essentially shows sinus tachycardia with right bundle-branch block and I do not see any convincing evidence of supraventricular tachycardia. His lab values suggest underlying infection/sepsis. Sinus tachycardia is related to the infection. Does not need any specific management just for that. If any bacteremia, then would also need an echocardiogram to look for endocarditis. Discussed with Dr. Deleon. Procedures Date of Service Date of Service: 09/01/23
--- NOTE | 2023-09-01 11:44 | PC.NURSE ---
second bag of 2g magnesium hung per mar. pt temp slightly low 96.6, warm blankets applied
--- NOTE | 2023-09-01 11:45 | PC.NURSE ---
late entry - cooling blanket removed at 0900, when the RN assumed care of patient.
--- NOTE | 2023-09-01 13:11 | PC.NURSE ---
pt open mouth breather while sleeping. spo2 has been about 90% on 2L via NC. switched to Oxymask also at 2L for better oxygenation. Spo2 increased to 99%
--- NOTE | 2023-09-01 13:45 | MHC.CM.PN ---
IMM signed by / HCP Anum at bedside, pt. not able to sign. Pt lives with and has home care services from [facility], but he only had one more week of services, other than that, there is no other assistance in the home. For DME, he has a lift chair and walker. PCP is Dr. Landin. DC plan is uncertain at this time. CM will follow and assist with DC planning.
--- NOTE | 2023-09-01 14:01 | PC.NURSE ---
morning PO meds held - pt has been sleeping all morning and libby he is aroused he is very lethargic.
--- NOTE | 2023-09-01 14:02 | P.PNIM_ITS ---
Subjective Subjective Date of Service: 09/01/23 Interval History: Febrile to 103.2@02:37 Concern for ?SVT overnight -> got adenosine 6 mg then 12 mg then metoprolol 5 mg IV; has been in sinus tachycardia with rate in 110s-140s since. Per Cardiology not SVT. Altered, unable to obtain ROS. BP low to 78/54, given hydrocortisone Mg low at 0.8 Review of Systems Review of Systems: Yes Unobtainable due to mental status Physical Exam 2 Vital Signs: Vital Signs: Last Vital Signs Temp 96.4 F L 09/01/23 11:38 Pulse 109 H 09/01/23 11:38 Resp 20 09/01/23 11:38 BP 111/66 09/01/23 11:38 Pulse Ox 91 L 09/01/23 11:38 O2 Del Method Nasal Cannula 09/01/23 11:38 O2 Flow Rate 3 09/01/23 11:38 BMI result Body Mass Index 18.9 Gen: ill-appearing HEENT: sclera anicteric, moist mucus membranes Neck: supple Lungs: diminished Heart: regular, tachycardic, no murmurs Abd: soft, non-tender, non-distended Ext: no edema Skin: multiple purulent ulcers on gluteus Neuro: somnolent, unable to assess orientation Psych: impaired insight Objective Data Active Medications Acetaminophen (Acetaminophen 325 Mg Tablet) 650 mg PO Q6H PRN PRN Reason: Pain, Mild (Pain Scale 1-3) Last Admin: 09/01/23 01:46 Dose: 650 mg Documented By: CHIRAG Enoxaparin Sodium (Enoxaparin Sodium 40 Mg/0.4 Ml Syringe) 40 mg SUBCUT Q24H [facility] Last Admin: 08/31/23 23:14 Dose: 40 mg Documented By: CHIRAG Fluticasone/Umeclidinium/Vilanterol (Fluticasone/Umeclidinium/Vilanterol 200/62.5/25 Blst.W.Dev) 1 puff INHALE RDAILY [facility] Last Admin: 09/01/23 10:54 Dose: Not Given Documented By: JORDYN Non-Admin Reason: See Note Folic Acid (Folic Acid 1 Mg Tablet) 1 mg PO BEDTIME [facility] Hydrocortisone Sodium Succinate (Hydrocortisone Sod Succ/Pf 100 Mg Vial) 100 mg IVPUSH Q8H [facility] Last Admin: 09/01/23 10:08 Dose: 100 mg Documented By: PANFILO Piperacillin Sod/Tazobactam (Sod 4.5 gm/ Sodium Chloride) 100 mls @ 200 mls/hr IV Q6H [facility] Last Infusion: 09/01/23 10:08 Dose: Infused Documented By: PANFILO Vancomycin HCl 1,250 mg/ (Sodium Chloride) 250 mls @ 166.667 mls/hr IV Q24H [facility] Melatonin (Melatonin 3 Mg Tablet) 6 mg PO BEDTIME PRN PRN Reason: Insomnia Morphine Sulfate (Morphine Sulfate 2 Mg/Ml Cartridge) 2 mg IVPUSH Q2H PRN; Protocol PRN Reason: severe pain Multivitamins/Vitamin C (Multivitamin Tablet) 1 tab PO DAILY [facility] Last Admin: 09/01/23 14:00 Dose: Not Given Documented By: PANFILO Non-Admin Reason: See Note Omeprazole (Omeprazole 40 Mg Capsule.Dr) 40 mg PO DAILY@0630 [facility] Ondansetron HCl (Ondansetron Hcl 4 Mg/2 Ml Vial) 4 mg IVPUSH Q8H PRN PRN Reason: Nausea and Vomiting Pharmacy Consult (Consult Rx Vancomycin Dosing) 1 each MISCELLANE DAILY PRN PRN Reason: Consult order Sertraline HCl (Sertraline Hcl 100 Mg Tablet) 100 mg PO DAILY [facility] Last Admin: 09/01/23 14:00 Dose: Not Given Documented By: PANFILO Non-Admin Reason: See Note Sodium Chloride (0.9 % Sodium Chloride Flush 3 Ml Syringe) 3 ml IVFLUSH QSHIFT [facility] Last Admin: 09/01/23 09:22 Dose: Not Given Documented By: PANFILO Non-Admin Reason: IV Running Tamsulosin HCl (Tamsulosin Hcl 0.4 Mg Capsule) 0.4 mg PO DAILY [facility] Last Admin: 09/01/23 14:00 Dose: Not Given Documented By: PANFILO Non-Admin Reason: See Note Labs 09/01/23 05:13 09/01/23 05:13 Labs: Laboratory Results - last 24 hr 08/31/23 08/31/23 09/01/23 20:29 21:32 02:13 MCV 85.3 MCH 27.3 MCHC 32.0 RDW 16.2 H Plt Count 418 H D MPV 8.2 L Immature Gran % (Auto) 0.7 H Neut % (Auto) 86.5 H Lymph % (Auto) 7.6 L [place] % (Auto) 4.8 Eos % (Auto) 0.0 Baso % (Auto) 0.4 Lymph # (Auto) 0.6 L [place] # (Auto) 0.4 Eos # (Auto) 0.0 Baso # (Auto) 0.0 Abs Immat Gran (auto) 0.06 H Absolute Neuts (auto) 7.2 Absolute Nucleated RBC 0.000 Nucleated RBC % (auto) 0.0 Smear Tech's Comments Anion Gap 15 Estim Creat Clear Calc 48.3 Estimated GFR 51 Random Glucose 109 Lactic Acid 1.1 3.2 H* Lactic Acid F/U @ 2Hr Calcium 8.7 Magnesium Total Bilirubin 0.4 AST 13 ALT 11 Alkaline Phosphatase 65 Troponin I High Sens 13.1 C-Reactive Protein Total Protein 6.1 L Albumin 2.4 L Lipase 8 Procalcitonin Influenza Type A (PCR) NEGATIVE Influenza Type B (PCR) NEGATIVE RSV RNA Qual (PCR) NEGATIVE SARS-CoV-2 RNA (RT-PCR) NEGATIVE 09/01/23 05:13 MCV 88.2 MCH 27.6 MCHC 31.3 RDW 16.6 H Plt Count 363 MPV 8.1 L Immature Gran % (Auto) 1.0 H Neut % (Auto) 97.2 H Lymph % (Auto) 0.8 L [place] % (Auto) 0.6 L Eos % (Auto) 0.1 Baso % (Auto) 0.3 Lymph # (Auto) 0.3 L [place] # (Auto) 0.2 Eos # (Auto) 0.0 Baso # (Auto) 0.1 Abs Immat Gran (auto) 0.38 H Absolute Neuts (auto) 36.3 H Absolute Nucleated RBC 0.000 Nucleated RBC % (auto) 0.0 Smear Tech's Comments VERIFIED Anion Gap 14 Estim Creat Clear Calc 52.0 Estimated GFR 56 Random Glucose 77 Lactic Acid Lactic Acid F/U @ 2Hr 2.0 Calcium 7.8 L D Magnesium 0.8 L* Total Bilirubin AST ALT Alkaline Phosphatase Troponin I High Sens C-Reactive Protein 15.12 H Total Protein Albumin Lipase Procalcitonin 12.31 Influenza Type A (PCR) Influenza Type B (PCR) RSV RNA Qual (PCR) SARS-CoV-2 RNA (RT-PCR) Microbiology Microbiology Results: Microbiology 09/01/23 09:37 Gram Stain - Final Buttock Assessment and Plan (1) Sepsis: Status: Acute Plan d2 67yo M with hidradenitis suppurativa on prednisone and anakinra and secukinumab, CKD3, BPH, COPD, AUD in remission, mood disorder, BPH, GERD noncompliance with antibiotics due to side effect of diarrhea presents with progressive cough, became lethargic and developed fever found to be septic from purulent cellulitis/abscesses of buttocks with likely sacral osteomyelitis and multifocal PNA purulent cellulitis/abscesses of buttocks and sacral osteomyelitis - wound culture, vanco + pip-sina 08/30-. Surgery consult for drainage of abscesses. ID consult. AHRF due to multifocal PNA - vanco + pip-sina 08/30-. Follow BCx, trend PCT, check urine antigens for Legionella + pneumococcus secondary adrenal insufficiency - will give stress-dose hydrocortisone 100 mg q8h; wean as tolerated back to home dose of prednisone 10 mg daily hidradenitis suppurativa - continue anakinra [pt's brought in from home]; steroids as above septic encephalopathy - treat infection as above hypoMg - replete IV x 4g and then recheck sinus tachycardia - not SVT per Cardiology, treat underlying sepsis COPD - continue Trelegy, prn nebs AUD - in remission BPH - tamsulosin GERD - PPI mood disorder - sertraline VTE ppx - LMWH dispo - TBD In my clinical judgment, the patient requires continued inpatient hospitalization for the following reasons: IV ABX, specialty consultation Quality Stroke Does the patient have a stroke diagnosis?: No VTE Prior VTE?: No VTE Risk Level:: Medical - moderate - high VTE Device Contraindication: Treatment Not Indicated VTE Drug Contraindication: N/A - Med Ordered
[2023-09-01] MEDS: Morphine Sulfate 2 MG/ML CARTRIDGE IVPUSH ×3 (14:45→21:45)
[2023-09-01 16:03] LABS: Anion Gap 13 (12-20); Blood Urea Nitrogen 22 mg/dL (9-16); Calcium 7.5 mg/dL (8.4-10.2); Carbon Dioxide 22 mmol/L (22-29); Chloride 105 mmol/L (96-108); Creatinine Clr Calc Pharmacy 44.4; Estimated Glomerular Filt Rate 47; Glucose Random 81 mg/dL (60-115); Magnesium 1.7 mg/dL (1.6-2.6); Potassium 3.4 mmol/L (3.3-5.1); Sodium 137 mmol/L (135-145)
[2023-09-01] MEDS: Lactated Ringers 1,000 ML 125 ML IVCONT ×2 (16:09→19:59)
--- NOTE | 2023-09-01 16:23 | W.PM.IDCN ---
History of Present Illness Data of Consult Service Date: 09/01/23 Requesting physician: Adolfo Deleon Primary Care Provider: Todd Landin MD HPI Reason for consult: OM sacrum ,sepsis He presents with somnolence and shortness of breath. He has temperature 102 and HR 98. He has been admitted with buttock abscesses and seen Dr Holland for management/debridement. He has not taken po antibiotics by report he was discharged on. He has S3/S4 erosion reported c/w OM. Review of Systems Review of Systems: Yes all other systems are reviewed and are negative PMFSH Past Medical History Medical History Normocytic anemia Alcohol dependence Anemia Hidradenitis suppurativa Hidradenitis Family History Family history: reviewed and not pertinent Social History Social History Household Members: Spouse Housing: House Do you presently have visiting nurse or other home services: Yes ([facility]) Alcohol intake: former Comment: pt refuses alarm Patient Tobacco Use Status: Tobacco use Unknown Tobacco use type: Cigarette Cigarette Packs Per Day: 0.5 Years Smoked: 50 Second Hand Smoke Exposure: Yes Advance Directives: Yes Advance Directives on File: Yes Advance Directives Date on File: 10/03/20 service: No Current occupational status: retired Meds Allergies Allergy/AdvReac Type Severity Reaction Status Date / Time hydrochlorothiazide Allergy Unknown lip swells Verified 08/31/23 20:24 Active Medications: Current Medications Acetaminophen (Acetaminophen 325 Mg Tablet) 650 mg PO Q6H PRN PRN Reason: Pain, Mild (Pain Scale 1-3) Last Admin: 09/01/23 01:46 Dose: 650 mg Enoxaparin Sodium (Enoxaparin Sodium 40 Mg/0.4 Ml Syringe) 40 mg SUBCUT Q24H [facility] Last Admin: 08/31/23 23:14 Dose: 40 mg Fluticasone/Umeclidinium/Vilanterol (Fluticasone/Umeclidinium/Vilanterol 200/62.5/25 Blst.W.Dev) 1 puff INHALE RDAILY [facility] Last Admin: 09/01/23 10:54 Dose: Not Given Folic Acid (Folic Acid 1 Mg Tablet) 1 mg PO BEDTIME [facility] Hydrocortisone Sodium Succinate (Hydrocortisone Sod Succ/Pf 100 Mg Vial) 100 mg IVPUSH Q8H [facility] Last Admin: 09/01/23 10:08 Dose: 100 mg Piperacillin Sod/Tazobactam (Sod 4.5 gm/ Sodium Chloride) 100 mls @ 200 mls/hr IV Q6H [facility] Last Admin: 09/01/23 14:45 Dose: 200 mls/hr Vancomycin HCl 1,250 mg/ (Sodium Chloride) 250 mls @ 166.667 mls/hr IV Q24H [facility] Lactated Ringer's (Lr) 1,000 mls @ 125 mls/hr IVCONT .Q8H [facility] Last Admin: 09/01/23 16:09 Dose: 125 mls/hr Melatonin (Melatonin 3 Mg Tablet) 6 mg PO BEDTIME PRN PRN Reason: Insomnia Morphine Sulfate (Morphine Sulfate 2 Mg/Ml Cartridge) 2 mg IVPUSH Q2H PRN; Protocol PRN Reason: severe pain Last Admin: 09/01/23 14:45 Dose: 2 mg Multivitamins/Vitamin C (Multivitamin Tablet) 1 tab PO DAILY [facility] Last Admin: 09/01/23 14:00 Dose: Not Given Pt Own (Anakinra [ Kineret] 100 Mg/0.67 Ml Syringe) 100 mg SUBCUT DAILY [facility] Omeprazole (Omeprazole 40 Mg Capsule.Dr) 40 mg PO DAILY@0630 [facility] Ondansetron HCl (Ondansetron Hcl 4 Mg/2 Ml Vial) 4 mg IVPUSH Q8H PRN PRN Reason: Nausea and Vomiting Pharmacy Consult (Consult Rx Vancomycin Dosing) 1 each MISCELLANE DAILY PRN PRN Reason: Consult order Sertraline HCl (Sertraline Hcl 100 Mg Tablet) 100 mg PO DAILY [facility] Last Admin: 09/01/23 14:00 Dose: Not Given Sodium Chloride (0.9 % Sodium Chloride Flush 3 Ml Syringe) 3 ml IVFLUSH QSHIFT [facility] Last Admin: 09/01/23 09:22 Dose: Not Given Tamsulosin HCl (Tamsulosin Hcl 0.4 Mg Capsule) 0.4 mg PO DAILY [facility] Last Admin: 09/01/23 14:00 Dose: Not Given Home Medications ?Medication ?Instructions ?Recorded ?Confirmed ?Last Taken ?Type Probiotic 1 cap PO DAILY 07/20/23 08/31/23 Unknown History fluticasone fur. 200 mcg-umeclid 1 ea inhalation DAILY 07/20/23 08/31/23 Unknown History 62.5 mcg-vilant 25 mcg inhalat.powder (Trelegy Ellipta) folic acid 1 mg tablet 1 mg PO BEDTIME 07/20/23 08/31/23 Unknown History gabapentin 300 mg capsule 300 mg PO TID 07/20/23 08/31/23 Unknown History melatonin 3 mg tablet 3 mg PO BEDTIME 07/20/23 08/31/23 Unknown History omeprazole 40 mg capsule,delayed 40 mg PO DAILY@0630 07/20/23 08/31/23 Unknown History release oxycodone 10 mg tablet 10 mg PO Q8H PRN moderate pain 07/20/23 08/31/23 Unknown History sertraline 100 mg tablet 100 mg PO DAILY 07/20/23 08/31/23 Unknown History tamsulosin 0.4 mg capsule 0.4 mg PO DAILY 07/20/23 08/31/23 Unknown History tramadol 50 mg tablet 50 mg PO Q4H PRN pain 07/20/23 08/31/23 Unknown History trazodone 50 mg tablet 50 mg PO BEDTIME 07/20/23 08/31/23 Unknown History vitamin B complex 1 tab PO DAILY 07/20/23 08/31/23 Unknown History zinc sulfate 220 mg capsule 220 mg PO BEDTIME 07/20/23 08/31/23 Unknown History anakinra 100 mg/0.67 mL 100 mg subcut DAILY 08/31/23 08/31/23 Unknown History subcutaneous syringe (Kineret) prednisone 5 mg tablet 10 mg PO DAILY 08/31/23 08/31/23 Unknown History secukinumab 150 mg/mL subcutaneous 300 mg subcut Q2W 08/31/23 08/31/23 Unknown History syringe (Cosentyx 300 mg/2 Syringes () Physical Exam Vital Signs: Vital Signs: Last Vital Signs Temp 96.4 F L 09/01/23 11:38 Pulse 109 H 09/01/23 11:38 Resp 20 09/01/23 11:38 BP 111/66 09/01/23 11:38 Pulse Ox 91 L 09/01/23 11:38 O2 Del Method Nasal Cannula 09/01/23 11:38 O2 Flow Rate 3 09/01/23 11:38 BMI result Body Mass Index 18.9 Const: General: cooperative HEENT: Head: Yes normal to inspection Face and sinus: Yes normal facial exam Mouth: Normal oral and palatal mucosa present Teeth and gingiva: dentition normal Eyes: General: appearance normal, both eyes and all related structures Pupils: Equal, round and reactive pupils present Resp: Other: Carlo Wallace appearance Effort & Inspection: decreased respiratory effort Cardio: Rate: regular rate Rhythm: regular rhythm GI: Palpation (GI): Soft to palpation and nontender : General: Yes no CVA tenderness Back/Spine/Pelvis: Back: no CVA tenderness Skin: General skin exam: no rashes or lesions noted Neuro: General: moves all extremities Cranial nerves: Yes Equal, round and reactive pupils present Extrem: General: Yes normal to inspection Psych: Other: encephalopathic,not responding readily Results Labs 09/01/23 05:13 09/01/23 15:11 Labs: Short CBC 08/31/23 09/01/23 Range/Units 20:29 05:13 WBC 8.3 37.4 H* (4.8-10.8) X10*3/uL Hgb 8.0 L 8.2 L (14.0-18.0) g/dl Hct 25.0 L 26.2 L (42.0-52.0) % Plt Count 418 H D 363 (160-400) X10*3/uL BMP 08/31/23 09/01/23 09/01/23 20:29 05:13 15:11 Sodium 132 L 135 137 Potassium 3.8 3.3 3.4 Chloride 95 L 105 105 Carbon Dioxide 26 19 L 22 BUN 23 H 20 H 22 H Creatinine 1.38 1.28 1.50 H Calcium 8.7 7.8 L D 7.5 L Liver Function 08/31/23 Range/Units 20:29 Total Bilirubin 0.4 (0.0-1.0) mg/dL AST 13 (5-37) U/L ALT 11 (0-40) U/L Alkaline Phosphatase 65 (39-117) U/L Albumin 2.4 L (3.5-5.0) g/dL Microbiology Microbiology Results: Microbiology 09/01/23 09:37 Buttock Gram Stain - Final Assessment and Plan (1) Sepsis: Status: Acute (2) Hidradenitis suppurativa: Status: Acute (3) Pneumonia: Status: Acute Plan He has OM sacrum and sepsis,aspiration possibly caused by this leading to pneumonia Gram negatives and gram positives possible. Less likely atypicals Would continue Vancomycin and Zosyn cover possible sepsis with multiple organisms possible. Could consider add atypical pneumonia coverage with azithromycin if not responding. Prognosis guarded.
[2023-09-01] MEDS: ondansetron HCL 4 MG/2 ML VIAL IVPUSH (17:33)
[2023-09-01] MEDS: 0.9 % Sodium Chloride Flush 3 ML SYRINGE IVFLUSH ×2 (17:38→20:02)
--- NOTE | 2023-09-01 20:46 | HE.PHANOTE ---
DC Noticed increase of SCr to 1.5, changed dose to 1000MG Q24H, from 1250MG Q24H to be given 08/31 @2200. Trough timing remains the same 09/01 @1999.
[2023-09-01] MEDS: Enoxaparin Sodium 40 MG/0.4 ML SYRINGE SUBCUT (21:45)
[2023-09-01] MEDS: vancomycin HCL 1,000 MG in 0.9 % Sodium Chloride 250 ML 270 MG IV (21:45)
[2023-09-02] VITALS (23 sets, daily range): BP systolic 82–126; BP diastolic 48–76; PULSE 74–103; RESP 12–20; TEMP 35.9–36.7; O2SAT 92–99; BMI 18.8
[2023-09-02] MEDS: Hydrocortisone Sod Succ/PF 100 MG VIAL IVPUSH ×3 (02:32→17:07)
[2023-09-02] MEDS: Piperacillin Sodium/Tazobactam 4.5 GM in 0.9 % Sodium Chloride 100 ML IV ×4 (02:32→20:40)
[2023-09-02] MEDS: Lactated Ringers 1,000 ML 125 ML IVCONT (05:52)
[2023-09-02 08:13] LABS: Hematocrit 24.2 % (42.0-52.0); Hemoglobin 7.4 g/dl (14.0-18.0); Mean Corpuscular HGB Conc 30.6 g/dl (31.0-36.0); Mean Corpuscular Hemoglobin 27.1 pg (27.0-33.0); Mean Corpuscular Volume 88.6 fL (80.0-98.0); Mean Platelet Volume 8.3 fL (9.4-12.4); Platelet Count 356 X10*3/uL (160-400); Red Blood Count 2.73 X10*6/uL (4.60-5.80); Red Cell Distribution Width 16.6 % (11.0-16.0); White Blood Count 22.6 X10*3/uL (4.8-10.8)
[2023-09-02] MEDS: 0.9 % Sodium Chloride Flush 3 ML SYRINGE IVFLUSH ×2 (08:36→15:43)
[2023-09-02] MEDS: Albumin Human 25 % 100 ML IV ×3 (08:36→20:40)
[2023-09-02 08:43] LABS: Anion Gap 18 (12-20); Blood Urea Nitrogen 24 mg/dL (9-16); Calcium 8.4 mg/dL (8.4-10.2); Carbon Dioxide 18 mmol/L (22-29); Chloride 108 mmol/L (96-108); Creatinine Clr Calc Pharmacy 38.3; Estimated Glomerular Filt Rate 39; Glucose Random 79 mg/dL (60-115); Magnesium 1.7 mg/dL (1.6-2.6); Potassium 3.6 mmol/L (3.3-5.1); Sodium 140 mmol/L (135-145)
[2023-09-02 08:54] LABS: Iron 9 mcg/dL (45-160); Percent Iron Saturation 10 % (15-50); Total Iron Binding Capacity 90 mcg/dL (228-428); Unsaturated Iron Binding 81 ug/dL
[2023-09-02] MEDS: 0.9 % Sodium Chloride 1,000 ML 999 ML IVCONT (09:17)
[2023-09-02 09:20] LABS: Ferritin 1186 ng/mL (20-250)
[2023-09-02 09:56] LABS: Lactate Dehydrogenase 108 U/L (118-273)
--- NOTE | 2023-09-02 10:09 | P.PNCC_ITS ---
Subjective Subjective Date of Service: 09/02/23 Critical Care Time (minutes): 90 Physical Exam 2 Vital Signs: Vital Signs: Last Vital Signs Temp 96.9 F 09/02/23 07:57 Pulse 98 09/02/23 07:57 Resp 20 09/02/23 07:57 BP 82/48 L 09/02/23 09:50 Pulse Ox 99 09/02/23 07:57 O2 Del Method Oxymask 09/02/23 07:57 O2 Flow Rate 2 09/02/23 07:57 BMI result Body Mass Index 18.8 Const: Other: lethargic, responds to tactile stimulus; toxic appearing HEENT: Head: Yes normal to inspection, Yes normocephalic and Yes atraumatic Eyes: General: appearance normal, both eyes and all related structures Neck: Neck: Yes normal visual inspection, Yes full ROM and Yes supple Chest: Chest palpation & inspection: normal inspection of the chest Resp: Other: no appreciable rales, rhonchi, wheezing Cardio: Rate: regular rate Rhythm: regular rhythm GI: Inspection: No Abdominal wall edema and No distended Palpation (GI): S oft to palpation, not firm, nontender, no guarding and not rigid Skin: Other: extensive erythema, edema, purulence throughout sacrum and buttock Neuro: Other: unable to participate in neurological exam General: tone normal Extrem: General: Yes normal to inspection, Yes capillary refill normal and Yes no clubbing, cyanosis or edema Psych: Other: unable to assess Objective Data Labs 09/02/23 07:52 09/02/23 07:52 Labs: Laboratory Results - last 24 hr 09/01/23 09/02/23 09/02/23 15:11 07:52 08:35 WBC 22.6 H RBC 2.73 L Hgb 7.4 L Hct 24.2 L MCV 88.6 MCH 27.1 MCHC 30.6 L RDW 16.6 H Plt Count 356 MPV 8.3 L Absolute Nucleated RBC 0.000 Nucleated RBC % (auto) 0.0 Sodium 137 140 Potassium 3.4 3.6 Chloride 105 108 Carbon Dioxide 22 18 L Anion Gap 13 18 BUN 22 H 24 H Creatinine 1.50 H 1.73 H Estim Creat Clear Calc 44.4 38.3 Estimated GFR 47 39 Random Glucose 81 79 Calcium 7.5 L 8.4 D Magnesium 1.7 1.7 Iron 9 L TIBC 90 L % Saturation 10 L Unsat Iron Binding 81 Ferritin 1186 H Lactate Dehydrogenase 108 L Blood Type A Positive Antibody Screen NEGATIVE Crossmatch See Detail Microbiology Microbiology Results: Microbiology 09/01/23 09:37 Buttock Gram Stain - Final 09/01/23 09:37 Buttock Routine Culture - Preliminary Pseudomonas species 08/31/23 20:29 Blood - Venous Blood Culture - Preliminary No growth after 24 hours. 08/31/23 20:31 Blood - Venous Blood Culture - Preliminary No growth after 24 hours. Progress Note: A&P Assessment and plan (1) Septic shock: Status: Acute (2) Hidradenitis suppurativa: Status: Acute (3) Cellulitis and abscess of buttock: Status: Acute (4) Osteomyelitis: Status: Acute Plan Patient is a 67 Y M with chronic renal insufficiency, COPD, alcohol use, and recent sacral abscess, not compliant with antibiotics, initially presenting to emergency department on 08/30 with fevers; work-up suggestive?of worsening sacral cellulitis/abscess/possible osteomyelitis, as well as possible?multifocal?pneumonia; on 09/01, ICU consulted for persistent hypotension, c/f septic shock N: encephalopathy, likely toxic-metabolic CV: hypotension, c/f septic shock; norepinephrine gtt R: possible multifocal?pneumonia; supplemental oxygen as needed GI: no acute issues; NPO : chronic renal?insufficiency; anion-gap metabolic acidosis, likely d/t sepsis H: leukocytosis, reactive ID: c/f septic shock, likely source soft tissue/bone, as well as possible pneumonia; empiric vancomycin, zosyn E: to monitor glucose MSK: extensive sacral cellulitis/abscess/possible osteomyelitis; upon discussion w/ general surgery, additional debridement unlikely to change overall course; debridement would be most definitely extensive, and ongoing wound care would be aggressive, w/ concern that overall prognosis would remain poor P: no acute issues Quality Stroke Does the patient have a stroke diagnosis?: No VTE Prior VTE?: No VTE Risk Level:: Medical - moderate - high VTE Device Contraindication: Treatment Not Indicated VTE Drug Contraindication: N/A - Med Ordered
--- NOTE | 2023-09-02 10:15 | HO.WOUND ---
Wound Consult: Initial Attempted to see patient for sacral assessment however arrival to bedside Dr. Yao from the ICU was meeting with family and discussing escalating level of care. Will defer assessment to future time. Of note there is a pending general surgery consult for sacral area, last recent admission the sacral area was treated by general surgery post debridement.
--- NOTE | 2023-09-02 10:18 | HO.PM.IMPN ---
Subjective Subjective Date of Service: 09/02/23 Interval History: hypotension lethargic Review of Systems awake ,weak ,unable to give much info. Physical Exam Vital Signs: Vital Signs: Last Vital Signs Temp 96.9 F 09/02/23 07:57 Pulse 98 09/02/23 07:57 Resp 20 09/02/23 07:57 BP 82/48 L 09/02/23 09:50 Pulse Ox 99 09/02/23 07:57 O2 Del Method Oxymask 09/02/23 07:57 O2 Flow Rate 2 09/02/23 07:57 BMI result Body Mass Index 18.8 Appearance: awake,weak. cvs: rrr, [id number] . res: lungs dimisnshed ,respiratory efforts poor. abd: soft,nd,nt, bs present. ext pulses present , no cyanosis . neuro: awake ,limiteddue to participation. Objective Data Active Medications Acetaminophen (Acetaminophen 325 Mg Tablet) 650 mg PO Q6H PRN PRN Reason: Pain, Mild (Pain Scale 1-3) Last Admin: 09/01/23 01:46 Dose: 650 mg Documented By: CHIRAG Albuterol/Ipratropium (Albuterol/Iprat 2.5/0.5mg 3 Ml Ampul.Neb) 3 ml INHALE RQ4H WHILE AWAKE [facility] Enoxaparin Sodium (Enoxaparin Sodium 40 Mg/0.4 Ml Syringe) 40 mg SUBCUT Q24H [facility] Last Admin: 09/01/23 21:45 Dose: 40 mg Documented By: BERTO Fluticasone/Umeclidinium/Vilanterol (Fluticasone/Umeclidinium/Vilanterol 200/62.5/25 Blst.W.Dev) 1 puff INHALE RDAILY [facility] Last Admin: 09/02/23 08:35 Dose: Not Given Documented By: TIANA Non-Admin Reason: Patient Condition Contraindication Folic Acid (Folic Acid 1 Mg Tablet) 1 mg PO BEDTIME [facility] Last Admin: 09/01/23 20:27 Dose: Not Given Documented By: BERTO Non-Admin Reason: NPO Hydrocortisone Sodium Succinate (Hydrocortisone Sod Succ/Pf 100 Mg Vial) 100 mg IVPUSH Q8H [facility] Last Admin: 09/02/23 08:36 Dose: 100 mg Documented By: DAINA Piperacillin Sod/Tazobactam (Sod 4.5 gm/ Sodium Chloride) 100 mls @ 200 mls/hr IV Q6H [facility] Last Infusion: 09/02/23 09:14 Dose: Infused Documented By: DAINA Lactated Ringer's (Lr) 1,000 mls @ 125 mls/hr IVCONT .Q8H [facility] Last Admin: 09/02/23 05:52 Dose: 125 mls/hr Documented By: EMELY Vancomycin HCl 1,000 mg/ (Sodium Chloride) 270 mls @ 270 mls/hr IV Q24H [facility] Last Infusion: 09/01/23 22:50 Dose: Infused Documented By: BERTO Sodium Chloride (Ns) 1,000 mls @ 999 mls/hr IVCONT .Q1H1M [facility] Stop: 09/02/23 10:30 Last Admin: 09/02/23 09:17 Dose: 999 mls/hr Documented By: DAINA Albumin Human (Kedbumin 25 %) 100 mls @ 100 mls/hr IV Q6H [facility] Stop: 09/03/23 03:14 Last Infusion: 09/02/23 09:39 Dose: Infused Documented By: DAINA Norepinephrine Bitartrate (Levophed) 8 mg in 250 mls @ 0 mls/hr IV .Q0M [facility]; Protocol Melatonin (Melatonin 3 Mg Tablet) 6 mg PO BEDTIME PRN PRN Reason: Insomnia Multivitamins/Vitamin C (Multivitamin Tablet) 1 tab PO DAILY [facility] Last Admin: 09/02/23 08:17 Dose: Not Given Documented By: DAINA Non-Admin Reason: NPO Pt Own (Anakinra [ Kineret] 100 Mg/0.67 Ml Syringe) 100 mg SUBCUT DAILY [facility] Last Admin: 09/02/23 08:52 Dose: Not Given Documented By: DAINA Non-Naomi Reason: Med Not Available Omeprazole (Omeprazole 40 Mg Capsule.Dr) 40 mg PO DAILY@0630 [facility] Last Admin: 09/02/23 05:43 Dose: Not Given Documented By: EMELY Non-Admin Reason: NPO Ondansetron HCl (Ondansetron Hcl 4 Mg/2 Ml Vial) 4 mg IVPUSH Q8H PRN PRN Reason: Nausea and Vomiting Last Admin: 09/01/23 17:33 Dose: 4 mg Documented By: BERTO Pantoprazole Sodium (Pantoprazole Sodium 40 Mg/10 Ml Vial) 40 mg IVPUSH DAILY@0630 [facility] Pharmacy Consult (Consult Rx Vancomycin Dosing) 1 each MISCELLANE DAILY PRN PRN Reason: Consult order Sertraline HCl (Sertraline Hcl 100 Mg Tablet) 100 mg PO DAILY [facility] Last Admin: 09/02/23 08:27 Dose: Not Given Documented By: DAINA Non-Admin Reason: NPO Sodium Chloride (0.9 % Sodium Chloride Flush 3 Ml Syringe) 3 ml IVFLUSH QSHIFT [facility] Last Admin: 09/02/23 08:36 Dose: 3 ml Documented By: DAINA Tamsulosin HCl (Tamsulosin Hcl 0.4 Mg Capsule) 0.4 mg PO DAILY [facility] Last Admin: 09/02/23 08:27 Dose: Not Given Documented By: DAINA Non-Admin Reason: NPO Labs 09/02/23 07:52 09/02/23 10:38 Labs: Laboratory Results - last 24 hr 09/01/23 09/02/23 09/02/23 15:11 07:52 08:35 MCV 88.6 MCH 27.1 MCHC 30.6 L RDW 16.6 H Plt Count 356 MPV 8.3 L Absolute Nucleated RBC 0.000 Nucleated RBC % (auto) 0.0 Anion Gap 13 18 Estim Creat Clear Calc 44.4 38.3 Estimated GFR 47 39 Random Glucose 81 79 Calcium 7.5 L 8.4 D Magnesium 1.7 1.7 Iron 9 L TIBC 90 L % Saturation 10 L Unsat Iron Binding 81 Ferritin 1186 H Lactate Dehydrogenase 108 L Blood Type A Positive Antibody Screen NEGATIVE Crossmatch See Detail Microbiology Microbiology Results: Microbiology 09/01/23 09:37 Gram Stain - Final Buttock Routine Culture - Preliminary Pseudomonas species 08/31/23 20:29 Blood Culture - Preliminary Blood - Venous No growth after 24 hours. 08/31/23 20:31 Blood Culture - Preliminary Blood - Venous No growth after 24 hours. Assessment and Plan (1) Cellulitis and abscess of buttock: Status: Acute (2) Hypotension: Status: Acute Plan D3: 67yo M with hidradenitis suppurativa on prednisone and anakinra and secukinumab, CKD3, BPH, COPD, AUD in remission, mood disorder, BPH, GERD noncompliance with antibiotics due to side effect of diarrhea presents with progressive cough, became lethargic and developed fever found to be septic from purulent cellulitis/abscesses of buttocks with likely sacral osteomyelitis and multifocal PNA purulent cellulitis/abscesses of buttocks and sacral osteomyelitis - wound culture, vanco + pip-sina 08/30. id eval noted-continue vanco/zosyn Surgery followup Hypotension multifactorial ( poor oral inatke ,low albumin,anemia ,infection): added 1 liter ns bolus ,albunmin ,prbc , continue iv antibiotics. AHRF due to multifocal PNA - vanco + pip-sina 08/30-. Follow BCx, trend PCT, check urine antigens for Legionella + pneumococcus secondary adrenal insufficiency - will give stress-dose hydrocortisone 100 mg q8h; wean as tolerated back to home dose of prednisone 10 mg daily hidradenitis suppurativa - continue anakinra [pt's brought in from home]; steroids as above septic encephalopathy - treat infection as above hypoMg - repleted and resolved. sinus tachycardia - not SVT per Cardiology(09/01/23), treat underlying sepsis COPD - continue Trelegy, prn nebs AUD - in remission BPH - tamsulosin GERD - PPI mood disorder - sertraline VTE ppx consider holding LMWH due to anemia ( in ICu) dispo - TBD In my clinical judgment, the patient requires continued inpatient hospitalization for the following reasons and going to icu -due to multiple active medical issues including hypotension,sacral cellulitis ,encephalopathy ,anemia - IV ABX, prbc ,close electrolytic monitering . d/w Icu in detail. Quality Stroke Does the patient have a stroke diagnosis?: No VTE Prior VTE?: No VTE Risk Level:: Medical - moderate - high VTE Device Contraindication: Treatment Not Indicated VTE Drug Contraindication: N/A - Med Ordered
--- NOTE | 2023-09-02 10:32 | PC.NURSE ---
Addendum entered by Shirley Esquivel RN 09/02/23 19:57: MD discussed by telephone that patient did not meet sepsis criteria. Original Note: Received report from Overnight RN Radha, Vital signs 85/51 manually, Heart rate 98, and temperature rectally 96.9F. see assessment document. MD notified, placed new orders for medications and critical care consultation. patient transferred to ICU around 10:15.
[2023-09-02] MEDS: Norepinephrine Bitartrate/D5W 8 MG/250 ML PLAST..BAG 6.23 MG IV (10:39)
[2023-09-02 10:48] LABS: VBG Base Excess -6.5 mmol/L; VBG HCO3 19 mmol/L (22-26); VBG pCO2 40 mmHg; VBG pH 7.28 (7.32-7.43); VBG pO2 54 mmHg
--- NOTE | 2023-09-02 10:49 | W.MHC.ACPN ---
Advanced Care Planning Note Advanced Care Planning Note Discussed with: patient and family member(s) Time spent (in minutes): 30 Narrative: Mr. Medina is lethargic, but responsive to verbal stimulus. He is oriented to person, place, though unable to participate in more meaningful conversation. Mr. Medina's was at bedside. We discussed Mr. Bartletts critical acute illness, as well as chronic illness. We discussed that our general surgery colleagues are not hopeful that additional surgical interventions would improve Mr. Medina's overall prognosis. Mrs. Medina is in agreement with this. Mrs. Medina expressed that they have a daughter who lives in [place] and who will try to arrive to the hospital tomorrow afternoon. At the same time. Mrs. Medina expressed she hopes Mr. Medina can be comfortable. We discussed the following plan: we will continue with supportive care with vasopressors, transfusions, and basic laboratories; we will avoid further surgical intervention, intubation, and CPR; we will give Mr. Medina medications for his symptoms; tomorrow, when Mr. Bartletts daughter arrives, we will discuss if comfort-focused care would be appropriate at this time; if Mr. Medina becomes more unstable and/or appears to be in more discomfort, we will discuss if comfort-focused care would be appropriate sooner rather than later Problems Discussed (1) Septic shock: (2) Hidradenitis suppurativa: (3) Cellulitis and abscess of buttock: (4) Osteomyelitis:
[2023-09-02 10:53] LABS: Venous Blood Gas Refer to POC result
[2023-09-02 10:55] LABS: Mean Corpuscular HGB Conc 31.4 g/dl (31.0-36.0); Mean Corpuscular Hemoglobin 27.6 pg (27.0-33.0); Mean Platelet Volume 8.5 fL (9.4-12.4); Platelet Count 333 X10*3/uL (160-400); Red Cell Distribution Width 16.5 % (11.0-16.0); White Blood Count 20.5 X10*3/uL (4.8-10.8)
[2023-09-02] MEDS: Calcium Gluconate/NaCl,Iso-Osm 1 GM/50 ML PLAST..BAG IV (11:04)
[2023-09-02] MEDS: Acetaminophen 1,000 MG/100 ML PIGGYBACK 400 MG IV ×2 (11:05→17:06)
[2023-09-02 11:07] LABS: Hemoglobin 6.9 g/dl (14.0-18.0)
[2023-09-02 11:09] LABS: Alanine Aminotransferase 12 U/L (0-40); Albumin Level 2.2 g/dL (3.5-5.0); Alkaline Phosphatase 45 U/L (39-117); Anion Gap 19 (12-20); Aspartate Amino Transferase 11 U/L (5-37); Bilirubin Total 0.3 mg/dL (0.0-1.0); Blood Urea Nitrogen 25 mg/dL (9-16); Calcium 8.4 mg/dL (8.4-10.2); Carbon Dioxide 17 mmol/L (22-29); Chloride 109 mmol/L (96-108); Creatinine Clr Calc Pharmacy 36.4; Estimated Glomerular Filt Rate 37; Glucose Random 77 mg/dL (60-115); Magnesium 1.7 mg/dL (1.6-2.6); Phosphorus 5.6 mg/dL (2.7-4.5); Potassium 3.8 mmol/L (3.3-5.1); Sodium 141 mmol/L (135-145); Total Protein 5.1 g/dL (6.5-8.0)
[2023-09-02 11:32] LABS: SLIDE REVIEW MANUAL DIFF
[2023-09-02 11:35] LABS: Band Neutrophils Percent 11 % (3-5); Lymphocytes Absolute Manual 0.4 X10*3/uL (1.2-4.9); Lymphocytes Percent Manual 2 % (20-40); Neutrophils Absolute Manual 20.1 X10*3/uL (2.0-8.3); Neutrophils Percent Manual 87 % (45-73)
[2023-09-02 11:37] LABS: Acanthocytes 1+ (0-2) /OIF; Burr Cells 2+ (3-5) /OIF; Dohle Bodies PRESENT; Platelet Estimate NORMAL (NORMAL); Platelet Morphology Comment NORMAL; RBC Morphology NOTED; Schistocytes 1+ (0-2) /OIF; Spherocytes 1+ (0-2) /OIF
[2023-09-02 11:46] LABS: Folate 12.4 ng/mL (> or = 4.0); Vitamin B12 905 pg/mL (200-900)
--- NOTE | 2023-09-02 12:33 | MHC.CLN ---
RE; CONSULT PT IS MODERATELY MALNOURISHED PT WITH MILDLY DEPLETED SUBCUTANEOUS FAT AND MUSCLE MASS, BMI 18.8 WITH 9% SIGNIFICANT WT LOSS X 2 MONTHS AND CHRONIC POOR PO INTAKE PER PT'S WITH INCREASED NUTRITION NEEDS R/T ACUTE ILLNESS. PT WITH INCREASED NUTRITION RISK R/T PRESSURE INJURY PT IS CURRENTLY NPO WHEN DIET TO ADVANCE; RECOMMEND ADDING NUTRITION SUPPLEMENTS TO INCREASE KCALS AND PROMOTE WOUND HEALING PLEASE CONSULT RD IF ALTERNATIVE NUTRITION NEEDED MONITOR FOR DIET ADVANCEMENT SEE ALSO FULL CLINICAL NUTRITION ASSESSMENT
[2023-09-02] MEDS: Furosemide 20 MG/2 ML VIAL 10 MG IVPUSH (13:57)
--- NOTE | 2023-09-02 14:05 | MHC.CM.PN ---
Pt transferred from medical floor to ICU for pressor support r/t sepsis and likely OM. held lengthly discussion w/pt's spouse about goals of care. Pt's dtr will arrive at [facility] on 09/02 to assist w/decision making. CM to follow for finalization and/or changes in original d/c plan.
[2023-09-02] MEDS: HYDROmorphone HCl 0.5 MG/0.5 ML SYRINGE IV ×2 (15:42→21:09)
--- NOTE | 2023-09-02 21:03 | HE.PHANOTE ---
DC Muse trough on 09/01 @2010 = 20.0. Pt in stage 1 BREANA, pushed out dose to 09/02 1000 to give time to clear, another random level put in for 09/02 @0800 and dose changed to 750 Q24H starting at 1000, but to be adjusted based on SCr and trough from 09/02.
[2023-09-02] MEDS: Albuterol/Iprat 2.5/0.5MG 3 ML AMPUL.NEB INHALE (21:18)
[2023-09-03] VITALS (38 sets, daily range): BP systolic 96–136; BP diastolic 57–95; PULSE 56–93; RESP 11–20; TEMP 35.7–36.6; O2SAT 87–99
[2023-09-03] MEDS: HYDROmorphone HCl 0.5 MG/0.5 ML SYRINGE IV ×9 (00:25→22:54)
[2023-09-03] MEDS: Piperacillin Sodium/Tazobactam 4.5 GM in 0.9 % Sodium Chloride 100 ML IV ×4 (02:20→20:58)
[2023-09-03] MEDS: Albumin Human 25 % 100 ML IV ×4 (02:20→09:16)
[2023-09-03] MEDS: Hydrocortisone Sod Succ/PF 100 MG VIAL IVPUSH ×3 (02:20→18:35)
[2023-09-03 04:59] LABS: Basophils Percent Auto 0.1 % (0-2); Hematocrit 24.1 % (42.0-52.0); Hemoglobin 7.6 g/dl (14.0-18.0); Imm Gran Abs Auto 0.19 X10*3/uL (0.00-0.03); Imm Gran Pct Auto 1.2 % (0.0-0.4); Lymphocytes Absolute Auto 0.8 X10*3/uL (1.2-4.9); Lymphocytes Percent Auto 5.2 % (20-40); MANUAL DIFF FLAG SCAN; Mean Corpuscular HGB Conc 31.5 g/dl (31.0-36.0); Mean Corpuscular Hemoglobin 27.8 pg (27.0-33.0); Mean Corpuscular Volume 88.3 fL (80.0-98.0); Mean Platelet Volume 8.5 fL (9.4-12.4); Monocytes Absolute Auto 0.5 X10*3/uL (0.1-1.2); Monocytes Percent Auto 3.4 % (2-11); Neutrophils Absolute Auto 14.1 x10*3/uL (2.0-8.3); Neutrophils Percent Auto 90.1 % (45-73); Platelet Count 255 X10*3/uL (160-400); Red Blood Count 2.73 X10*6/uL (4.60-5.80); Red Cell Distribution Width 16.5 % (11.0-16.0); SCAN SMEAR FLAG 1; White Blood Count 15.7 X10*3/uL (4.8-10.8)
[2023-09-03 05:16] LABS: Alanine Aminotransferase 10 U/L (0-40); Albumin Level 2.9 g/dL (3.5-5.0); Alkaline Phosphatase 40 U/L (39-117); Anion Gap 18 (12-20); Aspartate Amino Transferase 8 U/L (5-37); Bilirubin Total 0.5 mg/dL (0.0-1.0); Blood Urea Nitrogen 33 mg/dL (9-16); Carbon Dioxide 19 mmol/L (22-29); Chloride 107 mmol/L (96-108); Creatinine Clr Calc Pharmacy 27.8; Estimated Glomerular Filt Rate 27; Glucose Random 146 mg/dL (60-115); Potassium 3.5 mmol/L (3.3-5.1); Sodium 140 mmol/L (135-145); Total Protein 5.6 g/dL (6.5-8.0)
[2023-09-03 05:22] LABS: SLIDE REVIEW VERIFIED
[2023-09-03] MEDS: Acetaminophen 1,000 MG/100 ML PIGGYBACK 400 MG IV (05:41)
[2023-09-03] MEDS: Pantoprazole Sodium 40 MG/10 ML VIAL IVPUSH (05:42)
--- NOTE | 2023-09-03 07:49 | P.CDIM_ITS ---
PROVIDER RESPONSE TEXT: To clarify, the appropriate diagnosis supported by the clinical indicators: Acute osteomyelitis QUERY TEXT: PHYSICIAN'S DOCUMENTATION REQUEST Date of Query: 09/02/2023 11:42 AM EDT Patient Name: JCARLOS PA Admit Date: 09/01/2023 Dear Frances Yao MD, A review of the medical record indicates additional documentation may be needed. Please review below and update the documentation accordingly. Clinical Indicators: Progress notes: Workup suggestive of worsening sacral cellulitis/abscess/possible osteomyelitis. Vancomycin, Zosyn Additional debridement unlikely ICU admit Based on the above, please clarify in the Progress Notes further specificity regarding the acuity of Osteomyelitis. Acute osteomyelitis Subacute osteomyelitis Chronic osteomyelitis Chronic multifocal osteomyelitis Other (explain) Clinically unable to determine (explain) Thank you, Connie Donnelly, CCS, CDIS Use of terms such as suspected, likely, concern for, or probable (associated with a specific diagnosi s that is being evaluated, monitored, or treated as if it exists) are acceptable and can be coded in the inpatient se tting, when documented at the time of discharge. Please use your independent medical judgment in providing your response. THIS QUERY IS PART OF THE PERMANENT MEDICAL RECORD
--- NOTE | 2023-09-03 07:50 | PM.CCPN ---
Subjective Subjective Date of Service: 09/03/23 Interval History: no significant overnight events; able to be weaned off vasopressors Critical Care Time (minutes): 60 Physical Exam Vital Signs: Vital Signs: Last Vital Signs Temp 96.3 F L 09/03/23 07:00 Pulse 64 09/03/23 07:00 Resp 15 09/03/23 07:00 BP 105/62 09/03/23 07:00 Pulse Ox 93 09/03/23 07:00 O2 Del Method Room Air 09/03/23 07:00 O2 Flow Rate 1 09/02/23 23:58 BMI result Body Mass Index 18.8 Const: Other: appears to have some discomfort related to sacral wounds; otherwise, no acute distress, fatigued, answers simple questions appropriately, though does not appear to engage in higher-level questions General: cooperative and no acute distress Orientation/consciousness: oriented to person and oriented to place HEENT: Head: Yes normal to inspection, Yes normocephalic and Yes atraumatic Eyes: General: appearance normal, both eyes and all related structures Neck: Neck: Yes normal visual inspection, Yes full ROM and Yes supple Chest: Chest palpation & inspection: normal inspection of the chest Resp: Other: appreciable rhonchi and rales; no appreciable wheezing Effort & Inspection: normal respiratory effort Cardio: Rate: regular rate Rhythm: regular rhythm GI: Inspection: Yes normal to inspection, No Abdominal wall edema and No distended Palpation (GI): Soft to palpation, not firm, nontender, no guarding and not rigid Skin: Other: deferred assessment of sacral wounds d/t discomfort; no other appreciable lesions Neuro: General: oriented to person, oriented to place, tone normal, moves all extremities and no focal motor deficits Extrem: General: Yes normal to inspection, Yes full ROM, Yes capillary refill normal and Yes no clubbing, cyanosis or edema Psych: Appearance: grossly normal Objective Data Labs 09/03/23 04:31 09/03/23 04:31 Labs: Laboratory Results - last 24 hr 09/02/23 09/02/23 09/02/23 07:52 08:35 08:38 WBC 22.6 H RBC 2.73 L Hgb 7.4 L Hct 24.2 L MCV 88.6 MCH 27.1 MCHC 30.6 L RDW 16.6 H Plt Count 356 MPV 8.3 L Immature Gran % (Auto) Neut % (Auto) Lymph % (Auto) Barber % (Auto) Eos % (Auto) Baso % (Auto) Lymph # (Auto) Barber # (Auto) Eos # (Auto) Baso # (Auto) Abs Immat Gran (auto) Absolute Neuts (auto) Absolute Nucleated RBC 0.000 Nucleated RBC % (auto) 0.0 Neutrophils % (Manual) Band Neutrophils % Lymphocytes % (Manual) Abs Neuts (Manual) Lymphocytes # (Manual) Dohle Bodies Platelet Estimate Plt Morphology Comment RBC Morphology Spherocytes [place] Cells Acanthocytes (Spur) Schistocytes Smear Tech's Comments VBG pH VBG pCO2 VBG pO2 VBG HCO3 VBG O2 Saturation VBG Base Excess Sodium 140 Potassium 3.6 Chloride 108 Carbon Dioxide 18 L Anion Gap 18 BUN 24 H Creatinine 1.73 H Estim Creat Clear Calc 38.3 Estimated GFR 39 Random Glucose 79 Calcium 8.4 D Phosphorus Magnesium 1.7 Iron 9 L TIBC 90 L % Saturation 10 L Unsat Iron Binding 81 Ferritin 1186 H Total Bilirubin AST ALT Alkaline Phosphatase Lactate Dehydrogenase 108 L Total Protein Albumin Vitamin B12 905 H Folate 12.4 Random Vancomycin Blood Type A Positive Antibody Screen NEGATIVE Crossmatch See Detail 09/02/23 09/02/23 09/02/23 10:38 10:40 20:11 WBC 20.5 H RBC 2.50 L Hgb 6.9 L* Hct 22.0 L MCV 88.0 MCH 27.6 MCHC 31.4 RDW 16.5 H Plt Count 333 MPV 8.5 L Immature Gran % (Auto) Cancelled Neut % (Auto) Cancelled Lymph % (Auto) Cancelled Barber % (Auto) Cancelled Eos % (Auto) Cancelled Baso % (Auto) Cancelled Lymph # (Auto) Cancelled Barber # (Auto) Cancelled Eos # (Auto) Cancelled Baso # (Auto) Cancelled Abs Immat Gran (auto) Cancelled Absolute Neuts (auto) Cancelled Absolute Nucleated RBC 0.000 Nucleated RBC % (auto) 0.0 Neutrophils % (Manual) 87 H Band Neutrophils % 11 H Lymphocytes % (Manual) 2 L Abs Neuts (Manual) 20.1 H Lymphocytes # (Manual) 0.4 L Dohle Bodies PRESENT Platelet Estimate NORMAL Plt Morphology Comment NORMAL RBC Morphology NOTED Spherocytes 1+ (0-2) [place] Cells 2+ (3-5) Acanthocytes (Spur) 1+ (0-2) Schistocytes 1+ (0-2) Smear Tech's Comments MANUAL DIFF VBG pH 7.28 L VBG pCO2 40 VBG pO2 54 VBG HCO3 19 L VBG O2 Saturation TNP VBG Base Excess -6.5 Sodium 141 Potassium 3.8 Chloride 109 H Carbon Dioxide 17 L Anion Gap 19 BUN 25 H Creatinine 1.82 H Estim Creat Clear Calc 36.4 Estimated GFR 37 Random Glucose 77 Calcium 8.4 Phosphorus 5.6 H Magnesium 1.7 Iron TIBC % Saturation Unsat Iron Binding Ferritin Total Bilirubin 0.3 AST 11 ALT 12 Alkaline Phosphatase 45 Lactate Dehydrogenase Total Protein 5.1 L Albumin 2.2 L Vitamin B12 Folate Random Vancomycin 20.0 Blood Type Antibody Screen Crossmatch 09/03/23 04:31 WBC 15.7 H RBC 2.73 L Hgb 7.6 L Hct 24.1 L MCV 88.3 MCH 27.8 MCHC 31.5 RDW 16.5 H Plt Count 255 MPV 8.5 L Immature Gran % (Auto) 1.2 H Neut % (Auto) 90.1 H Lymph % (Auto) 5.2 L Barber % (Auto) 3.4 Eos % (Auto) 0.0 Baso % (Auto) 0.1 Lymph # (Auto) 0.8 L Barber # (Auto) 0.5 Eos # (Auto) 0.0 Baso # (Auto) 0.0 Abs Immat Gran (auto) 0.19 H Absolute Neuts (auto) 14.1 H Absolute Nucleated RBC 0.000 Nucleated RBC % (auto) 0.0 Neutrophils % (Manual) Band Neutrophils % Lymphocytes % (Manual) Abs Neuts (Manual) Lymphocytes # (Manual) Dohle Bodies Platelet Estimate Plt Morphology Comment RBC Morphology Spherocytes [place] Cells Acanthocytes (Spur) Schistocytes Smear Tech's Comments VERIFIED VBG pH VBG pCO2 VBG pO2 VBG HCO3 VBG O2 Saturation VBG Base Excess Sodium 140 Potassium 3.5 Chloride 107 Carbon Dioxide 19 L Anion Gap 18 BUN 33 H Creatinine 2.38 H Estim Creat Clear Calc 27.8 Estimated GFR 27 Random Glucose 146 H Calcium 8.0 L Phosphorus Magnesium Iron TIBC % Saturation Unsat Iron Binding Ferritin Total Bilirubin 0.5 AST 8 ALT 10 Alkaline Phosphatase 40 Lactate Dehydrogenase Total Protein 5.6 L Albumin 2.9 L Vitamin B12 Folate Random Vancomycin Blood Type Antibody Screen Crossmatch Microbiology Microbiology Results: Microbiology 08/31/23 20:29 Blood - Venous Blood Culture - Preliminary No growth after 48 hours. 08/31/23 20:31 Blood - Venous Blood Culture - Preliminary No growth after 48 hours. 09/01/23 09:37 Buttock Gram Stain - Final 09/01/23 09:37 Buttock Routine Culture - Preliminary Pseudomonas species Progress Note: A&P Assessment and plan (1) Osteomyelitis: Status: Acute (2) Cellulitis and abscess of buttock: Status: Acute (3) Septic shock: Status: Acute (4) Hidradenitis suppurativa: Status: Acute Plan Patient is a 67 Y M with chronic renal insufficiency, COPD, alcohol use, and recent sacral abscess, not compliant with antibiotics, initially presenting to emergency department on 08/30 with fevers; work-up suggestive?of worsening sacral cellulitis/abscess/possible osteomyelitis, as well as possible?multifocal?pneumonia; on 09/01, ICU consulted for persistent hypotension, c/f septic shock N: encephalopathy, likely toxic-metabolic, improving CV: hypotension, c/f septic shock; norepinephrine gtt as needed R: possible multifocal?pneumonia; supplemental oxygen as needed GI: no acute issues; c/f aspiration in setting of encephalopathy, but decision to allow for diet as patient desires to PO : acute on chronic renal?insufficiency; anion-gap metabolic acidosis, likely d/t sepsis H: leukocytosis, reactive ID: c/f septic shock, likely source soft tissue/bone, as well as possible pneumonia; empiric vancomycin, zosyn E: to monitor glucose MSK: extensive sacral cellulitis/abscess/possible osteomyelitis; upon discussion w/ general surgery, additional debridement unlikely to change overall course; debridement would be most definitely extensive, and ongoing wound care would be aggressive, w/ concern that overall prognosis would remain poor P: no acute issues S: awaiting daughter to arrive from [facility], ongoing goals of care discussion Quality Stroke Does the patient have a stroke diagnosis?: No VTE Prior VTE?: No VTE Risk Level:: Medical - moderate - high VTE Device Contraindication: Treatment Not Indicated VTE Drug Contraindication: Treatment Not Tolerated
--- NOTE | 2023-09-03 07:52 | P.CDIM_ITS ---
PROVIDER RESPONSE TEXT: To clarify, the appropriate diagnosis supported by the clinical indicators: Malnutrition: Moderate QUERY TEXT: PHYSICIAN'S DOCUMENTATION REQUEST Date of Query: 09/03/2023 05:36 AM EDT Patient Name: JCARLOS PA Admit Date: 09/01/2023 Dear Frances Yao MD, A review of the medical record indicates additional documentation may be needed. Please review below and update the documentation accordingly. Clinical Indicators: Clinical nutrition notes patient moderately malnourished BMI 18.8 with 9% significant wt loss x 2 mon ths. Pt with increased nutrition risk R/T pressure injury, adding nutrition supplements when diet advances . If possible, please provide an associated diagnosis related to the abnormal BMI, such as: Malnutrition mild, moderate, severe Underweight Other (explain) Clinically unable to determine (explain) Thank you, Connie Donnelly, CCS, CDIS Use of terms such as suspected, likely, concern for, or probable (associated with a specific diagnosi s that is being evaluated, monitored, or treated as if it exists) are acceptable and can be coded in the inpatient se tting, when documented at the time of discharge. Please use your independent medical judgment in providing your response. THIS QUERY IS PART OF THE PERMANENT MEDICAL RECORD
--- NOTE | 2023-09-03 07:52 | P.CDIM_ITS ---
PROVIDER RESPONSE TEXT: To clarify, the appropriate diagnosis supported by the clinical indicators: Pressure Injury Stage 2 left toe QUERY TEXT: PHYSICIAN'S DOCUMENTATION REQUEST Date of Query: 09/02/2023 11:53 AM EDT Patient Name: JCARLOS PA Admit Date: 09/01/2023 Dear Frances Yao MD, A review of the medical record indicates additional documentation may be needed. Please review below and update the documentation accordingly. Clinical Indicators: Wound care assessment note dated 09/01/23 - Pressure injury left toe-2nd digit Stage 2 Beefy red slough Based on the above, could you please provide further information regarding the ulcer/wound/injury: Pressure Injury Stage 2 left toe Other Other (explain) Clinically unable to determine (explain) Thank you, Connie Donnelly, CCS, CDIS Use of terms such as suspected, likely, concern for, or probable (associated with a specific diagnosi s that is being evaluated, monitored, or treated as if it exists) are acceptable and can be coded in the inpatient se tting, when documented at the time of discharge. Please use your independent medical judgment in providing your response. THIS QUERY IS PART OF THE PERMANENT MEDICAL RECORD
[2023-09-03] MEDS: Albuterol/Iprat 2.5/0.5MG 3 ML AMPUL.NEB INHALE ×3 (08:01→20:41)
[2023-09-03] MEDS: Furosemide 20 MG/2 ML VIAL 10 MG IVPUSH (08:07)
[2023-09-03] MEDS: 0.9 % Sodium Chloride Flush 3 ML SYRINGE IVFLUSH ×3 (08:08→21:03)
[2023-09-03] MEDS: Sertraline HCL 100 MG TABLET PO (08:59)
[2023-09-03] MEDS: Tamsulosin HCL 0.4 MG CAPSULE PO (08:59)
[2023-09-03] MEDS: Calcium Gluconate/NaCl,Iso-Osm 1 GM/50 ML PLAST..BAG IV (09:17)
--- NOTE | 2023-09-03 09:32 | MHC.CLN ---
F/U PT IS MODERATELY MALNOURISHED SEE FULL CLINICAL NUTRITION ASSESSMENT DATED 09/02/23 DIET ADVANCED TO REGULAR RECOMMEND ADDING ENSURE TID TO PROMOTE WOUND HEALING SUPPLEMENTS PROVIDE 1050KCALS, 60G PROTEIN MONITOR PO INTAKE AND ENCOURAGE SUPPLEMENTS
--- NOTE | 2023-09-03 10:03 | MHC.CM.PN ---
Pt continues care in ICU: sepsis and osteomyelitis without surgical benefit. Pt's dtr to arrive this afternoon to discuss care options w/MD. Pt's spouse at bedside and requesting non invasive and more comfort focused care at this time. Pt is active with [facility] - to follow for assistance in D/C planning needs.
[2023-09-03 10:11] LABS: Vancomycin Random 19.1 mcg/mL (15-20)
--- NOTE | 2023-09-03 10:32 | HE.PHANOTE ---
RE: Carlyo Patient's renal function continues to decline. Dose reduced to 500mg Q24H with predicted AUC 520mg/L and predicted trough 18.2 mg/L. Next random trough to be drawn 09/03 @ 0900.
[2023-09-03] MEDS: vancomycin HCL 500 MG in 0.9 % Sodium Chloride 100 ML 110 MG IV (11:03)
[2023-09-03] MEDS: Magnesium Sulfate/D5W 1 GM/100 ML PIGGYBACK IV (11:03)
[2023-09-03] MEDS: Sodium Bicarbonate 8.4% 50 MEQ/50 ML VIAL IVPUSH (11:08)
--- NOTE | 2023-09-03 11:19 | PC.NURSE ---
Assumed care of patient 0700 Pt passed bedside swallow eval. When pt given meds crushed in apple sause, pt had coughing and wet voice. MD provided pt and family education at bedside regarding risks of aspiration and pneumonia. Pt has sinus bradycardia with BBB as low as HR 30. New orders for IV Calcium gluconate 1G, IV MAg 1G, Sodium Bicarb IVP. Pt temperature 96.3 F core temp. MD notified and Bare hugger applied with target temperature 98.6F / 38C
--- NOTE | 2023-09-03 13:20 | MHC.SLORD ---
Speech Language Pathology Order Status: UNDERCOLLAR BASTER spoke with Pt's at bedside. Pt was sleeping and she expressed that she did not want to wake him. She states that he has been complaining of food feeling stuck in his throat which is an indicator of esophageal dysmotility. RN also reports an aspiration event this afternoon. UNDERCOLLAR BASTER evaluation with held at this time pending further clarification re: treatment v comfort care.
--- NOTE | 2023-09-03 17:24 | W.MHC.ACPN ---
Advanced Care Planning Note Advanced Care Planning Note Discussed with: patient and family member(s) Time spent (in minutes): 30 Narrative: Mr. Medina appears more awake, alert, and answers questions appropriately. His , daughter, and [id number] were at bedside. We discussed his hospital course, and both his acute and chronic disease. He appeared to express understanding of this. We discussed next possible steps, which included medical management of his sepsis versus comfort-focused care. Mr. Medina appeared amendable to both plans, and not definitive in his answers and rationale. Given such, we discussed changing Mr. Carrington's code status back to full code, so that he and his family may think and discuss further. I iterated that since we are currently not comfort-focused care, we should maintain Mr. Medina NPO given aspiration that was witnessed earlier this morning. Problems Discussed (1) Osteomyelitis: (2) Cellulitis and abscess of buttock: (3) Septic shock: (4) Hidradenitis suppurativa:
--- NOTE | 2023-09-03 19:14 | HO.SKINPHOTO ---
Location: Sacrum Category: Stage: Unstageable
[2023-09-04] VITALS (24 sets, daily range): BP systolic 112–153; BP diastolic 76–97; PULSE 68–111; RESP 12–25; TEMP 36.5–36.9; O2SAT 77–100
--- NOTE | 2023-09-04 | ECG_ITS ---
Test Reason : sepsis Blood Pressure : / mmHG Vent. Rate : 107 BPM Atrial Rate : 107 BPM P-R Int : 152 ms QRS Dur : 144 ms QT Int : 356 ms P-R-T Axes : 065 008 012 degrees QTc Int : 475 ms Sinus tachycardia Right bundle branch block Abnormal ECG When compared to the previous EKG of sep 01 2023, rate is slower Referred By: Alexander Tapia Electronically Signed By:SETH YANEZ
--- NOTE | 2023-09-04 00:25 | W.MHC.ACPN ---
Advanced Care Planning Note Advanced Care Planning Note Discussed with: patient and family member(s) Time spent (in minutes): 30 Narrative: Mr. Medina was awake, alert, and agitated, but answering questions appropriately.? His Velma was at the bedside. They were unhappy with his NPO status. He was made a full code after a detailed conversation with Dr. Yao this morning. They asked to change his code status to comfort measures so that he could drink water. Medical management versus comfort-focused care was again discussed to include a detailed explanation of what comfort? focused care entailed. The pt stated that he still wanted treatment but he did not want CPR or intubation regardless. Both the pt and his expressed understanding and requested his code status be changed back to a DNR/DNI. The pt was provided with swabs to wet his mouth and agreed to wait for water until he could see speech therapy. Conversation was witnessed by Eugenia Colón RN. Problems Discussed (1) Osteomyelitis: (2) Cellulitis and abscess of buttock: (3) Septic shock: (4) Hidradenitis suppurativa:
[2023-09-04] MEDS: HYDROmorphone HCl 0.5 MG/0.5 ML SYRINGE IV ×6 (01:00→17:45)
[2023-09-04] MEDS: Hydrocortisone Sod Succ/PF 100 MG VIAL IVPUSH ×3 (02:39→19:09)
[2023-09-04] MEDS: Piperacillin Sodium/Tazobactam 4.5 GM in 0.9 % Sodium Chloride 100 ML IV ×3 (02:39→19:09)
[2023-09-04] MEDS: Pantoprazole Sodium 40 MG/10 ML VIAL IVPUSH (05:57)
[2023-09-04 06:12] LABS: Basophils Percent Auto 0.1 % (0-2); Hematocrit 23.7 % (42.0-52.0); Hemoglobin 7.6 g/dl (14.0-18.0); Imm Gran Abs Auto 0.26 X10*3/uL (0.00-0.03); Imm Gran Pct Auto 1.6 % (0.0-0.4); Lymphocytes Absolute Auto 0.7 X10*3/uL (1.2-4.9); Lymphocytes Percent Auto 4.1 % (20-40); MANUAL DIFF FLAG SCAN; Mean Corpuscular HGB Conc 32.1 g/dl (31.0-36.0); Mean Corpuscular Hemoglobin 27.5 pg (27.0-33.0); Mean Corpuscular Volume 85.9 fL (80.0-98.0); Mean Platelet Volume 9.5 fL (9.4-12.4); Monocytes Absolute Auto 0.4 X10*3/uL (0.1-1.2); Monocytes Percent Auto 2.7 % (2-11); Neutrophils Absolute Auto 14.9 x10*3/uL (2.0-8.3); Neutrophils Percent Auto 91.5 % (45-73); Platelet Count 192 X10*3/uL (160-400); Red Blood Count 2.76 X10*6/uL (4.60-5.80); Red Cell Distribution Width 16.8 % (11.0-16.0); SCAN SMEAR FLAG 1; White Blood Count 16.3 X10*3/uL (4.8-10.8)
[2023-09-04 06:26] LABS: Alanine Aminotransferase 10 U/L (0-40); Albumin Level 3.3 g/dL (3.5-5.0); Alkaline Phosphatase 42 U/L (39-117); Anion Gap 18 (12-20); Aspartate Amino Transferase 9 U/L (5-37); Bilirubin Total 0.4 mg/dL (0.0-1.0); Blood Urea Nitrogen 38 mg/dL (9-16); Calcium 8.7 mg/dL (8.4-10.2); Carbon Dioxide 20 mmol/L (22-29); Chloride 110 mmol/L (96-108); Creatinine Clr Calc Pharmacy 23.8; Estimated Glomerular Filt Rate 23; Glucose Random 131 mg/dL (60-115); Sodium 145 mmol/L (135-145); Total Protein 5.7 g/dL (6.5-8.0)
[2023-09-04 06:31] LABS: SLIDE REVIEW VERIFIED
[2023-09-04 06:49] LABS: Magnesium 1.8 mg/dL (1.6-2.6); Phosphorus 4.2 mg/dL (2.7-4.5)
[2023-09-04] MEDS: 0.9 % Sodium Chloride Flush 3 ML SYRINGE IVFLUSH ×2 (08:00→15:44)
[2023-09-04] MEDS: Potassium Chloride/H20 10 MEQ/100 ML PIGGYBACK 100 MEQ IV ×4 (08:00→11:36)
[2023-09-04] MEDS: Albuterol/Iprat 2.5/0.5MG 3 ML AMPUL.NEB INHALE ×4 (08:06→19:17)
[2023-09-04] MEDS: Fluticasone/Umeclidinium/Vilanterol 200/62.5/25 BLST.W.DEV 1 PUFF INHALE (08:07)
--- NOTE | 2023-09-04 08:35 | PM.CCPN ---
Subjective Subjective Date of Service: 09/04/23 Interval History: no significant overnight events; of note, patient and patient's engaged in another goals of care discussion, after which patient changed code status back to DNR/DNI Critical Care Time (minutes): 60 Physical Exam Vital Signs: Vital Signs: Last Vital Signs Temp 98.1 F 09/04/23 07:59 Pulse 83 09/04/23 08:07 Resp 14 09/04/23 08:07 BP 125/93 H 09/04/23 07:59 Pulse Ox 94 09/04/23 07:59 O2 Del Method Room Air 09/04/23 07:59 O2 Flow Rate 1 09/02/23 23:58 BMI result Body Mass Index 18.8 Const: General: cooperative, healthy appearing, comfortable, no acute distress, well developed, alert, awake and Physically active Orientation/consciousness: patient oriented x3 HEENT: Head: Yes normal to inspection, Yes normocephalic and Yes atraumatic Eyes: General: appearance normal, both eyes and all related structures Neck: Neck: Yes normal visual inspection, Yes full ROM, Yes no meningeal signs, Yes trachea midline and Yes supple Chest: Chest palpation & inspection: normal inspection of the chest Resp: Other: no appreciable rales, rhonchi, wheezing Cardio: Rate: regular rate Rhythm: regular rhythm GI: Inspection: Yes normal to inspection, No Abdominal wall edema and No distended Palpation (GI): Soft to palpation, not firm, nontender, no guarding and not rigid Skin: Other: appreciable ecchymoses bilateral upper extremities Neuro: General: patient oriented x3, tone normal, moves all extremities, no meningeal signs and no focal motor deficits Extrem: General: Yes normal to inspection, Yes full ROM, Yes capillary refill normal and Yes no clubbing, cyanosis or edema Psych: Appearance: grossly normal Objective Data Labs 09/04/23 05:34 09/04/23 05:34 Labs: Laboratory Results - last 24 hr 09/03/23 09/04/23 09:18 05:34 WBC 16.3 H RBC 2.76 L Hgb 7.6 L Hct 23.7 L MCV 85.9 MCH 27.5 MCHC 32.1 RDW 16.8 H Plt Count 192 MPV 9.5 Immature Gran % (Auto) 1.6 H Neut % (Auto) 91.5 H Lymph % (Auto) 4.1 L [place] % (Auto) 2.7 Eos % (Auto) 0.0 Baso % (Auto) 0.1 Lymph # (Auto) 0.7 L [place] # (Auto) 0.4 Eos # (Auto) 0.0 Baso # (Auto) 0.0 Abs Immat Gran (auto) 0.26 H Absolute Neuts (auto) 14.9 H Absolute Nucleated RBC 0.000 Nucleated RBC % (auto) 0.0 Smear Tech's Comments VERIFIED Sodium 145 Potassium 3.0 L Chloride 110 H Carbon Dioxide 20 L Anion Gap 18 BUN 38 H Creatinine 2.78 H Estim Creat Clear Calc 23.8 Estimated GFR 23 Random Glucose 131 H Calcium 8.7 D Phosphorus 4.2 Magnesium 1.8 Total Bilirubin 0.4 AST 9 ALT 10 Alkaline Phosphatase 42 Total Protein 5.7 L Albumin 3.3 L Random Vancomycin 19.1 Microbiology Microbiology Results: Microbiology 09/01/23 09:37 Buttock Gram Stain - Final 09/01/23 09:37 Buttock Routine Culture - Final Pseudomonas aeruginosa 08/31/23 20:29 Blood - Venous Blood Culture - Preliminary No growth after 48 hours. 08/31/23 20:31 Blood - Venous Blood Culture - Preliminary No growth after 48 hours. Progress Note: A&P Assessment and plan (1) Sepsis: Status: Acute (2) Cellulitis and abscess of buttock: Status: Acute (3) Osteomyelitis: Status: Acute (4) Hidradenitis suppurativa: Status: Acute Plan Patient is a 67 Y M with chronic renal insufficiency, COPD, alcohol use, and recent sacral abscess, not compliant with antibiotics, initially presenting to emergency department on 08/30 with fevers; work-up suggestive?of worsening sacral cellulitis/abscess/possible osteomyelitis, as well as possible?multifocal?pneumonia; on 09/01, ICU consulted for persistent hypotension, c/f septic shock, resolved N: encephalopathy, likely toxic-metabolic, resolved CV: hypotension, c/f septic shock, resolved R: possible multifocal?pneumonia; supplemental oxygen as needed GI: no acute issues; c/f aspiration in setting of encephalopathy; formal speech/swallow : acute on chronic renal?insufficiency; anion-gap metabolic acidosis, likely d/t sepsis; to continue to monitor electrolytes, renal indices H: leukocytosis, reactive; anemia, likely d/t frequent phlebotomy, s/p transfusions 09/01; to continue to hold chemical DVT prophylaxis ID: c/f septic shock, likely source soft tissue/bone, as well as possible pneumonia; empiric vancomycin, zosyn E: to monitor glucose MSK: extensive sacral cellulitis/abscess/possible osteomyelitis; upon discussion w/ general surgery on 09/01, additional debridement unlikely to change overall course; debridement would be most definitely extensive, and ongoing wound care would be aggressive, w/ concern that overall prognosis would remain poor P: no acute issues S: ongoing goals of care discussion Quality Stroke Does the patient have a stroke diagnosis?: No VTE Prior VTE?: No VTE Risk Level:: Medical - moderate - high VTE Device Contraindication: N/A - Device Ordered VTE Drug Contraindication: Treatment Not Tolerated
[2023-09-04 09:47] LABS: Vancomycin Random 23.3 mcg/mL (15-20)
--- NOTE | 2023-09-04 09:56 | HE.PHANOTE ---
RE: hussein Patient's trough on 09/03 came back at 23.3 mg/L, creatinine worsening. Held dose and pended another one for tomorrow @1100. Next level to be drawn 09/04 @0900
--- NOTE | 2023-09-04 10:38 | MHC.SL.SWA ---
Speech Pathologist Impression: Risk of Aspiration Due to: History of Pneumonia Dysphasia Diet Status: Liquid Consistency and Strategies for Safe Swallow: Liquid Intake Recommendation: Thin Liquid Intake Strategies: Unrestricted Solid Food Consistency: Dietary Recommendations: Regular Additional Modifications to Solid Foods: Patient reported that he normally elects to eat softer foods, secondary to history of feeling food gets stuck at the esophageal level (globus sensation). Recommend patient elect softer foods from the regular menu to accommodate. Recommend patient remain seated upright for at least 30 minutes after each meal (secondary to hx reflux). Alternate liquids and solids. Patient is safe to drink from straw. Recommend patient try taking pills with puree, followed by sips of liquid (secondary to report of pills getting stuck ). Patient will initially need supervision during meals due to generalized weakness. Oral Medication Intake: Whole with Puree Please contact the pharmacy regarding appropriate crushable or liquid drug formulations that are available whenever modified delivery is recommended. Compensatory Strategies and Precautions to be Taken for Safe Swallow: Sitting Upright (90 deg) Liquids from Cup Liquids from Straw Small Bites and Sips Alternate Liquids/Solids Supervision While Eating and Drinking for Safe Swallow: Total Supervision (1:1) Foods to Avoid: Tough, hard to chew solids and too large pieces of solid foods. Swallowing Recommended Treatments: Recommendation for Speech: NA:Typical Evaluation Comment: Patient presents with all aspects of oral motor and swallow function WF. Patient has a history of GERD, and reported episodes of a globus sensation, or food or pills feeling stuck, pointing to a level below the larynx. Patient did not report this sensation on today's evaluation, but has experienced this previously. Patient reports eating mostly softer foods due to having this difficulty. Recommend patient START on a REGULAR diet with THIN liquids (straws ok) with pills whole , with larger pills cut smaller, if possible, in puree (followed by sips of liquid). Encourage patient to pick softer, preferred foods from the regular menu. Recommend specific precautions for GERD to prevent aspiration of reflux. , RN notified of recommendations in person, RD by text. ROCK D[employer] SPR[employer]ER will f/u X1 to assure toleration of diet. Patient may benefit from follow up outpatient consultation with GI for Esophogeal issues. Frequency/Duration: Date Range for Service Req: Timeline to reassess: Ships Equipment Engineer Clinican/Clinical Fellow: No Supervisory Statement: I have reviewed and agree with the student/clinical fellow's documentation: N/A Speech Language Pathologist: Ciara Macias M.A., [facility] [facility]
[2023-09-04] MEDS: Oxymetazoline HCl 0.05 % Nasal 15 ML SPRAY 2 SPRAY NOSTRIL-B (11:37)
--- NOTE | 2023-09-04 12:25 | PC.NURSE ---
Addendum entered by Bonita Alejandre RN 09/04/23 14:32: At Approx 1330, this RN at bedside to perform bed bath. During care, pt. stating I cant breathe, sit me up! . Pt Propmtly sat up, HR up to 160s on tele, O2 sats >90%, pt. with rapid, shallow respirations, RR 30s, new crackles bilaterally. pt. c/o lightheadedness, SBP 130-140s, MAPs >65. MD and RT notified. RT at bedside to administer treatment- see MAR. IV Ativan and lasix administered per MD, see MAR. Pt. w 5 beat run VT, notified and called to bedside by this RN to evaluate pt. prior to transfer. Pt. RR 18-22, respirations even and unlabored. Pt. no longer c/o lightheadedness. Okay to transfer pt. to [facility] per Dr. Tapia Current VS HR 101, RR 21, BP 128/86, 02 96% on RA. Report given to Tricia ESCOBEDO, pt. transported to [facility] via bed by PROFESSOR OF BIBLICAL STUDIES at approx 1445. Original Note: Assumed care at 0700- Pt. with orders to transfer care to [facility]. Verbal order per Dr. Yao to keep ramos catheter in upon transfer of care d/t extensive skin integrity issues.
[2023-09-04] MEDS: Furosemide 20 MG/2 ML VIAL IVPUSH (13:53)
[2023-09-04] MEDS: Albumin Human 25 % 100 ML IV ×2 (13:57→15:20)
[2023-09-04] MEDS: LORazepam 2 MG/ML VIAL 0.5 MG IV ×2 (13:58→21:58)
[2023-09-04] MEDS: Potassium Chloride ER 20 MEQ TAB.ER.PRT PO (15:20)
[2023-09-04] MEDS: Magnesium Oxide 400 MG TABLET PO (15:20)
--- NOTE | 2023-09-04 15:34 | PM.EVENT ---
Event Note Date of Service: 09/04/23 Event Note: This patient is seen and examined -patient was downgraded from ICU today. Physical exam -seems similar to Icu note. Patient denies any new chest pain or shortness of breath or dizziness. Had 1-2 episode of diarrhea liquidy No abdominal pain But has body pains and feel anxious. His labs looks similar to yesterday Potassium is 3.0, magnesium is 1.8 Creatinine is out 2.7 leucocytosis improving has small short runx2 - of hr 150;s but not new symptoms assessment and plan coordinated in APCs note, Agree with the plan in addition: 67yo M with hidradenitis suppurativa on prednisone and anakinra and secukinumab, CKD3, BPH, COPD, AUD in remission, mood disorder, BPH, GERDnoncompliance with antibiotics due to side effect of diarrhea presents with progressive cough, became lethargic and developed fever: Patient was initially admitted because of septic secondary to purulent cellulitis of buttocks with likely sacral osteomyelitis and multifocal PNA, toxic metabolic encephalopathy, poor oral intake:Was on broad-spectrum antibiotics , subsequently patient become hypotensive: Patient went to ICU for hypotension requiring pressors: Subsequently patient blood pressure seems to to be improved , has BREANA on CKD, as well as anemia, thought to be likely d/t frequent phlebotomy, s/p transfusions 09/01; to continue to hold chemical DVT prophylaxis, currently on vanco Zosyn for pneumonia/sacral infection Vanco trough today: 23.3, vanco placed on hold, continue Zosyn, id follow-up. septic encephalopathy - improving hypoMg- repleted and resolved. sinus tachycardia - not SVT per Cardiology(09/01/23), today again repeated EKG seems short run of sinus tachycardia(it happens mostly with pain/anxiety/excersion) Patient did not had any new symptoms. Electrolyte repletions ordered, keep potassium around 4 and magnesium around 2 pain/anxiety control-on ativan/dilaudid d/w cardio-ekg and tele -looks run of sinus tachy cardiology follow up breana on ckd 3:multifactorial( sepsis ,poor oral intake) po intake improving COPD:continue Trelegy, prn nebs AUD- in remission BPH- tamsulosin GERD- PPI mood disorder- sertraline VTE ppx consider holding LMWH due to anemia ( in ICu) dispo - TBD Ongoing hospitalization need: Patient is to be monitored for multiple issues sepsis with sacral osteomyelitis question/extensive hidradenitis, also runs of tachycardia, electrolytic abnormalities: Patient need close tele monitoring, aggressive electrolyte replacement, CBC monitoring for anemia, ID follow-up. Above was discussed with the family in detail length at bedside. Time Spent With Patient Time: Total time managing care of this patient today ____ minutes.
[2023-09-04 16:56] LABS: Thyroid Stimulating Hormone 0.76 uIU/mL (0.32-4.0)
[2023-09-04] MEDS: guaiFENesin 200 MG/10 ML 10 ML LIQUID PO (17:45)
[2023-09-04] MEDS: Loratadine 10 MG TABLET PO (17:45)
[2023-09-04 19:03] LABS: CDiff Gene PCR NEGATIVE (Negative)
[2023-09-04 21:34] LABS: Strep Pneumo Ag urine Not Detected (Not Detected)
--- NOTE | 2023-09-04 21:38 | PM.EVENT ---
Event Note Date of Service: 09/04/23 Event Note: BREANA on CKD 3 due to tubular injury secondary to sepsis as well as high vancomycin levels. C/C4 ordered to R/O veronika infectious GN. Urine eosinophils pending. Monitor vancomycin levels very closely. No indication for renal replacement yet. C/W rest of current management for now. Boni Chase MD
[2023-09-05] VITALS (11 sets, daily range): BP systolic 124–143; BP diastolic 80–111; PULSE 104–165; RESP 20–24; TEMP 36.4–37.1; O2SAT 96–99
--- NOTE | 2023-09-05 | ECG_ITS ---
Test Reason : Tachycardia Blood Pressure : / mmHG Vent. Rate : 163 BPM Atrial Rate : 166 BPM P-R Int : 120 ms QRS Dur : 134 ms QT Int : 288 ms P-R-T Axes : 000 -26 054 degrees QTc Int : 474 ms Sinus tachycardia Right bundle branch block Abnormal ECG No significant changes when compared with the previous EKG of same day Referred By: Alexander Tapia Electronically Signed By:SETH YANEZ
--- NOTE | 2023-09-05 | ECG_ITS ---
Test Reason : Tachycardia Blood Pressure : / mmHG Vent. Rate : 095 BPM Atrial Rate : 095 BPM P-R Int : 158 ms QRS Dur : 148 ms QT Int : 362 ms P-R-T Axes : 059 007 024 degrees QTc Int : 454 ms Normal sinus rhythm Right bundle branch block Abnormal ECG No significant changes when compared with the previous EKG of 04 sep 2023 Referred By: Alexander Tapia Electronically Signed By:SETH YANEZ
--- NOTE | 2023-09-05 | ECG_ITS ---
Test Reason : Tachycardia Blood Pressure : / mmHG Vent. Rate : 139 BPM Atrial Rate : 139 BPM P-R Int : 136 ms QRS Dur : 132 ms QT Int : 312 ms P-R-T Axes : -06 -35 051 degrees QTc Int : 474 ms Sinus tachycardia with Fusion complexes Right bundle branch block Abnormal ECG When compared to the previous EKG of same day, rate is faster Referred By: Alexander Tapia Electronically Signed By:SETH YANEZ
[2023-09-05] MEDS: 0.9 % Sodium Chloride Flush 3 ML SYRINGE IVFLUSH ×3 (00:21→16:42)
[2023-09-05] MEDS: HYDROmorphone HCl 0.5 MG/0.5 ML SYRINGE IV (01:03)
[2023-09-05] MEDS: Hydrocortisone Sod Succ/PF 100 MG VIAL IVPUSH ×3 (01:04→18:20)
[2023-09-05] MEDS: LORazepam 2 MG/ML VIAL 0.5 MG IV ×2 (03:18→05:59)
[2023-09-05] MEDS: Piperacillin Sodium/Tazobactam 4.5 GM in 0.9 % Sodium Chloride 100 ML IV (04:03)
[2023-09-05] MEDS: Pantoprazole Sodium 40 MG/10 ML VIAL IVPUSH (05:30)
[2023-09-05] MEDS: Morphine Sulfate 2 MG/ML CARTRIDGE 0.5 MG IVPUSH (06:22)
[2023-09-05 07:42] LABS: Basophils Percent Auto 0.1 % (0-2); Hematocrit 23.2 % (42.0-52.0); Hemoglobin 7.6 g/dl (14.0-18.0); Imm Gran Pct Auto 1.7 % (0.0-0.4); Lymphocytes Absolute Auto 0.8 X10*3/uL (1.2-4.9); Lymphocytes Percent Auto 3.4 % (20-40); MANUAL DIFF FLAG SCAN; Mean Corpuscular HGB Conc 32.8 g/dl (31.0-36.0); Mean Corpuscular Hemoglobin 27.8 pg (27.0-33.0); Mean Platelet Volume 9.5 fL (9.4-12.4); Monocytes Absolute Auto 0.7 X10*3/uL (0.1-1.2); Monocytes Percent Auto 3.2 % (2-11); Neutrophils Percent Auto 91.6 % (45-73); Platelet Count 160 X10*3/uL (160-400); Red Blood Count 2.73 X10*6/uL (4.60-5.80); Red Cell Distribution Width 17.1 % (11.0-16.0); SCAN SMEAR FLAG 1; White Blood Count 22.9 X10*3/uL (4.8-10.8)
[2023-09-05] MEDS: Albumin Human 25 % 100 ML IV (07:46)
[2023-09-05] MEDS: Ipratropium Bromide 0.5 MG/2.5 ML SOLUTION INHALE ×2 (07:55)
[2023-09-05 08:02] LABS: Lactic Acid 1.8 mmol/L (0.5-2.0)
[2023-09-05 08:08] LABS: Vancomycin Random 20.2 mcg/mL (15-20)
--- NOTE | 2023-09-05 08:19 | PC.NURSE ---
Assume care of patient 11p-7a. Met patient lying in bed express moderate anxiety, c/o generalized pain 5/10 medicated with Diladid per mar, which he initially refuse but later accepted after talking with . Patient spoke with Velma on phone express he felt unsafe in hospital. Patient was reassure by this literary writer while Velma was on patient cellphone. Patient later fell asleep and work up around 0325 c/o severe anxiety HR 160s medicated with prn Ativan per mar and encourage deep breathing exercise, HR decrease to 80s 90s, reported patient condition to Nevin Coles, plan stat EKG with showed bundle brunch block and PVCs . Patient went to sleep then woke up again 0547 c/o high anxiety HR elevated 150s spoke with quality control scientist provider Nevin Coles who requested patient have another dose of PRN Ativan early, same administered. Hygienic need met, c/o pain to buttocks medicated with prn Morphine pain 3/10. HR continued to be elevated to 170s seen by Nevin Coles. Plan Stat EKG, CXR, Labs including Trops.
--- NOTE | 2023-09-05 08:23 | PM.EVENT ---
Event Note Date of Service: 09/05/23 Event Note: Patient is a 67 Y M with chronic renal insufficiency, COPD, alcohol use, and recent sacral abscess, not compliant with antibiotics, initially presenting to emergency department on 08/30 with fevers; work-up suggestive?of worsening sacral cellulitis/abscess/possible osteomyelitis, as well as possible?multifocal?pneumonia; on 09/01, ICU consulted for persistent hypotension, c/f septic shock, resolved; I met patient's and daughter at the bedside; I re-iterated my thoughts re: patient's hospital course and overall prognosis, describing a cycle of sepsis, encephalopathy, aspiration, with what seems like an inability to definitely treat the source of sepsis, being patient's sacral wounds; patient's and daughter asked me to come back in 1 hour; when I came back, patient's was speaking with Dr. Tapia; patient's describes new panic attacks and appreciable air hunger while she is at bedside; given this, she expressed the decision at this point in time is to transition to comfort-focused care; Time Spent With Patient Time: Total time managing care of this patient today ____ minutes.
[2023-09-05] MEDS: Acetaminophen 1,000 MG/100 ML PIGGYBACK 400 MG IV (08:24)
[2023-09-05 08:28] LABS: SLIDE REVIEW VERIFIED
[2023-09-05 08:31] LABS: VBG Base Excess -2.9 mmol/L; VBG HCO3 20 mmol/L (22-26); VBG pCO2 31 mmHg; VBG pH 7.42 (7.32-7.43); VBG pO2 144 mmHg
[2023-09-05] MEDS: Fluticasone/Umeclidinium/Vilanterol 200/62.5/25 BLST.W.DEV 1 PUFF INHALE (08:37)
[2023-09-05 08:39] LABS: Alanine Aminotransferase 9 U/L (0-40); Albumin Level 3.6 g/dL (3.5-5.0); Alkaline Phosphatase 40 U/L (39-117); Anion Gap 18 (12-20); Aspartate Amino Transferase 10 U/L (5-37); Bilirubin Total 0.4 mg/dL (0.0-1.0); Blood Urea Nitrogen 41 mg/dL (9-16); Carbon Dioxide 20 mmol/L (22-29); Chloride 109 mmol/L (96-108); Creatinine Clr Calc Pharmacy 21.6; Estimated Glomerular Filt Rate 20; Glucose Random 122 mg/dL (60-115); Sodium 144 mmol/L (135-145); Total Protein 6.1 g/dL (6.5-8.0)
[2023-09-05 08:44] LABS: Potassium 2.8 mmol/L (3.3-5.1)
[2023-09-05 08:44] LABS: Troponin-I High Sensitivity 620.2 ng/L (<3.5-35.0)
[2023-09-05] MEDS: LORazepam 2 MG/ML VIAL 0.25 MG IVPUSH (08:50)
[2023-09-05] MEDS: Doxycycline Hyclate 100 MG in 0.9 % Sodium Chloride 250 ML 166.67 MG IV (08:50)
[2023-09-05] MEDS: Sodium Chloride 0.45 % 1,000 ML 250 ML IVCONT (08:57)
[2023-09-05 09:07] LABS: Magnesium 1.7 mg/dL (1.6-2.6); Phosphorus 3.7 mg/dL (2.7-4.5)
[2023-09-05 09:08] LABS: Adenovirus F 40/41 Not Detected (Not Detect.); Astrovirus Not Detected (Not Detect.); Campylobacter Not Detected (Not Detect.); Cryptosporidium Not Detected (Not Detect.); Cyclospora cayetanensis Not Detected (Not Detect.); E. coli EAEC Not Detected (Not Detect.); E. coli EPEC Not Detected (Not Detect.); E. coli ETEC Not Detected (Not Detect.); E. coli STEC Not Detected (Not Detect.); Entamoeba histolytica Not Detected (Not Detect.); Giardia lamblia Not Detected (Not Detect.); Norovirus GI/GII Not Detected (Not Detect.); Plesiomonas shigelloides Not Detected (Not Detect.); Rotavirus A Not Detected (Not Detect.); Salmonella Not Detected (Not Detect.); Sapovirus Not Detected (Not Detect.); Shigella sp./EIEC Not Detected (Not Detect.); Vibrio Not Detected (Not Detect.); Vibrio Cholerae Not Detected (Not Detect.); Yersinia enterocolitica Not Detected (Not Detect.)
[2023-09-05] MEDS: Potassium Chloride/H20 10 MEQ/100 ML PIGGYBACK 100 MEQ IV ×2 (09:12→11:36)
[2023-09-05 10:18] LABS: Venous Blood Gas Refer to POC result
[2023-09-05] MEDS: Morphine Sulfate 2 MG/ML CARTRIDGE 1 MG IVPUSH ×3 (10:22→14:39)
--- NOTE | 2023-09-05 10:29 | MHC.CM.PN ---
Addendum entered by Ciara Hurst RN 09/05/23 14:36: PER ROOM SERVICE WAITER/WAITRESS PT DOES QUALIFY FOR GIP HOWEVER PT'S IS DECLINING AND DISMISSED LIAISON, CM ALSO MET W/PT'S TO CHECK AND IN SHE CONT'S TO DECLINE GIP HOSPICE. HOSPITALIST AWARE AND PT WILL REMAIN COMFORT MEASURES. Addendum entered by Ciara Hurst RN 09/05/23 12:18: PER [facility], IF PT NOT APPROP FOR GIP PT CAN HAVE HOSPICE ON RESPITE IN HOSPITAL FOR 5 DAYS, PER HOSPITALIST PT IS IMMINENT AND WILL NOT LIKELY LAST 5 DAYS. Original Note: emr reviewed, hospice consult placed for GIP as pt is imminent, cm contacted pt's Anum at10:20am number on file who had previously spoken w/hospitalist and plan for mine captain/hospice, Anum will expect call from [facility], cm will cont to follow dc needs.
--- NOTE | 2023-09-05 10:30 | PM.PNCARD ---
Subjective Subjective Date of Service: 09/05/23 Interval history: Asked to see the patient again by Dr. Tapia due to tachycardia. On review of telemetry, it seems just sinus tachycardia that could be related to underlying infection/sepsis. Patient himself really does not seem to be giving any information. He is very sleepy and not answering questions. and daughter at the bedside. I communicated with them. Review of Systems Review of Systems Unable to obtain as the patient is not able to give any information. Physical Exam Vital Signs: Last Vital Signs Temp 98.8 F 09/05/23 08:35 Pulse 104 H 09/05/23 08:40 Resp 22 H 09/05/23 08:40 BP 128/80 09/05/23 08:35 Pulse Ox 99 09/05/23 08:31 O2 Del Method Nasal Cannula 09/05/23 08:31 O2 Flow Rate 1.5 09/05/23 08:31 BMI result Body Mass Index 18.8 Const General: ill appearing, lethargic and patient obtunded Orientation/consciousness: No patient oriented x3, patient obtunded and lethargic HEENT Other: Unremarkable Head: Yes normal to inspection Neck Neck: Yes normal visual inspection Chest Chest palpation & inspection: normal inspection of the chest Resp Auscultation: rhonchi Cardio Palpation: normal PMI Heart sounds: S1 normal heart sound present, S2 normal heart sound present, no gallops, no murmurs and no rubs GI Palpation (GI): Soft to palpation Back/Spine/Pelvis Other: unremarkable Skin General skin exam: no rashes or lesions noted Neuro General: No patient oriented x3 and patient obtunded Extrem General: Yes normal to inspection Psych Mental Status: mental status grossly abnormal Objective Labs and Meds 09/05/23 07:07 09/05/23 07:07 Lab results: Laboratory Results - last 24 hr 09/01/23 09/02/23 09/04/23 17:28 08:35 05:34 WBC RBC Hgb Hct MCV MCH MCHC RDW Plt Count MPV Immature Gran % (Auto) Neut % (Auto) Lymph % (Auto) [place] % (Auto) Eos % (Auto) Baso % (Auto) Lymph # (Auto) [place] # (Auto) Eos # (Auto) Baso # (Auto) Abs Immat Gran (auto) Absolute Neuts (auto) Absolute Nucleated RBC Nucleated RBC % (auto) Smear Tech's Comments VBG pH VBG pCO2 VBG pO2 VBG HCO3 VBG O2 Saturation VBG Base Excess Sodium Potassium Chloride Carbon Dioxide Anion Gap BUN Creatinine Estim Creat Clear Calc Estimated GFR Random Glucose Lactic Acid Calcium Phosphorus Magnesium Total Bilirubin AST ALT Alkaline Phosphatase Troponin I High Sens Total Protein Albumin TSH 0.76 Stl C. cayetanensis PCR Stool Rotavirus A PCR Stl Adenov F 40/41 PCR Stool Astrovirus (PCR) Stool Campylobacter PCR Stool Cryptosporidium PCR Stl Sh Tox Pr E STEC PCR Stool E coli O157 PCR Stl Enterotoxigenic E PCR Stool EPEC (PCR) Stool EAEC (PCR) Stl E. histolytica PCR Stool Giardia Lamblia PCR Stl P. shigelloides PCR Stool Salmonella PCR Stool Sapovirus (PCR) Stl Shigella/EIEC PCR St Y.enterocolitica PCR Stool Vibrio (PCR) Stl Vibrio cholerae PCR Stl Norovirus GI/GII PCR Random Vancomycin C. difficile Tox B Gene Ur Strep pneumoniae Ag Not Detected Blood Type A Positive Antibody Screen NEGATIVE Crossmatch See Detail 09/04/23 09/05/23 09/05/23 17:25 07:06 07:07 WBC Cancelled 22.9 H RBC Cancelled 2.73 L Hgb Cancelled 7.6 L Hct Cancelled 23.2 L MCV Cancelled 85.0 MCH Cancelled 27.8 MCHC Cancelled 32.8 RDW Cancelled 17.1 H Plt Count Cancelled 160 MPV Cancelled 9.5 Immature Gran % (Auto) Cancelled 1.7 H Neut % (Auto) Cancelled 91.6 H Lymph % (Auto) Cancelled 3.4 L [place] % (Auto) Cancelled 3.2 Eos % (Auto) Cancelled 0.0 Baso % (Auto) Cancelled 0.1 Lymph # (Auto) Cancelled 0.8 L [place] # (Auto) Cancelled 0.7 Eos # (Auto) Cancelled 0.0 Baso # (Auto) Cancelled 0.0 Abs Immat Gran (auto) Cancelled 0.40 H Absolute Neuts (auto) Cancelled 21.0 H Absolute Nucleated RBC Cancelled 0.000 Nucleated RBC % (auto) Cancelled 0.0 Smear Tech's Comments VERIFIED VBG pH VBG pCO2 VBG pO2 VBG HCO3 VBG O2 Saturation VBG Base Excess Sodium Cancelled 144 Potassium Cancelled 2.8 L* Chloride Cancelled 109 H Carbon Dioxide Cancelled 20 L Anion Gap Cancelled 18 BUN Cancelled 41 H Creatinine Cancelled 3.07 H Estim Creat Clear Calc Cancelled 21.6 Estimated GFR Cancelled 20 Random Glucose Cancelled 122 H Lactic Acid 1.8 Calcium Cancelled 9.0 Phosphorus 3.7 Magnesium 1.7 Total Bilirubin Cancelled 0.4 AST Cancelled 10 ALT Cancelled 9 Alkaline Phosphatase Cancelled 40 Troponin I High Sens 620.2 H* D Total Protein Cancelled 6.1 L Albumin Cancelled 3.6 TSH Stl C. cayetanensis PCR Not Detected Stool Rotavirus A PCR Not Detected Stl Adenov F 40/41 PCR Not Detected Stool Astrovirus (PCR) Not Detected Stool Campylobacter PCR Not Detected Stool Cryptosporidium PCR Not Detected Stl Sh Tox Pr E STEC PCR Not Detected Stool E coli O157 PCR Not applicable Stl Enterotoxigenic E PCR Not Detected Stool EPEC (PCR) Not Detected Stool EAEC (PCR) Not Detected Stl E. histolytica PCR Not Detected Stool Giardia Lamblia PCR Not Detected Stl P. shigelloides PCR Not Detected Stool Salmonella PCR Not Detected Stool Sapovirus (PCR) Not Detected Stl Shigella/EIEC PCR Not Detected St Y.enterocolitica PCR Not Detected Stool Vibrio (PCR) Not Detected Stl Vibrio cholerae PCR Not Detected Stl Norovirus GI/GII PCR Not Detected Random Vancomycin 20.2 H C. difficile Tox B Gene NEGATIVE Ur Strep pneumoniae Ag Blood Type Antibody Screen Crossmatch 09/05/23 08:21 WBC RBC Hgb Hct MCV MCH MCHC RDW Plt Count MPV Immature Gran % (Auto) Neut % (Auto) Lymph % (Auto) [place] % (Auto) Eos % (Auto) Baso % (Auto) Lymph # (Auto) [place] # (Auto) Eos # (Auto) Baso # (Auto) Abs Immat Gran (auto) Absolute Neuts (auto) Absolute Nucleated RBC Nucleated RBC % (auto) Smear Tech's Comments VBG pH 7.42 VBG pCO2 31 VBG pO2 144 VBG HCO3 20 L VBG O2 Saturation TNP VBG Base Excess -2.9 Sodium Potassium Chloride Carbon Dioxide Anion Gap BUN Creatinine Estim Creat Clear Calc Estimated GFR Random Glucose Lactic Acid Calcium Phosphorus Magnesium Total Bilirubin AST ALT Alkaline Phosphatase Troponin I High Sens Total Protein Albumin TSH Stl C. cayetanensis PCR Stool Rotavirus A PCR Stl Adenov F 40/41 PCR Stool Astrovirus (PCR) Stool Campylobacter PCR Stool Cryptosporidium PCR Stl Sh Tox Pr E STEC PCR Stool E coli O157 PCR Stl Enterotoxigenic E PCR Stool EPEC (PCR) Stool EAEC (PCR) Stl E. histolytica PCR Stool Giardia Lamblia PCR Stl P. shigelloides PCR Stool Salmonella PCR Stool Sapovirus (PCR) Stl Shigella/EIEC PCR St Y.enterocolitica PCR Stool Vibrio (PCR) Stl Vibrio cholerae PCR Stl Norovirus GI/GII PCR Random Vancomycin C. difficile Tox B Gene Ur Strep pneumoniae Ag Blood Type Antibody Screen Crossmatch Imaging Radiologist's impression: Impressions Chest X-Ray 09/05/23 07:04 IMPRESSION: Interval worsening in patchy bilateral airspace disease. Progress Note: A&P Assessment and plan (1) Sinus tachycardia: Status: Acute (2) Right bundle branch block: Status: Acute (3) Sepsis: Status: Acute Plan On review of telemetry, essentially sinus tachycardia. I do not really see any other clear-cut atrial arrhythmia. Even with the rate goes quite fast, most likely sinus tachycardia than anything else. High sensitivity troponins have gone up which could indicate demand related NSTEMI. I spoke to patient as well as daughter at the bedside and explained the findings that the tachycardia is related to underlying infection/sepsis. Also explained the fact that the troponin elevation is most likely from demand. In this setting, the recommendation is to treat the underlying infection than anything else. Clinically, he looks quite ill and his white cell count is actually increasing in the last few days although lower than the initial level. Inflammation markers are still quite high. Then discussed with Dr. Tapia who stated that the family have decided upon comfort care. This seems quite reasonable. Overall, no further testing or other specific plan from cardiac. Pursue comfort measures as decided. Time Spent With Patient Time: Total time managing care of this patient today ____ minutes. Progress Note: Quality Stroke Does the patient have a stroke diagnosis?: No Procedures Date of Service Date of Service: 09/05/23
[2023-09-05] MEDS: LORazepam 2 MG/ML VIAL 0.5 MG IVPUSH ×3 (11:00→21:54)
--- NOTE | 2023-09-05 15:37 | P.PNIM_ITS ---
Subjective Subjective Date of Service: 09/05/23 Interval History: AHRF ,sacral cellulitis/abscess/possible osteomyelitis Review of Systems sob ,tachycardia ,cofunsed Physical Exam 2 Vital Signs: Vital Signs: Last Vital Signs Temp 98.6 F 09/05/23 12:18 Pulse 165 H 09/05/23 12:18 Resp 20 09/05/23 15:17 BP 128/80 09/05/23 12:18 Pulse Ox 99 09/05/23 08:31 O2 Del Method Nasal Cannula 09/05/23 08:31 O2 Flow Rate 1.5 09/05/23 08:31 BMI result Body Mass Index 18.8 limited : Appearance: Alert.? Oriented X1, sob cvs: rrr, [id number] ,tachycradia res: clear to auscultation ,no rhonchii or wheezing abd: no rebound or guarding ,nt, bs present. ext pulses present , no cyanosis ,. neuro: axo3 , nonfocal. Objective Data Active Medications Acetaminophen (Acetaminophen 325 Mg Tablet) 650 mg PO Q6H PRN PRN Reason: Pain, Mild (Pain Scale 1-3) Last Admin: 09/01/23 01:46 Dose: 650 mg Documented By: CHIRAG Fluticasone/Umeclidinium/Vilanterol (Fluticasone/Umeclidinium/Vilanterol 200/62.5/25 Blst.W.Dev) 1 puff INHALE RDAILY [facility] Last Admin: 09/05/23 08:37 Dose: 1 puff Documented By: YAEL Guaifenesin (Guaifenesin 200 Mg/10 Ml 10 Ml Liquid) 10 ml PO Q4H PRN PRN Reason: Cough Last Admin: 09/04/23 17:45 Dose: 10 ml Documented By: STU Hydrocortisone Sodium Succinate (Hydrocortisone Sod Succ/Pf 100 Mg Vial) 100 mg IVPUSH Q8H [facility] Last Admin: 09/05/23 11:36 Dose: 100 mg Documented By: HONG Ipratropium [place] (Ipratropium [place] 0.5 Mg/2.5 Ml Solution) 0.5 mg INHALE RQ4H WHILE AWAKE [facility] Last Admin: 09/05/23 11:45 Dose: Not Given Documented By: YAEL Non-Admin Reason: Patient Refused Loratadine (Loratadine 10 Mg Tablet) 10 mg PO DAILY [facility] Last Admin: 09/05/23 09:52 Dose: Not Given Documented By: HONG Non-Admin Reason: Patient Condition Contraindication Lorazepam (Lorazepam 2 Mg/Ml Vial) 0.5 mg IVPUSH Q2H PRN PRN Reason: anxiety Last Admin: 09/05/23 14:44 Dose: 0.5 mg Documented By: HONG Magnesium Oxide (Magnesium Oxide 400 Mg Tablet) 400 mg PO DAILY [facility] Last Admin: 09/05/23 09:53 Dose: Not Given Documented By: HONG Non-Admin Reason: Patient Condition Contraindication Melatonin (Melatonin 3 Mg Tablet) 6 mg PO BEDTIME PRN PRN Reason: Insomnia Morphine Sulfate (Morphine Sulfate 2 Mg/Ml Cartridge) 2 mg IVPUSH Q2H PRN; Protocol PRN Reason: Pain, Moderate(Pain Scale 4-6) Ondansetron HCl (Ondansetron Hcl 4 Mg/2 Ml Vial) 4 mg IVPUSH Q4H PRN PRN Reason: Nausea and Vomiting Oxymetazoline HCl (Oxymetazoline Hcl 0.05 % Nasal 15 Ml [place]) 2 spray NOSTRIL- B BID PRN PRN Reason: Congestion Stop: 09/07/23 07:57 Last Admin: 09/04/23 11:37 Dose: 2 spray Documented By: LIDIA Pantoprazole Sodium (Pantoprazole Sodium 40 Mg/10 Ml Vial) 40 mg IVPUSH DAILY@0630 [facility] Last Admin: 09/05/23 05:30 Dose: 40 mg Documented By: GORAN Scopolamine (Scopolamine 1.5 Mg Patch.Td.3) 1.5 mg EAR-BEHIND Q72H [facility] Sertraline HCl (Sertraline Hcl 100 Mg Tablet) 100 mg PO DAILY [facility] Last Admin: 09/05/23 09:53 Dose: Not Given Documented By: HONG Non-Admin Reason: Patient Condition Contraindication Sodium Chloride (0.9 % Sodium Chloride Flush 3 Ml Syringe) 3 ml IVFLUSH QSHIFT [facility] Last Admin: 09/05/23 09:02 Dose: 3 ml Documented By: HONG Tamsulosin HCl (Tamsulosin Hcl 0.4 Mg Capsule) 0.4 mg PO DAILY [facility] Last Admin: 09/05/23 09:53 Dose: Not Given Documented By: HONG Non-Admin Reason: Patient Condition Contraindication Labs 09/05/23 07:07 09/05/23 07:07 Labs: Laboratory Results - last 24 hr 09/01/23 09/02/23 09/04/23 17:28 08:35 05:34 MCV MCH MCHC RDW Plt Count MPV Immature Gran % (Auto) Neut % (Auto) Lymph % (Auto) [place] % (Auto) Eos % (Auto) Baso % (Auto) Lymph # (Auto) [place] # (Auto) Eos # (Auto) Baso # (Auto) Abs Immat Gran (auto) Absolute Neuts (auto) Absolute Nucleated RBC Nucleated RBC % (auto) Smear Tech's Comments VBG pH VBG pCO2 VBG pO2 VBG HCO3 VBG O2 Saturation VBG Base Excess Anion Gap Estim Creat Clear Calc Estimated GFR Random Glucose Lactic Acid Calcium Phosphorus Magnesium Total Bilirubin AST ALT Alkaline Phosphatase Troponin I High Sens Total Protein Albumin TSH 0.76 Stl C. cayetanensis PCR Stool Rotavirus A PCR Stl Adenov F 40/41 PCR Stool Astrovirus (PCR) Stool Campylobacter PCR Stool Cryptosporidium PCR Stl Sh Tox Pr E STEC PCR Stool E coli O157 PCR Stl Enterotoxigenic E PCR Stool EPEC (PCR) Stool EAEC (PCR) Stl E. histolytica PCR Stool Giardia Lamblia PCR Stl P. shigelloides PCR Stool Salmonella PCR Stool Sapovirus (PCR) Stl Shigella/EIEC PCR St Y.enterocolitica PCR Stool Vibrio (PCR) Stl Vibrio cholerae PCR Stl Norovirus GI/GII PCR Random Vancomycin C. difficile Tox B Gene Ur Strep pneumoniae Ag Not Detected Blood Type A Positive Antibody Screen NEGATIVE Crossmatch See Detail 09/04/23 09/05/23 09/05/23 17:25 07:06 07:07 MCV Cancelled 85.0 MCH Cancelled 27.8 MCHC Cancelled 32.8 RDW Cancelled 17.1 H Plt Count Cancelled 160 MPV Cancelled 9.5 Immature Gran % (Auto) Cancelled 1.7 H Neut % (Auto) Cancelled 91.6 H Lymph % (Auto) Cancelled 3.4 L [place] % (Auto) Cancelled 3.2 Eos % (Auto) Cancelled 0.0 Baso % (Auto) Cancelled 0.1 Lymph # (Auto) Cancelled 0.8 L [place] # (Auto) Cancelled 0.7 Eos # (Auto) Cancelled 0.0 Baso # (Auto) Cancelled 0.0 Abs Immat Gran (auto) Cancelled 0.40 H Absolute Neuts (auto) Cancelled 21.0 H Absolute Nucleated RBC Cancelled 0.000 Nucleated RBC % (auto) Cancelled 0.0 Smear Tech's Comments VERIFIED VBG pH VBG pCO2 VBG pO2 VBG HCO3 VBG O2 Saturation VBG Base Excess Anion Gap Cancelled 18 Estim Creat Clear Calc Cancelled 21.6 Estimated GFR Cancelled 20 Random Glucose Cancelled 122 H Lactic Acid 1.8 Calcium Cancelled 9.0 Phosphorus 3.7 Magnesium 1.7 Total Bilirubin Cancelled 0.4 AST Cancelled 10 ALT Cancelled 9 Alkaline Phosphatase Cancelled 40 Troponin I High Sens 620.2 H* D Total Protein Cancelled 6.1 L Albumin Cancelled 3.6 TSH Stl C. cayetanensis PCR Not Detected Stool Rotavirus A PCR Not Detected Stl Adenov F 40/41 PCR Not Detected Stool Astrovirus (PCR) Not Detected Stool Campylobacter PCR Not Detected Stool Cryptosporidium PCR Not Detected Stl Sh Tox Pr E STEC PCR Not Detected Stool E coli O157 PCR Not applicable Stl Enterotoxigenic E PCR Not Detected Stool EPEC (PCR) Not Detected Stool EAEC (PCR) Not Detected Stl E. histolytica PCR Not Detected Stool Giardia Lamblia PCR Not Detected Stl P. shigelloides PCR Not Detected Stool Salmonella PCR Not Detected Stool Sapovirus (PCR) Not Detected Stl Shigella/EIEC PCR Not Detected St Y.enterocolitica PCR Not Detected Stool Vibrio (PCR) Not Detected Stl Vibrio cholerae PCR Not Detected Stl Norovirus GI/GII PCR Not Detected Random Vancomycin 20.2 H C. difficile Tox B Gene NEGATIVE Ur Strep pneumoniae Ag Blood Type Antibody Screen Crossmatch 09/05/23 08:21 MCV MCH MCHC RDW Plt Count MPV Immature Gran % (Auto) Neut % (Auto) Lymph % (Auto) [place] % (Auto) Eos % (Auto) Baso % (Auto) Lymph # (Auto) [place] # (Auto) Eos # (Auto) Baso # (Auto) Abs Immat Gran (auto) Absolute Neuts (auto) Absolute Nucleated RBC Nucleated RBC % (auto) Smear Tech's Comments VBG pH 7.42 VBG pCO2 31 VBG pO2 144 VBG HCO3 20 L VBG O2 Saturation TNP VBG Base Excess -2.9 Anion Gap Estim Creat Clear Calc Estimated GFR Random Glucose Lactic Acid Calcium Phosphorus Magnesium Total Bilirubin AST ALT Alkaline Phosphatase Troponin I High Sens Total Protein Albumin TSH Stl C. cayetanensis PCR Stool Rotavirus A PCR Stl Adenov F 40/41 PCR Stool Astrovirus (PCR) Stool Campylobacter PCR Stool Cryptosporidium PCR Stl Sh Tox Pr E STEC PCR Stool E coli O157 PCR Stl Enterotoxigenic E PCR Stool EPEC (PCR) Stool EAEC (PCR) Stl E. histolytica PCR Stool Giardia Lamblia PCR Stl P. shigelloides PCR Stool Salmonella PCR Stool Sapovirus (PCR) Stl Shigella/EIEC PCR St Y.enterocolitica PCR Stool Vibrio (PCR) Stl Vibrio cholerae PCR Stl Norovirus GI/GII PCR Random Vancomycin C. difficile Tox B Gene Ur Strep pneumoniae Ag Blood Type Antibody Screen Crossmatch Assessment and Plan (1) Sepsis: Status: Acute Plan 67yo M with hidradenitis suppurativa on prednisone and anakinra and secukinumab, CKD3, BPH, COPD, AUD in remission, mood disorder, BPH, GERDnoncompliance with antibiotics due to side effect of diarrhea presents with progressive cough, became lethargic and developed fever-initially admitted because of septic secondary to purulent cellulitis of buttocks with likely sacral osteomyelitis and multifocal PNA, toxic metabolic encephalopathy, poor oral intake:Was on broad-spectrum antibiotics , patient become hypotensive and was in ICU for hypotension requiring pressors: Subsequently tranferred to floor on 09/04/23 seems blood pressure seems to to be improving , has worsenin BREANA on CKD, as well as anemia, currently on vanco Zosyn for pneumonia/sacral infection: Overnight patient was becoming more hypoxemic, renal function worsening further, also has electrolyte abnormalities: Evaluated by ICU again: patient's hospital course and overall prognosis, describing a cycle of sepsis, encephalopathy, aspiration, with what seems like an inability to definitely treat the source of sepsis, being patient's sacral wounds - prognosis seems poor, d/w ICU an dhospitalist service -Family decided for comfort measures.comfort meds ordered,hopsice consult placed. Quality Stroke Does the patient have a stroke diagnosis?: No VTE Prior VTE?: No VTE Risk Level:: Medical - moderate - high VTE Device Contraindication: N/A - Device Ordered VTE Drug Contraindication: Treatment Not Tolerated
[2023-09-05] MEDS: Scopolamine 1.5 MG PATCH.TD.3 EAR-BEHIND (16:36)
[2023-09-05] MEDS: Morphine Sulfate 2 MG/ML CARTRIDGE IVPUSH ×4 (16:37→23:59)
[2023-09-06] MEDS: Morphine Sulfate 2 MG/ML CARTRIDGE IVPUSH (00:50)
[2023-09-06] MEDS: 0.9 % Sodium Chloride Flush 3 ML SYRINGE IVFLUSH ×3 (00:55→15:07)
[2023-09-06] MEDS: Hydrocortisone Sod Succ/PF 100 MG VIAL IVPUSH ×3 (03:04→17:12)
[2023-09-06] MEDS: Morphine Sulfate 2 MG/ML CARTRIDGE 4 MG IVPUSH ×9 (03:12→22:13)
[2023-09-06] MEDS: Pantoprazole Sodium 40 MG/10 ML VIAL IVPUSH (06:13)
[2023-09-06 09:38] LABS: Legionella Ag Urine Not Detected (Not Detected)
--- NOTE | 2023-09-06 10:20 | MHC.CM.PN ---
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 CM will follow further as needed.
--- NOTE | 2023-09-06 10:32 | MHC.CLN ---
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
--- NOTE | 2023-09-06 11:12 | MHC.SLORD ---
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 Speech to be d/c'ed, please re-refer if needed.
[2023-09-06 12:37] VITALS: RESP 18
--- NOTE | 2023-09-06 14:26 | HO.PM.IMPN ---
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 neuro:unable to do due to menatl status /sleepy Objective Data Active Medications Acetaminophen (Acetaminophen 325 Mg Tablet) 650 mg PO Q6H PRN PRN Reason: Pain, Mild (Pain Scale 1-3) Last Admin: 09/01/23 01:46 Dose: 650 mg Documented By: CHIRAG Fluticasone/Umeclidinium/Vilanterol (Fluticasone/Umeclidinium/Vilanterol 200/62.5/25 Blst.W.Dev) 1 puff INHALE RDAILY COUNT INCLUDES THE [facility] Last Admin: 09/06/23 07:44 Dose: Not Given Documented By: ARTEM Non-Admin Reason: pt family wants pt to sleep Guaifenesin (Guaifenesin 200 Mg/10 Ml 10 Ml Liquid) 10 ml PO Q4H PRN PRN Reason: Cough Last Admin: 09/04/23 17:45 Dose: 10 ml Documented By: STU Hydrocortisone Sodium Succinate (Hydrocortisone Sod Succ/Pf 100 Mg Vial) 100 mg IVPUSH Q8H COUNT INCLUDES THE [facility] Last Admin: 09/06/23 10:59 Dose: 100 mg Documented By: HONG Ipratropium [place] (Ipratropium [place] 0.5 Mg/2.5 Ml Solution) 0.5 mg INHALE RQ4H WHILE AWAKE COUNT INCLUDES THE [facility] Last Admin: 09/06/23 11:19 Dose: Not Given Documented By: ARTEM Non-Admin Reason: Patient Asleep Loratadine (Loratadine 10 Mg Tablet) 10 mg PO DAILY COUNT INCLUDES THE [facility] Last Admin: 09/06/23 08:43 Dose: Not Given Documented By: HONG Non-Admin Reason: VENEER TAPER Lorazepam (Lorazepam 2 Mg/Ml Vial) 0.5 mg IVPUSH Q2H PRN PRN Reason: anxiety Last Admin: 09/05/23 21:54 Dose: 0.5 mg Documented By: SOO Magnesium Oxide (Magnesium Oxide 400 Mg Tablet) 400 mg PO DAILY COUNT INCLUDES THE [facility] Last Admin: 09/06/23 08:44 Dose: Not Given Documented By: HONG Non-Admin Reason: VENEER TAPER Melatonin (Melatonin 3 Mg Tablet) 6 mg PO BEDTIME PRN PRN Reason: Insomnia Morphine Sulfate (Morphine Sulfate 2 Mg/Ml Cartridge) 4 mg IVPUSH Q2H PRN; Protocol PRN Reason: modaerate/severe pain or WOB Last Admin: 09/06/23 13:14 Dose: 4 mg Documented By: HONG Ondansetron HCl (Ondansetron Hcl 4 Mg/2 Ml Vial) 4 mg IVPUSH Q4H PRN PRN Reason: Nausea and Vomiting Oxymetazoline HCl (Oxymetazoline Hcl 0.05 % Nasal 15 Ml [place]) 2 spray NOSTRIL-B BID PRN PRN Reason: Congestion Stop: 09/07/23 07:57 Last Admin: 09/04/23 11:37 Dose: 2 spray Documented By: LIDIA Pantoprazole Sodium (Pantoprazole Sodium 40 Mg/10 Ml Vial) 40 mg IVPUSH DAILY@0630 COUNT INCLUDES THE [facility] Last Admin: 09/06/23 06:13 Dose: 40 mg Documented By: SOO Scopolamine (Scopolamine 1.5 Mg Patch.Td.3) 1.5 mg EAR-BEHIND Q72H COUNT INCLUDES THE [facility] Last Admin: 09/05/23 16:36 Dose: 1.5 mg Documented By: HONG Sertraline HCl (Sertraline Hcl 100 Mg Tablet) 100 mg PO DAILY COUNT INCLUDES THE [facility] Last Admin: 09/06/23 08:44 Dose: Not Given Documented By: HONG Non-Admin Reason: VENEER TAPER Sodium Chloride (0.9 % Sodium Chloride Flush 3 Ml Syringe) 3 ml IVFLUSH QSHIFT COUNT INCLUDES THE [facility] Last Admin: 09/06/23 08:43 Dose: 3 ml Documented By: HONG Tamsulosin HCl (Tamsulosin Hcl 0.4 Mg Capsule) 0.4 mg PO DAILY LOBO Last Admin: 09/06/23 08:44 Dose: Not Given Documented By: HONG Non-Admin Reason: NPO Labs 09/05/23 07:07 09/05/23 07:07 Labs: Laboratory Results - last 24 hr 09/01/23 17:28 Ur L.pneumophila Ag Not Detected Microbiology Microbiology Results: Microbiology 08/31/23 20:29 Blood Culture - Final Blood - Venous No growth after 5 days. 08/31/23 20:31 Blood Culture - Final Blood - Venous No growth after 5 days. Assessment and Plan (1) Osteomyelitis: Status: Acute (2) Cellulitis and abscess of buttock: Status: Acute Assessment and Plan: 67yo M with hidradenitis suppurativa on prednisone and anakinra and secukinumab, CKD3, BPH, COPD, AUD in remission, mood disorder, BPH, GERDnoncompliance with antibiotics due to side effect of diarrhea presents with progressive cough, became lethargic and developed fever-initially admitted because of septic secondary to purulent cellulitis of buttocks with likely sacral osteomyelitis and multifocal PNA, toxic metabolic encephalopathy, poor oral intake:Was on broad-spectrum antibiotics , patient become hypotensive and was in ICU for hypotension requiring pressors: Subsequently tranferred to floor on 09/04/23 seems blood pressure seems to to be improving , has worsenin BREANA on CKD, as well as anemia, currently on vanco Zosyn for pneumonia/sacral infection: Overnight patient was becoming more hypoxemic, renal function worsening further, also has electrolyte abnormalities: Evaluated by ICU again: patient's hospital course and overall prognosis, describing a cycle of sepsis, encephalopathy, aspiration, with what seems like an inability to definitely treat the source of sepsis, being patient's sacral wounds - prognosis seems poor, d/w ICU an dhospitalist service -Family decided for comfort measures.comfort meds ordered,hopsice consult placed. Quality Stroke Does the patient have a stroke diagnosis?: No VTE Prior VTE?: No VTE Risk Level:: Medical - moderate - high VTE Device Contraindication: N/A - Device Ordered VTE Drug Contraindication: Treatment Not Tolerated
--- NOTE | 2023-09-06 16:41 | PC.NURSE ---
Patient's asked not to disturb patient to turn/reposition. Discussed with family the reasons/importance for repositioning, patient family feels it is more important to have patient undisturbed, feels patient gets agitated and restless when staff attempts to adjust patient's position at this time.
[2023-09-06] MEDS: LORazepam 2 MG/ML VIAL 0.5 MG IVPUSH (18:33)
[2023-09-06 22:13] VITALS: RESP 20
[2023-09-07 00:25] VITALS: RESP 16
[2023-09-07] MEDS: Morphine Sulfate 2 MG/ML CARTRIDGE 4 MG IVPUSH ×9 (00:25→20:33)
[2023-09-07] MEDS: 0.9 % Sodium Chloride Flush 3 ML SYRINGE IVFLUSH ×2 (00:25→08:40)
[2023-09-07 04:03] VITALS: RESP 16
[2023-09-07 04:33] VITALS: RESP 16
[2023-09-07 06:03] VITALS: RESP 14
[2023-09-07 06:43] LABS: Complement C3 68 mg/dL (82-185)
--- NOTE | 2023-09-07 13:19 | MHC.CM.PN ---
CM met with Patient's /Anum to discuss dc planning. Per Anum, Patient is not likely to qualify for [facility] nor does he have the funds to pay privately for R&B under Hospice, in a SNF. Anum states that Patient is in pain all the time and cannot even tolerate being repositioned. Anum is now in agreement with [facility] and SOHAN has reached out to [facility] to determine if this is still an option. CM will follow. has been made aware.
--- NOTE | 2023-09-07 14:30 | HO.PM.IMPN ---
Subjective Subjective Date of Service: 09/08/23 Interval History: f/u on comfort measures only Patient seems comfortable, Physical Exam Vital Signs: Vital Signs: Last Vital Signs Temp 98.6 F 09/05/23 12:18 Pulse 165 H 09/05/23 12:18 Resp 14 09/07/23 06:03 BP 128/80 09/05/23 12:18 Pulse Ox 99 09/05/23 08:31 O2 Del Method Nasal Cannula 09/05/23 08:31 O2 Flow Rate 1.5 09/05/23 08:31 BMI result Body Mass Index 18.8 Const: Other: Mostly somnolent, no distresss Objective Data Active Medications Acetaminophen (Acetaminophen 325 Mg Tablet) 650 mg PO Q6H PRN PRN Reason: Pain, Mild (Pain Scale 1-3) Last Admin: 09/01/23 01:46 Dose: 650 mg Documented By: CHIRAG Fluticasone/Umeclidinium/Vilanterol (Fluticasone/Umeclidinium/Vilanterol 200/62.5/25 Blst.W.Dev) 1 puff INHALE RDAILY [facility] Last Admin: 09/07/23 08:35 Dose: Not Given Documented By: EVA Non-Admin Reason: LINSEED CAKE TRIMMER Guaifenesin (Guaifenesin 200 Mg/10 Ml 10 Ml Liquid) 10 ml PO Q4H PRN PRN Reason: Cough Last Admin: 09/04/23 17:45 Dose: 10 ml Documented By: STU Hydrocortisone Sodium Succinate (Hydrocortisone Sod Succ/Pf 100 Mg Vial) 100 mg IVPUSH Q8H [facility] Last Admin: 09/07/23 10:39 Dose: Not Given Documented By: EVA Non-Admin Reason: LINSEED CAKE TRIMMER Ipratropium [place] (Ipratropium [place] 0.5 Mg/2.5 Ml Solution) 0.5 mg INHALE RQ4H WHILE AWAKE [facility] Last Admin: 09/07/23 11:18 Dose: Not Given Documented By: PRACHI Non-Admin Reason: Pt LINSEED CAKE TRIMMER, family request RT not disturb. Loratadine (Loratadine 10 Mg Tablet) 10 mg PO DAILY [facility] Last Admin: 09/07/23 08:35 Dose: Not Given Documented By: EVA Non-Admin Reason: LINSEED CAKE TRIMMER Lorazepam (Lorazepam 2 Mg/Ml Vial) 0.5 mg IVPUSH Q2H PRN PRN Reason: anxiety Last Admin: 09/06/23 18:33 Dose: 0.5 mg Documented By: HONG Magnesium Oxide (Magnesium Oxide 400 Mg Tablet) 400 mg PO DAILY [facility] Last Admin: 09/07/23 08:35 Dose: Not Given Documented By: EVA Non-Admin Reason: LINSEED CAKE TRIMMER Melatonin (Melatonin 3 Mg Tablet) 6 mg PO BEDTIME PRN PRN Reason: Insomnia Morphine Sulfate (Morphine Sulfate 2 Mg/Ml Cartridge) 4 mg IVPUSH Q2H PRN; Protocol PRN Reason: modaerate/severe pain or WOB Last Admin: 09/07/23 13:28 Dose: 4 mg Documented By: EVA Ondansetron HCl (Ondansetron Hcl 4 Mg/2 Ml Vial) 4 mg IVPUSH Q4H PRN PRN Reason: Nausea and Vomiting Scopolamine (Scopolamine 1.5 Mg Patch.Td.3) 1.5 mg EAR-BEHIND Q72H [facility] Last Admin: 09/05/23 16:36 Dose: 1.5 mg Documented By: HONG Sertraline HCl (Sertraline Hcl 100 Mg Tablet) 100 mg PO DAILY [facility] Last Admin: 09/07/23 08:35 Dose: Not Given Documented By: EVA Non-Admin Reason: LINSEED CAKE TRIMMER Sodium Chloride (0.9 % Sodium Chloride Flush 3 Ml Syringe) 3 ml IVFLUSH QSHIFT [facility] Last Admin: 09/07/23 08:40 Dose: 3 ml Documented By: EVA Tamsulosin HCl (Tamsulosin Hcl 0.4 Mg Capsule) 0.4 mg PO DAILY [facility] Last Admin: 09/07/23 08:35 Dose: Not Given Documented By: EVA Non-Admin Reason: LINSEED CAKE TRIMMER Labs 09/05/23 07:07 09/05/23 07:07 Labs: Laboratory Results - last 24 hr 09/05/23 07:06 Complement C3 68 L Complement C4 22 Assessment and Plan (1) Osteomyelitis: Status: Acute (2) Cellulitis and abscess of buttock: Status: Acute Assessment and Plan: The patient has been experiencing a multitude of serious health issues, including hidradenitis suppurativa, chronic kidney disease (CKD), benign prostatic hyperplasia (BPH), chronic obstructive pulmonary disease (COPD), alcohol use disorder (AUD), mood disorder, and gastroesophageal reflux disease (GERD). He presentedwith sepsis secondary to purulent cellulitis of the buttocks, likely sacral osteomyelitis, and multifocal pneumonia The patient's deteriorating condition, including hypotension requiring pressors, acute kidney injury (BREANA) on CKD, anemia, electrolyte abnormalities, and progressive hypoxemia, suggests a significant systemic response to infection and organ dysfunction. Despite treatment with broad-spectrum antibiotics and subsequent management in the ICU, the patient's prognosis appears poor, with low likelihood of recovery. Given the overall prognosis and the patient's worsening condition, the decision to transition to comfort measures only, as determined by the , reflects a shift towards palliative care to prioritize the patient's comfort and quality of life. It's a challenging situation, and supportive care measures will be essential to ensure the patient's comfort and dignity in this difficult time. Quality Stroke Does the patient have a stroke diagnosis?: No VTE Prior VTE?: No VTE Risk Level:: Medical - moderate - high VTE Device Contraindication: N/A - Device Ordered VTE Drug Contraindication: Treatment Not Tolerated
--- NOTE | 2023-09-07 15:27 | MHC.CM.PN ---
Patient is signed onto [facility] with [facility]. MD is aware.
[2023-09-07] MEDS: LORazepam 2 MG/ML VIAL 0.5 MG IVPUSH (20:51)
--- NOTE | 2023-09-07 21:16 | PC.NURSE ---
[id number] Pt found to be RR 38 abdominal breathing, audible gurgling lung sounds. Pt requesting pain medication, 4 mg Morphine IVP given slowly over 3 minutes to monitor effect. Velma present in the room. Attempted to oral suction patient to provide comfort from lung secretions per request. Unable to pass oral yankuer to perform oral suction effectively. Patient continued to present unsettled, grasping side rail, attempting to sit himself upright, gasping breath RR upper 30's appearing anxious asking for help . Educated patient can receive 0.5mg Ativan IV for anxiety and requested it be given. Upon administration patient mottled from upper abdomen to toes, bilateral hands and arm cool to touch. Lips cyanotic as pt working to breath. After Ativan administration patient rested head to side, patient's RR slowed and progressed to agonal rhythm. by bedside and informed/educated based on assessment and findings patient actively dying. At 2107 patient found to have ceased breathing, HR unable to auscultate and no signs of life. Dr. Orosco notifed of and came to bedside for pronouncement. requesting [facility] home.
--- NOTE | 2023-09-07 21:20 | PM.EVENT ---
Event Note Date of Service: 09/07/23 Event Note: I was called to patient's bedside to pronounce the patient. No spontaneous movements were present. There was no response to verbal or tactile stimulus. Pupils were mid dilated and fixed. No breath sounds were appreciated over either lung field. No carotid pulses were palpable. No heart sounds were auscultated over entire precordium. Patient was on comfort measures only. Patient pronounced on 09/07/2023 at 21:08. Condolences offered to at bedside. Time Spent With Patient Time: Total time managing care of this patient today ____ minutes.
[2023-09-08 03:48] LABS: Haptoglobin 237 mg/dL (43-212)
--- NOTE | 2023-09-08 07:22 | PM.DDS ---
Discharge Sum: Prov Provider Primary care physician: Todd Landin MD Consults: 09/01/23 08:20 Consult to General Surgery Routine Consulting Provider: [facility] Reason for consultation: gluteal abscesses Consult to Infectious Diseases Routine Consulting Provider: [facility] Reason for consultation: gluteal abscesses + PNA; septic 09/01/23 17:16 Consult to Wound Care Routine Reason for consultation: Major HS with weepy wounds all over buttocks 09/04/23 15:57 Consult to Nephrology Routine Consulting Provider: [facility] Reason for consultation: beryl on ckd Has provider been notified: No 09/05/23 07:14 Consult to Cardiology Routine Consulting Provider: [facility] Reason for consultation: Persistent tachycardia 09/05/23 07:29 Consult to Critical Care Routine Consulting Provider: Frances Yao Reason for consultation: level of care Has provider been notified: No Discharge Sum: Diag Contributing Factors (1) Osteomyelitis: (2) Cellulitis and abscess of buttock: Discharge Sum: Summary Date and Time Date of admission: 08/31/23 22:14 Summary Details: Admission hpi Chief Complaint: Fever This is a 67-year-old male with pertinent history of hidradenitis suppurativa, CKD stage 3, BPH, COPD not on home oxygen, alcohol use disorder in remission, mood disorder, BPH, gastroesophageal reflux disease who presents to the emergency department for evaluation of fevers and chills. The stated that the patient has been drowsy all day. When she took his temperature it was 102 and she administered Tylenol. Patient has been complaining of productive cough that has been ongoing for a while. Also has significant draining from his buttock area. He was recently admitted and discharged on 07/24/23 for hidradenitis suppurativa with sacral abscesses. Patient was not compliant with IV antibiotics during hospital course. The stated that the patient did not complete his p.o. antibiotic course after discharge. Unable to obtain review of systems. In the emergency department, patient was found to be septic and initiated on empiric IV antibiotics. Imaging concerning for multifocal pneumonia Hospital course: a 67 Y M with chronic renal insufficiency, COPD, alcohol use, and recent sacral abscess, not compliant with antibiotics, initially presenting to emergency department on 08/30 with fevers; work-up suggestive?of worsening sacral cellulitis/abscess/possible osteomyelitis, as well as possible?multifocal?pneumonia; on 09/01, ICU consulted for persistent hypotension, c/f septic shock, resolved; ICU doctor met patient's and daughter and discussed patient's hospital course and overall prognosis, describing a cycle of sepsis, encephalopathy, aspiration, with what seems like an inability to definitely treat the source of sepsis, and prognosis being poor. Patient was subsequently made comfort measures only and on 09/07/23 at 21:08 Final diagnoses: Septic shock sacral abscess Acute sacral osteomylitis pneumonia due to aspiration metabolic encephalopathy Encephalopathy Additional Data Attending physician: Noel Napier MD
== END 2023-09-08 00:01 | disposition expired | DRG 871 ==
LOC: HO.ED 22:02 → HO.EDOVER 22:21 → HO.IMC 09-01 09:58 → HO.EDOVER 09-01 10:10 → HO.IMC 09-01 15:21 → HO.ICU 09-02 10:27 → HO.IMC 09-04 12:32
PROVIDERS: Family Medicine; Internal Medicine; Internal Medicine Critical Care Medicine; Internal Medicine Nephrology; Nurse Practitioner Family; Admitting Provider Student in an Organized Health Care Education/Training Program; Emergency Provider Emergency Medicine; PCP Family Medicine; Visit Provider Internal Medicine
DX: A41.9 Sepsis, unspecified organism (principal); G92.8 Other toxic encephalopathy; J18.9 Pneumonia, unspecified organism; R65.21 Severe sepsis with septic shock; N17.0 Acute kidney failure with tubular necrosis; M46.28 Osteomyelitis of vertebra, sacral and sacrococcygeal region; E27.49 Other adrenocortical insufficiency; L02.31 Cutaneous abscess of buttock; E44.0 Moderate protein-calorie malnutrition; Z68.1 Body mass index [BMI] 19.9 or less, adult; E83.42 Hypomagnesemia; Z66 Do not resuscitate; N40.0 Benign prostatic hyperplasia without lower urinary tract symptoms; I45.10 Unspecified right bundle-branch block; Z51.5 Encounter for palliative care; K21.9 Gastro-esophageal reflux disease without esophagitis; N18.30 Chronic kidney disease, stage 3 unspecified; J44.9 Chronic obstructive pulmonary disease, unspecified; F10.21 Alcohol dependence, in remission; L73.2 Hidradenitis suppurativa; L89.892 Pressure ulcer of other site, stage 2; F17.210 Nicotine dependence, cigarettes, uncomplicated; Z71.6 Tobacco abuse counseling; Z91.148 Patient's other noncompliance with medication regimen for other reason; Z20.822 Contact with and (suspected) exposure to COVID-19; Z79.52 Long term (current) use of systemic steroids; Z79.620 Long term (current) use of immunosuppressive biologic; Z79.899 Other long term (current) drug therapy
CPT/HCPCS: 0241U; 36415; 71045; 74176; 80048; 80053; 80202; 82607; 82728; 82746; 82803; 83010; 83540; 83605; 83615; 83690; 83735; 84100; 84145; 84443; 84484; 85007; 85025; 85027; 86140; 86160; 86850; 86900; 86901; 86923; 87040; 87070; 87077; 87186; 87205; 87449; 87493; 87507; 87899; 92610; 92950; 93005; 94640; 99285; 99498; C1758; C9113; J0131; J0153; J0613; J1170; J1650; J1720; J1940; J2060; J2270; J2405; J2543; J3370; J3475; J3480; J7120; P9016; P9047

== ENCOUNTER 2023-08-31 22:14 | Outpatient (BNV) | payer MEDICARE, SELFPAY | END 2023-09-01 00:26 | PROVIDERS: Admitting Provider Student in an Organized Health Care Education/Training Program; Emergency Provider Emergency Medicine; PCP Family Medicine; Visit Provider Internal Medicine | DX: R00.0 Tachycardia, unspecified (principal); R94.31 Abnormal electrocardiogram [ECG] [EKG]; I45.10 Unspecified right bundle-branch block; I49.3 Ventricular premature depolarization | CPT/HCPCS: 93010 ==

== ENCOUNTER 2023-08-31 22:14 | Outpatient (BNV) | payer MEDICARE, SELFPAY | END 2023-09-05 06:21 | PROVIDERS: Admitting Provider Student in an Organized Health Care Education/Training Program; Emergency Provider Emergency Medicine; PCP Family Medicine; Visit Provider Internal Medicine | DX: R00.0 Tachycardia, unspecified (principal); I45.10 Unspecified right bundle-branch block | CPT/HCPCS: 93010 ==

== ENCOUNTER 2023-08-31 22:14 | Outpatient (BNV) | payer MEDICARE, SELFPAY | END 2023-09-04 14:56 | PROVIDERS: Admitting Provider Student in an Organized Health Care Education/Training Program; Emergency Provider Emergency Medicine; PCP Family Medicine; Visit Provider Internal Medicine | DX: A41.9 Sepsis, unspecified organism (principal); R00.0 Tachycardia, unspecified; I45.10 Unspecified right bundle-branch block | CPT/HCPCS: 93010 ==

== ENCOUNTER → 2023-08-31 22:14 | Outpatient (BNV) | payer MEDICARE, SELFPAY | PROVIDERS: Admitting Provider Student in an Organized Health Care Education/Training Program; Emergency Provider Emergency Medicine; Visit Provider Physician Assistant Surgical | DX: L73.2 Hidradenitis suppurativa (principal); A41.9 Sepsis, unspecified organism | CPT/HCPCS: 99222 ==

== ENCOUNTER → 2023-08-31 22:14 | Outpatient (BNV) | payer MEDICARE, SELFPAY | PROVIDERS: Admitting Provider Student in an Organized Health Care Education/Training Program; Emergency Provider Emergency Medicine; PCP Family Medicine; Visit Provider Internal Medicine Critical Care Medicine | DX: M86.9 Osteomyelitis, unspecified (principal); L02.31 Cutaneous abscess of buttock; L03.317 Cellulitis of buttock; A41.9 Sepsis, unspecified organism; R65.21 Severe sepsis with septic shock; L73.2 Hidradenitis suppurativa | CPT/HCPCS: 99291; 99292; 99499 ==

== ENCOUNTER → 2023-08-31 22:14 | Outpatient (BNV) | payer MEDICARE, SELFPAY | PROVIDERS: Admitting Provider Student in an Organized Health Care Education/Training Program; Emergency Provider Emergency Medicine; PCP Family Medicine; Visit Provider Internal Medicine | DX: A41.9 Sepsis, unspecified organism (principal); L73.2 Hidradenitis suppurativa; J18.9 Pneumonia, unspecified organism | CPT/HCPCS: 99222 ==

== ENCOUNTER → 2023-08-31 22:14 | Outpatient (BNV) | payer MEDICARE, SELFPAY | PROVIDERS: Admitting Provider Student in an Organized Health Care Education/Training Program; Emergency Provider Emergency Medicine; Visit Provider Student in an Organized Health Care Education/Training Program | DX: M46.28 Osteomyelitis of vertebra, sacral and sacrococcygeal region (principal); L03.317 Cellulitis of buttock; L02.31 Cutaneous abscess of buttock | CPT/HCPCS: 99223; 99231; 99232; 99233; 99238; 99499 ==

== ENCOUNTER → 2023-08-31 22:14 | Outpatient (BNV) | payer MEDICARE, SELFPAY | PROVIDERS: Admitting Provider Student in an Organized Health Care Education/Training Program; Emergency Provider Emergency Medicine; Visit Provider Internal Medicine | DX: I45.10 Unspecified right bundle-branch block (principal); I49.1 Atrial premature depolarization; R00.0 Tachycardia, unspecified; R94.31 Abnormal electrocardiogram [ECG] [EKG] | CPT/HCPCS: 93010; 99223; 99233 ==